=== PATIENT | female | born 1960 | race Caucasian/White ===

== ENCOUNTER 2021-02-02 17:40 | Inpatient (IN) | payer MEDICARE, MEDICAID ==
[~2021-02-02] VITALS: Ht 149.9 cm; Wt 69.9 kg
[2021-02-02 20:00] VITALS: BP 124/60
[2021-02-02] MEDS ORDERED: traZODone 50mg tablet PO PRN ×2 (21:15→23:50)
[2021-02-02] MEDS ORDERED: DIVA500T2 PO (23:08)
[2021-02-02] MEDS ORDERED: CLON-528 PO (23:10)
[2021-02-02] MEDS ORDERED: TRAZ300T2 PO (23:11)
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
[2021-02-02] MEDS ORDERED: acetaminophen 325mg tablet PO PRN (23:50)
[2021-02-02] MEDS ORDERED: magnesium hydroxide 30ml (MOM) UD suspension PO PRN (23:50)
[2021-02-02] MEDS ORDERED: mag hydrox/Alum hydrox/simeth 30ml oral suspension PO PRN (23:50)
[2021-02-02] MEDS ORDERED: loperamide 2mg capsule PO PRN (23:50)
[2021-02-02] MEDS ORDERED: NICOTINE POLACRILEX 2 MG LOZENGE BC PRN (23:50)
[2021-02-03] MEDS ORDERED: traZODone 50mg tablet PO ONE (01:15)
[2021-02-03] MEDS: LORazepam 1 MG tablet PO PRN ×3 (01:19→20:05)
[2021-02-03] MEDS ORDERED: ziprasidone 20mg capsule PO ONE (01:25)
--- NOTE | 2021-02-03 01:43 | NUR ---
At 0130 pt woke and became very agitated and loud, re-direction did not work, 1mg ativan, 20mg geodon given per provider.
[2021-02-03 08:00] VITALS: BP 124/51
[2021-02-03] MEDS: nicotine 21mg patch - 24 hr TD SCH (08:00)
[2021-02-03] MEDS ORDERED: ziprasidone 20mg capsule PO SCH (08:00)
[2021-02-03] MEDS ORDERED: clonazePAM 0.5mg tablet PO SCH (08:00)
[2021-02-03] MEDS: divalproex sodium 500mg tablet.DR PO SCH ×2 (08:31→20:05)
[2021-02-03 08:39] LABS: CHOL/HDL RATIO 2.9 (0.00-4.99); CHOLESTEROL 204 MG/DL (0-200); HDL CHOLESTEROL 71 MG/DL (35-60); LDL CHOLESTEROL 106 MG/DL (50-100); TRIGLYCERIDES 110 MG/DL (20-135); VALPROATE < 3.0 UG/ML (50-100)
[2021-02-03 08:46] LABS: HEMOGLOBIN A1C 5.9 % (4.5-6.2)
[2021-02-03] MEDS ORDERED: ziprasidone IM 20mg inj **IM only IM ONE (09:05)
[2021-02-03] MEDS ORDERED: LORazepam 2 mg/ml vial IM ONE (09:05)
[2021-02-03] MEDS ORDERED: LORazepam 2 mg/ml vial ONE (09:06)
[2021-02-03] MEDS ORDERED: ziprasidone IM 20mg inj **IM only ONE (09:06)
--- NOTE | 2021-02-03 09:10 | NUR ---
Pt awake and yelling at the top of her lungs non stop. Other pts on the unit becoming agitated. She will not be redirected and approached staff very closely as she is yelling and swinging her arms. Multiple attempts to redirect and listen to pt but she continues yelling at the top of her lungs. Order received for Geodon and Ativan IM per Edward Lopez PA to OBED Webster. Med given per Darin CLAY with this RN at side as well.
--- NOTE | 2021-02-03 09:15 | NUR ---
Agitation: PT started wailing in the community room during breakfast. Pt given her her AM meds plus Ativan. Pt continues screaming. Called Edward HANNON and received orders for Geodon and Ativan IM. Pt accepted shot without incident and continues to scream in her room at the wall. Several door slams also.
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
[2021-02-03 20:00] VITALS: BP 126/72
[2021-02-03] MEDS: traZODone 50mg tablet PO PRN (20:06)
[2021-02-04] MEDS: traZODone 50mg tablet PO PRN ×3 (00:49→22:11)
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
[2021-02-04] MEDS ORDERED: ziprasidone IM 20mg inj **IM only IM ONE ×3 (07:10→14:30)
[2021-02-04] MEDS: PALIPERIDONE 3 MG TAB.ER.24 PO SCH (07:27)
[2021-02-04] MEDS: LORazepam 1 MG tablet PO PRN ×2 (07:27→18:47)
[2021-02-04] MEDS: divalproex sodium 500mg tablet.DR PO SCH ×2 (07:27→18:48)
[2021-02-04 07:30] VITALS: BP 99/48
[2021-02-04] MEDS: nicotine 21mg patch - 24 hr TD SCH (08:00)
[2021-02-04] MEDS ORDERED: LORazepam 2 mg/ml vial IM ONE (14:25)
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
[2021-02-04] MEDS ORDERED: PALIPERIDONE 3 MG TAB.ER.24 PO ONE (18:05)
[2021-02-05] MEDS: LORazepam 1 MG tablet PO PRN ×2 (01:21→22:28)
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
[2021-02-05] MEDS ORDERED: LORazepam 1 MG tablet PO ONE (05:45)
[2021-02-05] MEDS ORDERED: OLANZAPINE 5 MG TABLET PO ONE (05:50)
--- NOTE | 2021-02-05 05:56 | NUR ---
Pt yelling and extremely agitated telephone order obtained for Zyprexa and Ativan now order. Medication given pt in room and quiet at this time.
[2021-02-05] MEDS: PALIPERIDONE 3 MG TAB.ER.24 PO SCH (07:57)
[2021-02-05] MEDS: divalproex sodium 500mg tablet.DR PO SCH ×2 (07:57→20:56)
[2021-02-05 08:36] VITALS: BP 117/52
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
[2021-02-05 20:47] VITALS: BP 114/69
[2021-02-05] MEDS: traZODone 50mg tablet PO PRN (22:28)
[2021-02-05] MEDS ORDERED: OLANZapine **IM** 10 mg inj. IM ONE ×2 (22:55)
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
[2021-02-06] MEDS: PALIPERIDONE 3 MG TAB.ER.24 PO SCH (07:08)
[2021-02-06] MEDS: divalproex sodium 500mg tablet.DR PO SCH ×2 (07:08→18:42)
[2021-02-06] MEDS: LORazepam 1 MG tablet PO PRN ×2 (07:08→18:43)
[2021-02-06 08:34] VITALS: BP 119/61
[2021-02-06] MEDS ORDERED: LORazepam 2 mg/ml vial IM ONE (14:15)
[2021-02-06] MEDS ORDERED: ziprasidone IM 20mg inj **IM only IM ONE (14:15)
--- NOTE | 2021-02-06 15:34 | NUR ---
Initial: Pt admitted on 5149, very confused per EMR. Pt eating well, 100% of meals meeting needs. Current Regular diet tolerated. No N/V/D reported, LBM 02/05. No chewing/swallowing difficulty noted, able to feed self. No nutritional diagnosis at this time. Will continue to monitor.\ Rec: 1. Continue Regular diet as tolerated 2. Bowel care per rx 3. Weekly wts Addendum: 02/06/21 at [address] Amended: Links added.
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
[2021-02-06 20:34] VITALS: BP 130/63
[2021-02-06] MEDS: traZODone 50mg tablet PO PRN (20:44)
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
[2021-02-07] MEDS: LORazepam 1 MG tablet PO PRN ×4 (06:15→19:03)
[2021-02-07] MEDS: divalproex sodium 500mg tablet.DR PO SCH ×2 (07:48→19:03)
[2021-02-07] MEDS: PALIPERIDONE 3 MG TAB.ER.24 PO SCH (07:48)
[2021-02-07 07:50] VITALS: BP 102/49
--- NOTE | 2021-02-07 08:36 | NUR ---
LPS REFERRAL Faxed completed LPS referral to [facility] on Friday. They will send a delivery truck driver heavy to peanut picker the original this morning. [facility] is seeking conservatorship. REJI Rome
--- NOTE | 2021-02-07 10:53 | NUR ---
Nursing Progress Note Legal hold: 5250 Client on involuntary status for GD Report received from MARJAN Benitez with use of SBAR. Why are they here: Pt. transported to [facility] by [employer] for disruptive behavior. Pt. reported, "I was laying in the bed at my daughters house and the police came in a said 'We're here to help you.' They handcuffed me and took me to the Hospital." "I want to get out of here!" Pt. stated, "I don't remember anything else." According the medical record client has had multiple ED visits and several Inpatient Psych admits. Hx of wandering into traffic, trespassing, and disorderly conduct. Client reported she was living with her daughter in [place]. She is currently homeless. Assessment What happened this shift: Pt screaming in her room during morning shift change. Pt given Ativan 1mg at 0615 amd repeated dose given after report DT continual screaming and banging putting herself at risk of harm. Pt compliant with medications at morning pass. She reports regular BM's while in the hospital. Pt stopped screaming and banging after breakfast. Pt later dumped a cup of coffee on the floor in the community room. She was later observed sitting up on her bed against the wall with her eyes closed. S/I, H/I: Pt denies. A/VH: Pt denies. Sleep: Napped in AM ADL: Independent Group attendance: No Were meds taken: Yes Any med S/E: None reported or observed. Mental Status Exam Appearance: Thin frail short middle aged woman wearing personal clothing of black leggings and top Eye contact: WNL Behavior: Labile Speech: Monotone, robotic, loud Mood: Labile Affect: congruent with mood Thought process: Linear Thought Content: Wants to be discharged. Cognition: A&Ox3 (Not to circumstance) Insight: Poor. Judgment: Poor Interventions PRN's used: Ativan 1mg x2 Therapeutic interventions: Provided morning assessment with therapeutic communication and active listening, medication administration/education/monitoring, encouraged pt to participate and attend unit activities, limit setting, provided positive reinforcement, and maintained Q 15 minute safety checks. Justification of Continued Inpatient Treatment: Pt. requires interruption of current crisis, medication adjustments, and a safe and supportive environment.
[2021-02-07] MEDS ORDERED: OLANZAPINE 5 MG TABLET PO ONE (11:55)
[2021-02-07] MEDS: OLANZAPINE 5 MG TABLET PO SCH ×2 (13:24→21:07)
[2021-02-07 20:11] VITALS: BP 115/77
[2021-02-07] MEDS: traZODone 50mg tablet PO PRN ×2 (21:07→22:32)
[2021-02-08] MEDS: LORazepam 1 MG tablet PO PRN ×3 (02:57→14:49)
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
[2021-02-08] MEDS: divalproex sodium 500mg tablet.DR PO SCH ×2 (07:23→20:43)
[2021-02-08] MEDS: OLANZAPINE 5 MG TABLET PO SCH ×3 (07:23→20:43)
[2021-02-08 07:30] VITALS: BP 122/50
--- NOTE | 2021-02-08 08:46 | NUR ---
PUBLIC GUARDIAN Faxed requested notes to [facility] Public Guardian for conservatorship evaluation. [place]: Theresa Phone # [phone] Fax # [phone] REJI Rome
[2021-02-08] MEDS ORDERED: LORazepam 1 MG tablet PO ONE ×2 (09:35→16:15)
[2021-02-08] MEDS ORDERED: ziprasidone 20mg capsule PO ONE (09:35)
--- NOTE | 2021-02-08 13:25 | NUR ---
PROBABLE CAUSE HEARING Patients Name: Alondra Tang Admission Date: 02/02/21 Date of 5150: 01/31/21 Written by: [facility] Criteria: GD Summary of Facts: Client is unable to access food, mcc, and money. Ct puts herself in dangerous situations and doesnt comprehend. Date of 525: 02/05/21 Written by: Rayna Criteria: DTS, DTO, GD Summary of Facts: Pt has been evicted from her housing. She does not have a viable backup plan. Pt is denying all MH sx and denying all hx of an hx. Would leave AMA if signed vol Diagnosis: Schizoaffective d/o Behavior during past 48 HRS: Screams and yells on the unit for no apparent reason. She is often agitated and will refuse nursing assessments. Yesterday she was screaming and banging or slapping her face and head. She later dumped a cup of coffee on the floor in the community room. [employer] is trying to conserve her as she has not stayed in treatment FOOD: 100 SLEEPIN.25 ADLS: Ind DETENTION: Homeless MEDICATION DOSAGE FREQUENCY DURATION Zyprexa 5 mg po tid Depakote 500 mg po bid Ativan 1 mg PRN last took today she is taking 3-4 most days Trazodone 100 mg prn sleep, last took last night Today she also had a dose of Geodon 20 mg po and Ativan 1 mg po
[2021-02-08] MEDS ORDERED: OLANZapine 5mg rapidly disint. tablet PO ONE (15:10)
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
[2021-02-08 20:00] VITALS: BP 130/79
[2021-02-08] MEDS: traZODone 50mg tablet PO PRN (20:43)
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
[2021-02-09] MEDS: LORazepam 1 MG tablet PO PRN ×2 (05:13→16:08)
[2021-02-09] MEDS: divalproex sodium 500mg tablet.DR PO SCH ×2 (07:25→20:18)
[2021-02-09] MEDS: OLANZAPINE 5 MG TABLET PO SCH ×3 (07:25→20:18)
[2021-02-09 07:53] VITALS: BP 104/68
[2021-02-09] MEDS ORDERED: diphenhydrAMINE 25mg capsule PO ONE (10:15)
[2021-02-09] MEDS ORDERED: LORazepam 1 MG tablet PO ONE (10:15)
[2021-02-09] MEDS ORDERED: ziprasidone 20mg capsule PO ONE (10:15)
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
[2021-02-09 19:26] VITALS: BP 119/65
[2021-02-09] MEDS: traZODone 50mg tablet PO PRN (20:18)
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
[2021-02-10] MEDS: acetaminophen 325mg tablet PO PRN (04:02)
--- NOTE | 2021-02-10 04:59 | NUR ---
Pt. awake and yelling in room. Pt. given PRN Ativan 2mg po
[2021-02-10 07:00] VITALS: BP 105/60
[2021-02-10] MEDS: divalproex sodium 500mg tablet.DR PO SCH ×2 (07:20→21:43)
[2021-02-10] MEDS: OLANZAPINE 5 MG TABLET PO SCH ×3 (07:21→21:43)
[2021-02-10] MEDS: LORazepam 1 MG tablet PO PRN ×2 (07:21→13:42)
--- NOTE | 2021-02-10 07:28 | NUR ---
Pt yelling in the middle of the hallway pointing her finger and shaking her head. Unable to redirect her. Ativan 2mg PO administered.
[2021-02-10] MEDS ORDERED: QUEtiapine 25mg tablet PO ONE (13:50)
--- NOTE | 2021-02-10 15:27 | NUR ---
Nursing Progress Note Legal hold: 5250 Client on involuntary status for GD Report received from MARJAN Perez with use of SBAR. Why are they here: Pt. [facility] by [employer] for disruptive behavior. Pt. reported, "I was laying in the bed at my daughters house and the police came in a said 'We're here to help you.' They handcuffed me and took me to the Hospital." "I want to get out of here!" Pt. stated, "I don't remember anything else." According the medical record client has had multiple ED visits and several Inpatient Psych admits. Hx of wandering into traffic, trespassing, and disorderly conduct. Assessment What happened this shift: Pt up for breakfast and morning medication pass. Pt is compliant with med pass. Shortly after lunch pt became delusional screaming loudly "I hate you God," over and over. This screaming went on for two hours. Pt given her prescribed medications plus Seroquel 50mg then fell asleep. By 3pm pt had Zyprexa 10mg, Ativan 4mg and Seroquel 50mg PO. S/I, H/I: Pt denies. A/VH: Pt denies. Sleep: Slept in the late afternoon ADL: Independent Group attendance: No Were Meds taken: Yes Any med S/E: None reported or observed. Mental Status Exam Appearance: Thin frail short middle aged woman wearing a dress and white socks. Eye contact: WNL Behavior: Labile Speech: Monotone, robotic, loud Mood: Labile Affect: congruent with mood Thought process: Linear Thought Content: Upset with God and her Cognition: A&Ox3 (Not to circumstance) Insight: Poor. Judgment: Poor Interventions PRN's used: Seroquel 50mg Therapeutic interventions: Provided morning assessment with therapeutic communication and active listening, medication administration/education/monitoring, encouraged pt to participate and attend unit activities, limit setting, provided positive reinforcement, and maintained Q 15 minute safety checks. Justification of Continued Inpatient Treatment: Pt. requires interruption of current crisis, medication adjustments, and a safe and supportive environment.
[2021-02-10 19:00] VITALS: BP 96/57
--- NOTE | 2021-02-11 04:29 | NUR ---
Nursing Progress Note: Legal hold: 5250 Client on involuntary status for GD Report received from MARJAN Acuna with use of SBAR. Why are they here: Client was transported to [facility] by [employer] for disruptive behavior. Client reported, "I was laying in the bed at my daughters house and the police came in a said 'We're here to help you.' They handcuffed me and took me to the Hospital." "I want to get out of here!" Client stated, "I don't remember anything else." According the medical record client has had multiple ED visits and several Inpatient Psych admits. Hx of wandering into traffic, trespassing, and disorderly conduct. Client reported she was living with her daughter in [place]. She is currently homeless. Assessment What happened this shift: Received patient sleeping in her bed. She was up for snack time and coffee. She was in a pretty good mood, says please and thank you when she makes requests. Patient isolated in her room most of the night after HS med administration. She has had no outburst out of her room tonight. Patient comes out to request hot cocoa a couple times. She occasionally sobs in her, but not too loud. Patient says she wants to leave here. S/I, H/I: Denies A/VH: Denies but is seen responding to IS. Sleep: See sleep hours. ADL: Independent with prompting. Group attendance: NA Were meds taken: Yes Any med S/E: None reported or observed. Mental Status Exam Appearance: Clean and neat, wearing colorful dress. Eye contact: Good. Behavior: Cooperative, isolative, loud, angry, sad. Speech: Raspy, loud voice, yelling at times. Mood: Labile Affect: Congruent to mood Thought process: Perseverates on feelings of being hospitalized unjustly. Paranoid delusions. Thought Content: Wants to be discharged. Cognition: A&Ox3 (Not to circumstance) Insight: Poor Judgment: Poor Interventions PRN's used: None Therapeutic interventions: 1:1 assessment, therapeutic communication, active listening, encouraged pt to express his thoughts and feelings, ensured contract for safety, gave clear and simple directions, encouragement of personal hygiene, encouragement to participate in unit activities and attend groups, behavior monitoring and intervention as needed; distraction, redirection, reality orientation, limit setting, provided positive reinforcement, and maintained Q 15 minute safety checks. Restraints/seclusion/emergency medication: N/A Justification of Continued Inpatient Treatment: Patient requires interruption of current crisis in safe and therapeutic milieu.
[2021-02-11] MEDS: LORazepam 1 MG tablet PO PRN ×2 (06:59→15:59)
--- NOTE | 2021-02-11 07:05 | NUR ---
Pt in her room screaming, "I hate God." Administered Ativan 2mg PO.
[2021-02-11] MEDS: divalproex sodium 500mg tablet.DR PO SCH ×2 (07:45→20:25)
[2021-02-11] MEDS: OLANZAPINE 5 MG TABLET PO SCH ×2 (07:45→12:54)
[2021-02-11 08:00] VITALS: BP 117/60
[2021-02-11] MEDS ORDERED: QUEtiapine 25mg tablet PO ONE (10:55)
--- NOTE | 2021-02-11 13:46 | NUR ---
Nursing Progress Note Legal hold: 5250 Client on involuntary status for GD Report received from Vicky Guidry RN with use of SBAR. Why are they here: Pt. transported to [facility] by [employer] for disruptive behavior. Pt. reported, "I was laying in the bed at my daughters house and the police came in a said 'We're here to help you.' They handcuffed me and took me to the Hospital." "I want to get out of here!" Pt. stated, "I don't remember anything else." According the medical record client has had multiple ED visits and several Inpatient Psych admits. Hx of wandering into traffic, trespassing, and disorderly conduct. Assessment What happened this shift: Pt up in her room awake at the start of the shift. By 0700 pt in her room screaming then moved into the halls screaming. Pt gven Ativan 2mg for agitation. Pt in the main room for breakfast then goes back to her room and screams. Morning meds passed. Pt takes medications as prescribed. Again, this advertising copywriter got an order for Seroquel 50mg PRN agitation. Pt spent much of the day going back and forth from the hallway to her room yelling and at times screaming as loud as she could. Pt mostly yells out, "I hate God." Sometimes she will spell out "L--O--R--D." S/I, H/I: Pt denies. A/VH: Pt denies. Sleep: Sleeps a few minutes on and off throughout the shift. ADL: Independent Group attendance: No Were Meds taken: Yes Any med S/E: None reported or observed. Mental Status Exam Appearance: Thin frail short middle aged woman wearing ibrahim sweats and a striped t-shirt w/socks Eye contact: WNL Behavior: Labile Speech: Monotone, robotic, loud Mood: Labile Affect: congruent with mood Thought process: Linear Thought Content: Upset with God and her Cognition: A&Ox3 (Not to circumstance) Insight: Poor. Judgment: Poor Interventions PRN's used: Seroquel 50mg, Ativan 2mg Therapeutic interventions: Provided morning assessment with therapeutic communication and active listening, medication administration/education/monitoring, encouraged pt to participate and attend unit activities, limit setting, provided positive reinforcement, and maintained Q 15 minute safety checks. Justification of Continued Inpatient Treatment: Pt. requires interruption of current crisis, medication adjustments, and a safe and supportive environment.
[2021-02-11] MEDS: quetiapine 100mg tablet PO SCH ×2 (17:50→20:25)
[2021-02-11 20:03] VITALS: BP 116/87
[2021-02-11] MEDS: traZODone 50mg tablet PO PRN (20:25)
--- NOTE | 2021-02-12 03:25 | NUR ---
Nursing Progress Note: Legal hold: 5250 Client on involuntary status for GD Report received from MARJAN Perez with use of SBAR. Why are they here: Client was transported to [facility] by [employer] for disruptive behavior. Client reported, "I was laying in the bed at my daughters house and the police came in a said 'We're here to help you.' They handcuffed me and took me to the Hospital." "I want to get out of here!" Client stated, "I don't remember anything else." According the medical record client has had multiple ED visits and several Inpatient Psych admits. Hx of wandering into traffic, trespassing, and disorderly conduct. Client reported she was living with her daughter in [place]. She is currently homeless. Assessment What happened this shift: Received patient in her room. She came out and reported that she's in a good mood. Patient then asks for coffee or cocoa. When she receives what she has asked for, she returns to her room, closes the door, and starts screaming, "I HATE GOD, I'M GONNA [employer], G-O-D, I HATE YOU." It only lasted for a short time, before she fell asleep. Patient was asleep through snack time, and woken by myself to take HS meds. She complied, asked for hot water for cocoa, then went to sleep. She has remained asleep all night. S/I, H/I: Denies A/VH: Denies but is seen responding to IS. Sleep: See sleep hours. ADL: Independent with prompting. Group attendance: NA Were meds taken: Yes Any med S/E: None reported or observed. Mental Status Exam Appearance: Clean and neat, wearing same colorful dress as yesterday. Eye contact: Good. Behavior: Cooperative, isolative, loud, angry, sad. Speech: Raspy, loud voice, yelling at times. Mood: Labile Affect: Congruent to mood Thought process: Perseverates on feelings of being hospitalized unjustly. Paranoid delusions. Thought Content: Wants to be discharged. Cognition: A&Ox3 (Not to circumstance) Insight: Poor Judgment: Poor Interventions PRN's used: Trazodone 100mg Therapeutic interventions: 1:1 assessment, therapeutic communication, active listening, encouraged pt to express his thoughts and feelings, ensured contract for safety, gave clear and simple directions, encouragement of personal hygiene, encouragement to participate in unit activities and attend groups, behavior monitoring and intervention as needed; distraction, redirection, reality orientation, limit setting, provided positive reinforcement, and maintained Q 15 minute safety checks. Restraints/seclusion/emergency medication: N/A Justification of Continued Inpatient Treatment: Patient requires interruption of current crisis in safe and therapeutic milieu.
[2021-02-12] MEDS: LORazepam 1 MG tablet PO PRN ×2 (05:37→20:28)
[2021-02-12 08:00] VITALS: BP 121/66
[2021-02-12] MEDS: quetiapine 100mg tablet PO SCH ×4 (08:57→20:28)
[2021-02-12] MEDS: divalproex sodium 500mg tablet.DR PO SCH ×2 (08:58→20:28)
--- NOTE | 2021-02-12 18:24 | NUR ---
What has happened this shift: Patient was awake and yelling for coffee first thing this am; boundaries set regarding snack times . Up for breakfast, coffee served. Patient denies SI/HI and denies A/V hallucinations. Patient's hair is clean. Patient awake most of shift, without c/o pain and or discomfort. Patient is pleasant and in no distress. Edward chadwick see patient today, patient somewhat subdued after meeting. During end of shift patient has become more agitated, and yelling. S/I, H/I: Denies. A/VH: Denies. Sleep: Slept most of the day. ADL's: Independent. Group attendance: No group Were meds taken: Yes Any med S/E: None noted Mental Status Exam Appearance: Hair messy but clean. Pt wearing green scrubs Eye contact: Fair Behavior: Withdrawn, isolative, guarded Speech: Soft Mood: Depressed. Affect: Flat Thought process: Circumstantial Thought Content: Meeting needs, Depressed. Cognition: Alert. Insight: Fair. Judgment: Poor. Interventions PRN's used: None. Therapeutic interventions: 1:1 assessment, therapeutic communication, active listening, ensured contract for safety, medication administration/education/monitoring, encouragement to come out of room and participate in unit activities Q 15 minute safety checks. Restraints/seclusion/emergency medication: N/A Justification of Continued Inpatient Treatment: Patient requires interruption of current crisis in safe and therapeutic milieu. Patient would benefit from a substance abuse program when stable.
[2021-02-12 20:00] VITALS: BP 118/82
[2021-02-12] MEDS: traZODone 50mg tablet PO PRN (20:28)
[2021-02-13] MEDS: acetaminophen 325mg tablet PO PRN (01:46)
--- NOTE | 2021-02-13 03:25 | NUR ---
Nursing Progress Note: Legal hold: 5250 Client on involuntary status for GD Report received from MARJAN Perez with use of SBAR. Why are they here: Client was transported to [facility] by [employer] for disruptive behavior. Client reported, "I was laying in the bed at my daughters house and the police came in a said 'We're here to help you.' They handcuffed me and took me to the Hospital." "I want to get out of here!" Client stated, "I don't remember anything else." According the medical record client has had multiple ED visits and several Inpatient Psych admits. Hx of wandering into traffic, trespassing, and disorderly conduct. Client reported she was living with her daughter in [place]. She is currently homeless. Assessment What happened this shift: Received the patient in her room. She screamed for a couple hours, hating God, not us. tried to talk to her at the time, but she just covers her ears and runs away. Spoke to her at med pass, and reminded her there are other people here that need some peace. She agreed, and said she would stop. Later, she comes out and talks. Very politely, she says that she has been good, "I've only yelled a few times, not at you, but at God. I've done everything expected of me, and I take my medications. I want you to please let the doctor know that I'm ready to go home and be with my cat Misfit." as of this time she has been awake most of the night, except for short periods where she lays down. She has not yelled anymore. The patient states that if discharged she will return to [place] and has a home. S/I, H/I: Denies A/VH: Denies but is seen responding to IS. Sleep: See sleep hours. ADL: Independent with prompting. Group attendance: NA Were meds taken: Yes Any med S/E: None reported or observed. Mental Status Exam Appearance: Clean and neat, wearing same colorful dress as yesterday. Eye contact: Good. Behavior: Cooperative, isolative, loud, angry, sad. Speech: Raspy, loud voice, yelling at times. Mood: Labile Affect: Congruent to mood Thought process: Perseverates on feelings of being hospitalized unjustly. Paranoid delusions. Thought Content: Wants to be discharged. Cognition: A&Ox3 (Not to circumstance) Insight: Poor Judgment: Poor Interventions PRN's used: Trazodone 100mg, Ativan 2mg Therapeutic interventions: 1:1 assessment, therapeutic communication, active listening, encouraged pt to express his thoughts and feelings, ensured contract for safety, gave clear and simple directions, encouragement of personal hygiene, encouragement to participate in unit activities and attend groups, behavior monitoring and intervention as needed; distraction, redirection, reality orientation, limit setting, provided positive reinforcement, and maintained Q 15 minute safety checks. Restraints/seclusion/emergency medication: N/A Justification of Continued Inpatient Treatment: Patient requires interruption of current crisis in safe and therapeutic milieu.
[2021-02-13 08:00] VITALS: BP 99/56
[2021-02-13] MEDS: quetiapine 100mg tablet PO SCH ×4 (08:05→20:37)
[2021-02-13] MEDS: divalproex sodium 500mg tablet.DR PO SCH (08:05)
[2021-02-13] MEDS: LORazepam 1 MG tablet PO PRN ×2 (09:35→19:11)
--- NOTE | 2021-02-13 09:50 | NUR ---
Reassessment: Pt continues with mostly 100% PO intake on regular diet meeting estimated nutrient needs. [facility] 02/12. No nutrition intervention implemented at this time. Will continue to follow. Rec: 1. Continue regular diet 2. Bowel care per rx 3. Weekly scaled wts Addendum: 02/13/21 at [address] Amended: Links added.
[2021-02-13] MEDS ORDERED: ziprasidone IM 20mg inj **IM only ONE (11:01)
--- NOTE | 2021-02-13 13:41 | NUR ---
Nursing Progress Note Legal hold: 5250 Client on involuntary status for GD Report received from MARJAN Mahoney with use of SBAR. Why are they here: Pt. transported to [facility] by [employer] for disruptive behavior. Pt. reported, "I was laying in the bed at my daughters house and the police came in a said 'We're here to help you.' They handcuffed me and took me to the Hospital." "I want to get out of here!" Pt. stated, "I don't remember anything else." According the medical record client has had multiple ED visits and several Inpatient Psych admits. Hx of wandering into traffic, trespassing, and disorderly conduct. Assessment What happened this shift: Patient was roaming the halls at change of shift. Patient screaming off and on all morning. Patient screaming "I hate God!" and "I didn't do anything wrong!". And repeating this over and over. Patient perseverating on when she was picked up by police. shipping assistant Darin was with patient and told her she was arrested for disturbing the peace. Patient is labile and screams off and on. At snack time patient was screaming and RN asked patient to go to her room and gave her an injection of 20 mg Geodon. Patient ate her snack and laid down and slept for a little while. Patient has not yelled in almost 3 hours. S/I, H/I: Pt denies. A/VH: Pt denies. Sleep: Took a nap after snack. ADL: Independent Group attendance: No Were Meds taken: Yes Any med S/E: None reported or observed. Mental Status Exam Appearance: Thin frail short middle aged woman wearing a flowered dress and a sweater. Eye contact: WNL Behavior: Labile Speech: between Very loud and loud. Mood: Labile Affect: Angry and normal Thought process: delusional, circumstantial Thought Content: Upset with God Cognition: A&Ox3 (Not to circumstance) Insight: Poor. Judgment: Poor Interventions PRN's used: I.M. Geodon 20 mg, Ativan 2mg Therapeutic interventions: Provided morning assessment with therapeutic communication and active listening, medication administration/education/monitoring, encouraged pt to participate and attend unit activities, limit setting, provided positive reinforcement, and maintained Q 15 minute safety checks. Justification of Continued Inpatient Treatment: Pt. requires interruption of current crisis, medication adjustments, and a safe and supportive environment.
[2021-02-13] MEDS: divalproex 250mg tablet, delayed-release PO SCH (19:11)
[2021-02-13 20:00] VITALS: BP 98/57
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
[2021-02-14] MEDS: LORazepam 1 MG tablet PO PRN ×2 (05:11→12:47)
[2021-02-14 08:00] VITALS: BP 108/92
[2021-02-14] MEDS: quetiapine 100mg tablet PO SCH ×5 (08:23→23:48)
[2021-02-14] MEDS: divalproex 250mg tablet, delayed-release PO SCH ×2 (08:23→20:19)
--- NOTE | 2021-02-14 11:50 | NUR ---
Left message with Dulce Romero (ph# [phone]), [facility], to inquire about T-con. Requested a call back. Left message with [facility] Public Guardian (ph# [phone]), requesting information and a call back. REJI Rome
--- NOTE | 2021-02-14 12:03 | NUR ---
T-CON FILED TODAY Received a call back from Theresa Botello [facility] Public [facility] (ph# [phone]), who reported T-con was filed today and they should have it signed and back in a couple days from the court. REJI Rome
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
[2021-02-15] MEDS: LORazepam 1 MG tablet PO PRN ×2 (04:15→18:37)
[2021-02-15] MEDS: quetiapine 100mg tablet PO SCH ×3 (07:24→17:55)
[2021-02-15] MEDS: divalproex 250mg tablet, delayed-release PO SCH ×2 (07:24→18:56)
[2021-02-15 07:31] VITALS: BP 119/59
[2021-02-15] MEDS ORDERED: ziprasidone 20mg capsule PO ONE (09:20)
[2021-02-15] MEDS ORDERED: LORazepam 1 MG tablet PO ONE (09:20)
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
[2021-02-15] MEDS: traZODone 50mg tablet PO PRN ×2 (18:56→21:44)
[2021-02-16] MEDS: LORazepam 1 MG tablet PO PRN ×3 (00:43→20:45)
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
[2021-02-16] MEDS ORDERED: ziprasidone IM 20mg inj **IM only IM ONE (04:40)
[2021-02-16] MEDS ORDERED: LORazepam 2 mg/ml vial IM ONE (04:40)
--- NOTE | 2021-02-16 04:56 | NUR ---
Pt extremely agitated, screaming and yelling in her room, "I want to go home, I've been in here for 14 days!" Pt then began to hit herself. Provider ordered 2MG ativan, 20MG of geodon.
[2021-02-16 07:30] VITALS: BP 95/65
[2021-02-16] MEDS: divalproex 250mg tablet, delayed-release PO SCH ×2 (08:08→20:45)
[2021-02-16] MEDS: quetiapine 100mg tablet PO SCH ×4 (08:08→20:45)
[2021-02-16] MEDS ORDERED: ziprasidone 20mg capsule PO ONE (11:10)
[2021-02-16] MEDS ORDERED: LORazepam 1 MG tablet PO ONE (12:10)
[2021-02-16] MEDS ORDERED: quetiapine 100mg tablet PO ONE (12:10)
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
[2021-02-16 19:00] VITALS: BP 95/65
[2021-02-16] MEDS: traZODone 50mg tablet PO PRN (20:45)
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
[2021-02-17] MEDS: quetiapine 100mg tablet PO SCH ×4 (07:27→20:01)
[2021-02-17] MEDS: divalproex 250mg tablet, delayed-release PO SCH ×2 (07:27→20:02)
[2021-02-17 07:34] VITALS: BP 118/63
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
[2021-02-17 19:11] VITALS: BP 118/72
[2021-02-17] MEDS: traZODone 50mg tablet PO PRN (20:02)
[2021-02-17] MEDS: LORazepam 1 MG tablet PO PRN (20:02)
[2021-02-18] MEDS: LORazepam 1 MG tablet PO PRN (03:58)
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
[2021-02-18 07:44] VITALS: BP 104/74
[2021-02-18] MEDS: divalproex 250mg tablet, delayed-release PO SCH ×2 (08:05→19:56)
[2021-02-18] MEDS: quetiapine 100mg tablet PO SCH ×5 (08:05→21:39)
[2021-02-18] MEDS: acetaminophen 325mg tablet PO PRN (08:06)
[2021-02-18] MEDS ORDERED: LORazepam 2 mg/ml vial ONE (13:22)
[2021-02-18] MEDS ORDERED: ziprasidone IM 20mg inj **IM only ONE (13:23)
[2021-02-18] MEDS: LORazepam 1 MG tablet PO SCH ×2 (13:54→19:56)
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
[2021-02-18 19:35] VITALS: BP 94/59
[2021-02-18] MEDS: traZODone 50mg tablet PO PRN ×2 (19:56→21:39)
[2021-02-18] MEDS ORDERED: ziprasidone IM 20mg inj **IM only IM ONE (22:25)
[2021-02-18] MEDS ORDERED: LORazepam 2 mg/ml vial IM ONE (22:25)
[2021-02-19] MEDS: LORazepam 1 MG tablet PO SCH ×4 (02:00→20:12)
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
[2021-02-19 08:00] VITALS: BP 100/62
[2021-02-19] MEDS: divalproex 250mg tablet, delayed-release PO SCH ×2 (08:16→20:12)
[2021-02-19] MEDS: quetiapine 100mg tablet PO SCH ×4 (08:16→20:11)
[2021-02-19] MEDS ORDERED: ziprasidone IM 20mg inj **IM only IM ONE (11:45)
[2021-02-19] MEDS ORDERED: LORazepam 2 mg/ml vial IM ONE (11:45)
[2021-02-19] MEDS ORDERED: LORazepam 2 mg/ml vial ONE (12:00)
--- NOTE | 2021-02-19 15:04 | NUR ---
One time order of Geodon 20mg IM and Ativan 2mg IM given per order by RIDDHI Fletcher at 1212 on this shift. PRN medication noted to be effective with no ASE. RTN PO Ativan 2mg held at 1400 due to pt sleeping with no s/s of distress. Will continue to monitor.
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
[2021-02-19 19:25] VITALS: BP 96/57
[2021-02-19] MEDS: traZODone 50mg tablet PO PRN (20:11)
[2021-02-20] MEDS: traZODone 50mg tablet PO PRN ×2 (00:51→20:12)
[2021-02-20] MEDS: quetiapine 100mg tablet PO SCH ×5 (00:51→20:13)
[2021-02-20] MEDS: LORazepam 1 MG tablet PO SCH ×4 (00:51→20:12)
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
[2021-02-20] MEDS: divalproex 250mg tablet, delayed-release PO SCH (07:55)
[2021-02-20 08:00] VITALS: BP 100/65
[2021-02-20] MEDS ORDERED: LORazepam 2 mg/ml vial IM ONE (16:50)
[2021-02-20] MEDS ORDERED: ziprasidone IM 20mg inj **IM only IM ONE (16:50)
--- NOTE | 2021-02-20 17:52 | NUR ---
One time order of Geodon 20mg IM and Ativan 2mg IM given per order by RIDDHI Fletcher at 1717 on this shift. PRN medication noted to be effective with no ASE. Will continue to monitor.
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
[2021-02-20 19:34] VITALS: BP 94/58
[2021-02-20] MEDS: divalproex sodium 500mg tablet.DR PO SCH (20:11)
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
[2021-02-21] MEDS: LORazepam 1 MG tablet PO SCH ×4 (02:27→19:02)
--- NOTE | 2021-02-21 04:23 | NUR ---
Patient woke screaming and crying. She was observed yelling into the mirror and came out into the smith, "Jordi won!" She went back into her room and shut her door; she was heard sobbing, "get me out of here." Patient is now laying down quietly.
[2021-02-21 07:14] VITALS: BP 107/72
[2021-02-21] MEDS: divalproex sodium 500mg tablet.DR PO SCH ×2 (07:50→19:02)
[2021-02-21] MEDS: quetiapine 100mg tablet PO SCH ×4 (07:51→20:20)
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
[2021-02-21] MEDS ORDERED: LORazepam 2 mg/ml vial IM ONE (11:15)
[2021-02-21] MEDS ORDERED: ziprasidone IM 20mg inj **IM only IM ONE (11:15)
[2021-02-21] MEDS: traZODone 50mg tablet PO PRN ×2 (20:20→21:48)
[2021-02-21 20:26] VITALS: BP 103/57
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
[2021-02-22] MEDS: LORazepam 1 MG tablet PO SCH ×4 (01:10→20:56)
[2021-02-22 07:27] VITALS: BP 114/61
[2021-02-22] MEDS: quetiapine 100mg tablet PO SCH ×4 (07:56→20:57)
[2021-02-22] MEDS: divalproex sodium 500mg tablet.DR PO SCH ×2 (07:56→20:57)
--- NOTE | 2021-02-22 09:54 | NUR ---
Reassessment: Pt continues eating well with mostly 100% PO intake on regular diet while receiving double protein TID meeting estimated nutrient needs. [facility] 02/20. No nutrition intervention implemented at this time. Will continue to follow. Rec: 1. Continue regular diet; double eggs WB double meat BIDLD per diet order 2. Bowel care per rx 3. Weekly scaled wts Addendum: 02/22/21 at [address] Amended: Links added.
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
[2021-02-22 19:00] VITALS: BP 108/55
[2021-02-22] MEDS: traZODone 50mg tablet PO PRN (20:56)
[2021-02-23] MEDS: LORazepam 1 MG tablet PO SCH ×4 (02:00→21:25)
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
[2021-02-23] MEDS: quetiapine 100mg tablet PO SCH ×4 (07:10→21:26)
[2021-02-23] MEDS: divalproex sodium 500mg tablet.DR PO SCH ×2 (07:10→21:29)
[2021-02-23 08:00] VITALS: BP 114/66
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
[2021-02-23 19:34] VITALS: BP 104/64
[2021-02-23] MEDS: traZODone 50mg tablet PO PRN (21:25)
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
[2021-02-24] MEDS: LORazepam 1 MG tablet PO SCH ×4 (02:00→20:02)
[2021-02-24 07:28] VITALS: BP 103/55
[2021-02-24] MEDS: quetiapine 100mg tablet PO SCH ×4 (08:54→20:02)
[2021-02-24] MEDS: divalproex sodium 500mg tablet.DR PO SCH ×2 (08:54→20:02)
--- NOTE | 2021-02-24 13:38 | NUR ---
Nursing Progress Note Legal hold: TCON status for GD Report received from MARJAN Diaz with use of SBAR Why are they here: Client was transported to [facility] by [employer] for disruptive behavior. Client reported, "I was laying in the bed at my daughters house and the police came in a said 'We're here to help you.' They handcuffed me and took me to the Hospital." "I want to get out of here!" Client stated, "I don't remember anything else." According the medical record client has had multiple ED visits and several Inpatient Psych admits. Hx of wandering into traffic, trespassing, and disorderly conduct. Client reported she was living with her daughter in [place]. She is currently homeless. Assessment What happened this shift: Pt had a decrease of yelling out episodes this shift compared to report from the last day shift. She took her medications as prescribed. She eats in the meal room and socializes with others at the table during meals. She continues to worry about her finances and her cat, "Misfit." S/I, H/I: Denies A/VH: Denies Sleep: She napped a few times today ADL: Independent with prompting Group attendance: N/A Were Meds taken: Yes Any med S/E: None observed or reported Mental Status Exam Appearance: elderly small woman with brown short messy hair wearing personal clothing Eye contact: Fair Behavior: Calm, apologetic for yelling out Speech: Speaks very loud Mood: Labile Affect: Flat Thought process: Disorganized, angry Thought Content: Concerned for cat and finances Cognition: A&O x3 (Not to circumstance) Insight: Poor Judgment: Poor Interventions PRN's used: None Therapeutic interventions: Provided 1:1 assessment with therapeutic communication and active listening, limit setting; encouragement of personal hygiene, medication administration/education/monitoring; provided positive reinforcement, and maintained Q 15 minute safety checks. Restraints/seclusion/emergency medication: N/A Justification of Continued Inpatient Treatment: Patient requires interruption of current crisis, medication management and monitoring, and a safe and therapeutic environment. Per RIDDHI Fletcher, We will continue the Depakote Friday or Friday, I will obtain another Depakote level.
[2021-02-24 19:24] VITALS: BP 100/60
[2021-02-24] MEDS: traZODone 50mg tablet PO PRN (20:02)
--- NOTE | 2021-02-25 01:16 | NUR ---
Nursing Progress Note: Legal hold: 5250 Client on involuntary status for GD Report received from MARJAN Webster with use of SBAR Why are they here: Client was transported to [facility] by [employer] for disruptive behavior. Client reported, "I was laying in the bed at my daughters house and the police came in a said 'We're here to help you.' They handcuffed me and took me to the Hospital." "I want to get out of here!" Client stated, "I don't remember anything else." According the medical record client has had multiple ED visits and several Inpatient Psych admits. Hx of wandering into traffic, trespassing, and disorderly conduct. Client reported she was living with her daughter in [place]. She is currently homeless. Assessment What happened this shift: Received patient in her room. She was quiet at the time, but soon after the yelling started. She started with her usual, "I hate God," but then started yelling about her . The patient has no comprehension of the conservator process, and wants us to know she does not want her to be in control of her finances. She doesn't seem to realize that, even she will probably not control her finances, but Public Guardian probably will. As long as Misfit, her cat will be with her, she will be OK. Patient continues to deny all MH symptoms. S/I, H/I: Denies. A/VH: Denies. Sleep: See sleep assessment. ADL: Independent. Group attendance: None on nights. Were meds taken: Yes. Any med S/E: None reported or observed. Mental Status Exam Appearance: Clean and neat, wearing her own street clothes. Eye contact: Good. Behavior: Angry, irritable, isolative, guarded, emotional, delusional. Speech: Loud, raspy voice. Mood: Euthymic. Affect: Congruent to mood. Thought process: Fairly linear. Thought Content: Her finances. Cognition: A&Ox3 (Not to circumstance.) Insight: Poor. Judgment: Poor. Interventions PRN's used: Trazodone. Therapeutic interventions: 1:1 assessment, therapeutic communication, active listening, encouraged pt to express his thoughts and feelings, ensured contract for safety, gave clear and simple directions, encouragement of personal hygiene, encouragement to participate in unit activities and attend groups, behavior monitoring and intervention as needed; distraction, redirection, reality orientation, limit setting, provided positive reinforcement, and maintained Q 15 minute safety checks. Restraints/seclusion/emergency medication: N/A Justification of Continued Inpatient Treatment: Patient requires interruption of current crisis in safe and therapeutic milieu.
[2021-02-25] MEDS: LORazepam 1 MG tablet PO SCH ×4 (02:00→20:08)
[2021-02-25 08:00] VITALS: BP 116/62
[2021-02-25] MEDS: quetiapine 100mg tablet PO SCH ×4 (08:43→20:08)
[2021-02-25] MEDS: divalproex sodium 500mg tablet.DR PO SCH ×2 (08:44→20:08)
--- NOTE | 2021-02-25 13:49 | NUR ---
Nursing Progress Note Legal hold: TCON status for GD Report received from MARJAN Diaz with use of SBAR Why are they here: Client was transported to [facility] by [employer] for disruptive behavior. Client reported, "I was laying in the bed at my daughters house and the police came in a said 'We're here to help you.' They handcuffed me and took me to the Hospital." "I want to get out of here!" Client stated, "I don't remember anything else." According the medical record client has had multiple ED visits and several Inpatient Psych admits. Hx of wandering into traffic, trespassing, and disorderly conduct. Client reported she was living with her daughter in [place]. She is currently homeless. Assessment What happened this shift: Pt talked on the phone to her and asked if he could bring her check in then she could sign it and give it back to him. Pt took a few brief naps. She brought her court papers to this nurse and asked for them to be read to her. She then said, "One person told me I will go to court in [place] then come back here and one told me I will go to court in that room there." "Which one is it?" Pt encouraged to talk to her dialysis social worker on Friday regarding court and her check. Pt has had one episode of yelling in her room spelling out her name and swinging her arm outward with each letter. S/I, H/I: Denies A/VH: Denies Sleep: Laid down once not sure if she slept ADL: Independent with prompting Group attendance: N/A Were Meds taken: Yes Any med S/E: None observed or reported Mental Status Exam Appearance: elderly small woman with her hair pulled back in a ponytail wearing a dress and sweater Eye contact: Fair Behavior: Calm, cooperative with treatment. Speech: Pressured and loud Mood: can be irritable Affect: congruent Thought process: Circumstantial Thought Content: Going over court papers Cognition: A&O x3 (Not to circumstance) Insight: Poor Judgment: Poor Interventions PRN's used: None Therapeutic interventions: Provided 1:1 assessment with therapeutic communication and active listening, prompted and encouraged personal hygiene, medication administration/education/monitoring; provided positive reinforcement, and maintained Q 15 minute safety checks. Restraints/seclusion/emergency medication: N/A Justification of Continued Inpatient Treatment: Patient requires interruption of current crisis, medication management and monitoring, and a safe and therapeutic environment. Per RIDDHI Fletcher, We will continue the Depakote Friday or Friday, I will obtain another Depakote level.
[2021-02-25 19:00] VITALS: BP 105/72
[2021-02-25] MEDS: traZODone 50mg tablet PO PRN (20:08)
--- NOTE | 2021-02-26 00:13 | NUR ---
Nursing Progress Note: Legal hold: 5250 Client on involuntary status for GD Report received from MARJAN Perez with use of SBAR Why are they here: Client was transported to [facility] by [employer] for disruptive behavior. Client reported, "I was laying in the bed at my daughters house and the police came in a said 'We're here to help you.' They handcuffed me and took me to the Hospital." "I want to get out of here!" Client stated, "I don't remember anything else." According the medical record client has had multiple ED visits and several Inpatient Psych admits. Hx of wandering into traffic, trespassing, and disorderly conduct. Client reported she was living with her daughter in [place]. She is currently homeless. Assessment What happened this shift: Received the patient screaming in her room. tried to talk to her, but she just screams louder. Not long after that she comes out of her room like nothing happened. She's acting sweet now; smiling happy, and wants cocoa. If she gets cocoa, she says she will stop screaming. As soon as it's gone, the screaming begins again. She quit before snack time and sat in the group room watching TV until HS med pass. The patient returned to her room, and has been quiet. S/I, H/I: Denies. A/VH: Denies. Sleep: See sleep assessment. ADL: Independent. Group attendance: None on nights. Were meds taken: Yes. Any med S/E: None reported or observed. Mental Status Exam Appearance: Clean and neat, wearing her own street clothes. Eye contact: Good. Behavior: Angry, irritable, isolative, guarded, emotional, delusional. Speech: Loud, raspy voice. Mood: Euthymic. Affect: Congruent to mood. Thought process: Fairly linear. Thought Content: Her finances. Cognition: A&Ox3 (Not to circumstance.) Insight: Poor. Judgment: Poor. Interventions PRN's used: Trazodone. Therapeutic interventions: 1:1 assessment, therapeutic communication, active listening, encouraged pt to express his thoughts and feelings, ensured contract for safety, gave clear and simple directions, encouragement of personal hygiene, encouragement to participate in unit activities and attend groups, behavior monitoring and intervention as needed; distraction, redirection, reality orientation, limit setting, provided positive reinforcement, and maintained Q 15 minute safety checks. Restraints/seclusion/emergency medication: N/A Justification of Continued Inpatient Treatment: Patient requires interruption of current crisis in safe and therapeutic milieu.
[2021-02-26] MEDS: LORazepam 1 MG tablet PO SCH ×4 (02:41→20:08)
[2021-02-26] MEDS: quetiapine 100mg tablet PO SCH ×4 (07:24→20:07)
[2021-02-26] MEDS: divalproex sodium 500mg tablet.DR PO SCH ×2 (07:24→20:08)
[2021-02-26 07:41] VITALS: BP 100/67
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
[2021-02-26] MEDS: traZODone 50mg tablet PO PRN ×2 (20:07→21:38)
[2021-02-26 20:50] VITALS: BP 106/59
--- NOTE | 2021-02-27 00:37 | NUR ---
Nursing Progress Note: Legal hold: 5250 Client on involuntary status for GD Report received from MARJAN Perez with use of SBAR Why are they here: Client was transported to [facility] by [employer] for disruptive behavior. Client reported, "I was laying in the bed at my daughters house and the police came in a said 'We're here to help you.' They handcuffed me and took me to the Hospital." "I want to get out of here!" Client stated, "I don't remember anything else." According the medical record client has had multiple ED visits and several Inpatient Psych admits. Hx of wandering into traffic, trespassing, and disorderly conduct. Client reported she was living with her daughter in [place]. She is currently homeless. Assessment What happened this shift: The patient was in her room yelling at shift change. 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 She wants us to know she doesn't hate us, just GOD. Patient states the court case is not fair as she has a home in [place]. She intends to fight it. Patient has no problem with her medications and is always compliant. She has been yelling on and off all night. S/I, H/I: Denies. A/VH: Denies. Sleep: See sleep assessment. ADL: Independent. Group attendance: None on nights. Were meds taken: Yes. Any med S/E: None reported or observed. Mental Status Exam Appearance: Clean and neat, wearing her own colorful clothes. Eye contact: Good. Behavior: Angry, irritable, isolative, guarded, emotional, delusional. Speech: Loud, raspy voice. Mood: Labile. Affect: Congruent to mood. Thought process: Fairly linear. Thought Content: Her court case. Cognition: A&Ox3 (Not to circumstance.) Insight: Poor. Judgment: Poor. Interventions PRN's used: Trazodone. Therapeutic interventions: 1:1 assessment, therapeutic communication, active listening, encouraged pt to express his thoughts and feelings, ensured contract for safety, gave clear and simple directions, encouragement of personal hygiene, encouragement to participate in unit activities and attend groups, behavior monitoring and intervention as needed; distraction, redirection, reality orientation, limit setting, provided positive reinforcement, and maintained Q 15 minute safety checks. Restraints/seclusion/emergency medication: N/A Justification of Continued Inpatient Treatment: Patient requires interruption of current crisis in safe and therapeutic milieu.
[2021-02-27] MEDS ORDERED: quetiapine 100mg tablet PO ONE (01:30)
[2021-02-27] MEDS: LORazepam 1 MG tablet PO SCH ×4 (02:00→20:04)
[2021-02-27 07:58] VITALS: BP 92/58
[2021-02-27] MEDS: divalproex sodium 500mg tablet.DR PO SCH ×2 (08:13→20:04)
[2021-02-27] MEDS: quetiapine 100mg tablet PO SCH ×5 (08:13→20:48)
--- NOTE | 2021-02-27 16:41 | NUR ---
Nursing Progress Note: Legal hold: TCON Client on involuntary status for GD Report received from MARJAN Benitez with use of SBAR Why are they here: Client was transported to [facility] by [employer] for disruptive behavior. According the medical record client has had multiple ED visits and several Inpatient Psych admits. Hx of wandering into traffic, trespassing, and disorderly conduct. Client reported she was living with her daughter in [place]. She is currently homeless. Assessment What happened this shift: Met with pt this AM at the bedside. She states that she is ready to go home and wants to speak with her private termite exterminator. Pt starts to get emotional and cries, but is redirected a couple of times with deep breathing. Pt begins to retell her story of how the police grabbed me off the street; encouraged pt to stay focused on the present, and she was able to calm down and return to talking about winning at court. Pt screaming/tearful off and on throughout the shift, but overall events are less and shorter duration. Depakote level 32. PA John aware. Did not appear to be cheeking this AM, but she showed this RN her mouth after taking the meds without being asked. Meds were given with breakfast, and she continued to eat breakfast immediately after taking the medication. S/I, H/I: denies A/VH: Denies. Does not appear to be responding to internal stimuli Sleep: 3.5 hours ADL: Independent Group attendance: No Were meds taken: Yes Any med S/E: denies and none observed Mental Status Exam Appearance: clean, wearing a colorful dress. Hair is disheveled. Eye contact: direct Behavior: irritable, labile, screams Speech: Loud, raspy voice Mood: labile Affect: congruent to mood Thought process: circumstantial Thought Content: court case, going home Cognition: A&O to person, place, and time Insight: poor Judgment: poor Interventions PRN's used: none Therapeutic interventions: 1:1 assessment, therapeutic communication, active listening, encouraged pt to express her thoughts and feelings, ensured contract for safety, gave clear and simple directions, encouragement of personal hygiene, encouragement to participate in unit activities and attend groups, behavior monitoring and intervention as needed; distraction, redirection, reality orientation, limit setting, provided positive reinforcement, and maintained Q 15 minute safety checks. Restraints/seclusion/emergency medication: N/A Justification of Continued Inpatient Treatment: Patient requires interruption of current crisis in safe and therapeutic milieu.
[2021-02-27 20:25] VITALS: BP 101/54
--- NOTE | 2021-02-28 00:02 | NUR ---
Nursing Progress Note: Legal hold: 5250 Client on involuntary status for GD Report received from MARJAN Perez with use of SBAR Why are they here: Client was transported to [facility] by [employer] for disruptive behavior. Client reported, "I was laying in the bed at my daughters house and the police came in a said 'We're here to help you.' They handcuffed me and took me to the Hospital." "I want to get out of here!" Client stated, "I don't remember anything else." According the medical record client has had multiple ED visits and several Inpatient Psych admits. Hx of wandering into traffic, trespassing, and disorderly conduct. Client reported she was living with her daughter in [place]. She is currently homeless. Assessment What happened this shift: Pt started the evening off good, no yelling or behavior outbursts. Pt was lying in bed with her owl for 1;1 assessment. Pt reported she had a good day. Pt denies all mh symptoms but is observed talking to herself. As of midnight, pt has not done any yelling. S/I, H/I: Denies. A/VH: Denies. Sleep: See sleep assessment. ADL: Independent. Group attendance: None on nights. Were meds taken: Yes. Any med S/E: None reported or observed. Mental Status Exam Appearance: Clean and neat, wearing her own colorful clothes. Eye contact: Good. Behavior: Angry, irritable, isolative, guarded, emotional, delusional. Speech: Loud, raspy voice. Mood: Labile. Affect: Congruent to mood. Thought process: Fairly linear. Thought Content: Her court case. Cognition: A&Ox3 (Not to circumstance.) Insight: Poor. Judgment: Poor. Interventions PRN's used: Trazodone. Therapeutic interventions: 1:1 assessment, therapeutic communication, active listening, encouraged pt to express his thoughts and feelings, ensured contract for safety, gave clear and simple directions, encouragement of personal hygiene, encouragement to participate in unit activities and attend groups, behavior monitoring and intervention as needed; distraction, redirection, reality orientation, limit setting, provided positive reinforcement, and maintained Q 15 minute safety checks. Restraints/seclusion/emergency medication: N/A Justification of Continued Inpatient Treatment: Patient requires interruption of current crisis in safe and therapeutic milieu.
[2021-02-28] MEDS: LORazepam 1 MG tablet PO SCH ×4 (02:00→19:46)
[2021-02-28 08:00] VITALS: BP 123/74
[2021-02-28] MEDS: divalproex sodium 500mg tablet.DR PO SCH (08:24)
[2021-02-28] MEDS: quetiapine 100mg tablet PO SCH ×5 (08:25→21:10)
[2021-02-28] MEDS ORDERED: ziprasidone IM 20mg inj **IM only ONE (09:20)
[2021-02-28] MEDS ORDERED: diphenhydrAMINE 50 mg/ml inj ONE (09:21)
[2021-02-28] MEDS ORDERED: LORazepam 2 mg/ml vial ONE (09:22)
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
[2021-02-28] MEDS: traZODone 50mg tablet PO PRN (19:53)
[2021-02-28] MEDS: divalproex sod 125mg sprinkle cap PO SCH (19:53)
[2021-02-28 20:51] VITALS: BP 103/64
[2021-02-28 20:52] VITALS: BP 103/64
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
[2021-03-01] MEDS: LORazepam 1 MG tablet PO SCH ×4 (02:00→19:56)
[2021-03-01] MEDS: quetiapine 100mg tablet PO SCH ×5 (07:53→20:55)
[2021-03-01] MEDS: divalproex sod 125mg sprinkle cap PO SCH ×2 (07:54→20:02)
[2021-03-01 08:00] VITALS: BP 105/58
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
[2021-03-01 19:38] VITALS: BP 110/74
[2021-03-01] MEDS: traZODone 50mg tablet PO PRN ×2 (19:56→20:55)
[2021-03-02] MEDS: LORazepam 1 MG tablet PO SCH ×4 (02:00→20:22)
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
[2021-03-02 07:00] VITALS: BP 119/62
[2021-03-02] MEDS: divalproex sod 125mg sprinkle cap PO SCH ×2 (07:55→20:22)
[2021-03-02] MEDS: quetiapine 100mg tablet PO SCH ×5 (07:55→21:24)
--- NOTE | 2021-03-02 08:56 | NUR ---
Reassessment: Pt continues eating well with mostly 100% PO intake on regular diet while receiving double protein TID meeting estimated nutrient needs. [facility] 02/28. No nutrition intervention implemented at this time. Will continue to follow. Rec: 1. Continue regular diet; double eggs WB, double meat BIDLD per diet order 2. Bowel care per rx 3. Weekly scaled wts Addendum: 03/02/21 at [address] Amended: Links added.
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
[2021-03-02 19:00] VITALS: BP 110/75
[2021-03-02] MEDS: traZODone 50mg tablet PO PRN ×2 (20:21→21:24)
[2021-03-03] MEDS: LORazepam 1 MG tablet PO SCH ×4 (02:00→20:24)
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
[2021-03-03 07:00] VITALS: BP 110/64
[2021-03-03] MEDS: quetiapine 100mg tablet PO SCH ×5 (08:28→21:31)
[2021-03-03] MEDS: divalproex sod 125mg sprinkle cap PO SCH ×2 (08:28→20:24)
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
[2021-03-03 19:34] VITALS: BP 118/73
[2021-03-03] MEDS: traZODone 50mg tablet PO PRN ×2 (20:25→21:31)
[2021-03-04] MEDS: LORazepam 1 MG tablet PO SCH ×4 (02:00→20:29)
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
[2021-03-04 07:00] VITALS: BP 99/63
[2021-03-04] MEDS: divalproex sod 125mg sprinkle cap PO SCH ×2 (07:39→20:27)
[2021-03-04] MEDS: quetiapine 100mg tablet PO SCH ×5 (07:40→23:27)
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
[2021-03-04] MEDS: traZODone 50mg tablet PO PRN ×2 (20:29→23:30)
[2021-03-04 20:39] VITALS: BP 120/69
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
[2021-03-05] MEDS: LORazepam 1 MG tablet PO SCH ×4 (02:00→20:37)
[2021-03-05] MEDS: quetiapine 100mg tablet PO SCH ×4 (07:06→20:39)
[2021-03-05] MEDS: divalproex sod 125mg sprinkle cap PO SCH ×2 (07:06→20:38)
[2021-03-05 08:18] VITALS: BP 107/59
[2021-03-05] MEDS ORDERED: diphenhydrAMINE 25mg capsule PO ONE (09:00)
[2021-03-05] MEDS ORDERED: OLANZapine **IM** 10 mg inj. IM ONE (09:15)
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
[2021-03-05] MEDS: traZODone 50mg tablet PO PRN (20:39)
[2021-03-05 20:45] VITALS: BP 99/56
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
[2021-03-06] MEDS: LORazepam 1 MG tablet PO SCH ×4 (02:00→20:55)
[2021-03-06] MEDS: quetiapine 100mg tablet PO SCH ×4 (07:21→20:55)
[2021-03-06] MEDS: divalproex sod 125mg sprinkle cap PO SCH ×2 (07:21→20:55)
[2021-03-06 08:03] VITALS: BP 122/69
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
[2021-03-06 20:37] VITALS: BP 96/54
[2021-03-07] MEDS: LORazepam 1 MG tablet PO SCH ×5 (02:00→20:14)
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
[2021-03-07] MEDS: quetiapine 100mg tablet PO SCH ×5 (07:54→21:17)
[2021-03-07] MEDS: divalproex sod 125mg sprinkle cap PO SCH ×2 (07:55→20:13)
[2021-03-07 08:00] VITALS: BP 96/54
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
[2021-03-07 19:48] VITALS: BP 100/47
[2021-03-07] MEDS: traZODone 50mg tablet PO PRN ×2 (20:14→21:17)
[2021-03-08] MEDS: LORazepam 1 MG tablet PO SCH ×4 (02:00→20:14)
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
[2021-03-08 07:58] VITALS: BP 96/58
[2021-03-08] MEDS: divalproex sod 125mg sprinkle cap PO SCH ×2 (08:00→20:14)
[2021-03-08] MEDS: quetiapine 100mg tablet PO SCH ×5 (08:00→21:23)
--- NOTE | 2021-03-08 15:46 | NUR ---
Nursing Progress Note: Legal hold: TCon Client on involuntary status for GD Report received from nurse with use of SBAR: MARJAN Benitez Why are they here: Client was transported to [facility] by [employer] for disruptive behavior. Client reported, "I was laying in the bed at my daughters house and the police came in a said 'We're here to help you.' They handcuffed me and took me to the Hospital." "I want to get out of here!" Client stated, "I don't remember anything else." According the medical record client has had multiple ED visits and several Inpatient Psych admits. Hx of wandering into traffic, trespassing, and disorderly conduct. Client reported she was living with her daughter in [place]. She is currently homeless. Assessment What has happened this shift: Received pt. sleeping in bed at the beginning of the shift, she awoke and required direction from staff in order to attend breakfast in the Group Room. Pt. was observed to be appropriately interacting with others during this time, however afterwards approached the nurse's station yelling loudly in a disorganized manner, "It was my inheritance!" She was able to be redirected to her room where she sat talking on the telephone crying and continuing to yell loudly in a somewhat nonsensical manner. After this telephone call, this insurance underwriter attempted to console patient offering active listening and positive encouragement. However, pt. continued to present as agitated and impulsive and began hitting herself in the head. Two staff members were needed in order to hold each of patient's hands to keep her from hurting herself while continued positive redirection was offered. Pt. was finally able to regain control and contracted for safety. This incident was endorsed to RIDDHI Lopez. Pt. was compliant with all medications and 1:1 completed later at bedside. She denies any S/I, H/I, or A/V/YODER. However, she does admit to some ongoing depression and anxiety and states, "I just want to see my cat." She continues to perseverate on her desire to discharge, and plans to contest her hold at her upcoming court case. Pt. does exhibit what appear to be some paranoid delusions at times AEB statements that her family is against her and that her infant nanny "put her in here." Pt. was observed to be interacting others appropriately during the day, and napped intermittently. She did exhibit two other agitated and loud outbursts, but was able to be redirected back to her room and regained composure much easier than previously observed, will continue to monitor. S/I, H/I: Denies A/VH: Denies, does not appear internally preoccupied Sleep: Pt. reports she slept well, sleep hours are 8. She naps intermittently during the day ADL's: Pt. requires direction and encouragement Group attendance: N/A Were meds taken: Yes Any med S/E: None Mental Status Exam Appearance: Pt. continues to be thin and frail, however is neat and appropriately dressed Eye contact: Good, intense at times Behavior: Cooperative, restless, agitated at times, and impulsive Speech: WNL, elevated and loud at times (continues to exhibit occasional loud outbursts) Mood: Restless and impulsive Affect: Labile Thought process: Tangental Thought Content: Some paranoid delusions and perseveration regarding desire to discharge Cognition: A&O X3 (not to reason here) Insight: Poor Judgment: Poor Interventions PRN's used: None Therapeutic interventions: Introduced self and established rapport, maintained a safe and supportive environment, ensured contract for safety, provided clear and simple instructions, attempted to orient to reality, monitored behaviors and need for redirection, provided ongoing education regarding handwashing r/t positive MRSA, and maintained Q 15min safety checks. Restraints/seclusion/emergency medication: N/A Justification of Continued Inpatient Treatment: Per RIDDHI Lopez, pt. continues to require medication adjustments and a safe and supportive environment.
[2021-03-08 19:59] VITALS: BP 116/70
[2021-03-08] MEDS: traZODone 50mg tablet PO PRN ×2 (20:15→21:23)
[2021-03-09] MEDS: LORazepam 1 MG tablet PO SCH ×4 (01:26→20:11)
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
[2021-03-09 07:38] VITALS: BP 112/66
[2021-03-09] MEDS: quetiapine 100mg tablet PO SCH ×5 (07:48→21:19)
[2021-03-09] MEDS: divalproex sod 125mg sprinkle cap PO SCH ×2 (07:48→20:10)
--- NOTE | 2021-03-09 17:27 | NUR ---
Nursing Progress Note: Alondra Tang Legal hold: TCON Client on involuntary status for GD Report received from nurse with use of SBAR: Vicky Guidry RN Why are they here: Client was transported to [facility] by [employer] for disruptive behavior. Client reported, "I was laying in the bed at my daughters house and the police came in a said 'We're here to help you.' They handcuffed me and took me to the Hospital." "I want to get out of here!" Client stated, "I don't remember anything else." According the medical record client has had multiple ED visits and several Inpatient Psych admits. Hx of wandering into traffic, trespassing, and disorderly conduct. Client reported she was living with her daughter in [place]. She is currently homeless. Assessment What has happened this shift: Patient noted to be awake in her room at shift change. She was observed walking through the unit, yelling loudly in a disorganized manner, I dont want to be here, I want my cat, you guys are holding me here, they took my inheritance! toward staff. She was redirected to the community room where she sat with peers until breakfast arrived. Patient observed on the phone leaving messages for a private box spring upholsterer. She continues to be cooperative, agitated at times, restless, and impulsive at times. She retreated back to her room after breakfast and was observed resting in bed. 1:1 assessment completed, lungs CTA. Pt endorsed to this music writer that she is feeling okay, just tired this morning. She denies SI/HI, AH or VH. Does not appear to be responding to internal stimuli. She continues to perseverate on discharging home and being with her cat. She is compliant with all medications. She was observed socializing with peers on the unit, holding hands, and praying together. She napped intermittently throughout the day. She endorsed to this music writer that she wants to "find an RV trailer that she could live in at a nice RV campground in [facility]". She does not want to rely on moving back home with her daughter. She was noted yelling out in her room later in the day, was easily redirected. She was observed participating in the community room for meals/ snack times. S/I, H/I: Denies A/VH: Denies, does not appear internally preoccupied Sleep: Pt. slept 2.5 hours last night per NOC shift. She napped intermittently during the day ADL's: Pt. requires direction and encouragement Group attendance: No group provided on this shift Were meds taken: Yes Any med S/E: None Mental Status Exam Appearance: Clean, groomed, dressed appropriately for unit Eye contact: Good Behavior: Cooperative, restless, agitated at times, and impulsive Speech: WNL, elevated and loud at times (continues to exhibit occasional loud outbursts) Mood: Restless and impulsive Affect: Labile Thought process: Tangental, circumstantial Thought Content: Some paranoid delusions and perseveration regarding desire to discharge Cognition: A&O X3 (not to reason here) Insight: Poor Judgment: Poor Interventions PRN's used: None Therapeutic interventions: Maintained a safe and supportive environment, ensured contract for safety, provided clear and simple instructions, attempted to orient to reality, monitored behaviors and need for redirection, provided ongoing education regarding handwashing r/t positive MRSA, and maintained Q 15min safety checks. Restraints/seclusion/emergency medication: N/A Justification of Continued Inpatient Treatment: Per RIDDHI Fletcher, no change in medication, will continue to monitor the medication and evaluate. The Depakote sprinkles have made a significant difference.
[2021-03-09 19:35] VITALS: BP 128/79
[2021-03-09] MEDS: traZODone 50mg tablet PO PRN ×2 (20:10→21:19)
[2021-03-10] MEDS: LORazepam 1 MG tablet PO SCH ×4 (02:00→20:47)
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
[2021-03-10] MEDS: divalproex sod 125mg sprinkle cap PO SCH ×2 (07:40→20:49)
[2021-03-10] MEDS: quetiapine 100mg tablet PO SCH ×4 (07:41→20:48)
--- NOTE | 2021-03-10 12:11 | NUR ---
Nursing Progress Note: Alondra Tang Legal hold: TCON Client on involuntary status for GD Report received from nurse with use of SBAR: MARJAN Perez Why are they here: Client was transported to [facility] by [employer] for disruptive behavior. Client reported, "I was laying in the bed at my daughters house and the police came in a said 'We're here to help you.' They handcuffed me and took me to the Hospital." "I want to get out of here!" Client stated, "I don't remember anything else." According the medical record client has had multiple ED visits and several Inpatient Psych admits. Hx of wandering into traffic, trespassing, and disorderly conduct. Client reported she was living with her daughter in [place]. She is currently homeless. Assessment What has happened this shift: Pt was asleep at shift change, night staff reported that pt slept well throughout the night. Pt reports feeling wobbly and was noticeably unsteady on her feet as compared to other days. Pt feels like she is lethargic and unsteady due to being over medicated. Pt is having significantly less yelling outbursts. S/I, H/I: Denies A/VH: Denies, does not appear internally preoccupied Sleep: pt napped off and on ADL's: Pt. requires direction and encouragement Group attendance: No group provided on this shift Were meds taken: Yes Any med S/E: None Mental Status Exam Appearance: Clean, groomed, dressed appropriately for unit Eye contact: Good Behavior: Cooperative, restless, agitated at times, and impulsive Speech: WNL, elevated and loud at times, less than usual Mood: Restless and impulsive Affect: Labile Thought process: Tangential, circumstantial Thought Content: feeling wobbly Cognition: A&O X3 (not to reason here) Insight: Poor Judgment: Poor Interventions PRN's used: None Therapeutic interventions: Maintained a safe and supportive environment, ensured contract for safety, provided clear and simple instructions, attempted to orient to reality, monitored behaviors and need for redirection, provided ongoing education regarding handwashing r/t positive MRSA, and maintained Q 15min safety checks. Restraints/seclusion/emergency medication: N/A Justification of Continued Inpatient Treatment: Per RIDDHI Fletcher, no change in medication, will continue to monitor the medication and evaluate. The Depakote sprinkles have made a significant difference.
[2021-03-10 20:00] VITALS: BP 111/67
[2021-03-10] MEDS: traZODone 50mg tablet PO PRN (20:47)
[2021-03-11] MEDS: LORazepam 1 MG tablet PO SCH ×4 (02:00→20:50)
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
[2021-03-11 07:00] VITALS: BP 89/60
[2021-03-11] MEDS: divalproex sod 125mg sprinkle cap PO SCH ×2 (08:07→20:49)
[2021-03-11] MEDS: quetiapine 100mg tablet PO SCH ×4 (08:08→20:49)
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
[2021-03-11] MEDS: acetaminophen 325mg tablet PO PRN (17:03)
[2021-03-11 19:00] VITALS: BP 96/57
[2021-03-11] MEDS: traZODone 50mg tablet PO PRN (20:51)
[2021-03-12] MEDS: LORazepam 1 MG tablet PO SCH ×4 (02:00→20:57)
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
[2021-03-12 08:00] VITALS: BP 113/59
[2021-03-12] MEDS: divalproex sod 125mg sprinkle cap PO SCH ×2 (08:12→20:58)
[2021-03-12] MEDS: quetiapine 100mg tablet PO SCH ×5 (08:13→22:59)
--- NOTE | 2021-03-12 09:19 | NUR ---
COURT TODAY AT 1530 VIA PHONE Natalio from [facility] (ph# [phone]), called to report that Alondra has court today via phone. Requested Alondra have court in person as that is Alondra's request and Natalio reported they do not have a boom truck driver to transport her to and from court. Informed Alondra she can call in to court to speak to the lathe setup operator. She would like a continuance. She became quite upset and seemed to think technical document writer was the one making decisions regarding her ability to go to court in person. She was yelling and screaming at technical document writer and pointing her finger repeatedly towards technical document writer. If Alondra chooses to call in to court at 1530: Phone # Code [phone] C REJI Watts
--- NOTE | 2021-03-12 11:00 | NUR ---
Reassessment: Pt continues eating well with mostly 100% PO intake on regular diet while receiving double protein TID meeting estimated nutrient needs. [facility] 03/09. No nutrition intervention implemented at this time. Will continue to follow. Rec: 1. Continue regular diet; double eggs WB double, meat BIDLD per diet order 2. Bowel care per rx 3. Weekly scaled wts Addendum: 03/12/21 at [address] Amended: Links added.
[2021-03-12] MEDS ORDERED: diphenhydrAMINE 50 mg/ml inj ONE (16:30)
[2021-03-12] MEDS ORDERED: ziprasidone IM 20mg inj **IM only ONE (16:30)
[2021-03-12] MEDS ORDERED: LORazepam 2 mg/ml vial ONE (16:31)
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
[2021-03-12 19:00] VITALS: BP 121/61
[2021-03-12] MEDS: traZODone 50mg tablet PO PRN ×2 (21:01→22:58)
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
[2021-03-13] MEDS: LORazepam 1 MG tablet PO SCH ×4 (01:25→21:13)
[2021-03-13 08:00] VITALS: BP 108/65
[2021-03-13] MEDS: quetiapine 100mg tablet PO SCH ×4 (08:28→21:15)
[2021-03-13] MEDS: divalproex sod 125mg sprinkle cap PO SCH ×2 (08:28→21:15)
[2021-03-13] MEDS ORDERED: ziprasidone IM 20mg inj **IM only ONE (09:55)
[2021-03-13] MEDS ORDERED: diphenhydrAMINE 50 mg/ml inj ONE (09:55)
[2021-03-13] MEDS ORDERED: LORazepam 2 mg/ml vial ONE (09:56)
--- NOTE | 2021-03-13 10:00 | NUR ---
Psychosis/Agitation note: Pt yelling and screaming about needing "A private customer service attendant" and how we are keeping her here against her will. PT unable to calm down or deescalate. Called RIDDHI Lopez and received orders for Geodon 20mg,Ativan 2mg, Benadryl 50mg IM. PT given IM shots with little resistance.
--- NOTE | 2021-03-13 14:54 | NUR ---
Nursing Progress Note: Alondra Tang Legal hold: TCREBEKAH Client on involuntary status for GD Report received from nurse with use of SBAR: MARJAN Benitez Why are they here: Client was transported to [facility] by [employer] for disruptive behavior. Client reported, "I was laying in the bed at my daughters house and the police came in a said 'We're here to help you.' They handcuffed me and took me to the Hospital." "I want to get out of here!" Client stated, "I don't remember anything else." According the medical record client has had multiple ED visits and several Inpatient Psych admits. Hx of wandering into traffic, trespassing, and disorderly conduct. Client reported she was living with her daughter in [place]. She is currently homeless. Assessment What has happened this shift: Patient was asleep at change of shift and up soon after. Patient started yelling early in the morning about her hearing and the county judge saying she can go home. And by mid morning patient received I.M. Geodon, Ativan and Zyprexa. Patient slept into the lunch time and then got up and ate a little late. Patient did have a fall after lunch which was probably due to not wearing "no-skid socks". Patient did not have an injury and protected herself with her hands and left knee. Patient got up and went to her bed for a nap after the fall. Patient rested. S/I, H/I: Denies A/VH: Denies, does not appear internally preoccupied Sleep: Pt slept a couple hours in the morning and took an afternoon nap. ADL's: Pt. requires direction and encouragement Group attendance: No group provided on this shift Were meds taken: Yes Any med S/E: None Mental Status Exam Appearance: Disheveled. hair messy and down. Patient wearing pants on long sleeve shirt. Eye contact: Good Behavior: Cooperative, restless, agitated at times, and impulsive Speech: Clear, elevated and loud at times (continues to exhibit occasional loud outbursts) Mood: Labile Affect: Pleasant at times then angry Thought process: Tangental, circumstantial Thought Content: Some paranoid delusions and perseveration regarding desire to discharge Cognition: A&O X3 (not to reason here) Insight: Poor Judgment: Poor Interventions PRN's used: None Therapeutic interventions: Maintained a safe and supportive environment, ensured contract for safety, provided clear and simple instructions, attempted to orient to reality, monitored behaviors and need for redirection, provided ongoing education regarding handwashing r/t positive MRSA, and maintained Q 15min safety checks. Restraints/seclusion/emergency medication: N/A Justification of Continued Inpatient Treatment: Patient continues to require monitoring by staff, milieu, group, and individual counseling as needed. [facility] is going to pursue conservatorship.
[2021-03-13 19:29] VITALS: BP 96/56
[2021-03-13] MEDS: traZODone 50mg tablet PO PRN (21:13)
[2021-03-14] MEDS: LORazepam 1 MG tablet PO SCH ×4 (02:00→19:35)
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
[2021-03-14] MEDS: quetiapine 100mg tablet PO SCH ×3 (07:56→17:41)
[2021-03-14] MEDS: divalproex sod 125mg sprinkle cap PO SCH ×2 (07:56→19:36)
[2021-03-14 08:00] VITALS: BP 93/57
--- NOTE | 2021-03-14 16:34 | NUR ---
Nursing Progress Note: Legal hold: TCON Client on involuntary status for GD Report received from nurse with use of SBAR: Eli RN Why they are here: Client was transported to [facility] by [employer] for disruptive behavior. Client reported, "I was laying in the bed at my daughters house and the police came in a said 'We're here to help you.' They handcuffed me and took me to the Hospital." "I want to get out of here!" Client stated, "I don't remember anything else." According the medical record client has had multiple ED visits and several Inpatient Psych admits. Hx of wandering into traffic, trespassing, and disorderly conduct. Client reported she was living with her daughter in [place]. She is currently homeless. Assessment What has happened this shift: Pt resting quietly in bed at start of shift. Eats breakfast in community room with peers. Excited for her birthday today and spends much of the day in the community room interacting with pears and talking on the phone. Voice is loud at times but no outbursts noted at this time. Patient spends time in her room moving her belongings around and organizing. She perseverates about wanting to discharge and about her cat. S/I, H/I: Denies A/VH: Denies, does not appear internally preoccupied Sleep: 9.5hrs per NOC ADL's: Pt. requires direction and encouragement Group attendance: N/A Were meds taken: Yes Any med S/E: None noted Mental Status Exam Appearance: Disheveled. Dressed appropriately for unit. Eye contact: Good Behavior: Cooperative Speech: Clear, elevated and loud at times Mood: Labile Affect: Blunted Thought process: Tangental, circumstantial Thought Content: Some paranoid delusions and perseveration regarding desire to discharge Cognition: A&O X3 to person, place and time Insight: Poor Judgment: Poor Interventions PRN's used: Therapeutic interventions: Maintained a safe and supportive environment, ensured contract for safety, provided clear and simple instructions, attempted to orient to reality, monitored behaviors and need for redirection, provided ongoing education regarding handwashing r/t positive MRSA, and maintained Q 15min safety checks. Restraints/seclusion/emergency medication: N/A Justification of Continued Inpatient Treatment: Patient continues to require monitoring by staff, milieu, group, and individual counseling as needed. [facility] is going to pursue conservatorship.
[2021-03-14 20:00] VITALS: BP 96/49
--- NOTE | 2021-03-14 22:35 | NUR ---
Nursing Progress Note: Legal hold: TCON Client on involuntary status for GD Report received from nurse with use of SBAR: MARJAN Webster Why they are here: Client was transported to [facility] by [employer] for disruptive behavior. Client reported, "I was laying in the bed at my daughters house and the police came in a said 'We're here to help you.' They handcuffed me and took me to the Hospital." "I want to get out of here!" Client stated, "I don't remember anything else." According the medical record client has had multiple ED visits and several Inpatient Psych admits. Hx of wandering into traffic, trespassing, and disorderly conduct. Client reported she was living with her daughter in [place]. She is currently homeless. Assessment What has happened this shift: Pt sleeping heavily in bed at start of shift. When taking medication patient is very sleepy. Ativan held for sedation. After resting patient came out of room for evening snack. 1:1 done with patient who then went to bed. Resting quietly in bed at this time. S/I, H/I: Denies A/VH: Denies, does not appear internally preoccupied Sleep: see sleep assessment ADL's: Pt. requires direction and encouragement Group attendance: N/A Were meds taken: Yes Any med S/E: None noted Mental Status Exam Appearance: Disheveled. Dressed appropriately for unit. Eye contact: Fair Behavior: Cooperative Speech: Clear Mood: Alright Affect: Blunted Thought process: Tangental Thought Content: Poverty of thought Cognition: A&O X3 to person, place and time Insight: Poor Judgment: Poor Interventions PRN's used: Therapeutic interventions: Maintained a safe and supportive environment, ensured contract for safety, provided clear and simple instructions, attempted to orient to reality, monitored behaviors and need for redirection, provided ongoing education regarding handwashing r/t positive MRSA, and maintained Q 15min safety checks. Restraints/seclusion/emergency medication: N/A Justification of Continued Inpatient Treatment: Patient continues to require monitoring by staff, milieu, group, and individual counseling as needed. [facility] is going to pursue [employer].
[2021-03-15] MEDS: LORazepam 1 MG tablet PO SCH ×4 (02:00→20:39)
[2021-03-15] MEDS: quetiapine 100mg tablet PO SCH ×4 (07:16→20:40)
[2021-03-15] MEDS: divalproex sod 125mg sprinkle cap PO SCH ×2 (07:16→20:40)
[2021-03-15 07:40] VITALS: BP 111/61
--- NOTE | 2021-03-15 15:27 | NUR ---
Nursing Progress Note: Legal hold: TCon Client on involuntary status for GD Report received from nurse with use of SBAR: MARJAN Benitez Why are they here: Client was transported to [facility] by [employer] for disruptive behavior. Client reported, "I was laying in the bed at my daughters house and the police came in a said 'We're here to help you.' They handcuffed me and took me to the Hospital." "I want to get out of here!" Client stated, "I don't remember anything else." According the medical record client has had multiple ED visits and several Inpatient Psych admits. Hx of wandering into traffic, trespassing, and disorderly conduct. Client reported she was living with her daughter in [place]. She is currently homeless. Assessment What has happened this shift: Received pt. sleeping in bed at the beginning of the shift, she awoke and attended breakfast in the Group Room. Pt. continues to be compliant with all medications and 1:1 completed at bedside. Pt. denies all MH s/s, however does admit to ongoing anxiety r/t to missing her cat, Misfit. She holds up a stuffed animal which is laying on her bed and states, "Misfit can play with this!" Pt. then goes on to report in a delusional way that she believes she will be getting a trailer for her and her cat to live to live in, and a staff member who works here will be helping her find one. Pt. does appear to be very goal oriented and motivated to provide a safe living environment for herself. Pt. exhibited only one outbursts this shift, in which she was observed to be crying loudly in her room. Pt. stated, "No one loves me! I can't look for trailers while I'm stuck here!" This policy writer typist provided active listening and positive encouragement and pt. was able to regain her composure and attended lunch in the Group Room. She was observed to be interacting appropriately with others on the unit throughout the shift and making various telephone calls. S/I, H/I: Denies A/VH: Denies, does not appear internally preoccupied Sleep: Pt. reports she slept well, sleep hours are 7.75. ADL's: Independent Group attendance: N/A Were meds taken: Yes Any med S/E: None Mental Status Exam Appearance: Pt. continues to be thin and frail, however is neat and appropriately dressed Eye contact: Good, intense at times Behavior: Cooperative and impulsive at times Speech: WNL Mood: Pleasant, one tearful episode Affect: Labile Thought process: Linear Thought Content: Some delusional thoughts and continued perseveration regarding desire to discharge Cognition: A&O X3 (not to reason here) Insight: Poor Judgment: Fair Interventions PRN's used: None Therapeutic interventions: Maintained a safe and supportive environment, ensured contract for safety, provided clear and simple instructions, attempted to orient to reality, provided active listening and positive encouragement, provided ongoing education regarding handwashing r/t positive MRSA, and maintained Q 15min safety checks. Restraints/seclusion/emergency medication: N/A Justification of Continued Inpatient Treatment: RIDDHI Vieira, pt. does not require any change in treatment at this time, but continues to require a safe and supportive environment.
[2021-03-15 19:26] VITALS: BP 99/56
[2021-03-15] MEDS: traZODone 50mg tablet PO PRN (20:39)
[2021-03-16] MEDS: traZODone 50mg tablet PO PRN ×3 (01:38→21:40)
[2021-03-16] MEDS: LORazepam 1 MG tablet PO SCH ×4 (01:38→20:33)
--- NOTE | 2021-03-16 02:31 | NUR ---
Nursing Progress Note: Legal hold: TCon Client on involuntary status for GD Report received from nurse with use of SBAR: MARJAN Perez Why are they here: Client was transported to [facility] by [employer] for disruptive behavior. Client reported, "I was laying in the bed at my daughters house and the police came in a said 'We're here to help you.' They handcuffed me and took me to the Hospital." "I want to get out of here!" Client stated, "I don't remember anything else." According the medical record client has had multiple ED visits and several Inpatient Psych admits. Hx of wandering into traffic, trespassing, and disorderly conduct. Client reported she was living with her daughter in [place]. She is currently homeless. Assessment What has happened this shift: Patient observed in the hallway and social at the beginning of shift. Pleasant and cooperative with care; continues to present labile behavior. Patient had several outbursts this shift but able to be verbally deescalated. Patient is compliant with medication; PRN Trazodone with repeat provided this shift. Patient reported possible AH and delusions; she explained some whispered to her while she had her eyes closed that "there are candles out side." Patient believes the voice was meant the candles were a candle light lentz for her cat, Lucas. Patient continues to discharge plan and requested that a few staff members search the internet for a mobile or trailer, "preferably in a park," that she can purchase "between $1000 and $1500." She continues to present an unsteady gait after she naps and requires staff assist at times. Patient participated in HS snack and social with staff and peers prior to bed. Patient observed having some difficulty staying asleep and repeat Trazodone provided. S/I, H/I: Denies A/VH: Denies; however, believes she heard someone whispering to her Sleep: Refer to sleep assessment ADL's: Minimal staff assist for unsteady gait Group attendance: NA Were meds taken: Yes Any med S/E: Unsteady gait Mental Status Exam Appearance: Neat and appropriately dressed Eye contact: Good Behavior: Pleasant and cooperative, impulsive at times, social Speech: Loud and pressured at times Mood: Labile Affect: Congruent to mood Thought process: Linear; possible delusions Thought Content: Meeting needs; discharge planning Cognition: A&O X3 (not to reason here) Insight: Poor Judgment: Fair Interventions PRN's used: Trazodone x2 Therapeutic interventions: Maintained a safe and supportive environment, ensured contract for safety, provided clear and simple instructions, attempted to orient to reality, provided active listening and positive encouragement, provided ongoing education regarding handwashing r/t positive MRSA, and maintained Q 15min safety checks. Restraints/seclusion/emergency medication: N/A Justification of Continued Inpatient Treatment: Kulwinder Lopez PA, pt. does not require any change in treatment at this time, but continues to require a safe and supportive environment.
[2021-03-16 07:00] VITALS: BP 119/75
[2021-03-16] MEDS: quetiapine 100mg tablet PO SCH ×5 (08:06→21:40)
[2021-03-16] MEDS: divalproex sod 125mg sprinkle cap PO SCH ×2 (08:39→20:34)
--- NOTE | 2021-03-16 13:27 | NUR ---
Called Alondra's daughter, Divya (ph# [phone]), at her request to inquire about her SSI checks. Divya reported she handed them over to Public Guardian. Apprised Alondra of this and explained the conservatorship process. She was a little upset but had more behavioral control than she has shown in the past. REJI Rome
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
[2021-03-16 19:47] VITALS: BP 127/71
[2021-03-17] MEDS: LORazepam 1 MG tablet PO SCH ×5 (02:32→20:24)
--- NOTE | 2021-03-17 03:43 | NUR ---
Nursing Progress Note: Legal hold: TCon Client on involuntary status for GD Report received from nurse with use of SBAR: MARJAN Perez Why are they here: Client was transported to [facility] by [employer] for disruptive behavior. Client reported, "I was laying in the bed at my daughters house and the police came in a said 'We're here to help you.' They handcuffed me and took me to the Hospital." "I want to get out of here!" Client stated, "I don't remember anything else." According the medical record client has had multiple ED visits and several Inpatient Psych admits. Hx of wandering into traffic, trespassing, and disorderly conduct. Client reported she was living with her daughter in [place]. She is currently homeless. Assessment What has happened this shift: Patient in her room awake at the beginning of shift. She is pleasant and cooperative with care continues to present several outbursts this shift. Cooperative with medication; PRN Trazodone x2 and repeat Quetiapine provided with minimal effect. Patient is reporting delusional thought content about her family and degreasing solution mixer again; patient believes nobody cares for her. She briefly participated in HS snack prior to laying down; she is presenting restless and requires redirection throughout the night. S/I, H/I: Denies A/VH: Denies Sleep: Refer to sleep assessment ADL's: Minimal staff assist for unsteady gait Group attendance: NA Were meds taken: Yes Any med S/E: Unsteady gait Mental Status Exam Appearance: Neat and appropriately dressed Eye contact: Good Behavior: Pleasant and cooperative, impulsive at times, social Speech: Loud and pressured at times Mood: Labile Affect: Congruent to mood Thought process: Delusions, perseverating Thought Content: Meeting needs; discharge planning Cognition: A&O X3 (not to reason here) Insight: Poor Judgment: Fair Interventions PRN's used: Trazodone x2 and repeat Quetiapine Therapeutic interventions: Maintained a safe and supportive environment, ensured contract for safety, provided clear and simple instructions, attempted to orient to reality, provided active listening and positive encouragement, provided ongoing education regarding handwashing r/t positive MRSA, and maintained Q 15min safety checks. Restraints/seclusion/emergency medication: N/A Justification of Continued Inpatient Treatment: Per RIDDHI Lopez, pt. does not require any change in treatment at this time, but continues to require a safe and supportive environment.
[2021-03-17] MEDS: divalproex sod 125mg sprinkle cap PO SCH ×2 (07:44→20:24)
[2021-03-17] MEDS: quetiapine 100mg tablet PO SCH ×4 (07:44→20:24)
[2021-03-17 08:00] VITALS: BP 120/51
[2021-03-17 11:32] LABS: BASOPHILS % (AUTO) 0.8 % (0-1); EOSINOPHILS # (AUTO) 0.7 X10'3 (0-0.9); EOSINOPHILS % (AUTO) 11.9 % (0-6); HEMATOCRIT 34.6 % (35.0-45.0); HEMOGLOBIN 11.8 g/dl (12.0-16.0); LYMPHOCYTES # (AUTO) 1.4 X10'3 (1.1-4.8); MEAN CORPUSCULAR HEMOGLOBIN 31.7 PG (27.0-31.0); MEAN CORPUSCULAR HGB CONC 33.9 g/dL (33.0-36.5); MEAN CORPUSCULAR VOLUME 93.4 FL (78-98); MONOCYTES % (AUTO) 19.2 % (2-12); NEUTROPHILS # (AUTO) 2.3 X10'3 (1.8-7.7); NEUTROPHILS % (AUTO) 42.1 % (42-75); PLATELET COUNT 156 X10'3 (140-440); RED BLOOD COUNT 3.71 X10'6 (4.20-5.60); RED CELL DISTRIBUTION WIDTH 14.5 % (11.5-14.5); WHITE BLOOD COUNT 5.5 X10'3 (4.5-11.0)
[2021-03-17 11:43] LABS: ALANINE AMINOTRANSFERASE 16 U/L (12-78); ALBUMIN/GLOBULIN RATIO 0.8 (1.1-1.5); ALKALINE PHOSPHATASE 134 IU/L (46-116); ANION GAP 5 (8-16); ASPARTATE AMINO TRANSFERASE 14 U/L (10-37); BILIRUBIN,TOTAL 0.2 MG/DL (0.1-1.0); BLOOD UREA NITROGEN 27 MG/DL (7-18); BUN/CREATININE RATIO 31.8 (6.6-38.0); CALCIUM 8.6 MG/DL (8.5-10.1); CHLORIDE 102 MMOL/L (99-107); CREATININE 0.85 MG/DL (0.40-0.90); GLUCOSE 91 MG/DL (70-104); POTASSIUM 4.7 MMOL/L (3.5-5.1); SODIUM 140 MMOL/L (135-145); TOTAL CARBON DIOXIDE 33.5 MMOL/L (24-32); eGFR 68 ML/MIN
--- NOTE | 2021-03-17 15:16 | NUR ---
Nursing Progress Note: Legal hold: TCon Report received from nurse with use of SBAR: Vicky Rai RN Why are they here: Client was transported to [facility] by [employer] for disruptive behavior. Client reported, "I was laying in the bed at my daughters house and the police came in a said 'We're here to help you.' They handcuffed me and took me to the Hospital." "I want to get out of here!" Client stated, "I don't remember anything else." According the medical record client has had multiple ED visits and several Inpatient Psych admits. Hx of wandering into traffic, trespassing, and disorderly conduct. Client reported she was living with her daughter in [place]. She is currently homeless. Assessment What has happened this shift: Pt pacing the halls this AM, labile. Pt is calm and cooperative one moment, then screaming the next. She is asking to be walked to the store, asking for her purse. Gets upset easily when she is told we cannot accommodate her requests. She denies all symptoms, but asks if her is still here because she heard his voice earlier. Reassured pt that her has never been here. Held pts Ativan 2 mg this afternoon due to pt appearing over sedated. Administered Seroquel 100 mg and pt was asleep in bed 20 min later. S/I, H/I: denies A/VH: Hearing her Sleep: 2 hours ADL's: Minimal staff assist for unsteady gait Group attendance: NA Were meds taken: yes, Ativan 2 mg held this afternoon Any med S/E: Unsteady gait, sedation Mental Status Exam Appearance: wearing a colorful dress, hair is combed Eye contact: good Behavior: labile, bounces between pleasant and cooperative to yelling and crying Speech: loud Mood: labile Affect: Congruent to mood Thought process: Delusions, perseverating Thought Content: wanting to leave Cognition: A&O X3 (not to reason here) Insight: poor Judgment: fair Interventions PRN's used: none Therapeutic interventions: Maintained a safe and supportive environment, ensured contract for safety, provided clear and simple instructions, attempted to orient to reality, provided active listening and positive encouragement, provided ongoing education regarding handwashing r/t positive MRSA, and maintained Q 15min safety checks. Restraints/seclusion/emergency medication: N/A Justification of Continued Inpatient Treatment: Per RIDDHI Lopez, pt. does not require any change in treatment at this time, but continues to require a safe and supportive environment.
--- NOTE | 2021-03-17 18:49 | NUR ---
Divya De La Fuente (daughter): [phone]
[2021-03-17 20:18] VITALS: BP 128/68
[2021-03-17] MEDS: traZODone 50mg tablet PO PRN (20:23)
[2021-03-18] MEDS: LORazepam 1 MG tablet PO SCH ×4 (02:00→20:51)
--- NOTE | 2021-03-18 03:44 | NUR ---
Nursing Progress Note: Legal hold: TCon Client on involuntary status for GD Report received from nurse with use of SBAR: Ana RN Why are they here: Client was transported to [facility] by [employer] for disruptive behavior. Client reported, "I was laying in the bed at my daughters house and the police came in a said 'We're here to help you.' They handcuffed me and took me to the Hospital." "I want to get out of here!" Client stated, "I don't remember anything else." According the medical record client has had multiple ED visits and several Inpatient Psych admits. Hx of wandering into traffic, trespassing, and disorderly conduct. Client reported she was living with her daughter in [place]. She is currently homeless. Assessment What has happened this shift: Patient presented labile behaviors at the beginning of shift and acquiring information about her purse and checks. Patient was able to be verbally redirected. She is pleasant and cooperative with care; compliant with medications. PRN Trazodone provided wth positive effect. Patient denies SI, HI, A/VH. Patient tearful and escalated tones (beginning of shift) but no outburst or behaviors presented. Patient participated in HS snack prior to bed; observed sleeping and does not appear to be having difficulty this shift. S/I, H/I: Denies A/VH: Denies Sleep: Refer to sleep assessment ADL's: Minimal staff assist for unsteady gait Group attendance: NA Were meds taken: Yes Any med S/E: Unsteady gait Mental Status Exam Appearance: Neat and appropriately dressed Eye contact: Good Behavior: Pleasant and cooperative, social Speech: Loud and pressured at times Mood: Labile Affect: Congruent to mood Thought process: Circumstantial but perseverates at times Thought Content: Meeting needs; discharge planning Cognition: A&O X3 (not to reason here) Insight: Poor Judgment: Fair Interventions PRN's used: Trazodone Therapeutic interventions: Maintained a safe and supportive environment, ensured contract for safety, provided clear and simple instructions, attempted to orient to reality, provided active listening and positive encouragement, provided ongoing education regarding handwashing r/t positive MRSA, and maintained Q 15min safety checks. Restraints/seclusion/emergency medication: N/A Justification of Continued Inpatient Treatment: Per RIDDHI Lopez, pt. does not require any change in treatment at this time, but continues to require a safe and supportive environment.
[2021-03-18 07:34] VITALS: BP 87/47
[2021-03-18] MEDS: divalproex sod 125mg sprinkle cap PO SCH ×2 (08:24→20:51)
[2021-03-18] MEDS: quetiapine 100mg tablet PO SCH ×4 (08:25→20:51)
--- NOTE | 2021-03-18 14:43 | NUR ---
Nursing Progress Note: Legal hold: TCon Client on involuntary status for GD Report received from nurse with use of SBAR: Vicky Guidry RN Why are they here: Client was transported to [facility] by [employer] for disruptive behavior. Client reported, "I was laying in the bed at my daughters house and the police came in a said 'We're here to help you.' They handcuffed me and took me to the Hospital." "I want to get out of here!" Client stated, "I don't remember anything else." According the medical record client has had multiple ED visits and several Inpatient Psych admits. Hx of wandering into traffic, trespassing, and disorderly conduct. Client reported she was living with her daughter in [place]. She is currently homeless. Assessment What has happened this shift: Pt up and visible on the unit. This morning first thing, pt began asking to see a social services to help her get a trailer and then began yelling and screaming. Nurse came at her with kindness: "good morning, Alondra" and she seemed confused and calmed down. No further outbursts. Pt compliant with am assessment and medications - depakote sprinkles opened and placed in yogurt per pt request. Pt napped intermittently through out the shift. S/I, H/I: Denies A/VH: Denies, does not appear internally preoccupied Sleep: Pt. reports she slept well, sleep hours are 9.25. ADL's: Independent Group attendance: N/A Were meds taken: Yes Any med S/E: None Mental Status Exam Appearance: Pt. continues to be thin and frail, however is neat and appropriately dressed Eye contact: Good, intense at times Behavior: Cooperative and impulsive at times Speech: WNL Mood: Pleasant, one tearful episode Affect: Labile Thought process: Linear Thought Content: Some delusional thoughts and continued perseveration regarding desire to discharge Cognition: A&O X3 (not to reason here) Insight: Poor Judgment: Fair Interventions PRN's used: None Therapeutic interventions: Maintained a safe and supportive environment, ensured contract for safety, provided clear and simple instructions, attempted to orient to reality, provided active listening and positive encouragement, provided ongoing education regarding handwashing r/t positive MRSA, and maintained Q 15min safety checks. Restraints/seclusion/emergency medication: N/A Justification of Continued Inpatient Treatment: Per RIDDHI Lopez, pt. does not require any change in treatment at this time, but continues to require a safe and supportive environment.
[2021-03-18 19:26] VITALS: BP 95/56
[2021-03-19] MEDS: LORazepam 1 MG tablet PO SCH ×4 (02:00→19:57)
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
[2021-03-19] MEDS: divalproex sod 125mg sprinkle cap PO SCH ×2 (07:45→19:57)
[2021-03-19] MEDS: quetiapine 100mg tablet PO SCH ×5 (07:45→21:18)
[2021-03-19 08:00] VITALS: BP 129/51
--- NOTE | 2021-03-19 12:11 | NUR ---
Reassessment: Pt continues eating well with mostly 100% PO intake on regular diet while receiving double protein TID meeting estimated nutrient needs. [facility] 03/17. No nutrition intervention implemented at this time. Will continue to follow. Rec: 1. Continue regular diet; double eggs WB double, meat BIDLD per diet order 2. Bowel care per rx 3. Weekly scaled wts Addendum: 03/19/21 at [address] Amended: Links added.
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
--- NOTE | 2021-03-19 16:30 | NUR ---
Gave I.M. Geodon, 20 mg for continued screaming and going after RNs in the Charge nurse area.
[2021-03-19] MEDS ORDERED: ziprasidone IM 20mg inj **IM only ONE (16:39)
[2021-03-19 19:54] VITALS: BP 124/64
[2021-03-19] MEDS: traZODone 50mg tablet PO PRN ×2 (19:58→21:18)
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
[2021-03-20] MEDS: LORazepam 1 MG tablet PO SCH ×4 (02:00→20:29)
[2021-03-20] MEDS: divalproex sod 125mg sprinkle cap PO SCH ×2 (08:15→20:24)
[2021-03-20] MEDS: quetiapine 100mg tablet PO SCH ×4 (08:15→20:24)
[2021-03-20 08:56] VITALS: BP 106/61
--- NOTE | 2021-03-20 09:13 | NUR ---
COURT 04/16/21 AT 3:30 PM Spoke with Natalio at [facility] Public Guardian ([phone]) who had just spoken to Alondra. Natalio reported Alondra requested a continuance to find a private customer service voice and this was granted. She has court over the phone on 04/16/21 at 3:30 PM. REJI Rome
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
[2021-03-20 19:23] VITALS: BP 102/61
[2021-03-20] MEDS: traZODone 50mg tablet PO PRN (20:24)
--- NOTE | 2021-03-20 22:45 | NUR ---
Nursing Progress Note: Legal hold: TCON Client on involuntary status for GD Report received from nurse with use of SBAR: MARJAN Webster Why are they here: Client was transported to [facility] by [employer] for disruptive behavior. Client reported, "I was laying in the bed at my daughters house and the police came in a said 'We're here to help you.' They handcuffed me and took me to the Hospital." "I want to get out of here!" Client stated, "I don't remember anything else." According the medical record client has had multiple ED visits and several Inpatient Psych admits. Hx of wandering into traffic, trespassing, and disorderly conduct. Client reported she was living with her daughter in [place]. She is currently homeless. Assessment What has happened this shift: Patient observed sleeping in bed at the beginning of shift. Pleasant and cooperative with care; compliant with medication. PRN Trazodone provided with positive effect. Patient did not mention discharge planning or purchasing a trailer this shift. No outbursts presented. She at HS snack prior to returning to bed; observed sleeping and does not appear to be having difficulty. S/I, H/I: Denies A/VH: Denies Sleep: Refer to sleep assessment ADL's: Independent Group attendance: NA Were meds taken: Yes Any med S/E: None observed or reported this shift Mental Status Exam Appearance: Messy hair (d/t sleeping at the time); wearing personal attire Eye contact: Good Behavior: Pleasant and cooperative, sleeping Speech: Loud and pressured at times Mood: Fatigued Affect: Congruent to mood Thought process: Circumstantial Thought Content: Meeting needs Cognition: A&O X3 (not to reason here) Insight: Poor Judgment: Fair Interventions PRN's used: Trazodone Therapeutic interventions: Maintained a safe and supportive environment, ensured contract for safety, provided clear and simple instructions, attempted to orient to reality, provided active listening and positive encouragement, provided ongoing education regarding handwashing r/t positive MRSA, and maintained Q 15min safety checks. Restraints/seclusion/emergency medication: N/A Justification of Continued Inpatient Treatment: Per John PA, pt. does not require any change in treatment at this time, but continues to require a safe and supportive environment.
[2021-03-21] MEDS: LORazepam 1 MG tablet PO SCH ×4 (02:00→19:59)
[2021-03-21] MEDS: quetiapine 100mg tablet PO SCH ×4 (07:38→20:00)
[2021-03-21] MEDS: divalproex sod 125mg sprinkle cap PO SCH ×2 (07:41→20:00)
[2021-03-21 08:00] VITALS: BP 105/72
--- NOTE | 2021-03-21 11:25 | NUR ---
RN spoke with patient's [facility] Guardian Theresa who explained that they cannot be pt.'s payee until social security processes the application which can take a week to a month. Pt.'s daughter will be informed that she needs to picking crew supervisor pt.'s checks and deposit them herself. RN attempted to explain this to pt.
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
--- NOTE | 2021-03-21 17:42 | NUR ---
1700 patient is talking to the corner of the room, "I need some milk for the mariya cat", "this is enough of the medicine". This is the first that this newspaper writer had heard of possible hallucinations vs over medicated.
[2021-03-21 20:24] VITALS: BP 99/59
--- NOTE | 2021-03-21 21:46 | NUR ---
Pt with low grade temp 100.1 orally, had c/o body aches earlier today, O2 sat 89 to 90 %, which patient does run at times. pt appears more confused, putting clothing in the trash, putting food on the floor to feed "the cat", talking about monkies and bunnies, this is new behavior for this patient, contacted Edward Harley, and he ordered rapid covid test, CBC and chest xray at this time and to notify him of the results. Asked if he wanted pt placed on O2 at this time, but he stated to wait for results of tests and then we will decided next course of action.
[2021-03-21 22:41] LABS: BASOPHILS % (AUTO) 0.3 % (0-1); EOSINOPHILS # (AUTO) 0.1 X10'3 (0-0.9); EOSINOPHILS % (AUTO) 0.6 % (0-6); HEMATOCRIT 31.8 % (35.0-45.0); HEMOGLOBIN 10.7 g/dl (12.0-16.0); LYMPHOCYTES # (AUTO) 0.8 X10'3 (1.1-4.8); LYMPHOCYTES % (AUTO) 6.9 % (21-51); MEAN CORPUSCULAR HEMOGLOBIN 31.3 PG (27.0-31.0); MEAN CORPUSCULAR HGB CONC 33.8 g/dL (33.0-36.5); MEAN CORPUSCULAR VOLUME 92.5 FL (78-98); MEAN PLATELET VOLUME 9.1 FL (7.4-10.4); MONOCYTES # (AUTO) 1.3 X10'3 (0-0.9); NEUTROPHILS # (AUTO) 9.7 X10'3 (1.8-7.7); NEUTROPHILS % (AUTO) 81.2 % (42-75); PLATELET COUNT 164 X10'3 (140-440); RED BLOOD COUNT 3.44 X10'6 (4.20-5.60); RED CELL DISTRIBUTION WIDTH 14.5 % (11.5-14.5); WHITE BLOOD COUNT 11.9 X10'3 (4.5-11.0)
[2021-03-22] MEDS: LORazepam 1 MG tablet PO SCH ×4 (02:00→20:26)
--- NOTE | 2021-03-22 05:06 | NUR ---
Nursing Progress Note: Legal hold: TCon Client on involuntary status for GD Report received from nurse with use of SBAR: Eli RN Why are they here: Client was transported to [facility] by [employer] for disruptive behavior. Client reported, "I was laying in the bed at my daughters house and the police came in a said 'We're here to help you.' They handcuffed me and took me to the Hospital." "I want to get out of here!" Client stated, "I don't remember anything else." According the medical record client has had multiple ED visits and several Inpatient Psych admits. Hx of wandering into traffic, trespassing, and disorderly conduct. Client reported she was living with her daughter in [place]. She is currently homeless. Assessment What has happened this shift: Patient in community room interacting with peers at start of shift. Slight elevated temp 99.1. No further hallucination noted this shift. Patient states she is very tired and appears so. Ativan held. States her mood was good today. Sometimes when people act like a no-it-all I get upset. Today Im not upset. Talks about money frequently and states she is happy she is going to get a check for $60 so she can get everyone a parting gift when she leaves. Temp rechecked and is 100.1. Provider notified with new orders for labs, CXR and rapid covid. Covid negative. Provider aware of lab results. Awaiting CXR results. Patient resting quietly in bed at this time. S/I, H/I: Denies A/VH: Denies Sleep: see sleep assessment ADL's: Independent Group attendance: N/A Were meds taken: Yes Any med S/E: Fatigued Mental Status Exam Appearance: thin and frail with messy hair, dressed appropriate for unit Eye contact: Good, intense at times Behavior: Cooperative, Labile at times Speech: Pressured, loud at times Mood: Good. Affect: Congruent with mood Thought process: disorganized, tangential Thought Content: Perseverates on her money and getting a check. Cognition: A&O X3 (not to reason here) Insight: Poor Judgment: Poor Interventions PRN's used: None Therapeutic interventions: Maintained a safe and supportive environment, ensured contract for safety, provided clear and simple instructions, attempted to orient to reality, provided active listening and positive encouragement, provided ongoing education regarding handwashing r/t positive MRSA, and maintained Q 15min safety checks. Restraints/seclusion/emergency medication: N/A
[2021-03-22] MEDS ORDERED: guaiFENesin/DM 10ml UD oral syrup PO PRN (07:40)
[2021-03-22 08:00] VITALS: BP 101/69
[2021-03-22] MEDS: divalproex sod 125mg sprinkle cap PO SCH ×2 (08:38→20:26)
[2021-03-22] MEDS: quetiapine 100mg tablet PO SCH ×4 (08:38→20:26)
[2021-03-22 10:10] LABS: CLARITY,URINE SLIGHTLY CLOUDY (Clear); COLOR,URINE YELLOW (Yellow); GLUCOSE, URINE NEGATIVE (Neg); KETONES,URINE NEGATIVE (Neg); LEUKOCYTE ESTERASE ,URINE MODERATE (Neg); NITRITES, URINE NEGATIVE (Neg); OCCULT BLOOD,URINE LARGE (Neg); PROTEIN,URINE 100 mg/dl (Neg); UROBILINOGEN,URINE 0.2 E.U/dL (0.2-1.0)
[2021-03-22 10:13] LABS: UA COLLECTION TYPE CLN CATCH MIDSTREAM
[2021-03-22 10:22] LABS: RBC,URINE 20-50 /HPF (0-2); WBC,URINE TNTC /HPF (0-4)
[2021-03-22 10:23] LABS: BACTERIA,URINE 2+ /HPF (Neg); SQUAMOUS EPITHELIAL CELL,UR MODERATE /LPF (FEW)
[2021-03-22] MEDS: levoFLOXACIN 500mg tablet PO SCH (11:01)
[2021-03-22 14:48] LABS: OCCULT BLOOD STOOL NEGATIVE (Neg)
--- NOTE | 2021-03-22 17:40 | NUR ---
Nursing Progress Note: Alondra Tang Legal hold: TCREBEKAH Client on involuntary status for GD Report received from nurse with use of SBAR: MARJAN Benitez Why are they here: Client was transported to [facility] by [employer] for disruptive behavior. Client reported, "I was laying in the bed at my daughters house and the police came in a said 'We're here to help you.' They handcuffed me and took me to the Hospital." "I want to get out of here!" Client stated, "I don't remember anything else." According the medical record client has had multiple ED visits and several Inpatient Psych admits. Hx of wandering into traffic, trespassing, and disorderly conduct. Client reported she was living with her daughter in [place]. She is currently homeless. Assessment What has happened this shift: Patient noted to be sleeping in her room at change of shift. She joined in the community room for breakfast, noted eating and socializing with peers. She continues to be cooperative with care and pleasant. She appears lethargic on this shift, endorsing to this nurse that she is not feeling well and is having body aches. Patient given PRN Tylenol for temperature of 102 degrees, with a recheck temperature of 99.9 degrees noted. Patient observed sleeping in her room the majority of the day. She participated in the community room for meals. She had no episodes of yelling noted on this shift. Patient was sleeping during group therapy today, therefore, she did not attend. 1:1 assessment completed, lungs CTA. She denies SI/HI, AH or VH. Does not appear to be responding to internal stimuli. She endorsed to this commercial loan underwriter that she thought that she saw a kitten in her room last night but it ended up being a stuffed animal on the ground by her trashcan. Patient verbalized that she does not actually think there was a kitten in her room, but that she misses her cat back home. She is compliant with all medications. Held RTN Ativan 2mg PO dose at 1400 due to patient sleeping. She participated in the community room for dinner and was noted being social with others. S/I, H/I: Denies A/VH: Denies, does not appear internally preoccupied Sleep: Pt. slept 7.75 hours last night per NOC shift. She slept the majority of the day. ADL's: Independent Group attendance: No Were meds taken: Yes Any med S/E: None Mental Status Exam Appearance: Disheveled from sleeping in bed, messy hair, dressed appropriately for unit Eye contact: Good Behavior: Cooperative, restless, labile at times Speech: Clear Mood: Pleasant, sad at times, restless, wants to sleep Affect: Congruent with mood Thought process: Circumstantial, disorganized Thought Content: Perseveration regarding desire to discharge Cognition: A&O X3 (not to reason here) Insight: Poor Judgment: Poor Interventions PRN's used: None Therapeutic interventions: Maintained a safe and supportive environment, ensured contract for safety, provided clear and simple instructions, attempted to orient to reality, monitored behaviors and need for redirection, provided active listening and positive encouragement, provided ongoing education regarding handwashing r/t positive MRSA, and maintained Q 15min safety checks. Restraints/seclusion/emergency medication: N/A Justification of Continued Inpatient Treatment: Patient continues to require monitoring by staff, milieu, group, and individual counseling as needed. She requires a safe and supportive environment. No change in medication or treatment plan at this time. Patient is on a T con, she is awaiting her court hearing and placement.
[2021-03-22 19:00] VITALS: BP 94/56
[2021-03-22] MEDS: lactobacillus rhamnosus 10,000 MMU CELLS/CAPSULE PO SCH (20:26)
[2021-03-23] MEDS: LORazepam 1 MG tablet PO SCH ×4 (02:00→18:39)
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
[2021-03-23] MEDS: lactobacillus rhamnosus 10,000 MMU CELLS/CAPSULE PO SCH ×2 (08:29→19:43)
[2021-03-23] MEDS: quetiapine 100mg tablet PO SCH ×4 (08:29→19:43)
[2021-03-23] MEDS: divalproex sod 125mg sprinkle cap PO SCH ×2 (08:29→19:42)
[2021-03-23 08:41] VITALS: BP 108/75
[2021-03-23] MEDS: levoFLOXACIN 500mg tablet PO SCH (10:49)
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
[2021-03-23] MEDS: carbamide peroxide 15ml bottle EACH EAR SCH (19:46)
[2021-03-23 20:00] VITALS: BP 113/66
--- NOTE | 2021-03-24 03:34 | NUR ---
Nursing Progress Note: Legal hold: TCon Client on involuntary status for GD Report received from nurse with use of SBAR: Armand RN Why are they here: Client was transported to [facility] by [employer] for disruptive behavior. Client reported, "I was laying in the bed at my daughters house and the police came in a said 'We're here to help you.' They handcuffed me and took me to the Hospital." "I want to get out of here!" Client stated, "I don't remember anything else." According the medical record client has had multiple ED visits and several Inpatient Psych admits. Hx of wandering into traffic, trespassing, and disorderly conduct. Client reported she was living with her daughter in [place]. She is currently homeless. Assessment What has happened this shift: Pt yelling and screaming periodically throughout the shift. Mostly about her cat and how "these people" were messing with her. This RN was able to calm the storm each time with calm, gentle, caring approach; though, sometimes it would start up again as soon as I left. Pt was able to understand common courtesy to her fellow pts and would stop yelling. S/I, H/I: Denies A/VH: Denies Sleep: up and down all night. ADL's: Independent Group attendance: N/A Were meds taken: Yes Any med S/E: None Mental Status Exam Appearance: Wearing her own clothing, hair appears unkempt Eye contact: Good Behavior: pt continues to yell at times, but redirection is effective Speech: loud at times, normal rate Mood: remains labile Affect: angry at times, otherwise blunted Thought process: linear Thought Content: continues to talk about getting her own trailer, Cognition: A&O X3 (not to reason here) Insight: Poor Judgment: Fair Interventions PRN's used: Therapeutic interventions: Maintained a safe and supportive environment, provided clear and simple instructions, attempted to orient to reality, provided active listening and positive encouragement, provided ongoing education regarding handwashing r/t positive MRSA, and maintained Q 15min safety checks. Restraints/seclusion/emergency medication: N/A Justification of Continued Inpatient Treatment: Per RIDDHI Lopez, pt. does not require any change in treatment at this time, but continues to require a safe and supportive environment. Pt pending conservatorship.
[2021-03-24] MEDS: LORazepam 1 MG tablet PO SCH ×4 (03:40→20:16)
[2021-03-24] MEDS: lactobacillus rhamnosus 10,000 MMU CELLS/CAPSULE PO SCH ×2 (07:23→20:16)
[2021-03-24] MEDS: divalproex sod 125mg sprinkle cap PO SCH ×2 (07:23→20:16)
[2021-03-24] MEDS: quetiapine 100mg tablet PO SCH ×4 (07:23→20:21)
[2021-03-24] MEDS: carbamide peroxide 15ml bottle EACH EAR SCH ×2 (07:26→20:00)
[2021-03-24 07:55] VITALS: BP 130/84
[2021-03-24] MEDS: levoFLOXACIN 500mg tablet PO SCH (11:32)
[2021-03-24] MEDS ORDERED: ziprasidone IM 20mg inj **IM only ONE (13:16)
[2021-03-24] MEDS ORDERED: LORazepam 2 mg/ml vial ONE (13:18)
--- NOTE | 2021-03-24 17:41 | NUR ---
Nursing Progress Note: Alondra Tang Legal hold: TCON Client on involuntary status for GD Report received from nurse with use of SBAR: Vicky Guidry RN Why are they here: Client was transported to [facility] by [employer] for disruptive behavior. Client reported, "I was laying in the bed at my daughters house and the police came in a said 'We're here to help you.' They handcuffed me and took me to the Hospital." "I want to get out of here!" Client stated, "I don't remember anything else." According the medical record client has had multiple ED visits and several Inpatient Psych admits. Hx of wandering into traffic, trespassing, and disorderly conduct. Client reported she was living with her daughter in [place]. She is currently homeless. Assessment What has happened this shift: Patient was noted awake and walking around the unit at change of shift. She appeared disheveled with messy hair, downcast expression on her face. She was noted intermittently screaming in her room throughout the morning. This data analyst report writer made several attempts to redirect, and help patient calm down. She was noted sitting quietly in her room for short periods of time and then would proceed to scream down the hallway. Patient noted stating, They broke the law in court, I am going to julio the entire court, I told the truth in court, I am going to julio the nursing program director. Patient noted perseverating on buying a trailer and living with her cat. She was noted visibly upset AEB crying, screaming, and stating I have nobody all that I have is my cat and you guys took him from me! Patient observed having episodes of crying followed by bouts of screaming, stating, Fk you guys! I hate you all! She was observed eating breakfast in the community room. She retreated to her room after breakfast and was observed sleeping for approximately 1.5 hours. She walked around the unit and was noted having conversation and laughing with staff appropriately. This data analyst report writer assisted patient in cleaning up her room and re-making her bed with clean linens. She was polite and social with this data analyst report writer, stating that she likes to keep her things organized and clean. 1:1 assessment completed, lungs CTA. Patient refused to participate with other peers on the outside patio today despite encouragement. She denies SI/HI, AH or VH. Does not appear to be responding to internal stimuli. She was observed participating for the first five minutes of group therapy today and then walked out and retreated to her room. She began screaming in her room shortly after and proceeded to slam the door. She continues to present as labile, agitated, and impulsive. Patient observed screaming out down the smith way at staff and slamming the door to her room. One time order of IM Geodon 20mg and IM Ativan 2mg given at 1318 per order by RIDDHI Boles. RTN order of Ativan 2mg PO held at 1400 due to recent one-time order of IM Ativan 2mg given. Patient noted sleeping in her room for approximately 3 hours, respirations even, unlabored. She awoke shortly before dinner time and was observed walking around the unit talking with staff. She participated in the community room for dinner with peers. S/I, H/I: Denies A/VH: Denies, does not appear internally preoccupied Sleep: Pt. slept 5.75 hours last night per NOC shift. Intermittent napping throughout the day ADL's: Independent Group attendance: No Were meds taken: Yes Any med S/E: None Mental Status Exam Appearance: Messy hair, disheveled, wearing personal t-shirt and jeans Eye contact: Good Behavior: Restless, labile, aggressive and inappropriate at times Speech: Clear, loud at times (episodes of screaming) Mood: Agitated, sad at times Affect: Congruent with mood Thought process: Circumstantial, disorganized Thought Content: Perseveration regarding desire to discharge, wants to see her cat Cognition: A&O X3 (not to reason here) Insight: Poor Judgment: Poor Interventions PRN's used: None Therapeutic interventions: Maintained a safe and supportive environment, attempted to orient to reality, ensured contract for safety, provided clear and simple instructions, monitored behaviors and need for redirection, provided active listening and positive encouragement, provided ongoing education regarding handwashing r/t positive MRSA, and maintained Q 15min safety checks. Restraints/seclusion/emergency medication: N/A Justification of Continued Inpatient Treatment: Patient continues to require monitoring by staff, milieu, group, and individual counseling as needed. She requires a safe and supportive environment. Patient is on a T con, she is awaiting her court hearing and placement.
[2021-03-24 20:00] VITALS: BP 97/41
--- NOTE | 2021-03-25 01:58 | NUR ---
Nursing Progress Note: Alondra Tang Legal hold: TCON Client on involuntary status for GD Report received from nurse with use of SBAR: Ana PHILLIP Why are they here: Client was transported to [facility] by [employer] for disruptive behavior. Client reported, "I was laying in the bed at my daughters house and the police came in a said 'We're here to help you.' They handcuffed me and took me to the Hospital." "I want to get out of here!" Client stated, "I don't remember anything else." According the medical record client has had multiple ED visits and several Inpatient Psych admits. Hx of wandering into traffic, trespassing, and disorderly conduct. Client reported she was living with her daughter in [place]. She is currently homeless. Assessment What has happened this shift: Patient was sleeping at change of shift. Had to awaken pt for med pass, pt took all HS medication without issue. Pt asked politely for snacks and coffee, stated she was very tired and couldnt remember if she ate dinner. Pt briefly went into the rec room to watch TV with peers and went back to her room where she is noted to be sleeping at this time. S/I, H/I: Denies A/VH: Denies, does not appear internally preoccupied Sleep: ADL's: Independent Group attendance: No Were meds taken: Yes Any med S/E: None Mental Status Exam Appearance: Messy hair, disheveled, wearing personal t-shirt and jeans Eye contact: Good Behavior: Sleepy, lethargic Speech: Normal rate, loud at times Mood: Labile Affect: Congruent with mood Thought process: Circumstantial, disorganized Thought Content: Perseveration regarding desire to discharge, wants to see her cat Cognition: A&O X3 (not to reason here) Insight: Poor Judgment: Poor Interventions PRN's used: None Therapeutic interventions: Maintained a safe and supportive environment, attempted to orient to reality, ensured contract for safety, provided clear and simple instructions, monitored behaviors and need for redirection, provided active listening and positive encouragement, provided ongoing education regarding handwashing r/t positive MRSA, and maintained Q 15min safety checks. Restraints/seclusion/emergency medication: N/A Justification of Continued Inpatient Treatment: Patient continues to require monitoring by staff, milieu, group, and individual counseling as needed. She requires a safe and supportive environment. Patient is on a T con, she is awaiting her court hearing and placement.
[2021-03-25] MEDS: LORazepam 1 MG tablet PO SCH ×4 (02:04→19:16)
[2021-03-25 07:58] VITALS: BP 106/84
[2021-03-25] MEDS: quetiapine 100mg tablet PO SCH ×4 (08:55→20:04)
[2021-03-25] MEDS: lactobacillus rhamnosus 10,000 MMU CELLS/CAPSULE PO SCH ×2 (08:55→19:16)
[2021-03-25] MEDS: divalproex sod 125mg sprinkle cap PO SCH ×2 (08:56→19:13)
[2021-03-25] MEDS: carbamide peroxide 15ml bottle EACH EAR SCH ×2 (08:57→20:05)
[2021-03-25] MEDS: levoFLOXACIN 500mg tablet PO SCH (11:15)
[2021-03-25] MEDS ORDERED: ziprasidone IM 20mg inj **IM only ONE (12:23)
[2021-03-25] MEDS ORDERED: LORazepam 2 mg/ml vial ONE (12:25)
--- NOTE | 2021-03-25 16:36 | NUR ---
Nursing Progress Note: Alondra Tang Legal hold: TCON Client on involuntary status for GD Report received from nurse with use of SBAR: MARJAN Webster Why are they here: Client was transported to [facility] by [employer] for disruptive behavior. Client reported, "I was laying in the bed at my daughters house and the police came in a said 'We're here to help you.' They handcuffed me and took me to the Hospital." "I want to get out of here!" Client stated, "I don't remember anything else." According the medical record client has had multiple ED visits and several Inpatient Psych admits. Hx of wandering into traffic, trespassing, and disorderly conduct. Client reported she was living with her daughter in [place]. She is currently homeless. Assessment What has happened this shift: Patient was noted awake and walking around the unit at change of shift. She appeared disheveled with messy hair, downcast expression on her face. She was noted intermittently screaming in her room throughout the morning. This staff writer made several attempts to redirect, and help patient calm down. She was noted sitting quietly in her room for short periods of time and then would proceed to scream down the hallway. Patient noted stating, They broke the law in court, I am going to julio the entire court, I told the truth in court, I am going to julio the appliance mechanic. Patient noted perseverating on buying a trailer and living with her cat. She was noted visibly upset AEB crying, screaming, and stating I have nobody all that I have is my cat and you guys took him from me! Patient observed having episodes of crying followed by bouts of screaming, stating, Fk you guys! I hate you all! She was observed eating breakfast in the community room. She walked around the unit and was noted having conversation and laughing with staff appropriately. 1220 patient required a prn of IM Ativan 2mg and Geodon 20mg, for sever agitation. 1:1 assessment completed. She denies SI/HI, AH or VH. Does not appear to be responding to internal stimuli yet today. She began screaming in her room shortly after and proceeded to slam the door. She continues to present as labile, agitated, and impulsive. Patient observed screaming out down the smith way at staff and slamming the door to her room. Patient noted sleeping in her room for approximately 1.5 hours, respirations even, unlabored. She awoke shortly before dinner time and was observed walking around the unit talking with staff. She participated in the community room for dinner with peers. S/I, H/I: Denies A/VH: Denies, does not appear internally preoccupied Sleep: 1.5 hour nap after IM shot ADL's: Independent Group attendance: No Were meds taken: Yes Any med S/E: None Mental Status Exam Appearance: Messy hair, disheveled, wearing personal t-shirt and jeans Eye contact: Good Behavior: Restless, labile, aggressive and inappropriate at times Speech: Clear, loud at times (episodes of screaming) Mood: Agitated, sad at times Affect: Congruent with mood Thought process: Circumstantial, disorganized Thought Content: Perseveration regarding desire to discharge, wants to see her cat Cognition: A&O X3 (not to reason here) Insight: Poor Judgment: Poor Interventions PRN's used: Ativan and Geodon IM Therapeutic interventions: Maintained a safe and supportive environment, attempted to orient to reality, ensured contract for safety, provided clear and simple instructions, monitored behaviors and need for redirection, provided active listening and positive encouragement, provided ongoing education regarding handwashing r/t positive MRSA, and maintained Q 15min safety checks. Restraints/seclusion/emergency medication: Justification of Continued Inpatient Treatment: Alondra is on a T-con with [facility] due to failed outpatient treatment plans. Today patients discharge plan is to return to the situation that keeps getting her hospitalized. Patient is GD awaiting her LPS court hearing.
[2021-03-25 19:21] VITALS: BP 102/50
[2021-03-26] MEDS: LORazepam 1 MG tablet PO SCH ×4 (02:40→20:13)
--- NOTE | 2021-03-26 02:46 | NUR ---
Nursing Progress Note: Alondra Tang Legal hold: TCON Client on involuntary status for GD Report received from nurse with use of SBAR: Ana PHILLIP Why are they here: Client was transported to [facility] by [employer] for disruptive behavior. Client reported, "I was laying in the bed at my daughters house and the police came in a said 'We're here to help you.' They handcuffed me and took me to the Hospital." "I want to get out of here!" Client stated, "I don't remember anything else." According the medical record client has had multiple ED visits and several Inpatient Psych admits. Hx of wandering into traffic, trespassing, and disorderly conduct. Client reported she was living with her daughter in [place]. She is currently homeless. Assessment What has happened this shift: Patient was sleeping at shift change but awoke for assessment. Pt denies having any issues or needs at that time. Pt appeared sedated but was cooperative for assessments and care. Pt awoke several times during the night confused about what time it was. Pt did not have any screaming outbursts. S/I, H/I: Denies A/VH: Denies, does not appear internally preoccupied Sleep: see sleep assessment ADL's: Independent Group attendance: No Were meds taken: Yes Any med S/E: None Mental Status Exam Appearance: Messy hair, disheveled, wearing personal t-shirt and jeans Eye contact: Good Behavior: Sleepy, lethargic Speech: Normal rate, loud at times Mood: Labile Affect: Congruent with mood Thought process: Circumstantial, disorganized Thought Content: Perseveration regarding desire to discharge, wants to see her cat Cognition: A&O X3 (not to reason here) Insight: Poor Judgment: Poor Interventions PRN's used: None Therapeutic interventions: Maintained a safe and supportive environment, attempted to orient to reality, ensured contract for safety, provided clear and simple instructions, monitored behaviors and need for redirection, provided active listening and positive encouragement, provided ongoing education regarding handwashing r/t positive MRSA, and maintained Q 15min safety checks. Restraints/seclusion/emergency medication: N/A Justification of Continued Inpatient Treatment: Patient continues to require monitoring by staff, milieu, group, and individual counseling as needed. She requires a safe and supportive environment. Patient is on a T con, she is awaiting her court hearing and placement.
[2021-03-26 07:59] VITALS: BP 129/62
[2021-03-26] MEDS: carbamide peroxide 15ml bottle EACH EAR SCH ×2 (08:00→20:13)
[2021-03-26] MEDS: quetiapine 100mg tablet PO SCH ×4 (09:08→20:13)
[2021-03-26] MEDS: divalproex sod 125mg sprinkle cap PO SCH ×2 (09:08→20:13)
[2021-03-26] MEDS: lactobacillus rhamnosus 10,000 MMU CELLS/CAPSULE PO SCH ×2 (09:08→20:12)
--- NOTE | 2021-03-26 09:18 | NUR ---
Alondra was asking about her purse. Since it is not here, called her daughter, Divya (ph# [phone]) to see if family could drop her purse off. Divya reported Alondra's is planning on dropping it off to Public Guardian. Requested he drop it off here as he is enroute to [facility]. She became upset and complained about the multiple phone calls she receives (I believe from Alondra) and hung up on remote mortgage underwriter. REJI Rome
[2021-03-26] MEDS: levoFLOXACIN 500mg tablet PO SCH (12:20)
[2021-03-26] MEDS ORDERED: ziprasidone IM 20mg inj **IM only IM ONE (14:15)
[2021-03-26] MEDS ORDERED: diphenhydrAMINE 50 mg/ml inj IM ONE (14:15)
--- NOTE | 2021-03-26 16:49 | NUR ---
Nursing Progress Note: Legal hold: TCON Client on involuntary status for GD Report received from nurse with use of SBAR: Vicky Guidry RN Why are they here: Client was transported to [facility] by [employer] for disruptive behavior. Client reported, "I was laying in the bed at my daughters house and the police came in a said 'We're here to help you.' They handcuffed me and took me to the Hospital." "I want to get out of here!" Client stated, "I don't remember anything else." According the medical record client has had multiple ED visits and several Inpatient Psych admits. Hx of wandering into traffic, trespassing, and disorderly conduct. Client reported she was living with her daughter in [place]. She is currently homeless. Assessment What has happened this shift: Basically Alondra has had no change in her bx or MH symptoms. Patient was noted awake and walking around the unit at change of shift. She appeared disheveled with messy hair, downcast expression on her face. She was noted intermittently screaming in her room throughout the morning. This service writer advisor made several attempts to redirect, and help patient calm down. She was noted sitting quietly in her room for short periods of time and then would proceed to scream down the hallway. Patient noted stating, They broke the law in court, I am going to julio the entire court, I told the truth in court, I am going to julio the subassemblies wirer. Patient noted perseverating on buying a trailer and living with her cat. She was noted visibly upset AEB crying, screaming, and stating I have nobody all that I have is my cat and you guys took him from me! Patient observed having episodes of crying followed by bouts of screaming, stating, Fk you guys! I hate you all! "I hate you God".She was observed eating breakfast in the community room. She walked around the unit and was noted having conversation and laughing with staff appropriately. Mid afternoon patient asked patient right advocate to talk with her, Alondra began yelling instantly. Provider over heard Alondra and ordered a Geodon and Benadryl IM, patient calmed down and was sitting in her room wrapped in a blanket. This service writer advisor felt at this time patient was not a DTS or DTO so the IM has been held for the time being. Provider aware. She denies SI/HI, AH or VH. Does not appear to be responding to internal stimuli yet today. She continues to present as labile, agitated, and impulsive. Patient observed screaming out down the smith way at staff and slamming the door to her room. Patient noted sleeping in her room for approximately 1.5 hours, respirations even, unlabored. She awoke shortly before dinner time and was observed walking around the unit talking with staff. She participated in the community room for dinner with peers. S/I, H/I: Denies A/VH: Denies, does not appear internally preoccupied Sleep: 3 short naps today ADL's: Independent Group attendance: No, was pissed that she could not have germán during group. Were meds taken: Yes Any med S/E: None Mental Status Exam Appearance: Messy hair, disheveled, wearing personal t-shirt and jeans Eye contact: Good Behavior: Restless, labile, aggressive and inappropriate at times Speech: Clear, loud at times (episodes of screaming) Mood: Agitated, sad at times Affect: Congruent with mood Thought process: Circumstantial, disorganized Thought Content: Perseveration regarding desire to discharge, wants to see her cat Cognition: A&O X3 (not to reason here) Insight: Poor Judgment: Poor Interventions PRN's used: Therapeutic interventions: Maintained a safe and supportive environment, attempted to orient to reality, ensured contract for safety, provided clear and simple instructions, monitored behaviors and need for redirection, provided active listening and positive encouragement, provided ongoing education regarding handwashing r/t positive MRSA, and maintained Q 15min safety checks. Restraints/seclusion/emergency medication: Justification of Continued Inpatient Treatment: Alondra is on a T-con with [facility] due to failed outpatient treatment plans. Today patients discharge plan is to return to the situation that keeps getting her hospitalized. Patient is GD awaiting her LPS court hearing.
[2021-03-26 19:36] VITALS: BP 116/54
--- NOTE | 2021-03-26 21:58 | NUR ---
Nursing Progress Note: Legal hold: TCON Client on involuntary status for GD Report received from nurse with use of SBAR: Ana RN Why are they here: Client was transported to [facility] by [employer] for disruptive behavior. Client reported, "I was laying in the bed at my daughters house and the police came in a said 'We're here to help you.' They handcuffed me and took me to the Hospital." "I want to get out of here!" Client stated, "I don't remember anything else." According the medical record client has had multiple ED visits and several Inpatient Psych admits. Hx of wandering into traffic, trespassing, and disorderly conduct. Client reported she was living with her daughter in [place]. She is currently homeless. Assessment What has happened this shift: Pt was in her room at change of shift. She has episodes of screaming during the evening but is redirected by staff. Pt spent time in the group room for snack but returned to her room shortly after getting snacks. Pt has a picture of her cat in her room and smiles and shows me her picture. Pt took meds with yogurt before going to bed. S/I, H/I: Denies A/VH: Denies, does not appear internally preoccupied Sleep: see sleep hours ADL's: Independent Group attendance: No groups Were meds taken: Yes Any med S/E: None Mental Status Exam Appearance: Messy hair, disheveled, wearing personal t-shirt and jeans Eye contact: Good Behavior: Restless, labile, crying and yelling twice tonight Speech: Clear, loud at times (episodes of screaming) Mood:Labile, smiling laughing to crying Affect: Congruent Thought process: Circumstantial, disorganized Thought Content: wants to see her cat Cognition: A&O X3 (not to reason here) Insight: Poor Judgment: Poor Interventions PRN's used: Therapeutic interventions: Maintained a safe and supportive environment, attempted to orient to reality, ensured contract for safety, provided clear and simple instructions, monitored behaviors and need for redirection, provided active listening and positive encouragement, provided ongoing education regarding handwashing r/t positive MRSA, and maintained Q 15min safety checks. Restraints/seclusion/emergency medication: Justification of Continued Inpatient Treatment: Alondra is on a T-con with [facility] due to failed outpatient treatment plans. Today patients discharge plan is to return to the situation that keeps getting her hospitalized. Patient is GD awaiting her LPS court hearing.
[2021-03-27] MEDS: LORazepam 1 MG tablet PO SCH ×4 (02:00→20:29)
[2021-03-27 07:27] VITALS: BP 113/75
[2021-03-27] MEDS: carbamide peroxide 15ml bottle EACH EAR SCH ×2 (08:00→20:27)
[2021-03-27] MEDS: lactobacillus rhamnosus 10,000 MMU CELLS/CAPSULE PO SCH ×2 (08:38→20:28)
[2021-03-27] MEDS: divalproex sod 125mg sprinkle cap PO SCH ×2 (08:39→20:29)
[2021-03-27] MEDS: quetiapine 100mg tablet PO SCH ×4 (08:39→20:31)
--- NOTE | 2021-03-27 12:48 | NUR ---
BEHAVIOR MODIFICATION Alondra can earn stickers based on good behavior. For every 3 stickers (total of 6/day) she can earn a treat from a treat bag (black bag with a cat face on it) or earn an extra hot chocolate or decaf coffee. Her nurse for the day can dole out the stickers and the treats. There is a Star Chart in Alondra's room. Extra Star Charts and stickers are in her binder. REJI Rome
--- NOTE | 2021-03-27 16:20 | NUR ---
Nursing Progress Note: Legal hold: TCON Client on involuntary status for GD Report received from nurse with use of SBAR: Eli RN Why are they here: Client was transported to [facility] by [employer] for disruptive behavior. Client reported, "I was laying in the bed at my daughters house and the police came in a said 'We're here to help you.' They handcuffed me and took me to the Hospital." "I want to get out of here!" Client stated, "I don't remember anything else." According the medical record client has had multiple ED visits and several Inpatient Psych admits. Hx of wandering into traffic, trespassing, and disorderly conduct. Client reported she was living with her daughter in [place]. She is currently homeless. Assessment What has happened this shift: Basically Alondra has had no change in her bx or MH symptoms. Patient was noted awake and walking around the unit at change of shift. She appeared disheveled with messy hair, downcast expression on her face. She was noted intermittently screamed two times but was re-directed She participated in the community room for meals with peers. Behavior modification: patient was approached by SS and offered a Behavior Modification plan. This plan has been put in place, when asked Alondra say "if I am good I get a sticker if I am not a host". this is not entirely true. Sticker for good behavior, after 3 in a day patient will get a treat. this wrtier explained that she is not always getting a short for "bad behavior". Patient is child like and does understand the concept of the reward for good behavior. As of 1629 the Bx modification is off to a good start. Alondra only had two short outburst this morning and has been pleasant the rest of the day. 1529 patient did ask this customs entry writer to get her some hot germán , this customs entry writer reminded patient that snack was 30 mins ago and that we only do snack during snack time. Alondra then nicely asked if I could wash her pitcher so she could have soem later. Patient did not get upset. S/I, H/I: Denies A/VH: Denies, does not appear internally preoccupied today Sleep: no naps today ADL's: Independent Group attendance: No, Were meds taken: Yes Any med S/E: None Mental Status Exam Appearance: Messy hair, disheveled, wearing personal t-shirt and jeans Eye contact: Good Behavior: Restless, labile Speech: Clear, loud Mood: Agitated, sad at times Affect: Congruent with mood Thought process: Circumstantial, disorganized Thought Content: Perseveration regarding desire to discharge, wants to see her cat Cognition: A&O X3 (not to reason here) Insight: Poor Judgment: Poor Interventions PRN's used: Therapeutic interventions: Maintained a safe and supportive environment, attempted to orient to reality, ensured contract for safety, provided clear and simple instructions, monitored behaviors and need for redirection, provided active listening and positive encouragement, provided ongoing education regarding handwashing r/t positive MRSA, and maintained Q 15min safety checks. Restraints/seclusion/emergency medication: Justification of Continued Inpatient Treatment: Alondra is on a T-con with [facility] due to failed outpatient treatment plans. Today patients discharge plan is to return to the situation that keeps getting her hospitalized. Patient is GD awaiting her LPS court hearing.
[2021-03-27 19:07] VITALS: BP 112/58
--- NOTE | 2021-03-27 21:05 | NUR ---
Nursing Progress Note: Legal hold: TCON Client on involuntary status for GD Report received from nurse with use of SBAR: Ana RN Why are they here: Client was transported to [facility] by [employer] for disruptive behavior. Client reported, "I was laying in the bed at my daughters house and the police came in a said 'We're here to help you.' They handcuffed me and took me to the Hospital." "I want to get out of here!" Client stated, "I don't remember anything else." According the medical record client has had multiple ED visits and several Inpatient Psych admits. Hx of wandering into traffic, trespassing, and disorderly conduct. Client reported she was living with her daughter in [place]. She is currently homeless. Assessment What has happened this shift: Pt was in her room at change of shift. Pt talks about getting stickers and does really well tonight. Pt is asking to have laundry done and saying please, thank you, and is not yelling. Behavior modification plan seems to be going well and patient understands she will get stickers. Told patient she has done well tonight and will get a sticker in the morning if she has a good night. S/I, H/I: Denies A/VH: Denies, Sleep: see sleep hours ADL's: Independent Group attendance: No Were meds taken: Yes Any med S/E: None Mental Status Exam Appearance: Messy hair, unkempt, wearing personal t-shirt and jeans Eye contact: Good Behavior: quiet, pleasant cooperative Speech: Clear, loud Mood: pleasant, cooperative Affect: Constricted Thought process: Circumstantial, disorganized Thought Content: talking about stickers and treat bag Cognition: A&O X3 (not to reason here) Insight: Poor Judgment: Poor Interventions PRN's used: Therapeutic interventions: Maintained a safe and supportive environment, attempted to orient to reality, ensured contract for safety, provided clear and simple instructions, monitored behaviors and need for redirection, provided active listening and positive encouragement, provided ongoing education regarding handwashing r/t positive MRSA, and maintained Q 15min safety checks. Restraints/seclusion/emergency medication: Justification of Continued Inpatient Treatment: Alondra is on a T-con with [facility] due to failed outpatient treatment plans. Today patients discharge plan is to return to the situation that keeps getting her hospitalized. Patient is GD awaiting her LPS court hearing. Addendum: 03/27/21 at 2115 by Belen Newton RN Educated patient on MRSA, and had her wash her hands before bed.
[2021-03-28] MEDS: LORazepam 1 MG tablet PO SCH ×4 (02:00→19:16)
[2021-03-28] MEDS: lactobacillus rhamnosus 10,000 MMU CELLS/CAPSULE PO SCH ×2 (07:46→19:16)
[2021-03-28] MEDS: quetiapine 100mg tablet PO SCH ×4 (07:46→20:15)
[2021-03-28] MEDS: divalproex sod 125mg sprinkle cap PO SCH ×2 (07:48→19:16)
[2021-03-28] MEDS: carbamide peroxide 15ml bottle EACH EAR SCH (07:49)
[2021-03-28 08:00] VITALS: BP 128/59
--- NOTE | 2021-03-28 11:06 | NUR ---
Vaccine Request [facility] Guardian requested Alondra get a Covid vaccine to assist with placement. Alondra reported she thinks she already got it at [facility]. She stated she is willing to get it if she has not had it already. Called [facility] (ph# [phone]) to see if Alondra received Covid vaccine at their facility. Was informed by medical records staff that they only give staff the vaccine, not patients. Nursing Staff Development Coordinator will request Alondra to get the vaccine. REJI Rome
--- NOTE | 2021-03-28 14:13 | NUR ---
F/u 03/28: Pt continues eating well with mostly 100% PO intake on regular diet while receiving double protein TID meeting estimated nutrient needs. LBM 03/27. No nutrition intervention implemented at this time. Will continue to follow. Rec: 1. Continue regular diet; double eggs WB double, meat BIDLD per diet order 2. Bowel care per rx 3. Weekly scaled wts Addendum: 03/28/21 at [address] Amended: Links added.
--- NOTE | 2021-03-28 14:29 | NUR ---
Pt attended group today. Today we constructed Vision Pages/Collages with inspiring words and pictures to inspire and create intention towards things hoped for in the future. Pt. was calm and compliant throughout the group. Her mood was good with somewhat labile affect. She found a picture of a dog that she liked and glued it to her page. She shared that growing up she had a dog. She also reported that she has a cat now name Misfit. After a few more minutes of looking at the pages she began to cry and started to share with the group that this picture she was holding up reminder her of her father. It was a picture of a women drinking coffee talking to a man on a computer. She reported that her father was like her best friend and she really misses him. He in the 90s. Pt. was given tissues and she cried for a bit and then was able to recover and continue on with the group. She left a little bit early. Her thought process was circumstantial and her thought content appeared to be WNL. She reported at the end of the group that she enjoyed it and is thinking she may return another time. Cookie Velez, HARI
--- NOTE | 2021-03-28 15:20 | NUR ---
Nursing Progress Note: Legal hold: TCON Client on involuntary status for GD Report received from nurse with use of SBAR: MARJAN Diaz Why are they here: Client was transported to [facility] by [employer] for disruptive behavior. Client reported, "I was laying in the bed at my daughters house and the police came in a said 'We're here to help you.' They handcuffed me and took me to the Hospital." "I want to get out of here!" Client stated, "I don't remember anything else." According the medical record client has had multiple ED visits and several Inpatient Psych admits. Hx of wandering into traffic, trespassing, and disorderly conduct. Client reported she was living with her daughter in [place]. She is currently homeless. Assessment What has happened this shift: Pt was up before breakfast. Pt was cooperative with medications. Pt asked this RN to check on her laundry. Her clothes were dry and returned to her. Pt folded her clothes. Pt showered. Pt is on a behavior modification plan. Pt earned 3 stickers yesterday. Pt chose a reward from her mariya bag at the nurse's station. Pt picked out a pair of fuzzy socks in Halloween colors. Pt reported that she was going to make them into a ball and give them to her cat Misfit to play with. Pt attended group today. Pt can be labile at times. Pt became upset around 1500. She asked if Octavio RN was going to be here tomorrow. Pt stated that she was told that if she was good for 3 to 4 days then she would get to go out for a few days and look for a trailer. Pt stated that she wasn't going to yell and would wait for Octavio RN to get here tomorrow. Pt walked down the smith to her room and became loud and tearful on the way. Pt made a few loud, tearful statements. This RN went to pt's room for a 1:1. Pt was lamenting over missing her cat and her family and saying that she just wants to go home. Reminded pt that she had said that she was not going to yell anymore. Pt collected herself and said she knows, she is not. Discussed with pt that it is okay to feel sad and disappointed and to miss her cat and her family. It is okay to talk about it. It is not okay to yell about it. Pt indicated that she wished to call her daughter. A cordless phone was found and pt returned to her room to call her daughter. Pt is quiet at this time. Pt has earned 2 stickers so far today. S/I, H/I: Pt denies. A/VH: Pt denies. Sleep: Pt slept 9.25 last night per noc shift report. ADL's: Independent Group attendance: Yes Were meds taken: Yes Any med S/E: None noted or reported. Mental Status Exam Appearance: Petite older appearing woman with long straight hair and missing teeth. Eye contact: Good Behavior: Mostly pleasant and cooperative, participates in unit activities, made an effort to not speak loudly or yell today. Speech: Clear, loud Mood: Labile, depressed. Affect: Labile, child-like. Thought process: Reality distortion, circumstantial. Thought Content: She is trying to be good and to not yell, she misses her cat and her family. Cognition: A/O X 2 Insight: Poor Judgment: Poor Interventions PRN's used: None Therapeutic interventions: 1:1 assessment, maintained a safe and supportive environment, provided clear and simple instructions, medication administration/education/monitoring, encouragement to attend groups, therapeutic communication, active listening, provided ongoing education regarding handwashing r/t positive MRSA, behavior modification with stickers and a goodie bag as reward for good behavior, coping skills education, distraction, redirection, reality orientation, limit setting, provided encouragement and positive reinforcement, and maintained Q 15 minute safety checks. Restraints/seclusion/emergency medication: Justification of Continued Inpatient Treatment: Alondra is on a T-con with [facility] due to failed outpatient treatment plans. Pt needs medication management and monitoring in a safe and therapeutic environment. Patient is GD awaiting her LPS court hearing.
[2021-03-28] MEDS ORDERED: COVID-19 VACC, MRNA(PFIZER)/PF--BNT162b2 syringe IMVAC ONE (17:00)
[2021-03-28 20:06] VITALS: BP 94/51
--- NOTE | 2021-03-29 01:26 | NUR ---
Nursing Progress Note: Legal hold: TCON Client on involuntary status for GD Report received from nurse with use of SBAR: MARJAN Webster Why are they here: Client was transported to [facility] by [employer] for disruptive behavior. Client reported, "I was laying in the bed at my daughters house and the police came in a said 'We're here to help you.' They handcuffed me and took me to the Hospital." "I want to get out of here!" Client stated, "I don't remember anything else." According the medical record client has had multiple ED visits and several Inpatient Psych admits. Hx of wandering into traffic, trespassing, and disorderly conduct. Client reported she was living with her daughter in [place]. She is currently homeless. Assessment What has happened this shift: Pt was in her room at change of shift. Pt was in a pleasant mood this evening but mostly isolated to her room for most of the evening. Pt appears to be less sedated this shift. Pt is happy about her progress on her sticker chart and is quite proud of herself. Pt accepted hs meds without issue. S/I, H/I: Denies A/VH: Denies, Sleep: see sleep hours ADL's: Independent Group attendance: No Were meds taken: Yes Any med S/E: None Mental Status Exam Appearance: Messy hair, unkempt, wearing personal t-shirt and jeans Eye contact: Good Behavior: quiet, pleasant cooperative Speech: Clear, loud Mood: pleasant, cooperative Affect: Constricted Thought process: Circumstantial, disorganized Thought Content: talking about stickers and treat bag Cognition: A&O X3 (not to reason here) Insight: Poor Judgment: Poor Interventions PRN's used: Therapeutic interventions: Maintained a safe and supportive environment, attempted to orient to reality, ensured contract for safety, provided clear and simple instructions, monitored behaviors and need for redirection, provided active listening and positive encouragement, provided ongoing education regarding handwashing r/t positive MRSA, and maintained Q 15min safety checks. Restraints/seclusion/emergency medication: Justification of Continued Inpatient Treatment: Alondra is on a T-con with [facility] due to failed outpatient treatment plans. Today patients discharge plan is to return to the situation that keeps getting her hospitalized. Patient is GD awaiting her LPS court hearing.
[2021-03-29] MEDS: LORazepam 1 MG tablet PO SCH ×4 (02:37→20:07)
[2021-03-29] MEDS: lactobacillus rhamnosus 10,000 MMU CELLS/CAPSULE PO SCH ×2 (07:55→20:07)
[2021-03-29] MEDS: divalproex sod 125mg sprinkle cap PO SCH ×2 (07:55→20:07)
[2021-03-29] MEDS: quetiapine 100mg tablet PO SCH ×4 (07:56→20:07)
[2021-03-29 08:00] VITALS: BP 139/70
--- NOTE | 2021-03-29 15:23 | NUR ---
Nursing Progress Note: Legal hold: TCon Client on involuntary status for GD Report received from nurse with use of SBAR: MARJAN Webster Why are they here: Client was transported to [facility] by [employer] for disruptive behavior. Client reported, "I was laying in the bed at my daughters house and the police came in a said 'We're here to help you.' They handcuffed me and took me to the Hospital." "I want to get out of here!" Client stated, "I don't remember anything else." According the medical record client has had multiple ED visits and several Inpatient Psych admits. Hx of wandering into traffic, trespassing, and disorderly conduct. Client reported she was living with her daughter in [place]. She is currently homeless. Assessment What has happened this shift: Received pt. sleeping in bed at the beginning of the shift, she awoke and animatedly began showing staff the posters in her room she had made and her new sticker chart used for behavioral modification. Pt's mood quickly changed when she requested a snack and was provided education that she must wait for breakfast, however pt. was able to effectively control her emotions and no behavioral outbursts exhibited. 1:1 completed later at bedside, after pt. was allowed to pick out one "prize" for her good behaviors last night and this morning. Pt. continues to deny all MH s/s, however presents with some ongoing delusional thoughts and perseveration on her upcoming court case and desire to discharge an see her cat. Pt. points to the posters hanging in her room and holds up her "prize" to each. She states, "We are sharing! That's my dad, me, and my cat Misfit! My dad was my best friend, he passed in 91. That was 100 years ago, 2090." Pt. continues on, and her conversation appears to become more tangental as she proceeds. Pt. only had one tearful episode this shift, and she was offered active listening and positive encouragement and was able to be redirected. She did not exhibit any increased agitation or behaviors this shift, and continues on her behavioral modification contract with effectiveness. Pt. did attend group with encouragement from this procedure writer, however she continues to exhibit some impulsiveness and appears to have difficulty maintaining attention and left group early. Pt. was observed to be up interacting appropriately with others throughout the day, she napped intermittently. S/I, H/I: Denies A/VH: Denies, does not appear internally preoccupied Sleep: Pt. reports she slept well, sleep hours are 9, and she naps intermittently during the day ADL's: Independent Group attendance: Yes, pt. was able to attend with encouragement, however left early Were meds taken: Yes Any med S/E: None Mental Status Exam Appearance: Pt. continues to be thin and frail, however is neat and appropriately dressed Eye contact: Good Behavior: Cooperative and impulsive at times, but is able to be redirected Speech: WNL, child-like Mood: Pleasant, one tearful episode Affect: Labile at times, but pt. able to be redirected Thought process: Linear, becomes tangental with ongoing conversation Thought Content: Some delusional thoughts and continued perseveration regarding her desire to discharge and upcoming court date Cognition: A&O X3 (not to reason here) Insight: Fair Judgment: Fair Interventions PRN's used: None Therapeutic interventions: Maintained a safe and supportive environment, ensured contract for safety, provided clear and simple instructions, attempted to orient to reality, provided active listening and positive encouragement, maintained clear boundaries and behavioral contract, provided ongoing education regarding handwashing r/t positive MRSA, and maintained Q 15min safety checks. Restraints/seclusion/emergency medication: N/A Justification of Continued Inpatient Treatment: Per RIDDHI Lopze, pt. does not require any change in treatment at this time, will continue with behavioral contract and maintain a safe and supportive environment.
[2021-03-29 20:00] VITALS: BP 120/76
[2021-03-30] MEDS: LORazepam 1 MG tablet PO SCH ×4 (02:00→20:04)
--- NOTE | 2021-03-30 02:38 | NUR ---
Nursing Progress Note: Legal hold: TCON Client on involuntary status for GD Report received from nurse with use of SBAR: Ana RN Why are they here: Client was transported to [facility] by [employer] for disruptive behavior. Client reported, "I was laying in the bed at my daughters house and the police came in a said 'We're here to help you.' They handcuffed me and took me to the Hospital." "I want to get out of here!" Client stated, "I don't remember anything else." According the medical record client has had multiple ED visits and several Inpatient Psych admits. Hx of wandering into traffic, trespassing, and disorderly conduct. Client reported she was living with her daughter in [place]. She is currently homeless. Assessment What has happened this shift: Pt was in her room at change of shift. Pt talks about getting stickers and does really well tonight. Pt took hs medications and was cooperative with hs assessment. Pt up for snacks, then fell asleep about 2100. Pt woke up briefly, walked down the smith and returned to sleep without saying anything. Pt had no yelling this shift and was pleasant during assessment. S/I, H/I: Denies A/VH: Denies, Sleep: see sleep hours ADL's: Independent Group attendance: No Were meds taken: Yes Any med S/E: None Mental Status Exam Appearance: Messy hair, unkempt, wearing personal t-shirt and jeans Eye contact: Good Behavior: quiet, pleasant cooperative Speech: Clear, loud Mood: pleasant, cooperative Affect: Constricted Thought process: Circumstantial, disorganized Thought Content: talking about stickers and treat bag Cognition: A&O X3 (not to reason here) Insight: Poor Judgment: Poor Interventions PRN's used: Therapeutic interventions: Maintained a safe and supportive environment, attempted to orient to reality, ensured contract for safety, provided clear and simple instructions, monitored behaviors and need for redirection, provided active listening and positive encouragement, provided ongoing education regarding handwashing r/t positive MRSA, and maintained Q 15min safety checks. Restraints/seclusion/emergency medication: Justification of Continued Inpatient Treatment: Alondra is on a T-con with [facility] due to failed outpatient treatment plans. Today patients discharge plan is to return to the situation that keeps getting her hospitalized. Patient is GD awaiting her LPS court hearing.
[2021-03-30 08:00] VITALS: BP 106/63
[2021-03-30] MEDS: divalproex sod 125mg sprinkle cap PO SCH ×2 (08:03→20:04)
[2021-03-30] MEDS: lactobacillus rhamnosus 10,000 MMU CELLS/CAPSULE PO SCH ×2 (08:03→20:04)
[2021-03-30] MEDS: quetiapine 100mg tablet PO SCH ×5 (08:04→21:38)
--- NOTE | 2021-03-30 14:36 | NUR ---
Nursing Progress Note: Legal hold: TCON Client on involuntary status for GD Report received from nurse with use of SBAR: Vicky Guidry RN Why are they here: Client was transported to [facility] by [employer] for disruptive behavior. Client reported, "I was laying in the bed at my daughters house and the police came in a said 'We're here to help you.' They handcuffed me and took me to the Hospital." "I want to get out of here!" Client stated, "I don't remember anything else." According the medical record client has had multiple ED visits and several Inpatient Psych admits. Hx of wandering into traffic, trespassing, and disorderly conduct. Client reported she was living with her daughter in [place]. She is currently homeless. Assessment What has happened this shift: Pt awoke for breakfast. Pt has bright affect and was cooperative with am assessment and medications. Pt did perseverate on that she has behaved really well and thought at times that she could be discharged today. Pt remains cooperative and exhibited no agitation today. Pt remains on the sticker behavioral modification program. S/I, H/I: Pt denies. A/VH: Pt denies. Sleep: Pt slept 9.25 last night per noc shift report. ADL's: Independent Group attendance: Yes Were meds taken: Yes Any med S/E: None noted or reported. Mental Status Exam Appearance: Petite older appearing woman with long straight hair and missing teeth. Eye contact: Good Behavior: Mostly pleasant and cooperative, participates in unit activities, made an effort to not speak loudly or yell today. Speech: Clear, loud Mood: Labile, depressed. Affect: Labile, child-like. Thought process: Reality distortion, circumstantial. Thought Content: She is trying to be good and to not yell, she misses her cat and her family. Cognition: A/O X 2 Insight: Poor Judgment: Poor Interventions PRN's used: None Therapeutic interventions: 1:1 assessment, maintained a safe and supportive environment, provided clear and simple instructions, medication administration/education/monitoring, encouragement to attend groups, therapeutic communication, active listening, provided ongoing education regarding handwashing r/t positive MRSA, behavior modification with stickers and a goodie bag as reward for good behavior, coping skills education, distraction, redirection, reality orientation, limit setting, provided encouragement and positive reinforcement, and maintained Q 15 minute safety checks. Restraints/seclusion/emergency medication: Justification of Continued Inpatient Treatment: Alondra is on a T-con with [facility] due to failed outpatient treatment plans. Pt needs medication management and monitoring in a safe and therapeutic environment. Patient is GD awaiting her LPS court hearing.
[2021-03-30 19:00] VITALS: BP 89/64
[2021-03-30] MEDS: traZODone 50mg tablet PO PRN ×2 (20:03→21:38)
--- NOTE | 2021-03-31 00:28 | NUR ---
Nursing Progress Note: Legal hold: TCON Client on involuntary status for GD Report received from nurse with use of SBAR: MARJAN Webster Why are they here: Client was transported to [facility] by [employer] for disruptive behavior. Client reported, "I was laying in the bed at my daughters house and the police came in a said 'We're here to help you.' They handcuffed me and took me to the Hospital." "I want to get out of here!" Client stated, "I don't remember anything else." According the medical record client has had multiple ED visits and several Inpatient Psych admits. Hx of wandering into traffic, trespassing, and disorderly conduct. Client reported she was living with her daughter in [place]. She is currently homeless. Assessment What has happened this shift: Patient social in the smith at the beginning of shift. Pleasant and cooperative with care; compliant with medication. PRN Trazodone x2 and repeat Quetiapine provided. Patient had a couple outbursts this shift but remains easily directed and keeps to her room when she feels upset. Patient explained wanting her cat and stated, "I'll go anywhere if I can have my cat; I don't need to smoke but my cat is a must." Patient continued to socialize with peers and staff and participated in HS snack prior to bed; observed having some difficulty getting to sleep this sift. S/I, H/I: Denies A/VH: Denies Sleep: Refer to sleep assessment ADL's: Independent Group attendance: NA Were meds taken: Yes Any med S/E: None observed or reported Mental Status Exam Appearance: Neat, clean and appropriately dressed in personal attire. Eye contact: Good Behavior: Pleasant and cooperative, impulsive, social Speech: Clear, loud Mood: Labile Affect: Congruent to mood Thought process: Linear Thought Content: Wanting her cat being able to go with her where she discharges to Cognition: A&O X3 (not to reason here) Insight: Fair Judgment: Fair Interventions PRN's used: Trazodone x2 and repeat Quetiapine Therapeutic interventions: Maintained a safe and supportive environment, ensured contract for safety, provided clear and simple instructions, attempted to orient to reality, provided active listening and positive encouragement, maintained clear boundaries and behavioral contract, provided ongoing education regarding handwashing r/t positive MRSA, and maintained Q 15min safety checks. Restraints/seclusion/emergency medication: N/A Justification of Continued Inpatient Treatment: Per RIDDHI Lopez, pt. does not require any change in treatment at this time, will continue with behavioral contract and maintain a safe and supportive environment.
[2021-03-31] MEDS: LORazepam 1 MG tablet PO SCH ×4 (01:38→20:03)
[2021-03-31] MEDS: quetiapine 100mg tablet PO SCH ×4 (07:25→20:03)
[2021-03-31] MEDS: lactobacillus rhamnosus 10,000 MMU CELLS/CAPSULE PO SCH ×2 (07:25→20:03)
[2021-03-31 08:00] VITALS: BP 107/51
[2021-03-31] MEDS: divalproex sod 125mg sprinkle cap PO SCH ×2 (08:41→20:04)
--- NOTE | 2021-03-31 15:37 | NUR ---
Nursing Progress Note: Legal hold: TCON Client on involuntary status for GD Report received from nurse with use of SBAR: Vicky Guidry RN Why are they here: Client was transported to [facility] by [employer] for disruptive behavior. Client reported, "I was laying in the bed at my daughters house and the police came in a said 'We're here to help you.' They handcuffed me and took me to the Hospital." "I want to get out of here!" Client stated, "I don't remember anything else." According the medical record client has had multiple ED visits and several Inpatient Psych admits. Hx of wandering into traffic, trespassing, and disorderly conduct. Client reported she was living with her daughter in [place]. She is currently homeless. Assessment What has happened this shift: Pt awoke for breakfast. Pt has bright affect and was cooperative. Pt did perseverate this morning on finding a brand new trailer in [place] across from [facility] for $450 a month. Pt explains the difference between SSI and SSA and she makes $1400 a month. She says she never did drugs. Pt called her daughter at around noon to discuss her plans but began screaming over the phone and at the staff. Pt then fell asleep and when she woke was in better mood. Pt remains on the sticker behavioral modification program. S/I, H/I: Pt denies. A/VH: Pt denies. Sleep: Pt slept 2 hour today ADL's: Independent Group attendance: Yes Were meds taken: Yes Any med S/E: None noted or reported. Mental Status Exam Appearance: Petite older appearing woman with long straight hair and missing teeth. Eye contact: Good Behavior: Mostly pleasant and cooperative, participates in unit activities, made an effort to not speak loudly or yell today. Speech: Clear, loud Mood: Labile, depressed. Affect: Labile, child-like. Thought process: Reality distortion, circumstantial. Thought Content: She is trying to be good and to not yell, she misses her cat and her family. Cognition: A/O X 2 Insight: Poor Judgment: Poor Interventions PRN's used: None Therapeutic interventions: 1:1 assessment, maintained a safe and supportive environment, provided clear and simple instructions, medication administration/education/monitoring, encouragement to attend groups, therapeutic communication, active listening, provided ongoing education regarding handwashing r/t positive MRSA, behavior modification with stickers and a goodie bag as reward for good behavior, coping skills education, distraction, redirection, reality orientation, limit setting, provided encouragement and positive reinforcement, and maintained Q 15 minute safety checks. Restraints/seclusion/emergency medication: Justification of Continued Inpatient Treatment: Alondra is on a T-con with [facility] due to failed outpatient treatment plans. Pt needs medication management and monitoring in a safe and therapeutic environment. Patient is GD awaiting her LPS court hearing.
[2021-03-31 19:29] VITALS: BP 134/66
[2021-03-31] MEDS: traZODone 50mg tablet PO PRN (20:03)
--- NOTE | 2021-03-31 21:00 | NUR ---
Nursing Progress Note: Legal hold: TCON Client on involuntary status for GD Report received from nurse with use of SBAR: MARJAN Webster Why are they here: Client was transported to [facility] by [employer] for disruptive behavior. Client reported, "I was laying in the bed at my daughters house and the police came in a said 'We're here to help you.' They handcuffed me and took me to the Hospital." "I want to get out of here!" Client stated, "I don't remember anything else." According the medical record client has had multiple ED visits and several Inpatient Psych admits. Hx of wandering into traffic, trespassing, and disorderly conduct. Client reported she was living with her daughter in [place]. She is currently homeless. Assessment What has happened this shift: Patient sleeping in bed at the beginning of shift. Pleasant and cooperative with care; compliant with all medication. PRN Trazodone provided this shift. Patient appear to be having difficulty differentiating dreams from reality but easily reoriented. No outbursts presented at this time. Patient remains in bed and does not appear to be having difficulty sleeping. S/I, H/I: Denies A/VH: Denies Sleep: Refer to sleep assessment ADL's: Independent Group attendance: NA Were meds taken: Yes Any med S/E: None observed or reported Mental Status Exam Appearance: Neat, clean and appropriately dressed in personal attire. Eye contact: Good Behavior: Pleasant and cooperative, sleeping Speech: Clear, loud Mood: Fatigued Affect: Congruent to mood Thought process: Linear Thought Content: Meeting needs; dreams Cognition: A&O X3 (not to reason here) Insight: Fair Judgment: Fair Interventions PRN's used: Trazodone Therapeutic interventions: Maintained a safe and supportive environment, ensured contract for safety, provided clear and simple instructions, attempted to orient to reality, provided active listening and positive encouragement, maintained clear boundaries and behavioral contract, provided ongoing education regarding handwashing r/t positive MRSA, and maintained Q 15min safety checks. Restraints/seclusion/emergency medication: N/A Justification of Continued Inpatient Treatment: Per John PA, pt. does not require any change in treatment at this time, will continue with behavioral contract and maintain a safe and supportive environment.
[2021-04-01] MEDS: LORazepam 1 MG tablet PO SCH ×4 (02:00→20:28)
[2021-04-01 08:00] VITALS: BP 111/63
[2021-04-01] MEDS: lactobacillus rhamnosus 10,000 MMU CELLS/CAPSULE PO SCH ×2 (08:10→20:29)
[2021-04-01] MEDS: quetiapine 100mg tablet PO SCH ×4 (08:10→20:29)
[2021-04-01] MEDS: divalproex sod 125mg sprinkle cap PO SCH ×2 (10:41→20:28)
--- NOTE | 2021-04-01 16:57 | NUR ---
Nursing Progress Note: Legal hold: TCON Client on involuntary status for GD Report received from nurse with use of SBAR: Armand RN Why are they here: Client was transported to [facility] by [employer] for disruptive behavior. Client reported, "I was laying in the bed at my daughters house and the police came in a said 'We're here to help you.' They handcuffed me and took me to the Hospital." "I want to get out of here!" Client stated, "I don't remember anything else." According the medical record client has had multiple ED visits and several Inpatient Psych admits. Hx of wandering into traffic, trespassing, and disorderly conduct. Client reported she was living with her daughter in [place]. She is currently homeless. Assessment What has happened this shift: Alondra slept well last night and is planning on a good day today so that she can tell the budget assistant about her "sticker chart", "this is for misfit". Alondra did have some delusional statement this morning to another staff nurse, Alondra talked about her father and how he and she misses him so much, he was in the mob while she was in [employer] "I just want to cry but it bothers everyone her". Patient redirected easily. This video game script writer talked with Alondra about her sticker chart and gave her boundaries, good behavior between breakfast and lunch she can have sticker, between lunch and dinner the same. Alondra has done well with her behavior modification plan. S/I, H/I: Pt denies. A/VH: Pt denies. Sleep: a few naps today ADL's: Independent Group attendance: n/a Were meds taken: Yes Any med S/E: None noted or reported. Mental Status Exam Appearance: Petite older appearing woman with long straight hair and missing teeth. Eye contact: Good Behavior: Mostly pleasant and cooperative, participates in unit activities, made an effort to not speak loudly or yell today. Speech: Clear, loud Mood: Labile, depressed. Affect: Labile, child-like. Thought process: Reality distortion, circumstantial. Thought Content: She is trying to be good and to not yell, she misses her cat and her family. Cognition: A/O X 2 Insight: Poor Judgment: Poor Interventions PRN's used: None Therapeutic interventions: 1:1 assessment, maintained a safe and supportive environment, provided clear and simple instructions, medication administration/education/monitoring, encouragement to attend groups, therapeutic communication, active listening, provided ongoing education regarding handwashing r/t positive MRSA, behavior modification with stickers and a goodie bag as reward for good behavior, coping skills education, distraction, redirection, reality orientation, limit setting, provided encouragement and positive reinforcement, and maintained Q 15 minute safety checks. Restraints/seclusion/emergency medication: Justification of Continued Inpatient Treatment: Alondra is on a T-con with [facility] due to failed outpatient treatment plans. Pt needs medication management and monitoring in a safe and therapeutic environment. Patient is GD awaiting her LPS court hearing
[2021-04-01 19:31] VITALS: BP 95/54
[2021-04-01] MEDS: traZODone 50mg tablet PO PRN (20:29)
--- NOTE | 2021-04-01 23:46 | NUR ---
Nursing Progress Note: Legal hold: TCON Client on involuntary status for GD Report received from nurse with use of SBAR: MARJAN Webster Why are they here: Client was transported to [facility] by [employer] for disruptive behavior. Client reported, "I was laying in the bed at my daughters house and the police came in a said 'We're here to help you.' They handcuffed me and took me to the Hospital." "I want to get out of here!" Client stated, "I don't remember anything else." According the medical record client has had multiple ED visits and several Inpatient Psych admits. Hx of wandering into traffic, trespassing, and disorderly conduct. Client reported she was living with her daughter in [place]. She is currently homeless. Assessment What has happened this shift: Patient observed sleeping in bed at the beginning of shift. Pleasant and cooperative with care; compliant with all medication. PRN Trazodone provided this shift. Patient does not appear to be responding to IS this shift and appear bright while awake. No outbursts exhibited at this time. Patient participated in HS snack prior to bed; observed sleeping and does not appear to be having difficulty. S/I, H/I: Denies A/VH: Denies Sleep: Refer to sleep assessment ADL's: Independent Group attendance: NA Were meds taken: Yes Any med S/E: None observed or reported Mental Status Exam Appearance: Neat, clean and appropriately dressed in personal attire. Eye contact: Good Behavior: Pleasant and cooperative, social with staff, sleeping Speech: Clear, loud Mood: Brightening Affect: Congruent to mood Thought process: Linear Thought Content: Meeting needs Cognition: A&O X3 (not to reason here) Insight: Fair Judgment: Fair Interventions PRN's used: Trazodone Therapeutic interventions: Maintained a safe and supportive environment, ensured contract for safety, provided clear and simple instructions, attempted to orient to reality, provided active listening and positive encouragement, maintained clear boundaries and behavioral contract, provided ongoing education regarding handwashing r/t positive MRSA, and maintained Q 15min safety checks. Restraints/seclusion/emergency medication: N/A Justification of Continued Inpatient Treatment: Per RIDDHI Lopez, pt. does not require any change in treatment at this time, will continue with behavioral contract and maintain a safe and supportive environment.
[2021-04-02] MEDS: LORazepam 1 MG tablet PO SCH ×4 (02:00→20:04)
[2021-04-02 07:00] VITALS: BP 95/63
[2021-04-02] MEDS: quetiapine 100mg tablet PO SCH ×4 (08:14→20:03)
[2021-04-02] MEDS: lactobacillus rhamnosus 10,000 MMU CELLS/CAPSULE PO SCH (08:14)
[2021-04-02] MEDS: divalproex sod 125mg sprinkle cap PO SCH ×2 (08:14→20:03)
--- NOTE | 2021-04-02 09:11 | NUR ---
Pt. attend group today. We talked about Boundaries, the different kinds and how to communicate our boundaries to others. Pt came into the group half way through the group. She joined right in and shared a bit about her own issues with boundaries. She shared that when she starts to feel triggered she is learning to step away and take a time out. She shared she hasn't been feeling the need to shout as much, she will just go in her room and lay on her bed. Pt's mood was pleasant and her demeanor was calm. Her thought content and thought process was WNL. Cookie Velez LCSW
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
[2021-04-02 19:36] VITALS: BP 99/54
[2021-04-02] MEDS: traZODone 50mg tablet PO PRN (20:03)
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
[2021-04-03] MEDS: LORazepam 1 MG tablet PO SCH ×4 (02:00→19:56)
[2021-04-03 08:00] VITALS: BP 105/76
[2021-04-03] MEDS: divalproex sod 125mg sprinkle cap PO SCH ×2 (08:33→19:55)
[2021-04-03] MEDS: quetiapine 100mg tablet PO SCH ×5 (08:33→20:48)
[2021-04-03] MEDS: acetaminophen 325mg tablet PO PRN (11:36)
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
[2021-04-03 19:23] VITALS: BP 94/58
[2021-04-03] MEDS: traZODone 50mg tablet PO PRN ×2 (19:56→20:48)
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
[2021-04-04] MEDS: LORazepam 1 MG tablet PO SCH ×4 (02:00→20:18)
[2021-04-04 08:00] VITALS: BP 105/70
[2021-04-04] MEDS: quetiapine 100mg tablet PO SCH ×4 (08:46→20:18)
[2021-04-04] MEDS: divalproex sod 125mg sprinkle cap PO SCH ×2 (08:47→20:25)
--- NOTE | 2021-04-04 09:23 | NUR ---
Pt. attended group today. Patients filled out a sheet around writing down what their strengths, values and good qualities are. We then translated this to a Vision page that we called titled an Empowerment Page that they could look at and be inspired by. Pt. came into group for about 15 minutes at the end of the group. She sat and looked through some magazines and talked a bit with her peers and this Pediatrician Managing Partner. Her mood was good with a labile affect. Cookie Velez, ENGINEERING PROGRAM MANAGER
--- NOTE | 2021-04-04 11:05 | NUR ---
BEHAVIOR MODIFICATION UPDATE In order for this to be effective EVERYONE needs to be on the same page and follow this Alondra can earn stickers based on good behavior (taking a shower, attending group, positive interactions with staff, etc) For every 3 stickers she can earn a treat from the treat bag OR an extra hot chocolate or decaf coffee. Please do NOT give her extra treats if she does not earn stickers. Alondra can earn up to 6 stickers in a day. She tends to behave better when she gets a sticker early in the day. The charge nurse will determine who will dole out the stickers for the day (RN or tech). There is a star chart in Alondra's room. Extra star charts and stickers are in her binder. REJI Rome
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
[2021-04-04 19:36] VITALS: BP 88/54
[2021-04-04] MEDS: traZODone 50mg tablet PO PRN (20:18)
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
[2021-04-05] MEDS: LORazepam 1 MG tablet PO SCH ×4 (02:00→20:53)
[2021-04-05 07:44] VITALS: BP 105/61
[2021-04-05] MEDS: divalproex sod 125mg sprinkle cap PO SCH ×2 (07:55→20:52)
[2021-04-05] MEDS: quetiapine 100mg tablet PO SCH ×4 (07:56→20:52)
--- NOTE | 2021-04-05 14:59 | NUR ---
F/u 04/05: Pt continues eating well with mostly 100% PO intake on regular diet while receiving double protein TID meeting estimated nutrient needs. LBM 04/02. No nutrition intervention implemented at this time. Will continue to follow. Rec: 1. Continue regular diet; double eggs WB double, meat BIDLD per diet order 2. Bowel care per rx 3. Weekly scaled wts Addendum: 04/05/21 at [address] Amended: Links added.
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
[2021-04-05 20:00] VITALS: BP 112/81
[2021-04-05] MEDS: traZODone 50mg tablet PO PRN (20:52)
[2021-04-06] MEDS: LORazepam 1 MG tablet PO SCH ×4 (01:31→20:36)
--- NOTE | 2021-04-06 03:58 | NUR ---
Nursing Progress Note: Legal hold: TCON Client on involuntary status for GD Report received from MARJAN Perez with use of SBAR. Why are they here: Client was transported to [facility] by [employer] for disruptive behavior. Client reported, "I was laying in the bed at my daughters house and the police came in a said 'We're here to help you.' They handcuffed me and took me to the Hospital." "I want to get out of here!" Client stated, "I don't remember anything else." According the medical record client has had multiple ED visits and several Inpatient Psych admits. Hx of wandering into traffic, trespassing, and disorderly conduct. Client reported she was living with her daughter in [place]. She is currently homeless. Assessment What has happened this shift: Patient is social and is out of her room intermittently. Patient was subject to several outbursts, she screams out to the ether, at times scolding herself or her . Patient denies S/I, H/I, or hallucinations, yet she is yelling at someone who is not present in the room, save for when she is yelling at herself. Internal stimuli? Patient is labile at times, blaming the court system for not letting her go home. Patient states she has been thinking of her cat, "I miss her." Patient is focused on snacks. She contracts with this hand sign writer to behave herself, she commonly does not as evidenced by her outbursts. S/I, H/I: Denies. A/VH: Denies, patient is delusional, she is difficult to evaluate. Sleep: Refer to sleep assessment at 0500 hours. ADL's: Independent. Group attendance: No group on nights. Were meds taken: Yes, medication compliant. Any med S/E: None observed or reported. Mental Status Exam Appearance: Clean and well dressed. Eye contact: Good. Behavior: Friendly, delusional at times, labile too. Speech: Clear, loud, animated at times. Mood: Euthymic. Affect: Congruent to mood. Thought process: Linear Thought Content: Meeting needs, angry at court system, wants to go home. Cognition: A&O X3 (not to reason here) Insight: Fair. Judgment: Fair. Interventions PRN's used: Trazodone. Therapeutic interventions: Maintained a safe and supportive environment, ensured contract for safety, provided clear and simple instructions, attempted to orient to reality, provided active listening and positive encouragement, maintained clear boundaries and behavioral contract, provided ongoing education regarding handwashing r/t positive MRSA, and maintained Q 15min safety checks. Restraints/seclusion/emergency medication: N/A Justification of Continued Inpatient Treatment: Per RIDDHI Lopez, pt. does not require any change in treatment at this time, will continue with behavioral contract and maintain a safe and supportive environment.
[2021-04-06] MEDS: divalproex sod 125mg sprinkle cap PO SCH ×2 (07:31→20:45)
[2021-04-06] MEDS: quetiapine 100mg tablet PO SCH ×5 (07:31→22:02)
[2021-04-06 08:00] VITALS: BP 113/76
--- NOTE | 2021-04-06 14:38 | NUR ---
Provided Alondra a list of paperboard box maker in [place] at her request as she wants to hire a private development advisor for her conservatorship hearing. REJI Rome
--- NOTE | 2021-04-06 17:45 | NUR ---
Nursing Progress Note: Alondra Tang Legal hold: TCON Client on involuntary status for GD Report received from nurse with use of SBAR: MARJAN Webster Why they are here: Client was transported to [facility] by [employer] for disruptive behavior. Client reported, "I was laying in the bed at my daughters house and the police came in a said 'We're here to help you.' They handcuffed me and took me to the Hospital." "I want to get out of here!" Client stated, "I don't remember anything else." According the medical record client has had multiple ED visits and several Inpatient Psych admits. Hx of wandering into traffic, trespassing, and disorderly conduct. Client reported she was living with her daughter in [place]. She is currently homeless. Assessment What has happened this shift: Pt. received sleeping in her room. She awoke to receive her medication and went to breakfast. 1:1 assessment completed pt. denies S/I, H/I and A/VH, she appears calm but upset this morning AEB remnants of tears. Pt. later approached insurance underwriter requesting help with reading her court correspondence. Pt. reports an understanding re its content and is looking forward to trial on the 16 of April. Pt. presents as labile AEB observed interacting with nursing students and laughing, no yelling or outburst this morning. Later in the afternoon pt. presented extremely labile AEB fits of yelling and crying about random internal thoughts; at times pt. can be calmed. Later, pt. attended snack and made several phone calls to attorneys from a list provided by social media manager. Currently getting ready for dinner. S/I, H/I: denies. A/VH: denies. Sleep: 8.0 Hrs per NOC, intermittent naps this shift. ADL's: Independent Group attendance: No Were meds taken: Yes Any med S/E: None noted or reported. Mental Status Exam Appearance: Appears older then her age, disheveled hair, wearing street clothes. Eye contact: Good Behavior: Cooperative Speech: Clear, loud Mood: Labile Affect: Labile, child-like. Thought process: Disorganized Thought Content: Attending her trial Cognition: A/O X 3 Insight: Poor Judgment: Poor Interventions PRN's used: None Restraints/seclusion/emergency medication: N/A Therapeutic interventions: 1:1 assessment, maintained a safe and supportive environment, provided clear and simple instructions, medication administration/education/monitoring, encouragement to attend groups, therapeutic communication, active listening, provided ongoing education regarding handwashing r/t positive MRSA in the nares, behavior modification with stickers and a goodie bag as reward for good behavior, coping skills education, distraction, redirection, reality orientation, limit setting, provided encouragement and positive reinforcement, and maintained Q 15 minute safety checks.
[2021-04-06 19:23] VITALS: BP 107/67
[2021-04-06] MEDS: traZODone 50mg tablet PO PRN ×2 (20:34→22:03)
[2021-04-07] MEDS: LORazepam 1 MG tablet PO SCH ×4 (02:00→20:10)
--- NOTE | 2021-04-07 02:49 | NUR ---
Nursing Progress Note: Legal hold: TCON Client on involuntary status for GD Report received from MARJAN Perez with use of SBAR. Why are they here: Client was transported to [facility] by [employer] for disruptive behavior. Client reported, "I was laying in the bed at my daughters house and the police came in a said 'We're here to help you.' They handcuffed me and took me to the Hospital." "I want to get out of here!" Client stated, "I don't remember anything else." According the medical record client has had multiple ED visits and several Inpatient Psych admits. Hx of wandering into traffic, trespassing, and disorderly conduct. Client reported she was living with her daughter in [place]. She is currently homeless. Assessment What has happened this shift: Patient was playful and pleasant. Patient spent a lot of time socializing wit staff and other patients. Patient took all scheduled medications without issue as well as PRN trazodone . Patient then took shower and went to bed. Patient began to have a short yelling episode but was eased by nurse and eventually went to sleep. Patient slept with no difficulty. S/I, H/I: Denies. A/VH: Patient states she is arguing with her Sleep: Refer to sleep assessment at 0500 hours. ADL's: Independent. Group attendance: No group on nights. Were meds taken: Yes, medication compliant. Any med S/E: None observed or reported. Mental Status Exam Appearance: Clean and well dressed. Eye contact: Good. Behavior: Friendly, delusional at times, labile too. Speech: Clear, loud, animated at times. Mood: Euthymic. Affect: Congruent to mood. Thought process: Linear Thought Content: Meeting needs, angry at court system, wants to go home. Cognition: A&O X3 (not to reason here) Insight: Fair. Judgment: Fair. Interventions PRN's used: Trazodone. Therapeutic interventions: Maintained a safe and supportive environment, ensured contract for safety, provided clear and simple instructions, attempted to orient to reality, provided active listening and positive encouragement, maintained clear boundaries and behavioral contract, provided ongoing education regarding handwashing r/t positive MRSA, and maintained Q 15min safety checks. Restraints/seclusion/emergency medication: N/A Justification of Continued Inpatient Treatment: Per RIDDHI Lopez, pt. does not require any change in treatment at this time, will continue with behavioral contract and maintain a safe and supportive environment.
[2021-04-07 07:39] VITALS: BP 107/58
[2021-04-07] MEDS: divalproex sod 125mg sprinkle cap PO SCH ×2 (08:48→20:07)
[2021-04-07] MEDS: quetiapine 100mg tablet PO SCH ×4 (08:48→20:11)
--- NOTE | 2021-04-07 14:30 | NUR ---
Nursing Progress Note Legal hold: TCON Client on involuntary status for GD Report received from nurse, Darin PHILLIP, with use of SBAR Why they are here: Client was transported to [facility] by [employer] for disruptive behavior. Client reported, "I was laying in the bed at my daughters house and the police came in a said 'We're here to help you.' They handcuffed me and took me to the Hospital." "I want to get out of here!" Client stated, "I don't remember anything else." According the medical record client has had multiple ED visits and several Inpatient Psych admits. Hx of wandering into traffic, trespassing, and disorderly conduct. Client reported she was living with her daughter in [place]. She is currently homeless. Assessment What has happened this shift: Pt spent most of the day napping. Occasionally she would come out of her room get a phone and make calls from her room. Pt asked to call her crude oil driver public guardians office. Pt expresses frustration with her current situation and shares how she misses her cat and her family. Today she is calm and cooperative on the unit. S/I, H/I: denies. A/VH: denies. Sleep: Naps during the day ADL's: Independent Group attendance: No Were Meds taken: Yes Any med S/E: None noted or reported. Mental Status Exam Appearance: Appears older then her age, disheveled hair wearing personal clothing Eye contact: Good Behavior: Cooperative Speech: Clear, audible Mood: Perseverates over going home Affect: Congruent with mood Thought process: Disorganized Thought Content: Attending her trial Cognition: A/O X 3 Insight: Poor Judgment: Poor Interventions PRN's used: None Therapeutic interventions: Provided 1:1 assessment with therapeutic communication and active listening, provided clear and simple instructions, medication administration/education/monitoring, provided ongoing education regarding handwashing r/t positive MRSA in the nares, behavior modification with stickers and a goodie bag as reward for good behavior, coping skills education, distraction, and maintained Q 15 minute safety checks. Restraints/seclusion/emergency medication: N/A Justification of Continued Inpatient Treatment: Pt needs medication management and monitoring in a safe and therapeutic environment. Pt is GD awaiting LPS court hearing.
[2021-04-07 19:03] VITALS: BP 107/64
[2021-04-07] MEDS: traZODone 50mg tablet PO PRN (20:12)
--- NOTE | 2021-04-08 01:27 | NUR ---
Nursing Progress Note: Legal hold: TCON Client on involuntary status for GD Report received from MARJAN Acuna with use of SBAR. Why are they here: Client was transported to [facility] by [employer] for disruptive behavior. Client reported, "I was laying in the bed at my daughters house and the police came in a said 'We're here to help you.' They handcuffed me and took me to the Hospital." "I want to get out of here!" Client stated, "I don't remember anything else." According the medical record client has had multiple ED visits and several Inpatient Psych admits. Hx of wandering into traffic, trespassing, and disorderly conduct. Client reported she was living with her daughter in [place]. She is currently homeless. Assessment What has happened this shift: Patient was agitated at staff about personal belongings which resulted in a yelling episode. Patient eventually wore herself out and fell asleep. Patient was awoken to take night medications. Patient then slept for a couple of hours then awoke unstable on her feet and with fragmented speech asking for food and a drink. Patient then returned to bed and slept with no difficulty. S/I, H/I: Denies. A/VH: arguing with imaginary staff Sleep: Refer to sleep assessment at 0500 hours. ADL's: Independent. Group attendance: No group on nights Were meds taken: Yes, medication compliant. Any med S/E: None observed or reported. Mental Status Exam Appearance: Clean and well dressed. Eye contact: Good. Behavior: Friendly, delusional at times, labile too. Speech: Clear, loud, animated at times. Mood: Euthymic. Affect: Congruent to mood. Thought process: Linear Thought Content: eagerly wanting missing purse so she can go home Cognition: A&O X3 (not to reason here) Insight: Fair. Judgment: Fair. Interventions PRN's used: Trazodone. Therapeutic interventions: Maintained a safe and supportive environment, ensured contract for safety, provided clear and simple instructions, attempted to orient to reality, provided active listening and positive encouragement, maintained clear boundaries and behavioral contract, provided ongoing education regarding handwashing r/t positive MRSA, and maintained Q 15min safety checks. Restraints/seclusion/emergency medication: N/A Justification of Continued Inpatient Treatment: Per RIDDHI Lopez, pt. does not require any change in treatment at this time, will continue with behavioral contract and maintain a safe and supportive environment.
[2021-04-08] MEDS: LORazepam 1 MG tablet PO SCH ×4 (02:00→20:30)
[2021-04-08 07:39] VITALS: BP 97/48
[2021-04-08] MEDS: quetiapine 100mg tablet PO SCH ×4 (08:43→20:31)
[2021-04-08] MEDS: divalproex sod 125mg sprinkle cap PO SCH ×2 (08:44→20:30)
--- NOTE | 2021-04-08 15:50 | NUR ---
Nursing Progress Note Legal hold: TCON Client on involuntary status for GD Report received from nurse, Armand PHILLIP, with use of SBAR Why they are here: Client was transported to [facility] by [employer] for disruptive behavior. Client reported, "I was laying in the bed at my daughters house and the police came in a said 'We're here to help you.' They handcuffed me and took me to the Hospital." "I want to get out of here!" Client stated, "I don't remember anything else." According the medical record client has had multiple ED visits and several Inpatient Psych admits. Hx of wandering into traffic, trespassing, and disorderly conduct. Client reported she was living with her daughter in [place]. She is currently homeless. Assessment What has happened this shift: Received pt sleeping. She slept until breakfast. Pt woke for breakfast. Again she asked about her court date, time and "what will happen there?" She napped on and off. She earned three stickers and was given a "prize" as she calls it. Pt had a good day. She is medication compliant. S/I, H/I: denies. A/VH: denies. Sleep: Napped ADL's: Independent Group attendance: No Were Meds taken: Yes Any med S/E: None noted or reported. Mental Status Exam Appearance: Appears older then her age, she is wearing the same cloths as yesterday. Eye contact: Good Behavior: Cooperative Speech: Clear, audible Mood: "I'm going to sleep until my court date." Affect: Congruent with mood Thought process: Disorganized Thought Content: Attending her court date Cognition: A/O X 3 Insight: Poor Judgment: Poor Interventions PRN's used: None Therapeutic interventions: Provided 1:1 assessment with therapeutic communication and active listening, provided clear and simple instructions, medication administration/education/monitoring, provided ongoing education regarding handwashing r/t positive MRSA in the nares, behavior modification with stickers and a goodie bag as reward for good behavior, prompted pt to showere and change her clothes, coping skills education, distraction, and maintained Q 15 minute safety checks. Restraints/seclusion/emergency medication: N/A Justification of Continued Inpatient Treatment: Pt needs medication management and monitoring in a safe and therapeutic environment. Pt is GD awaiting LPS court hearing.
[2021-04-08 19:34] VITALS: BP 97/54
[2021-04-08] MEDS: traZODone 50mg tablet PO PRN (20:30)
--- NOTE | 2021-04-08 21:56 | NUR ---
Nursing Progress Note Legal hold: TCON Client on involuntary status for GD Report received from nurse, Ana PHILLIP, with use of SBAR Why they are here: Client was transported to [facility] by [employer] for disruptive behavior. Client reported, "I was laying in the bed at my daughters house and the police came in a said 'We're here to help you.' They handcuffed me and took me to the Hospital." "I want to get out of here!" Client stated, "I don't remember anything else." According the medical record client has had multiple ED visits and several Inpatient Psych admits. Hx of wandering into traffic, trespassing, and disorderly conduct. Client reported she was living with her daughter in [place]. She is currently homeless. Assessment What has happened this shift: Patient observed eating dinner in the community room at the beginning of shift. Pleasant and cooperative with care; compliant with all medication. PRN Trazodone provided this shift. Patient continues to present impulsive behaviors but self-redirecting. Patient observed socializing and walking the unit. She participated in HS snack prior to bed; observed sleeping and does not appear to be having difficulty. S/I, H/I: Denies A/VH: Denies Sleep: Refer to sleep assessment ADL's: Independent Group attendance: NA Were Meds taken: Yes Any med S/E: None observed or reported Mental Status Exam Appearance: Neat and appropriate personal attire Eye contact: Good Behavior: Pleasant and cooperative, social Speech: Clear, audible Mood: Labile Affect: Congruent with mood Thought process: Disorganized Thought Content: Meeting needs, cat (Misfit) Cognition: A/O X 3 Insight: Poor Judgment: Poor Interventions PRN's used: Trazodone Therapeutic interventions: Provided 1:1 assessment with therapeutic communication and active listening, provided clear and simple instructions, medication administration/education/monitoring, provided ongoing education regarding handwashing r/t positive MRSA in the nares, behavior modification with stickers and a goodie bag as reward for good behavior, prompted pt to showere and change her clothes, coping skills education, distraction, and maintained Q 15 minute safety checks. Restraints/seclusion/emergency medication: N/A Justification of Continued Inpatient Treatment: Pt needs medication management and monitoring in a safe and therapeutic environment. Pt is GD awaiting LPS court hearing.
[2021-04-09] MEDS: LORazepam 1 MG tablet PO SCH ×4 (01:00→20:37)
[2021-04-09] MEDS: divalproex sod 125mg sprinkle cap PO SCH ×2 (07:47→20:37)
[2021-04-09] MEDS: quetiapine 100mg tablet PO SCH ×4 (07:47→20:37)
[2021-04-09 07:48] VITALS: BP 92/64
--- NOTE | 2021-04-09 14:49 | NUR ---
Pt. attended group today. We talked about hearing voices and read an article about coping strategies. We discussed what coping strategies they had success with in the past. We also talked about what triggers hearing voices as well. We started with scaling their level of voice hearing today by scaling where they fall from 0-10. (0 is low distress and 10 is very disturbing voices). Pt. came in care home through group. She engaged right away in the discussion and shared how she struggles when her voices bring back to her memory bad memories or thoughts from the past. This triggers her and she will begin to shout and get frustrated. She repeated many times that she know it is wrong to shout but sometimes the voices are very loud. At times it was difficult to follow her train of thought as she would jump around from one thought to another and they were not always related. She would finally get her point across after awhile. She was in a pleasant mood with a full range of affect. She reported she was feeling good. Her demeanor is a bit hyper, she speaks very loudly but is friendly and seems to enjoy socializing with her peers. She has a hard time not interjecting at inappropriate times and has to be redirected which she is amenable to. Cookie Velez, VOCATIONAL NURSE LVN
--- NOTE | 2021-04-09 18:05 | NUR ---
Nursing Progress Note Legal hold: TCON Client on involuntary status for GD Report received from nurse, James RN, with use of SBAR Why they are here: Client was transported to [facility] by [employer] for disruptive behavior. Client reported, "I was laying in the bed at my daughters house and the police came in a said 'We're here to help you.' They handcuffed me and took me to the Hospital." "I want to get out of here!" Client stated, "I don't remember anything else." According the medical record client has had multiple ED visits and several Inpatient Psych admits. Hx of wandering into traffic, trespassing, and disorderly conduct. Client reported she was living with her daughter in [place]. She is currently homeless. Assessment What has happened this shift: RN received pt. asleep in bed at start of shift. Pt. awoke for breakfast and took all medications. Pt. went back to sleep after breakfast. Pt. became upset in the AM after she could not get ahold of a private immigration attorney. Pt. yelling loudly but responded to verbal redirection. Pt. had 2 other outbursts during the day but responded to verbal redirection. RN used positive reinforcement of her sticker chart with rewards to reinforce good behaviors. S/I, H/I: denies. A/VH: denies. Sleep: Pt. slept 8.5 hrs on day shift and napped intermittently throughout the day. ADL's: Independent. Pt. showered today. Group attendance: Yes Were Meds taken: Yes Any med S/E: Denies Mental Status Exam Appearance: Disheveled but clean. Eye contact: Good Behavior: Cooperative with periods of loud outbursts and crying. Speech: Clear, audible Mood: Mostly euthymic, but periods of agitation. Affect: Congruent with mood Thought process: Linear Thought Content: Concerned about winning her court hearing. Cognition: A/O X 3 Insight: Poor Judgment: Poor Interventions PRN's used: None Therapeutic interventions: Provided 1:1 assessment with therapeutic communication and active listening, provided clear and simple instructions, medication administration/education/monitoring, provided ongoing education regarding handwashing r/t positive MRSA in the nares, behavior modification with stickers and a goodie bag as reward for good behavior, prompted pt to showere and change her clothes, coping skills education, distraction, and maintained Q 15 minute safety checks. Restraints/seclusion/emergency medication: N/A Justification of Continued Inpatient Treatment: Pt needs medication management and monitoring in a safe and therapeutic environment. Pt is GD awaiting LPS court hearing.
[2021-04-09 19:47] VITALS: BP 99/77
[2021-04-09] MEDS: traZODone 50mg tablet PO PRN (20:37)
--- NOTE | 2021-04-09 22:21 | NUR ---
Nursing Progress Note Legal hold: TCON Client on involuntary status for GD Report received from nurse, Ana PHILLIP, with use of SBAR Why they are here: Client was transported to [facility] by [employer] for disruptive behavior. Client reported, "I was laying in the bed at my daughters house and the police came in a said 'We're here to help you.' They handcuffed me and took me to the Hospital." "I want to get out of here!" Client stated, "I don't remember anything else." According the medical record client has had multiple ED visits and several Inpatient Psych admits. Hx of wandering into traffic, trespassing, and disorderly conduct. Client reported she was living with her daughter in [place]. She is currently homeless. Assessment What has happened this shift: Patient in her room crying/yelling at the beginning of shift. Pleasant and cooperative with care; compliant with medication. PRN Trazodone x2 and repeat Quetiapine provided this shift. Patient continued to have outbursts but keeping to her room when yelling. She participated in HS snack and watched TV prior to bed; observed sleeping and does not appear to be having difficulty at this time. S/I, H/I: Denies A/VH: Denies Sleep: Refer to sleep assessment ADL's: Independent Group attendance: NA Were Meds taken: Yes Any med S/E: None observed or reported Mental Status Exam Appearance: Neat and appropriate personal attire Eye contact: Good Behavior: Pleasant and cooperative, social Speech: Clear, audible Mood: Labile Affect: Congruent with mood Thought process: Disorganized Thought Content: Meeting needs, cat (Misfit), court Cognition: A/O X 3 Insight: Poor Judgment: Poor Interventions PRN's used: Trazodone x2 and repeat Quetiapine Therapeutic interventions: Provided 1:1 assessment with therapeutic communication and active listening, provided clear and simple instructions, medication administration/education/monitoring, provided ongoing education regarding handwashing r/t positive MRSA in the nares, behavior modification with stickers and a goodie bag as reward for good behavior, prompted pt to showere and change her clothes, coping skills education, distraction, and maintained Q 15 minute safety checks. Restraints/seclusion/emergency medication: N/A Justification of Continued Inpatient Treatment: Pt needs medication management and monitoring in a safe and therapeutic environment. Pt is GD awaiting LPS court hearing.
[2021-04-10] MEDS: LORazepam 1 MG tablet PO SCH ×4 (02:00→19:32)
[2021-04-10] MEDS: divalproex sod 125mg sprinkle cap PO SCH ×2 (07:35→19:32)
[2021-04-10] MEDS: quetiapine 100mg tablet PO SCH ×4 (07:36→20:01)
[2021-04-10 07:58] VITALS: BP 106/70
--- NOTE | 2021-04-10 13:53 | NUR ---
Nursing Progress Note Legal hold: TCON Client on involuntary status for GD Report received from nurse, Eli PHILLIP, with use of SBAR Why they are here: Client was transported to [facility] by [employer] for disruptive behavior. Client reported, "I was laying in the bed at my daughters house and the police came in a said 'We're here to help you.' They handcuffed me and took me to the Hospital." "I want to get out of here!" Client stated, "I don't remember anything else." According the medical record client has had multiple ED visits and several Inpatient Psych admits. Hx of wandering into traffic, trespassing, and disorderly conduct. Client reported she was living with her daughter in [place]. She is currently homeless. Assessment What has happened this shift: Pt slept in late today, waking up screaming at god but was easily redirected. Pt continues to fixate on getting a milk driver and getting an apartment for herself. Pt seems unable to comprehend what conservatorship means and believes she will be released soon. Pt responds well to her sticker chart and was given a sticker for good behavior in the am. Pt had a couple short lived screaming episodes this afternoon but was able to calm herself down. S/I, H/I: denies. A/VH: denies. Sleep: Pt. napped intermittently throughout the day. ADL's: Independent. Pt. showered yesterday Group attendance: Yes Were Meds taken: Yes Any med S/E: Denies Mental Status Exam Appearance: Disheveled but clean. Eye contact: Good Behavior: Cooperative with periods of loud outbursts and crying. Speech: Clear, audible Mood: Mostly euthymic, but periods of agitation. Affect: Congruent with mood Thought process: Linear Thought Content: Concerned about winning her court hearing. Cognition: A/O X 3 Insight: Poor Judgment: Poor Interventions PRN's used: None Therapeutic interventions: Provided 1:1 assessment with therapeutic communication and active listening, provided clear and simple instructions, medication administration/education/monitoring, provided ongoing education regarding handwashing r/t positive MRSA in the nares, behavior modification with stickers and a goodie bag as reward for good behavior, prompted pt to showere and change her clothes, coping skills education, distraction, and maintained Q 15 minute safety checks. Restraints/seclusion/emergency medication: N/A Justification of Continued Inpatient Treatment: Pt needs medication management and monitoring in a safe and therapeutic environment. Pt is GD awaiting LPS court hearing.
[2021-04-10 20:51] VITALS: BP 128/67
--- NOTE | 2021-04-11 00:03 | NUR ---
Nursing Progress Note Legal hold: TCON Client on involuntary status for GD Report received from nurse, Eli PHILLIP, with use of SBAR Why they are here: Client was transported to [facility] by [employer] for disruptive behavior. Client reported, "I was laying in the bed at my daughters house and the police came in a said 'We're here to help you.' They handcuffed me and took me to the Hospital." "I want to get out of here!" Client stated, "I don't remember anything else." According the medical record client has had multiple ED visits and several Inpatient Psych admits. Hx of wandering into traffic, trespassing, and disorderly conduct. Client reported she was living with her daughter in [place]. She is currently homeless. Assessment What has happened this shift: Pt had a good evening, making jokes with staff and generally in a good mood. Pt will have small outbursts of yelling when she wakes up but is easily able to calm herself down. Pt accepted hs meds without issue. S/I, H/I: denies. A/VH: denies. Sleep: Pt. napped intermittently throughout the day. ADL's: Independent. Pt. showered yesterday Group attendance: Yes Were Meds taken: Yes Any med S/E: Denies Mental Status Exam Appearance: Disheveled but clean. Eye contact: Good Behavior: Cooperative with periods of loud outbursts and crying. Speech: Clear, audible Mood: Mostly euthymic, but periods of agitation. Affect: Congruent with mood Thought process: Linear Thought Content: Concerned about winning her court hearing. Cognition: A/O X 3 Insight: Poor Judgment: Poor Interventions PRN's used: None Therapeutic interventions: Provided 1:1 assessment with therapeutic communication and active listening, provided clear and simple instructions, medication administration/education/monitoring, provided ongoing education regarding handwashing r/t positive MRSA in the nares, behavior modification with stickers and a goodie bag as reward for good behavior , coping skills education, distraction, and maintained Q 15 minute safety checks. Restraints/seclusion/emergency medication: N/A Justification of Continued Inpatient Treatment: Pt needs medication management and monitoring in a safe and therapeutic environment. Pt is GD awaiting LPS court hearing.
[2021-04-11] MEDS: LORazepam 1 MG tablet PO SCH ×4 (02:00→20:16)
[2021-04-11] MEDS: quetiapine 100mg tablet PO SCH ×4 (07:25→20:16)
[2021-04-11] MEDS: divalproex sod 125mg sprinkle cap PO SCH ×2 (07:26→20:17)
[2021-04-11 08:00] VITALS: BP 96/68
--- NOTE | 2021-04-11 09:19 | NUR ---
F/u 04/11: Pt continues eating well with mostly 100% PO intake on regular diet while receiving double protein TID meeting estimated nutrient needs. LBM 04/09. No nutrition intervention implemented at this time. Will continue to follow. Rec: 1. Continue regular diet; double eggs WB double, meat BIDLD per diet order 2. Bowel care per rx 3. Weekly scaled wts Addendum: 04/11/21 at [address] Amended: Links added.
--- NOTE | 2021-04-11 10:44 | NUR ---
Pt. attended group today. We talked about hearing voices again to focus on finding patterns to how the voices get triggered. We discussed ways they can take control over the voices. We mostly talked about grounding and this Sort Line lead different grounding exercises such as 478 breathing techniques and 52700 grounding technique. Pt came into the group fdc through the group. She right away engaged in the discussion and shared, her thoughts were a little hard to follow at times. She shared how that morning she wasn't feel great upon waking up (she expressed how she wanted to start shouting) and a staff member came in and asked what she needed. The staff member sat with her and listened for awhile. She reported that this really made her feel better. Later in the group she consoled a peer in the group who was upset by asking her if she could give her a hug, her peer said yes. Pt then hugged her and spoke many encouraging words to her. This peer thanked Pt. profusely saying that really made her feel better. Pt was able to link how receiving support that morning made it easy for her to comfort her peer now. Her demeanor was calm and compliant. Her mood was good with a full range of affect. Cookie Velez LCSW
[2021-04-11] MEDS: acetaminophen 325mg tablet PO PRN (13:36)
--- NOTE | 2021-04-11 16:28 | NUR ---
Nursing Progress Note Legal hold: TCON Client on involuntary status for GD Report received from nurse, Eli PHILLIP, with use of SBAR Why they are here: Client was transported to [facility] by [employer] for disruptive behavior. Client reported, "I was laying in the bed at my daughters house and the police came in a said 'We're here to help you.' They handcuffed me and took me to the Hospital." "I want to get out of here!" Client stated, "I don't remember anything else." According the medical record client has had multiple ED visits and several Inpatient Psych admits. Hx of wandering into traffic, trespassing, and disorderly conduct. Client reported she was living with her daughter in [place]. She is currently homeless. Assessment What has happened this shift: Patient is resting quietly in bed at start of shift. Awake for snacks prior to breakfast. Drinks coffee and socializes in hallway. Eats meals in community room and interacts appropriately with staff and peers. Cooperative with medications and 1:1 assessment. Noted crying and yelling in her room, I cant help it anymore! Something weird is going on around here! Expresses frustration over not being able to get a hold of family members. Tearful when talking about her cat. Therapeutic listening is helpful. PRN Tylenol effective for c/o headache. S/I, H/I: Denies. A/VH: Denies. Sleep: 7.75 hours per NOC. Takes a short nap in the afternoon. ADL's: Independent Group attendance: Attends and participates in group Were Meds taken: Yes Any med S/E: None noted or reported. Mental Status Exam Appearance: Older lady with long hair pulled back and messy. Wearing personal clothing appropriate for unit. Eye contact: Good Behavior: Cooperative, occasional loud emotional outbursts. Speech: Generally WNL. Occasionally loud/ pressured when emotional. Mood: Euthymic to Depressed and tearful. Affect: Congruent with mood Thought process: Disorganized at times, tangential. Thought Content: Talks about her cat a great deal. Also talks about wanting to talk to family and discharge. Cognition: A/O X 3 Insight: Poor Judgment: Poor Interventions PRN's used: None Therapeutic interventions: Provided 1:1 assessment with therapeutic communication and active listening, provided clear and simple instructions, medication administration/education/monitoring, provided ongoing education regarding handwashing r/t positive MRSA in the nares, behavior modification with stickers and a goodie bag as reward for good behavior , coping skills education, distraction, and maintained Q 15 minute safety checks. Restraints/seclusion/emergency medication: N/A Justification of Continued Inpatient Treatment: Pt needs medication management and monitoring in a safe and therapeutic environment. Pt is GD awaiting LPS court hearing.
[2021-04-11 19:32] VITALS: BP 110/60
[2021-04-11] MEDS: traZODone 50mg tablet PO PRN (20:16)
[2021-04-12] MEDS: LORazepam 1 MG tablet PO SCH ×4 (02:00→20:39)
--- NOTE | 2021-04-12 02:44 | NUR ---
Nursing Progress Note: Alondra Legal hold: TCON Client on involuntary status for GD Report received from nurse, Darin PHILLIP, with use of SBAR Why they are here: Client was transported to [facility] by [employer] for disruptive behavior. Client reported, "I was laying in the bed at my daughters house and the police came in a said 'We're here to help you.' They handcuffed me and took me to the Hospital." "I want to get out of here!" Client stated, "I don't remember anything else." According the medical record client has had multiple ED visits and several Inpatient Psych admits. Hx of wandering into traffic, trespassing, and disorderly conduct. Client reported she was living with her daughter in [place]. She is currently homeless. Assessment What has happened this shift: Patient calm and cooperative at shift change. Up for snacks and medication compliant. Pt states she is tired and wants to go to sleep however pt had some bouts of yelling and screaming in her room. CN in pts room talking with pt and did therapeutic listening with patient which seemed to help. S/I, H/I: Denies. A/VH: Denies. Sleep: ADL's: Independent Group attendance: Were Meds taken: Yes Any med S/E: None noted or reported. Mental Status Exam Appearance: Older lady with long hair pulled back and messy. Wearing personal clothing appropriate for unit. Eye contact: Good Behavior: Cooperative, occasional loud emotional outbursts. Speech: Generally WNL. Occasionally loud/ pressured when emotional. Mood: Euthymic to Depressed and tearful. Affect: Congruent with mood Thought process: Disorganized at times, tangential. Thought Content: wanted to talk to her daughter to tell her epifanio Cognition: A/O X 3 Insight: Poor Judgment: Poor Interventions PRN's used: None Therapeutic interventions: Provided 1:1 assessment with therapeutic communication and active listening, provided clear and simple instructions, medication administration/education/monitoring, provided ongoing education regarding handwashing r/t positive MRSA in the nares, behavior modification with stickers and a goodie bag as reward for good behavior , coping skills education, distraction, and maintained Q 15 minute safety checks. Restraints/seclusion/emergency medication: N/A Justification of Continued Inpatient Treatment: Pt needs medication management and monitoring in a safe and therapeutic environment. Pt is GD awaiting LPS court hearing.
[2021-04-12] MEDS: divalproex sod 125mg sprinkle cap PO SCH ×2 (07:00→20:40)
[2021-04-12] MEDS: quetiapine 100mg tablet PO SCH ×4 (07:00→20:39)
[2021-04-12 08:00] VITALS: BP 107/56
--- NOTE | 2021-04-12 18:13 | NUR ---
Nursing Progress Note Legal hold: TCON Client on involuntary status for GD Report received from nurse, Eli PHILLIP, with use of SBAR Why they are here: Client was transported to [facility] by [employer] for disruptive behavior. Client reported, "I was laying in the bed at my daughters house and the police came in a said 'We're here to help you.' They handcuffed me and took me to the Hospital." "I want to get out of here!" Client stated, "I don't remember anything else." According the medical record client has had multiple ED visits and several Inpatient Psych admits. Hx of wandering into traffic, trespassing, and disorderly conduct. Client reported she was living with her daughter in [place]. She is currently homeless. Assessment What has happened this shift: Patient is resting quietly in bed at start of shift. Awake for snacks prior to breakfast. Drinks coffee and socializes in hallway. Eats meals in community room and interacts appropriately with staff and peers. Pleasant and cooperative for 1:1 assessment. Takes medications as ordered. Later in the afternoon patient perseverates on her belongings and had several loud emotional outbursts. S/I, H/I: Denies. A/VH: Denies. Sleep: see sleep assessment ADL's: Independent Group attendance: yes Were Meds taken: Yes Any med S/E: None noted or reported. Mental Status Exam Appearance: Older lady with long hair pulled back and messy. Wearing personal clothing appropriate for unit. Eye contact: Good Behavior: cooperative with occasional emotional outbursts Speech: Generally WNL. Occasionally loud/ pressured when emotional. Mood: Euthymic to Depressed and tearful. Affect: Congruent with mood Thought process: Disorganized at times, tangential. Thought Content: perseverates on her belongings Cognition: A/O X 3 Insight: Poor Judgment: Poor Interventions PRN's used: None Therapeutic interventions: Provided 1:1 assessment with therapeutic communication and active listening, provided clear and simple instructions, medication administration/education/monitoring, provided ongoing education regarding handwashing r/t positive MRSA in the nares, behavior modification with stickers and a goodie bag as reward for good behavior , coping skills education, distraction, and maintained Q 15 minute safety checks. Restraints/seclusion/emergency medication: N/A Justification of Continued Inpatient Treatment: Pt needs medication management and monitoring in a safe and therapeutic environment. Pt is GD awaiting LPS court hearing.
[2021-04-12 20:00] VITALS: BP 116/44
[2021-04-12] MEDS: traZODone 50mg tablet PO PRN (20:39)
--- NOTE | 2021-04-13 01:21 | NUR ---
Nursing Progress Note Alondra Legal hold: TCON Client on involuntary status for GD Report received from nurse, Darin PHILLIP, with use of SBAR Why they are here: Client was transported to [facility] by [employer] for disruptive behavior. Client reported, "I was laying in the bed at my daughters house and the police came in a said 'We're here to help you.' They handcuffed me and took me to the Hospital." "I want to get out of here!" Client stated, "I don't remember anything else." According the medical record client has had multiple ED visits and several Inpatient Psych admits. Hx of wandering into traffic, trespassing, and disorderly conduct. Client reported she was living with her daughter in [place]. She is currently homeless. Assessment What has happened this shift: Patient is in her room lying down resting at change of shift. Pt calm and cooperative with assessment, denies MH symptoms. Pt up for snacks, took all prescribed HS medication and went to bed shortly after. No outbursts during this shift. S/I, H/I: Denies. A/VH: Denies. Sleep: ADL's: Independent Group attendance: yes Were Meds taken: Yes Any med S/E: None noted or reported. Mental Status Exam Appearance: Older lady with long hair pulled back and messy. Wearing personal clothing appropriate for unit. Eye contact: Good Behavior: cooperative with occasional emotional outbursts Speech: Generally WNL. Occasionally loud/ pressured when emotional. Mood: Euthymic to Depressed and tearful. Affect: Congruent with mood Thought process: Disorganized at times, tangential. Thought Content: perseverates on her belongings Cognition: A/O X 3 Insight: Poor Judgment: Poor Interventions PRN's used: None Therapeutic interventions: Provided 1:1 assessment with therapeutic communication and active listening, provided clear and simple instructions, medication administration/education/monitoring, provided ongoing education regarding handwashing r/t positive MRSA in the nares, behavior modification with stickers and a goodie bag as reward for good behavior , coping skills education, distraction, and maintained Q 15 minute safety checks. Restraints/seclusion/emergency medication: N/A Justification of Continued Inpatient Treatment: Pt needs medication management and monitoring in a safe and therapeutic environment. Pt is GD awaiting LPS court hearing.
[2021-04-13] MEDS: LORazepam 1 MG tablet PO SCH ×4 (04:40→20:29)
[2021-04-13 08:00] VITALS: BP 103/56
[2021-04-13] MEDS: divalproex sod 125mg sprinkle cap PO SCH ×2 (08:08→20:29)
[2021-04-13] MEDS: quetiapine 100mg tablet PO SCH ×4 (08:08→20:29)
--- NOTE | 2021-04-13 14:27 | NUR ---
Nursing Progress Note Legal hold: TCON Client on involuntary status for GD Report received from nurse, Vicky marcos RN, with use of SBAR Why they are here: Client was transported to [facility] by [employer] for disruptive behavior. Client reported, "I was laying in the bed at my daughters house and the police came in a said 'We're here to help you.' They handcuffed me and took me to the Hospital." "I want to get out of here!" Client stated, "I don't remember anything else." According the medical record client has had multiple ED visits and several Inpatient Psych admits. Hx of wandering into traffic, trespassing, and disorderly conduct. Client reported she was living with her daughter in [place]. She is currently homeless. Assessment What has happened this shift: Patient was asleep at change of shift and up for breakfast. Patient is very disheveled today. Patient was good all morning and started screaming in the afternoon after RN told her she would have to wait before I could help her call an mergers and acquisitions attorney. She went into her room and slammed the door. Patient denies suicidal ideation and denies audio/visual hallucinations. Patient is no calm again. S/I, H/I: Denies. A/VH: Denies. Sleep: napped in the afternoon ADL's: needs encouragement Group attendance: no Were Meds taken: Yes Any med S/E: None noted or reported. Mental Status Exam Appearance: Elderly woman with messy, dirty hair wearing a sweater inside out and backwards. Eye contact: Good Behavior: pleasant and at times screams/angry. Speech: normal and then screams when upset Mood: labile Affect: Pleasant and at times Upset Thought process: Disorganized Thought Content: Perseverates on having $4000 in her purse Cognition: A/O X 3 Insight: Poor Judgment: Poor Interventions PRN's used: None Therapeutic interventions: Provided 1:1 assessment with therapeutic communication and active listening, provided clear and simple instructions, medication administration/education/monitoring, provided ongoing education regarding handwashing r/t positive MRSA in the nares, behavior modification with stickers and a goodie bag as reward for good behavior , coping skills education, distraction, and maintained Q 15 minute safety checks. Restraints/seclusion/emergency medication: N/A Justification of Continued Inpatient Treatment: Pt needs medication management and monitoring in a safe and therapeutic environment. Pt is GD awaiting LPS court hearing.
[2021-04-13] MEDS ORDERED: LORazepam 2 mg/ml vial IM ONE (18:40)
[2021-04-13] MEDS ORDERED: ziprasidone IM 20mg inj **IM only IM ONE (18:40)
[2021-04-13] MEDS ORDERED: diphenhydrAMINE 50 mg/ml inj IM ONE (18:40)
[2021-04-13] MEDS ORDERED: ziprasidone IM 20mg inj **IM only ONE (18:44)
[2021-04-13] MEDS ORDERED: diphenhydrAMINE 50 mg/ml inj ONE (18:44)
[2021-04-13] MEDS ORDERED: LORazepam 2 mg/ml vial ONE (18:45)
[2021-04-13 20:00] VITALS: BP 120/70
[2021-04-13] MEDS: traZODone 50mg tablet PO PRN (20:29)
[2021-04-14] MEDS: LORazepam 1 MG tablet PO SCH ×4 (02:00→20:23)
--- NOTE | 2021-04-14 02:25 | NUR ---
Nursing Progress Note: Alondra Legal hold: TCON Client on involuntary status for GD Report received from nurse, Aracelis PHILLIP, with use of SBAR Why they are here: Client was transported to [facility] by [employer] for disruptive behavior. Client reported, "I was laying in the bed at my daughters house and the police came in a said 'We're here to help you.' They handcuffed me and took me to the Hospital." "I want to get out of here!" Client stated, "I don't remember anything else." According the medical record client has had multiple ED visits and several Inpatient Psych admits. Hx of wandering into traffic, trespassing, and disorderly conduct. Client reported she was living with her daughter in [place]. She is currently homeless. Assessment What has happened this shift: Patient was very agitated and yelling and screaming from her room at change of shift. Unable to re-direct pt. Provider ordered Geodon 20MG, Ativan 2MG, Benadryl 50MG. Pt accepted IM injections without issue and stayed in her room to sit quietly. Pt refused snacks. Had to wake pt up for HS medication administration, pt accepted without issue and went back to sleep. No other behavioral issues for the rest of NOC shift. Continue to monitor. S/I, H/I: Denies. A/VH: Denies. Sleep: ADL's: needs encouragement Group attendance: no Were Meds taken: Yes Any med S/E: None noted or reported. Mental Status Exam Appearance: Elderly woman with messy, dirty hair wearing a large sweater and black pants Eye contact: Good Behavior: pleasant and at times screams/angry. Speech: normal and then screams when upset Mood: labile Affect: Pleasant and at times Upset Thought process: Disorganized Thought Content: Perseverate on her purse Cognition: A/O X 3 Insight: Poor Judgment: Poor Interventions PRN's used: Ativan, Geodon, Benadryl Therapeutic interventions: Provided 1:1 assessment with therapeutic communication and active listening, provided clear and simple instructions, medication administration/education/monitoring, provided ongoing education regarding handwashing r/t positive MRSA in the nares, behavior modification with stickers and a goodie bag as reward for good behavior , coping skills education, distraction, and maintained Q 15 minute safety checks. Restraints/seclusion/emergency medication: N/A Justification of Continued Inpatient Treatment: Pt needs medication management and monitoring in a safe and therapeutic environment. Pt is GD awaiting LPS court hearing.
[2021-04-14] MEDS: divalproex sod 125mg sprinkle cap PO SCH ×2 (07:45→20:23)
[2021-04-14] MEDS: quetiapine 100mg tablet PO SCH ×4 (07:45→20:23)
[2021-04-14 08:00] VITALS: BP 108/60
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
[2021-04-14 20:00] VITALS: BP 103/50
[2021-04-14] MEDS: traZODone 50mg tablet PO PRN ×2 (20:23→21:16)
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
[2021-04-15] MEDS: LORazepam 1 MG tablet PO SCH ×5 (02:00→23:28)
[2021-04-15 08:00] VITALS: BP 107/62
[2021-04-15] MEDS: quetiapine 100mg tablet PO SCH ×4 (08:32→21:08)
[2021-04-15] MEDS: divalproex sod 125mg sprinkle cap PO SCH ×2 (08:32→21:04)
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
--- NOTE | 2021-04-15 16:11 | NUR ---
Patient yelling loudly and crying stating the bank told her that someone is using her money. She is upset saying "I've worked very hard for this money and someone is stealing it." Patient had papers in hands and shuffling through it. Asked patient to see paper and let her know that the paper she is holding is not a bank statement and does not say that someone has been using her money. Patient then started crying and yelling about sap developer stalking her and wanting to have her cat and herself killed. Patient reported that she knows the law and her rights and they should be arrested. Attempted to calm patient down and asked her to lower her voice as there are other patients resting. Patient is aware that she has court tomorrow and she states that is when she will tell the water main installer helper. Patient was pointing her finger and speaking aggressively. Able to redirect patient when offered to have her papers she had shuffled into a paper finisher. Patient thankful for the paper finisher. She is now ambulating in smith and thankful to staff for assistance.
[2021-04-15 20:14] VITALS: BP 98/70
[2021-04-15] MEDS: traZODone 50mg tablet PO PRN (23:28)
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
[2021-04-16 08:01] VITALS: BP 136/67
[2021-04-16] MEDS: LORazepam 1 MG tablet PO SCH ×3 (08:26→19:25)
[2021-04-16] MEDS: divalproex sod 125mg sprinkle cap PO SCH ×2 (08:26→19:26)
[2021-04-16] MEDS: quetiapine 100mg tablet PO SCH ×4 (08:26→19:25)
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
[2021-04-16 20:33] VITALS: BP 98/62
[2021-04-17] MEDS: LORazepam 1 MG tablet PO SCH ×3 (02:00→13:28)
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
[2021-04-17 08:00] VITALS: BP 130/60
--- NOTE | 2021-04-17 08:18 | NUR ---
COURT 05/10/21 AT 9 AM Natalio from [facility] Public Guardian reported Alondra has court 05/10/21 at 9 AM via Web [employer]. She is going to fax the continuation orders to [facility]. REJI Rome
[2021-04-17] MEDS: quetiapine 100mg tablet PO SCH ×3 (09:57→17:41)
[2021-04-17] MEDS: divalproex sod 125mg sprinkle cap PO SCH (09:58)
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
[2021-04-17] MEDS ORDERED: ziprasidone IM 20mg inj **IM only ONE (17:41)
--- NOTE | 2021-04-17 17:51 | NUR ---
Agitation: Pt screaming and cursing and escorted to room several times but continues to come out screaming. Dr Castillo orders Geodon 20mg IM. Pt takes the shot without incident.
[2021-04-18] MEDS: quetiapine 100mg tablet PO SCH ×5 (01:51→19:39)
[2021-04-18] MEDS: LORazepam 1 MG tablet PO SCH ×5 (01:51→19:39)
[2021-04-18] MEDS: divalproex sod 125mg sprinkle cap PO SCH ×3 (01:52→19:40)
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
[2021-04-18 07:48] VITALS: BP 97/59
--- NOTE | 2021-04-18 09:45 | NUR ---
F/u 04/18: Pt continues eating well with mostly 100% PO intake on regular diet while receiving double protein TID meeting estimated nutrient needs. LBM 04/11 w/ PRN bowel care available. No nutrition intervention implemented at this time. Will continue to follow. Rec: 1. Continue regular diet; double eggs WB double, meat BIDLD per diet order 2. Bowel care per rx 3. Weekly scaled wts Addendum: 04/18/21 at [address] Amended: Links added.
[2021-04-18] MEDS ORDERED: COVID-19 VACC, MRNA(PFIZER)/PF--BNT162b2 syringe IMVAC ONE (12:05)
--- NOTE | 2021-04-18 17:22 | NUR ---
Nursing Progress Note Legal hold: TCON Client on involuntary status for GD Report received from nurse, Eli RN, with use of SBAR Why they are here: Client was transported to [facility] by [employer] for disruptive behavior. Client reported, "I was laying in the bed at my daughters house and the police came in a said 'We're here to help you.' They handcuffed me and took me to the Hospital." "I want to get out of here!" Client stated, "I don't remember anything else." According the medical record client has had multiple ED visits and several Inpatient Psych admits. Hx of wandering into traffic, trespassing, and disorderly conduct. Client reported she was living with her daughter in [place]. She is currently homeless. Assessment What has happened this shift: Essentials: Pt. received 2nd Pfizer COVID shot today RN received pt. asleep in bed at start of shift. Pt. awoke for breakfast, took all medications, and went back to sleep until AM snack. 1:1 done at bedside. Pt. states emphatically, Im good!. Pt. reports sleeping well. Pt. gives minimal responses to this RNs questions and lacks insight into her present situation. Pt. requests help calling her daughter and becomes frustrated that her daughter does not answer her calls. Pt. had a few episodes of yelling and tearfulness in the afternoon. S/I, H/I: denies. A/VH: denies. Sleep: Pt. slept 10.75 hrs on day shift and napped intermittently throughout the day. ADL's: Independent. Group attendance: No Were Meds taken: Yes Any med S/E: Denies Mental Status Exam Appearance: Disheveled, unkempt hair, clean clothes. Eye contact: WNL Behavior: Cooperative with a few outbursts. Speech: Clear, loud. Mood: Mostly euthymic, but periods of agitation. Affect: Congruent with mood Thought process: Linear Thought Content: Wanting to be discharged. Cognition: A/O X 3 Insight: Poor Judgment: Poor Interventions PRN's used: None Therapeutic interventions: Provided 1:1 assessment with therapeutic communication and active listening, provided clear and simple instructions, medication administration/education/monitoring, provided ongoing education regarding handwashing r/t positive MRSA in the nares, behavior modification with stickers and a goodie bag as reward for good behavior, prompted pt to showere and change her clothes, coping skills education, distraction, and maintained Q 15 minute safety checks. Restraints/seclusion/emergency medication: N/A Justification of Continued Inpatient Treatment: Pt needs medication management and monitoring in a safe and therapeutic environment. Pt is GD awaiting LPS court hearing.
[2021-04-18] MEDS: traZODone 50mg tablet PO PRN ×2 (19:40→22:10)
[2021-04-18 20:00] VITALS: BP 120/71
--- NOTE | 2021-04-19 02:42 | NUR ---
Nursing Progress Note Alondra Legal hold: TCON Client on involuntary status for GD Report received from nurse, Ana PHILLIP, with use of SBAR Why they are here: Client was transported to [facility] by [employer] for disruptive behavior. Client reported, "I was laying in the bed at my daughters house and the police came in a said 'We're here to help you.' They handcuffed me and took me to the Hospital." "I want to get out of here!" Client stated, "I don't remember anything else." According the medical record client has had multiple ED visits and several Inpatient Psych admits. Hx of wandering into traffic, trespassing, and disorderly conduct. Client reported she was living with her daughter in [place]. She is currently homeless. Assessment What has happened this shift: RN received pt in her room intermittently screaming and yelling I hate God. This RN goes into pts room to try to re-direct, Pt states she is tired and ready for bed. Pt took all HS medication without issue early. PT up for snacks and used the phone to call her daughter. Pt had several other outbursts in her room of yelling and screaming. S/I, H/I: denies. A/VH: denies. Sleep: ADL's: Independent. Group attendance: No Were Meds taken: Yes Any med S/E: Denies Mental Status Exam Appearance: Disheveled, unkempt hair, clean clothes. Eye contact: WNL Behavior: Cooperative with a few outbursts. Speech: Clear, loud. Mood: Mostly euthymic, but periods of agitation. Affect: Congruent with mood Thought process: Linear Thought Content: Wanting to be discharged. Cognition: A/O X 3 Insight: Poor Judgment: Poor Interventions PRN's used: None Therapeutic interventions: Provided 1:1 assessment with therapeutic communication and active listening, provided clear and simple instructions, medication administration/education/monitoring, provided ongoing education regarding handwashing r/t positive MRSA in the nares, behavior modification with stickers and a goodie bag as reward for good behavior, coping skills education, distraction, and maintained Q 15 minute safety checks. Restraints/seclusion/emergency medication: N/A Justification of Continued Inpatient Treatment: Pt needs medication management and monitoring in a safe and therapeutic environment. Pt is GD awaiting LPS court hearing.
[2021-04-19] MEDS: LORazepam 1 MG tablet PO SCH ×4 (03:15→20:11)
[2021-04-19 07:30] VITALS: BP 96/49
[2021-04-19] MEDS: divalproex sod 125mg sprinkle cap PO SCH ×2 (08:13→20:11)
[2021-04-19] MEDS: quetiapine 100mg tablet PO SCH ×4 (08:13→20:11)
--- NOTE | 2021-04-19 16:59 | NUR ---
Nursing Progress Note Legal hold: TCON Client on involuntary status for GD Report received from nurse, Eli PHILLIP, with use of SBAR Why they are here: Client was transported to [facility] by [employer] for disruptive behavior. Client reported, "I was laying in the bed at my daughters house and the police came in a said 'We're here to help you.' They handcuffed me and took me to the Hospital." "I want to get out of here!" Client stated, "I don't remember anything else." According the medical record client has had multiple ED visits and several Inpatient Psych admits. Hx of wandering into traffic, trespassing, and disorderly conduct. Client reported she was living with her daughter in [place]. She is currently homeless. Assessment What has happened this shift: RN received pt. asleep in bed at start of shift. Pt. awoke for breakfast, took all medications, and went back to sleep until AM snack. 1:1 done at bedside. Pt. reports feeling aches in her shoulder and neck. Pt. napped until lunch time. Pt. requested to call her daughter, pt. got ahold of her daughter Divya and requested Divya bring her $100 dollars, Divya reported that she has none of the pt.s money. Pt. became agitated and began to yell but was redirectable. Pt. had a few outbursts of yelling but was easily redirected. Pt. observed having conversation with someone not there, appears to be responding to internal stimuli. S/I, H/I: denies. A/VH: Pt. appears to be responding to AV. Sleep: Pt. slept 4.75 hrs on NOC shift and pt. napped intermittently throughout the day. ADL's: Independent. Group attendance: No Were Meds taken: Yes Any med S/E: Denies Mental Status Exam Appearance: Disheveled but clean, wearing casual attire. Eye contact: WNL Behavior: Cooperative with a few outbursts. Speech: Clear, loud. Mood: Mostly Euthymic with periods of agitation. Affect: Congruent with mood. Thought process: Paranoid delusions Thought Content: Being unjustly hospitalized because of a government conspiracy Cognition: A/O X 3 Insight: Poor Judgment: Poor Interventions PRN's used: None Therapeutic interventions: Provided 1:1 assessment with therapeutic communication and active listening, provided clear and simple instructions, medication administration/education/monitoring, provided ongoing education regarding handwashing r/t positive MRSA in the nares, behavior modification with stickers and a goodie bag as reward for good behavior, prompted pt to showere and change her clothes, coping skills education, distraction, and maintained Q 15 minute safety checks. Restraints/seclusion/emergency medication: N/A Justification of Continued Inpatient Treatment: Pt needs medication management and monitoring in a safe and therapeutic environment. Pt is GD awaiting LPS court hearing.
[2021-04-19 20:00] VITALS: BP 111/64
[2021-04-19] MEDS: traZODone 50mg tablet PO PRN ×2 (20:11→22:20)
[2021-04-20] MEDS: LORazepam 1 MG tablet PO SCH ×4 (02:00→20:01)
--- NOTE | 2021-04-20 02:28 | NUR ---
Nursing Progress Note: Alondra Legal hold: TCON Client on involuntary status for GD Report received from nurse, Ana PHILLIP, with use of SBAR Why they are here: Client was transported to [facility] by [employer] for disruptive behavior. Client reported, "I was laying in the bed at my daughters house and the police came in a said 'We're here to help you.' They handcuffed me and took me to the Hospital." "I want to get out of here!" Client stated, "I don't remember anything else." According the medical record client has had multiple ED visits and several Inpatient Psych admits. Hx of wandering into traffic, trespassing, and disorderly conduct. Client reported she was living with her daughter in [place]. She is currently homeless. Assessment What has happened this shift: RN received pt lying in bed awake with intermittent yelling. Pt got up for snacks, took HS medication. Pt thinks her cat is in the room and kept calling for her cat to get on the bed. PT stated she was tired and was ready for bed. Pt given trazadone 100MG X2 with little effect. S/I, H/I: denies. A/VH: denies Sleep: ADL's: Independent. Group attendance: No Were Meds taken: Yes Any med S/E: Denies Mental Status Exam Appearance: Disheveled but clean, wearing casual attire. Eye contact: WNL Behavior: Cooperative with outbursts. Speech: Clear, loud. Mood: Mostly Euthymic with periods of agitation. Affect: Congruent with mood. Thought process: Paranoid delusions Thought Content: Being unjustly hospitalized because of a government conspiracy Cognition: A/O X 3 Insight: Poor Judgment: Poor Interventions PRN's used: trazadone 100mg X2 Therapeutic interventions: Provided 1:1 assessment with therapeutic communication and active listening, provided clear and simple instructions, medication administration/education/monitoring, provided ongoing education regarding handwashing r/t positive MRSA in the nares, behavior modification with stickers and a goodie bag as reward for good behavior, prompted pt to showere and change her clothes, coping skills education, distraction, and maintained Q 15 minute safety checks. Restraints/seclusion/emergency medication: N/A Justification of Continued Inpatient Treatment: Pt needs medication management and monitoring in a safe and therapeutic environment. Pt is GD awaiting LPS court hearing.
[2021-04-20 07:52] VITALS: BP 113/48
[2021-04-20] MEDS: divalproex sod 125mg sprinkle cap PO SCH ×2 (08:09→20:02)
[2021-04-20] MEDS: quetiapine 100mg tablet PO SCH ×4 (08:09→20:02)
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
[2021-04-20] MEDS: traZODone 50mg tablet PO PRN ×2 (20:02→21:45)
[2021-04-20 20:07] VITALS: BP 133/70
[2021-04-21] MEDS: LORazepam 1 MG tablet PO SCH ×4 (02:00→19:21)
--- NOTE | 2021-04-21 03:11 | NUR ---
Nursing Progress Note: Legal hold: TCON Client on involuntary status for GD Report received from nurse, Ana PHILLIP, with use of SBAR Why they are here: Client was transported to [facility] by [employer] for disruptive behavior. Client reported, "I was laying in the bed at my daughters house and the police came in a said 'We're here to help you.' They handcuffed me and took me to the Hospital." "I want to get out of here!" Client stated, "I don't remember anything else." According the medical record client has had multiple ED visits and several Inpatient Psych admits. Hx of wandering into traffic, trespassing, and disorderly conduct. Client reported she was living with her daughter in [place]. She is currently homeless. Assessment What has happened this shift: Patient spent shift isolated except for multiple yelling episodes. Patient started banging on doe and yelling at staff. Patient was given scheduled medications and PRN trazodone which temporarily calmed patient down. Patient than began to wonder up and down hallway shouting again. Patient was given second dose of PRN trazodone. Patient eventually fell asleep. S/I, H/I: denies. A/VH: denies Sleep: see sleep assessment ADL's: Independent. Group attendance: No Were Meds taken: Yes Any med S/E: Denies Mental Status Exam Appearance: Disheveled but clean, wearing casual attire. Eye contact: WNL Behavior: Cooperative with outbursts. Speech: Clear, loud. Mood: Mostly Euthymic with periods of agitation. Affect: Congruent with mood. Thought process: Paranoid delusions Thought Content: anger at god Cognition: A/O X 3 Insight: Poor Judgment: Poor Interventions PRN's used: trazadone 100mg X2 Therapeutic interventions: Provided 1:1 assessment with therapeutic communication and active listening, provided clear and simple instructions, medication administration/education/monitoring, provided ongoing education regarding handwashing r/t positive MRSA in the nares, behavior modification with stickers and a goodie bag as reward for good behavior, prompted pt to showere and change her clothes, coping skills education, distraction, and maintained Q 15 minute safety checks. Restraints/seclusion/emergency medication: N/A Justification of Continued Inpatient Treatment: Pt needs medication management and monitoring in a safe and therapeutic environment. Pt is GD awaiting LPS court hearing.
[2021-04-21 08:45] VITALS: BP 97/67
[2021-04-21] MEDS: quetiapine 100mg tablet PO SCH ×5 (09:05→20:30)
[2021-04-21] MEDS: divalproex sod 125mg sprinkle cap PO SCH ×2 (09:05→19:21)
--- NOTE | 2021-04-21 17:13 | NUR ---
Nursing Progress Note Legal hold: TCON Client on involuntary status for GD Report received from nurse, Emily PHILLIP, with use of SBAR Why they are here: Client was transported to [facility] by [employer] for disruptive behavior. Client reported, "I was laying in the bed at my daughters house and the police came in a said 'We're here to help you.' They handcuffed me and took me to the Hospital." "I want to get out of here!" Client stated, "I don't remember anything else." According the medical record client has had multiple ED visits and several Inpatient Psych admits. Hx of wandering into traffic, trespassing, and disorderly conduct. Client reported she was living with her daughter in [place]. She is currently homeless. Assessment What has happened this shift: Pt sleeping at start of the shift. Pt awoke for breakfast ate then went back to sleep. Pt did not sleep long. She got up and began screaming. Pt was screaming about her purse missing, checks missing and wanting her cat, "Misfit." Pt spent much of the day yelling as well as slamming her door. S/I, H/I: denies. A/VH: Pt. denies Sleep: napped intermittently throughout the day. ADL's: Independent. Group attendance: No Were Meds taken: Yes Any med S/E: Denies Mental Status Exam Appearance: Short elderly female with long brown hair with clean colorful dress Eye contact: WNL Behavior: Out of control today Speech: Clear, Very loud Mood: Angry and loud today Affect: Congruent with mood. Thought process: Paranoid delusions Thought Content: Being unjustly hospitalized & missing her cat Cognition: A/O X 3 Insight: Poor Judgment: Poor Interventions PRN's used: None Therapeutic interventions: Provided 1:1 assessment with therapeutic communication and active listening, provided clear and simple instructions, medication administration/education/monitoring, provided ongoing education regarding handwashing r/t positive MRSA in the nares, prompted pt to shower and change her clothes, coping skills education, distraction, and maintained Q 15 minute safety checks. Restraints/seclusion/emergency medication: N/A Justification of Continued Inpatient Treatment: Pt needs medication management and monitoring in a safe and therapeutic environment. Pt is GD awaiting LPS court hearing.
[2021-04-21 19:21] VITALS: BP 118/58
[2021-04-21] MEDS: traZODone 50mg tablet PO PRN ×2 (19:22→20:30)
[2021-04-22] MEDS: LORazepam 1 MG tablet PO SCH ×4 (02:00→19:11)
--- NOTE | 2021-04-22 02:12 | NUR ---
Nursing Progress Note: Legal hold: TCON Client on involuntary status for GD Report received from nurse, Ana RN, with use of SBAR Why they are here: Client was transported to [facility] by [employer] for disruptive behavior. Client reported, "I was laying in the bed at my daughters house and the police came in a said 'We're here to help you.' They handcuffed me and took me to the Hospital." "I want to get out of here!" Client stated, "I don't remember anything else." According the medical record client has had multiple ED visits and several Inpatient Psych admits. Hx of wandering into traffic, trespassing, and disorderly conduct. Client reported she was living with her daughter in [place]. She is currently homeless. Assessment What has happened this shift: Patient began the shift with a great attitude, was laughing and joking with this rn. Pt denies having any complaints and is feeling happy about her upcoming appt on 05/10. Pt denies all mh symptoms and is not observed responding to IS. All hs meds were taken without issue. Pt had several loud screaming bouts, initiated by her belief that people are making fun of my son. Pt stated, Im not hearing voices, but Im hearing voices. Pt believed people are speaking ill of her and her family. Pt eventually went to bed. S/I, H/I: denies. A/VH: denies Sleep: see sleep assessment ADL's: Independent. Group attendance: No Were Meds taken: Yes Any med S/E: Denies Mental Status Exam Appearance: Disheveled but clean, wearing casual attire. Eye contact: WNL Behavior: Cooperative with outbursts. Speech: Clear, loud. Mood: Mostly Euthymic with periods of agitation. Affect: Congruent with mood. Thought process: Paranoid delusions Thought Content: anger at god Cognition: A/O X 3 Insight: Poor Judgment: Poor Interventions PRN's used: trazadone 100mg X2 Therapeutic interventions: Provided 1:1 assessment with therapeutic communication and active listening, provided clear and simple instructions, medication administration/education/monitoring, provided ongoing education regarding handwashing r/t positive MRSA in the nares, behavior modification with stickers and a goodie bag as reward for good behavior, prompted pt to showere and change her clothes, coping skills education, distraction, and maintained Q 15 minute safety checks. Restraints/seclusion/emergency medication: N/A Justification of Continued Inpatient Treatment: Pt needs medication management and monitoring in a safe and therapeutic environment. Pt is GD awaiting LPS court hearing.
[2021-04-22 07:53] VITALS: BP 113/55
[2021-04-22] MEDS: divalproex sod 125mg sprinkle cap PO SCH ×2 (08:35→19:09)
[2021-04-22] MEDS: quetiapine 100mg tablet PO SCH ×4 (08:35→20:01)
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
[2021-04-22 20:12] VITALS: BP 95/56
[2021-04-23] MEDS: LORazepam 1 MG tablet PO SCH ×4 (02:00→20:01)
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
[2021-04-23 07:51] VITALS: BP 110/53
[2021-04-23] MEDS: divalproex sod 125mg sprinkle cap PO SCH ×2 (07:55→20:01)
[2021-04-23] MEDS: quetiapine 100mg tablet PO SCH ×5 (07:55→20:39)
[2021-04-23] MEDS: acetaminophen 325mg tablet PO PRN (08:06)
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
[2021-04-23] MEDS: traZODone 50mg tablet PO PRN (20:39)
[2021-04-23 20:47] VITALS: BP 110/70
[2021-04-24] MEDS: LORazepam 1 MG tablet PO SCH ×4 (01:14→19:18)
--- NOTE | 2021-04-24 03:04 | NUR ---
Nursing Progress Note: Legal hold: TCON Client on involuntary status for GD Report received from nurse, Ana PHILLIP, with use of SBAR Why they are here: Client was transported to [facility] by [employer] for disruptive behavior. Client reported, "I was laying in the bed at my daughters house and the police came in a said 'We're here to help you.' They handcuffed me and took me to the Hospital." "I want to get out of here!" Client stated, "I don't remember anything else." According the medical record client has had multiple ED visits and several Inpatient Psych admits. Hx of wandering into traffic, trespassing, and disorderly conduct. Client reported she was living with her daughter in [place]. She is currently homeless. Assessment What has happened this shift: Pt was in a good mood tonight, and was social with other patients as well as staff. Pt was sleeping at shift change but awoke for assessments and was cracking jokes with this rn. Pt will occasionally make delusional statements about people on the unit wronging her in some way or making fun of her. Pt had difficulty time sleeping, would sleep for an hour and then wake up. Pt had a few short lived yelling outbursts but would eventually stop. S/I, H/I: denies. A/VH: denies Sleep: see sleep assessment ADL's: Independent. Group attendance: No Were Meds taken: Yes Any med S/E: Denies Mental Status Exam Appearance: Disheveled but clean, wearing casual attire. Eye contact: WNL Behavior: Cooperative with outbursts. Speech: Clear, loud. Mood: Mostly Euthymic, occasional outburst Affect: Congruent with mood. Thought process: Paranoid delusions Thought Content: snacks Cognition: A/O X 3 Insight: Poor Judgment: Poor Interventions PRN's used: Therapeutic interventions: Provided 1:1 assessment with therapeutic communication and active listening, provided clear and simple instructions, medication administration/education/monitoring, provided ongoing education regarding handwashing r/t positive MRSA in the nares, behavior modification with stickers and a goodie bag as reward for good behavior, prompted pt to showere and change her clothes, coping skills education, distraction, and maintained Q 15 minute safety checks. Restraints/seclusion/emergency medication: N/A Justification of Continued Inpatient Treatment: Pt needs medication management and monitoring in a safe and therapeutic environment. Pt is GD awaiting LPS court hearing.
[2021-04-24] MEDS: divalproex sod 125mg sprinkle cap PO SCH ×2 (07:57→19:18)
[2021-04-24] MEDS: quetiapine 100mg tablet PO SCH ×4 (07:58→21:05)
[2021-04-24 08:00] VITALS: BP 136/79
--- NOTE | 2021-04-24 09:58 | NUR ---
Reassessment: Pt continues eating well with mostly 100% PO intake on regular diet while receiving double protein TID meeting estimated nutrient needs. [facility] 04/23. No nutrition intervention implemented at this time. Will continue to follow. Rec: 1. Continue regular diet; double eggs WB double, meat BIDLD per diet order 2. Bowel care per rx 3. Weekly scaled wts Addendum: 04/24/21 at [address] Amended: Links added.
[2021-04-24] MEDS ORDERED: NICOTINE POLACRILEX 2 MG LOZENGE BC PRN (15:50)
--- NOTE | 2021-04-24 16:05 | NUR ---
Jose De Jesus phone number [phone]
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
--- NOTE | 2021-04-24 18:12 | NUR ---
DEPAKOTE AND AMMONIA LEVELS ORDERED FOR AM OF 04/25 because of pt.'s increasing hallucinations.
[2021-04-24 19:00] VITALS: BP 106/54
[2021-04-24] MEDS: traZODone 50mg tablet PO PRN ×2 (19:19→21:09)
[2021-04-24] MEDS ORDERED: quetiapine 100mg tablet PO ONE (21:55)
[2021-04-24] MEDS ORDERED: quetiapine 100mg tablet PO SCH (21:55)
[2021-04-25] MEDS: LORazepam 1 MG tablet PO SCH ×5 (02:00→20:17)
--- NOTE | 2021-04-25 03:33 | NUR ---
Nursing Progress Note: Legal hold: TCON Client on involuntary status for GD Report received from nurse, Ana PHILLIP, with use of SBAR Why they are here: Client was transported to [facility] by [employer] for disruptive behavior. Client reported, "I was laying in the bed at my daughters house and the police came in a said 'We're here to help you.' They handcuffed me and took me to the Hospital." "I want to get out of here!" Client stated, "I don't remember anything else." According the medical record client has had multiple ED visits and several Inpatient Psych admits. Hx of wandering into traffic, trespassing, and disorderly conduct. Client reported she was living with her daughter in [place]. She is currently homeless. Assessment What has happened this shift: Pt had a better night in terms of not screaming as much but pt appears to have increasing hallucinations. pt did not recognize this rn as she usually does and was asking where Germain is. pt was also calling out for her cat that she believed was in her room. pt is confused but cooperative. all hs meds were taken and pt required 2nd dose of trazadone and seroquel. S/I, H/I: denies. A/VH: denies Sleep: see sleep assessment ADL's: Independent. Group attendance: No Were Meds taken: Yes Any med S/E: Denies Mental Status Exam Appearance: Disheveled but clean, wearing casual attire. Eye contact: WNL Behavior: Cooperative with outbursts. Speech: Clear, loud. Mood: Mostly Euthymic, occasional outburst Affect: Congruent with mood. Thought process: Paranoid delusions Thought Content: snacks Cognition: A/O X 3 Insight: Poor Judgment: Poor Interventions PRN's used: trazadone Therapeutic interventions: Provided 1:1 assessment with therapeutic communication and active listening, provided clear and simple instructions, medication administration/education/monitoring, provided ongoing education regarding handwashing r/t positive MRSA in the nares, behavior modification with stickers and a goodie bag as reward for good behavior, prompted pt to showere and change her clothes, coping skills education, distraction, and maintained Q 15 minute safety checks. Restraints/seclusion/emergency medication: N/A Justification of Continued Inpatient Treatment: Pt needs medication management and monitoring in a safe and therapeutic environment. Pt is GD awaiting LPS court hearing.
[2021-04-25] MEDS: quetiapine 100mg tablet PO SCH ×5 (07:44→20:16)
[2021-04-25] MEDS: divalproex sod 125mg sprinkle cap PO SCH ×3 (07:45→20:17)
[2021-04-25 08:00] VITALS: BP 90/57
--- NOTE | 2021-04-25 12:39 | NUR ---
Sent letter to [facility] Public Guardian stating that Alondra may not be safe to transport for court. She will likely attend court via [place]. REJI Rome
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
[2021-04-25 19:20] VITALS: BP 109/59
[2021-04-25] MEDS: traZODone 50mg tablet PO PRN (20:15)
[2021-04-26] MEDS: LORazepam 1 MG tablet PO SCH ×4 (02:00→20:31)
--- NOTE | 2021-04-26 04:40 | NUR ---
Nursing Progress Note: Legal hold: TCON Client on involuntary status for GD Report received from all day shift nurses RN and DENTAL SURGEON, with use of SBAR Why they are here: Client was transported to [facility] by [employer] for disruptive behavior. Client reported, "I was laying in the bed at my daughters house and the police came in a said 'We're here to help you.' They handcuffed me and took me to the Hospital." "I want to get out of here!" Client stated, "I don't remember anything else." According the medical record client has had multiple ED visits and several Inpatient Psych admits. Hx of wandering into traffic, trespassing, and disorderly conduct. Client reported she was living with her daughter in [place]. She is currently homeless. Assessment What has happened this shift: Patient was cooperative and in a positive mood this shift. Patient had no screaming episodes and didn't require 2nd PRN trazodone or 2nd Seroquel. Patient spent shift straitening up her room and socializing with other patients. Patient took all scheduled medications and participated in snack time. Patient slept with no difficulty. S/I, H/I: denies. A/VH: denies Sleep: see sleep assessment ADL's: Independent. Group attendance: No Were Meds taken: Yes Any med S/E: Denies Mental Status Exam Appearance: Disheveled but clean, wearing casual attire. Eye contact: WNL Behavior: Cooperative Speech: Clear, loud. Mood: Mostly Euthymic and happy Affect: Congruent with mood. Thought process: Paranoid delusions Thought Content: snacks Cognition: A/O X 3 Insight: Poor Judgment: Poor Interventions PRN's used: trazodone and Seroquel Therapeutic interventions: Provided 1:1 assessment with therapeutic communication and active listening, provided clear and simple instructions, medication administration/education/monitoring, provided ongoing education regarding handwashing r/t positive MRSA in the nares, behavior modification with stickers and a goodie bag as reward for good behavior, prompted pt to showere and change her clothes, coping skills education, distraction, and maintained Q 15 minute safety checks. Restraints/seclusion/emergency medication: N/A Justification of Continued Inpatient Treatment: Pt needs medication management and monitoring in a safe and therapeutic environment. Pt is GD awaiting LPS court hearing.
[2021-04-26] MEDS: quetiapine 100mg tablet PO SCH ×4 (07:41→20:32)
[2021-04-26] MEDS: divalproex sod 125mg sprinkle cap PO SCH ×2 (07:42→20:32)
[2021-04-26 08:00] VITALS: BP 93/64
--- NOTE | 2021-04-26 12:37 | NUR ---
PLACEMENT Sent placement packet to Dulce Romero at [facility] at their request. Alondra has court on 05/10/21 and will likely get conserved. REJI Rome
--- NOTE | 2021-04-26 13:44 | NUR ---
Nursing Progress Note: Legal hold: TCON Client on involuntary status for GD Report received from nurse, Eli PHILLIP, with use of SBAR Why they are here: Client was transported to [facility] by [employer] for disruptive behavior. Client reported, "I was laying in the bed at my daughters house and the police came in a said 'We're here to help you.' They handcuffed me and took me to the Hospital." "I want to get out of here!" Client stated, "I don't remember anything else." According the medical record client has had multiple ED visits and several Inpatient Psych admits. Hx of wandering into traffic, trespassing, and disorderly conduct. Client reported she was living with her daughter in [place]. She is currently homeless. Assessment What has happened this shift: Pt was up for breakfast and cooperative with medications. Pt has been pleasant, quiet, and cooperative with care and unit procedures. Pt denies depression, anxiety, SI/HI/AH/VH. Pt has not had any verbal or physical outbursts this shift. Pt has been friendly and sociable with staff. Pt has been alert and oriented with no delusional statements or evidence of hallucinations. Pt states she showered yesterday and may shower later today. S/I, H/I: Pt denies. A/VH: Pt denies. Sleep: Pt slept 8 hours last night per noc shift report, pt naps for short intervals during the day. ADL's: Independent. Group attendance: No Were Meds taken: Yes Any med S/E: None noted or reported. Mental Status Exam Appearance: Petite edentulous woman with dark, wrinkled, weathered skin and straight, messy dark brown hair dressed in green unit scrubs. Eye contact: Good Behavior: Pleasant, cooperative, polite. Speech: Clear, mild slurring due to no teeth. Mood: Good Affect: Pleasant, calm, friendly. Thought process: Linear Thought Content: She's good. Cognition: A/O X 3 Insight: Poor Judgment: Fair Interventions PRN's used: None Therapeutic interventions: 1:1 assessment with therapeutic conversation and active listening, provided clear and simple instructions, medication administration/education/monitoring, provided ongoing education regarding handwashing r/t positive MRSA in the nares, behavior monitoring and intervention as needed; coping skills education, distraction,redirection, limit setting, encouragement and positive reinforcement provided, and maintained Q 15 minute safety checks. Restraints/seclusion/emergency medication: N/A Justification of Continued Inpatient Treatment: Pt needs medication management and monitoring in a safe and therapeutic environment until stable. Pt is GD on a TCON awaiting LPS court and placement. Pt has court on 05/10/21.
--- NOTE | 2021-04-26 15:09 | NUR ---
Pt approached the nurses in the charting room after lunch to say that her daughter Maria De Jesus told her that her Jose De Jesus was in the hospital and not doing very well. "He might not make it...I think he's at [facility]." When asked pt what he was hospitalized for she replied, "he has that stuff...you know that stuff that's going around." When asked if it was the Coronavirus, pt replied yes. Pt said she was going to go to her room and cry but not loudly. Pt conversed with the nurses for awhile talking about how her daughter Maria De Jesus is handling all of the paperwork and stuff because she's out there. Pt was accepting of the situation that she was in here and Jose De Jesus was in the hospital. Pt stated that she wasn't going to yell anymore and apologized to staff for her past behaviors. Pt stated that she realized the yelling doesn't do her any good. Pt stated that the staff was like her family now too. Pt did a good job of controlling her emotions and quietly returned to her room.
[2021-04-26 19:22] VITALS: BP 111/68
[2021-04-26] MEDS: traZODone 50mg tablet PO PRN (20:30)
[2021-04-27] MEDS: LORazepam 1 MG tablet PO SCH ×4 (02:00→20:32)
--- NOTE | 2021-04-27 04:36 | NUR ---
Nursing Progress Note: Legal hold: TCON Client on involuntary status for GD Report received from Darin PHILLIP, with use of SBAR Why they are here: Client was transported to [facility] by [employer] for disruptive behavior. Client reported, "I was laying in the bed at my daughters house and the police came in a said 'We're here to help you.' They handcuffed me and took me to the Hospital." "I want to get out of here!" Client stated, "I don't remember anything else." According the medical record client has had multiple ED visits and several Inpatient Psych admits. Hx of wandering into traffic, trespassing, and disorderly conduct. Client reported she was living with her daughter in [place]. She is currently homeless. Assessment What has happened this shift: Patient slept the entire shift. Patient had to be awoken to take scheduled medications. Patient then went back to sleep. S/I, H/I: denies. A/VH: denies Sleep: see sleep assessment ADL's: Independent. Group attendance: No Were Meds taken: Yes Any med S/E: Denies Mental Status Exam Appearance: Disheveled but clean, wearing casual attire. Eye contact: WNL Behavior: Cooperative Speech: Clear, loud. Mood: Mostly Euthymic and happy Affect: Congruent with mood. Thought process: Paranoid delusions Thought Content: snacks Cognition: A/O X 3 Insight: Poor Judgment: Poor Interventions PRN's used: trazodone and Seroquel Therapeutic interventions: Provided 1:1 assessment with therapeutic communication and active listening, provided clear and simple instructions, medication administration/education/monitoring, provided ongoing education regarding handwashing r/t positive MRSA in the nares, behavior modification with stickers and a goodie bag as reward for good behavior, prompted pt to showere and change her clothes, coping skills education, distraction, and maintained Q 15 minute safety checks. Restraints/seclusion/emergency medication: N/A Justification of Continued Inpatient Treatment: Pt needs medication management and monitoring in a safe and therapeutic environment. Pt is GD awaiting LPS court hearing.
[2021-04-27] MEDS: quetiapine 100mg tablet PO SCH ×5 (07:51→22:37)
[2021-04-27] MEDS: divalproex sod 125mg sprinkle cap PO SCH ×2 (07:52→20:33)
[2021-04-27 08:00] VITALS: BP 89/54
[2021-04-27] MEDS: acetaminophen 325mg tablet PO PRN (08:27)
--- NOTE | 2021-04-27 16:55 | NUR ---
Nursing Progress Note: Legal hold: TCON Client on involuntary status for GD Report received from nurse, Vicky Rai RN, with use of SBAR Why they are here: Client was transported to [facility] by [employer] for disruptive behavior. Client reported, "I was laying in the bed at my daughters house and the police came in a said 'We're here to help you.' They handcuffed me and took me to the Hospital." "I want to get out of here!" Client stated, "I don't remember anything else." According the medical record client has had multiple ED visits and several Inpatient Psych admits. Hx of wandering into traffic, trespassing, and disorderly conduct. Client reported she was living with her daughter in [place]. She is currently homeless. Assessment What has happened this shift: Pt was up for breakfast and cooperative with medications. Pt was friendly and sociable with staff and peers. Pt watched TV in the rec room after lunch and became a bit tearful. Pt returned to her room for a voluntary time out, she yelled for a few minutes then calmed herself and has remained calm since. Pt denies depression, SI/HI/AH/VH. Pt c/o 04/22 neck pain at 0827 and was given PRN Tylenol 650 mg with good effect. S/I, H/I: Pt denies. A/VH: Pt denies. Sleep: Pt slept 10 hours last night per noc shift report. ADL's: Independent. Group attendance: No Were Meds taken: Yes Any med S/E: None noted or reported. Mental Status Exam Appearance: Petite edentulous woman with dark, wrinkled, weathered skin and straight, messy dark brown hair dressed in a colorful long-sleeved dress, long orange and black striped Halloween socks, and black slip on shoes. Eye contact: Good Behavior: Pleasant, cooperative, polite. Speech: Clear, mild slurring at times due to no teeth. Mood: Mostly good Affect: Pleasant, friendly Thought process: Linear Thought Content: She's good. Cognition: A/O X 3 Insight: Poor Judgment: Fair Interventions PRN's used: Tylenol Therapeutic interventions: 1:1 assessment with therapeutic conversation and active listening, provided clear and simple instructions, medication administration/education/monitoring, provided ongoing education regarding handwashing r/t positive MRSA in the nares, behavior modification, monitoring and intervention as needed; coping skills education, distraction,redirection, limit setting, encouragement and positive reinforcement provided, and maintained Q 15 minute safety checks. Restraints/seclusion/emergency medication: N/A Justification of Continued Inpatient Treatment: Pt needs medication management and monitoring in a safe and therapeutic environment until stable. Pt is GD on a TCON awaiting LPS court and placement. Pt has court on 05/10/21.
[2021-04-27 19:16] VITALS: BP 107/67
[2021-04-27] MEDS: traZODone 50mg tablet PO PRN ×2 (20:32→22:36)
[2021-04-28] MEDS: LORazepam 1 MG tablet PO SCH ×4 (01:59→20:01)
--- NOTE | 2021-04-28 03:25 | NUR ---
Nursing Progress Note: Legal hold: TCON Client on involuntary status for GD Report received from Darin PHILLIP, with use of SBAR Why they are here: Client was transported to [facility] by [employer] for disruptive behavior. Client reported, "I was laying in the bed at my daughters house and the police came in a said 'We're here to help you.' They handcuffed me and took me to the Hospital." "I want to get out of here!" Client stated, "I don't remember anything else." According the medical record client has had multiple ED visits and several Inpatient Psych admits. Hx of wandering into traffic, trespassing, and disorderly conduct. Client reported she was living with her daughter in [place]. She is currently homeless. Assessment What has happened this shift: Patient appeared happy and positive at the beginning of shift. Patient spent time socializing in the tv room and taking walks around unit with other patients. Patient participated in snack time before taking scheduled medications. Patient then started shouting "I hate you god!" Patient was able to be redirected by nurse. Patient slept for an hour before awakening and shouting again. Patient shouted on and off for 2 hours. Patient was given PRN trazodone and Seroquel. Patient finally went to sleep. Patient then awoken again at 2 am and was given scheduled lorazepam. Patient fell back asleep and stayed. S/I, H/I: denies. A/VH: denies Sleep: see sleep assessment ADL's: Independent. Group attendance: No Were Meds taken: Yes Any med S/E: Denies Mental Status Exam Appearance: Disheveled but clean, wearing casual attire. Eye contact: WNL Behavior: Cooperative Speech: Clear, loud. Mood: Mostly Euthymic and happy Affect: Congruent with mood. Thought process: Paranoid delusions Thought Content: snacks Cognition: A/O X 3 Insight: Poor Judgment: Poor Interventions PRN's used: trazodonex2 and Seroquelx2 Therapeutic interventions: Provided 1:1 assessment with therapeutic communication and active listening, provided clear and simple instructions, medication administration/education/monitoring, provided ongoing education regarding handwashing r/t positive MRSA in the nares, behavior modification with stickers and a goodie bag as reward for good behavior, prompted pt to showere and change her clothes, coping skills education, distraction, and maintained Q 15 minute safety checks. Restraints/seclusion/emergency medication: N/A Justification of Continued Inpatient Treatment: Pt needs medication management and monitoring in a safe and therapeutic environment. Pt is GD awaiting LPS court hearing.
[2021-04-28] MEDS: quetiapine 100mg tablet PO SCH ×4 (08:05→20:00)
[2021-04-28] MEDS: divalproex sod 125mg sprinkle cap PO SCH ×2 (08:05→19:59)
[2021-04-28 08:58] VITALS: BP 145/54
--- NOTE | 2021-04-28 17:22 | NUR ---
Nursing Progress Note: Legal hold: TCON Client on involuntary status for GD Report received from nurse, Emily PHILLIP, with use of SBAR Why they are here: Client was transported to [facility] by [employer] for disruptive behavior. Client reported, "I was laying in the bed at my daughters house and the police came in a said 'We're here to help you.' They handcuffed me and took me to the Hospital." "I want to get out of here!" Client stated, "I don't remember anything else." According the medical record client has had multiple ED visits and several Inpatient Psych admits. Hx of wandering into traffic, trespassing, and disorderly conduct. Client reported she was living with her daughter in [place]. She is currently homeless. Assessment What has happened this shift: Pt got up and took a shower and then dressed herself in some new clothes. Then at some point during breakfast, she started screaming and seemingly upset r/t delusional thoughts in her mind. Pt was yelling at God and yelling about someone stealing her brother's castle and other random things. This went on and off with repeated one to ones with staff until 1600. Dr. Maria notified and he gave a PRN order. by the time we were going to give it, pt was sleeping. Pt remains calm at this point, so PRN has not yet been given as condition no longer warrrants it. S/I, H/I: Pt denies. A/VH: Pt denies. Sleep: Pt slept 8 hours last night per noc shift report, pt naps for short intervals during the day. ADL's: Independent. Group attendance: No Were Meds taken: Yes Any med S/E: None noted or reported. Mental Status Exam Appearance: Petite edentulous woman with dark, wrinkled, weathered skin and straight, messy dark brown hair dressed in green unit scrubs. Eye contact: Good Behavior: Pleasant, cooperative, polite. Speech: Clear, mild slurring due to no teeth. Mood: Good Affect: Pleasant, calm, friendly. Thought process: Linear Thought Content: She's good. Cognition: A/O X 3 Insight: Poor Judgment: Fair Interventions PRN's used: None Therapeutic interventions: 1:1 assessment with therapeutic conversation and active listening, provided clear and simple instructions, medication administration/education/monitoring, provided ongoing education regarding handwashing r/t positive MRSA in the nares, behavior monitoring and intervention as needed; coping skills education, distraction,redirection, limit setting, encouragement and positive reinforcement provided, and maintained Q 15 minute safety checks. Restraints/seclusion/emergency medication: N/A Justification of Continued Inpatient Treatment: Pt needs medication management and monitoring in a safe and therapeutic environment until stable. Pt is GD on a TCON awaiting LPS court and placement. Pt has court on 05/10/21.
[2021-04-28] MEDS ORDERED: haloperidol 5mg tablet PO ONE (17:45)
[2021-04-28] MEDS ORDERED: LORazepam 1 MG tablet PO ONE (17:45)
[2021-04-28 19:26] VITALS: BP 148/95
[2021-04-28] MEDS: traZODone 50mg tablet PO PRN (20:03)
--- NOTE | 2021-04-29 00:10 | NUR ---
Nursing Progress Note: Legal hold: TCON Client on involuntary status for GD Report received from nurse, Darin PHILLIP, with use of SBAR Why they are here: Client was transported to [facility] by [employer] for disruptive behavior. Client reported, "I was laying in the bed at my daughters house and the police came in a said 'We're here to help you.' They handcuffed me and took me to the Hospital." "I want to get out of here!" Client stated, "I don't remember anything else." According the medical record client has had multiple ED visits and several Inpatient Psych admits. Hx of wandering into traffic, trespassing, and disorderly conduct. Client reported she was living with her daughter in [place]. She is currently homeless. Assessment What has happened this shift: Pt was up and on the unit at shift change with several bouts of yelling for her cat. Pt was calm and pleasant when not yelling. Pt ate snack and was med compliant then went to bed. S/I, H/I: Pt denies. A/VH: Pt denies. Sleep: See sleep assessment. ADL's: Independent. Group attendance: No Were Meds taken: Yes Any med S/E: None noted or reported. Mental Status Exam Appearance: Petite edentulous woman with dark, wrinkled, weathered skin and straight, messy dark brown hair dressed in green unit scrubs. Eye contact: Good Behavior: Pleasant, cooperative, polite. Speech: Clear, mild slurring due to no teeth. Mood: Good Affect: Pleasant, calm, friendly. Thought process: Linear Thought Content: She's good. Cognition: A/O X 3 Insight: Poor Judgment: Fair Interventions PRN's used: None Therapeutic interventions: 1:1 assessment with therapeutic conversation and active listening, provided clear and simple instructions, medication administration/education/monitoring, provided ongoing education regarding handwashing r/t positive MRSA in the nares, behavior monitoring and intervention as needed; coping skills education, distraction,redirection, limit setting, encouragement and positive reinforcement provided, and maintained Q 15 minute safety checks. Restraints/seclusion/emergency medication: N/A Justification of Continued Inpatient Treatment: Pt needs medication management and monitoring in a safe and therapeutic environment until stable. Pt is GD on a TCON awaiting LPS court and placement. Pt has court on 05/10/21.
[2021-04-29] MEDS: LORazepam 1 MG tablet PO SCH ×4 (02:00→20:02)
[2021-04-29 07:00] VITALS: BP 111/67
[2021-04-29] MEDS: divalproex sod 125mg sprinkle cap PO SCH ×2 (09:26→20:10)
[2021-04-29] MEDS: quetiapine 100mg tablet PO SCH ×4 (09:26→20:02)
--- NOTE | 2021-04-29 17:05 | NUR ---
Nursing Progress Note: Alondra Legal hold: TCON Client on involuntary status for GD. Report received from DEJAN Du with use of SBAR. Why they are here: Client was transported to [facility] by [employer] for disruptive behavior. Client reported, "I was laying in the bed at my daughters house and the police came in a said 'We're here to help you.' They handcuffed me and took me to the Hospital." "I want to get out of here!" Client stated, "I don't remember anything else." According the medical record client has had multiple ED visits and several Inpatient Psych admits. Hx of wandering into traffic, trespassing, and disorderly conduct. Client reported she was living with her daughter in [place]. She is currently homeless. Assessment What has happened this shift: Received patient sleeping at shift change, no distress noted. Pt was awoken to attend breakfast then immediately went back to bed. Pt was compliant with medication and care. Pt presented as sedated and required ad copy writer to wake pt three times for medication. Pts 0800 Ativan 2mg was held. Pt took meds then fell back to sleep until she woke up screaming. Pt came out of her room pointing her finger down the smith You said if I signed the paperwork I would get out of here! You are all liars! Pt repeated this several times very loudly. [employer] and [employer] escorted pt back to her room reassuring her she had a a dream and no had her sign papers. This calmed pt saying Okay, I will be good now. Pt then rolled over and fell asleep. Pt talked about being at a democr[employer], ad copy writer reminded pt she was in the hospital. Talked with Dr. Maria regarding pts medications and ammonia level. No changes at this time. S/I, H/I: Pt denies. A/VH: Pt denies. Sleep: 6.5 hours per sleep assessment. Pt slept a majority of the day. ADL's: Independent. Group attendance: No scheduled group. Were Meds taken: Yes, without issue. Depakote sprinkles in applesauce. Any med S/E: Sedation Mental Status Exam Appearance: Petite edentulous woman with dark, wrinkled, weathered skin and straight, messy dark brown hair dressed in green unit scrubs. Eye contact: Good Behavior: Sleepy, one outburst, cooperative. Speech: Clear, mild slurring due to no teeth. Mood: Sedated Affect: Sleepy Thought process: Linear Thought Content: Getting needs met. Cognition: A/O X 3 Insight: Poor Judgment: Poor Interventions PRN's used: None Therapeutic interventions: 1:1 assessment with therapeutic conversation and active listening, provided clear and simple instructions, medication administration/education/monitoring, provided ongoing education regarding handwashing r/t positive MRSA in the nares, behavior monitoring and intervention as needed; coping skills education, distraction, redirection, limit setting, encouragement and positive reinforcement provided, and maintained Q 15 minute safety checks. Restraints/seclusion/emergency medication: N/A Justification of Continued Inpatient Treatment: Pt needs medication management and monitoring in a safe and therapeutic environment until stable. Pt is GD on a TCON awaiting LPS court and placement. Pt has court on 05/10/21.
[2021-04-29 19:58] VITALS: BP 97/56
[2021-04-29] MEDS: traZODone 50mg tablet PO PRN (20:04)
--- NOTE | 2021-04-30 00:17 | NUR ---
Nursing Progress Note: Alondra Legal hold: TCON Client on involuntary status for GD. Report received from MARJAN Webster with use of SBAR. Why they are here: Client was transported to [facility] by [employer] for disruptive behavior. Client reported, "I was laying in the bed at my daughters house and the police came in a said 'We're here to help you.' They handcuffed me and took me to the Hospital." "I want to get out of here!" Client stated, "I don't remember anything else." According the medical record client has had multiple ED visits and several Inpatient Psych admits. Hx of wandering into traffic, trespassing, and disorderly conduct. Client reported she was living with her daughter in [place]. She is currently homeless. Assessment What has happened this shift: Received patient sleeping at shift change, no distress noted. Pt awoke for snack and ate in the group room she was med compliant and social with some of her peers. Pt had no yelling outburst at this time. S/I, H/I: Pt denies. A/VH: Pt denies. Sleep: See sleep assessment. ADL's: Independent. Group attendance: No scheduled group. Were Meds taken: Yes, without issue. Depakote sprinkles in applesauce. Any med S/E: Sedation Mental Status Exam Appearance: Petite edentulous woman with dark, wrinkled, weathered skin and straight, messy dark brown hair dressed in street clothes. Eye contact: Good Behavior: Sleepy, no outburst, cooperative. Speech: Clear, mild slurring due to no teeth. Mood: Sedated Affect: Sleepy Thought process: Linear Thought Content: Getting needs met. Cognition: A/O X 3 Insight: Poor Judgment: Poor Interventions PRN's used: None Therapeutic interventions: 1:1 assessment with therapeutic conversation and active listening, provided clear and simple instructions, medication administration/education/monitoring, provided ongoing education regarding handwashing r/t positive MRSA in the nares, behavior monitoring and intervention as needed; coping skills education, distraction, redirection, limit setting, encouragement and positive reinforcement provided, and maintained Q 15 minute safety checks. Restraints/seclusion/emergency medication: N/A Justification of Continued Inpatient Treatment: Pt needs medication management and monitoring in a safe and therapeutic environment until stable. Pt is GD on a TCON awaiting LPS court and placement. Pt has court on 05/10/21.
[2021-04-30] MEDS: LORazepam 1 MG tablet PO SCH ×4 (02:00→20:04)
[2021-04-30 07:08] VITALS: BP 103/62
[2021-04-30] MEDS: divalproex sod 125mg sprinkle cap PO SCH ×2 (08:39→20:13)
[2021-04-30] MEDS: quetiapine 100mg tablet PO SCH ×4 (08:39→20:05)
--- NOTE | 2021-04-30 14:48 | NUR ---
Nursing Progress Note: Alondra Legal hold: TCON Client on involuntary status for GD. Report received from [facility] with use of SBAR. Why they are here: Client was transported to [facility] by [employer] for disruptive behavior. Client reported, "I was laying in the bed at my daughters house and the police came in a said 'We're here to help you.' They handcuffed me and took me to the Hospital." "I want to get out of here!" Client stated, "I don't remember anything else." According the medical record client has had multiple ED visits and several Inpatient Psych admits. Hx of wandering into traffic, trespassing, and disorderly conduct. Client reported she was living with her daughter in [place]. She is currently homeless. Assessment What has happened this shift: Received patient sleeping at shift change, respirations even and unlabored. Pt was awoken several times to attend breakfast. Pt presents sedated, was compliant with care and medications. Scheduled Ativan 2mg was held. Will monitor behavior. Pt was up for 1100 snack then shortly returned to bed to sleep. No outbursts this morning. Pt woke for lunch and remained awake for an additional hour. She changed the linens on her bed before going back to sleep. See I am having a good day. I am not yelling. No outburst to report as of this writing. Ativan was adjusted 2mg TID. S/I, H/I: Pt denies both. A/VH: Pt denies both. Sleep: 9.0 hours per sleep assessment. Pt slept intermittently throughout the shift. ADL's: Independent, requires prompting at times. Group attendance: Sleeping. Were Meds taken: Yes, without issue. Depakote sprinkles in applesauce. 0800 Ativan held. Any med S/E: Sedation Mental Status Exam Appearance: Petite edentulous woman with dark, wrinkled, weathered skin and straight, messy dark brown hair dressed in jeans and a white t-shirt. Eye contact: Good Behavior: Sleepy, cooperative. Speech: Clear, mild slurring due to no teeth. Mood: Sedated to I am not going to yell. Affect: Sleepy Thought process: Linear Thought Content: Getting needs met. Cognition: A/O X 3 Insight: Poor Judgment: Poor Interventions PRN's used: None Therapeutic interventions: 1:1 assessment with therapeutic conversation and active listening, provided clear and simple instructions, medication administration/education/monitoring, provided ongoing education regarding handwashing r/t positive MRSA in the nares, behavior monitoring and intervention as needed; coping skills education, distraction, redirection, limit setting, encouragement and positive reinforcement provided, and maintained Q 15 minute safety checks. Restraints/seclusion/emergency medication: N/A Justification of Continued Inpatient Treatment: Pt needs medication management and monitoring in a safe and therapeutic environment until stable. Pt is GD on a TCON awaiting LPS court and placement. Pt has court on 05/10/21.
[2021-04-30 18:35] LABS: BASOPHILS % (AUTO) 0.7 % (0-1); EOSINOPHILS # (AUTO) 0.2 X10'3 (0-0.9); HEMATOCRIT 33.8 % (35.0-45.0); HEMOGLOBIN 11.7 g/dl (12.0-16.0); LYMPHOCYTES # (AUTO) 1.9 X10'3 (1.1-4.8); LYMPHOCYTES % (AUTO) 42.1 % (21-51); MEAN CORPUSCULAR HEMOGLOBIN 32.4 PG (27.0-31.0); MEAN CORPUSCULAR HGB CONC 34.7 g/dL (33.0-36.5); MEAN CORPUSCULAR VOLUME 93.5 FL (78-98); MEAN PLATELET VOLUME 8.7 FL (7.4-10.4); MONOCYTES # (AUTO) 0.6 X10'3 (0-0.9); NEUTROPHILS # (AUTO) 1.7 X10'3 (1.8-7.7); NEUTROPHILS % (AUTO) 39.2 % (42-75); PLATELET COUNT 157 X10'3 (140-440); RED BLOOD COUNT 3.61 X10'6 (4.20-5.60); WHITE BLOOD COUNT 4.4 X10'3 (4.5-11.0)
[2021-04-30 18:49] LABS: ALANINE AMINOTRANSFERASE 31 U/L (12-78); ALBUMIN/GLOBULIN RATIO 0.7 (1.1-1.5); ALKALINE PHOSPHATASE 125 IU/L (46-116); ANION GAP 5 (8-16); ASPARTATE AMINO TRANSFERASE 19 U/L (10-37); BILIRUBIN,TOTAL 0.2 MG/DL (0.1-1.0); BLOOD UREA NITROGEN 34 MG/DL (7-18); BUN/CREATININE RATIO 39.5 (6.6-38.0); CALCIUM 8.5 MG/DL (8.5-10.1); CHLORIDE 103 MMOL/L (99-107); CREATININE 0.86 MG/DL (0.40-0.90); GLUCOSE 118 MG/DL (70-104); SODIUM 140 MMOL/L (135-145); TOTAL CARBON DIOXIDE 31.7 MMOL/L (24-32); TOTAL PROTEIN 7.4 G/DL (6.4-8.2); eGFR 67 ML/MIN
[2021-04-30 18:50] LABS: VALPROATE 75 UG/ML (50-100)
[2021-04-30 20:00] VITALS: BP 97/59
[2021-04-30] MEDS: traZODone 50mg tablet PO PRN (20:04)
--- NOTE | 2021-05-01 00:59 | NUR ---
Nursing Progress Note: Alondra Legal hold: TCON Client on involuntary status for GD. Report received from [facility] with use of SBAR. Why they are here: Client was transported to [facility] by [employer] for disruptive behavior. Client reported, "I was laying in the bed at my daughters house and the police came in a said 'We're here to help you.' They handcuffed me and took me to the Hospital." "I want to get out of here!" Client stated, "I don't remember anything else." According the medical record client has had multiple ED visits and several Inpatient Psych admits. Hx of wandering into traffic, trespassing, and disorderly conduct. Client reported she was living with her daughter in [place]. She is currently homeless. Assessment What has happened this shift: Patient was up and social on the unit this shift. She was pleasant and happy. She ate snack in the group room was med compliant. Pt went to bed had a small episode of yelling then went to bed. S/I, H/I: Pt denies both. A/VH: Pt denies both. Sleep: See sleep assessment. ADL's: Independent, requires prompting at times. Group attendance: Sleeping. Were Meds taken: Yes, without issue. Depakote sprinkles in applesauce. 0800 Ativan held. Any med S/E: Sedation Mental Status Exam Appearance: Petite edentulous woman with dark, wrinkled, weathered skin and straight, messy dark brown hair dressed in jeans and a white t-shirt. Eye contact: Good Behavior: Sleepy, cooperative. Speech: Clear, mild slurring due to no teeth. Mood: Sedated to I am not going to yell. Affect: Sleepy Thought process: Linear Thought Content: Getting needs met. Cognition: A/O X 3 Insight: Poor Judgment: Poor Interventions PRN's used: None Therapeutic interventions: 1:1 assessment with therapeutic conversation and active listening, provided clear and simple instructions, medication administration/education/monitoring, provided ongoing education regarding handwashing r/t positive MRSA in the nares, behavior monitoring and intervention as needed; coping skills education, distraction, redirection, limit setting, encouragement and positive reinforcement provided, and maintained Q 15 minute safety checks. Restraints/seclusion/emergency medication: N/A Justification of Continued Inpatient Treatment: Pt needs medication management and monitoring in a safe and therapeutic environment until stable. Pt is GD on a TCON awaiting LPS court and placement. Pt has court on 05/10/21.
[2021-05-01] MEDS: LORazepam 1 MG tablet PO SCH ×3 (07:55→19:38)
[2021-05-01] MEDS: divalproex sod 125mg sprinkle cap PO SCH ×2 (07:56→19:38)
[2021-05-01] MEDS: quetiapine 100mg tablet PO SCH ×4 (07:56→19:38)
[2021-05-01 08:00] VITALS: BP 125/68
[2021-05-01 10:46] VITALS: BP 99/62
--- NOTE | 2021-05-01 11:45 | NUR ---
Pt had a extra large bowel movement. Formed, soft.
--- NOTE | 2021-05-01 16:39 | NUR ---
Nursing Progress Note: Alondra Legal hold: TCON Client on involuntary status for GD. Report received from [facility] with use of SBAR. Why they are here: Client was transported to [facility] by [employer] for disruptive behavior. Client reported, "I was laying in the bed at my daughters house and the police came in a said 'We're here to help you.' They handcuffed me and took me to the Hospital." "I want to get out of here!" Client stated, "I don't remember anything else." According the medical record client has had multiple ED visits and several Inpatient Psych admits. Hx of wandering into traffic, trespassing, and disorderly conduct. Client reported she was living with her daughter in [place]. She is currently homeless. Assessment What has happened this shift: Received patient awake pacing the smith at shift change. Pt presents slightly irritated stating I dont want him to be my, what do you call them, oh conservator. Pt voices slowly begins to elevate, but pt was able to calm herself down. I am going to be good, but no one has control of my life! Observed pt later sitting in rec room drinking hot cocoa watching T.V. Pt later began a screaming tantrum again perseverating that No one was going to tell her what to do! I hate God! Pt refused her AM mediation at first, but with some encouragement pt took medication. Pt was labile throughout the morning and remained in her room, intermittent screaming episodes. Pt was compliant with 1200 medications, which seemed to be effective. Pt was encouraged to eat lunch then take a nap. Pt only had 4.5 hours of sleep last night. Pt intermittently napped in the afternoon, was less labile. Tantrums included rants about her upcoming court case I want my freedom! Reinforced hand hygiene. S/I, H/I: Pt denies both. A/VH: Pt denies both. Sleep: 4.5 hours per sleep assessment. Intermittent naps. ADL's: Independent, requires prompting at times. Group attendance: Pt unable to attend r/t screaming episodes. Were Meds taken: Yes, without issue. Depakote sprinkles in applesauce. Any med S/E: None observed today. Pt labile. Required behavior monitoring. Mental Status Exam Appearance: Petite edentulous woman with dark, wrinkled, weathered skin and straight, messy dark brown hair dressed in personal attire. Eye contact: Good Behavior: Irritable, labile yelling, intrusive. Speech: Clear, mild slurring due to no teeth. Mood: Labile Affect: Labile. Thought process: Delusional. Thought Content: No one is going to tell me what to do! Not being on conservatorship. Cognition: A/O X 3 Insight: Poor Judgment: Poor Interventions PRN's used: None Therapeutic interventions: 1:1 assessment with therapeutic conversation and active listening, provided clear and simple instructions, medication administration/education/monitoring, provided ongoing education regarding handwashing r/t positive MRSA in the nares, behavior monitoring and intervention as needed; coping skills education, distraction, redirection, limit setting, encouragement and positive reinforcement provided, and maintained Q 15 minute safety checks. Restraints/seclusion/emergency medication: N/A Justification of Continued Inpatient Treatment: Pt needs medication management and monitoring in a safe and therapeutic environment until stable. Pt is GD on a TCON awaiting LPS court and placement. Pt has court on 05/10/21.
--- NOTE | 2021-05-01 17:51 | NUR ---
Group Art Tx Continued: Patient participated as an observer only as she entered into the group room very late, (as group was just closing up). She remained amenable to the idea she was just listening and did not object that as late observer, she would not receive an attendance ticket as reward/reinforcement. She was quiet and cooperative throughout her time in the group room. *Please refer to the [facility] Case Notes for entire overview. Keysha Rogel MA, BRANCH MAKER #[id number] [facility], Art Therapist Addendum: 05/01/21 at 1753 by Keysha Rogel SS Amended: Links added.
[2021-05-01 19:31] VITALS: BP 123/74
[2021-05-01] MEDS: traZODone 50mg tablet PO PRN (19:39)
[2021-05-01] MEDS: traZODone 50mg tablet PO SCH (20:48)
--- NOTE | 2021-05-02 00:04 | NUR ---
Nursing Progress Note: Legal hold: TCON Client on involuntary status for GD. Report received from [facility] with use of SBAR. Why they are here: Client was transported to [facility] by [employer] for disruptive behavior. Client reported, "I was laying in the bed at my daughters house and the police came in a said 'We're here to help you.' They handcuffed me and took me to the Hospital." "I want to get out of here!" Client stated, "I don't remember anything else." According the medical record client has had multiple ED visits and several Inpatient Psych admits. Hx of wandering into traffic, trespassing, and disorderly conduct. Client reported she was living with her daughter in [place]. She is currently homeless. Assessment What has happened this shift: Patient in her room quiet at the beginning of shift; shortly after she came out and there were no available phones. Patient quickly became irritable, yelling and crying, "Nobody cares about me." Patient was difficult to redirect verbally. Patient was compliant with all medication; Trazodone increased to 150mg this shift. Shortly after receiving HS medication, patient asked tech writer if the tech writer was allowed up stairs because she could "hear Jose De Jesus" and wanted tech writer to bring him to the unit. She continued, "I promise to be calm but I want to talk to him." Advertising Copy Writer attempted to explain to her she was experiencing hallucinations but she was not accepting. Patient continued to present labile behavior, looking for her cat and asking for "Jose De Jesus." Patient continues to report that a MARJAN Webster is going to be her conservator and unable to accept that it is not true. She participated in HS snack prior to bed; observed sleeping and does not appear to be having difficulty at this time. S/I, H/I: Denies A/VH: Denies but +AH Sleep: Refer to sleep assessment ADL's: Independent Group attendance: NA Were Meds taken: Yes Any med S/E: None observed or reported Mental Status Exam Appearance: Neat and appropriately dressed in personal attire Eye contact: Good Behavior: Labile, cooperative but multiple outbursts Speech: Clear, audible Mood: Labile Affect: Congruent to mood Thought process: Delusional Thought Content: Meeting needs, hearing her , staff member being her conservator Cognition: A/O X 3 Insight: Poor Judgment: Poor Interventions PRN's used: None Therapeutic interventions: 1:1 assessment with therapeutic conversation and active listening, provided clear and simple instructions, medication administration/education/monitoring, provided ongoing education regarding handwashing r/t positive MRSA in the nares, behavior monitoring and intervention as needed; coping skills education, distraction, redirection, limit setting, encouragement and positive reinforcement provided, and maintained Q 15 minute safety checks. Restraints/seclusion/emergency medication: N/A Justification of Continued Inpatient Treatment: Pt needs medication management and monitoring in a safe and therapeutic environment until stable. Pt is GD on a TCON awaiting LPS court and placement. Pt has court on 05/10/21.
[2021-05-02 07:20] VITALS: BP 97/68
[2021-05-02] MEDS: divalproex sod 125mg sprinkle cap PO SCH ×2 (08:10→20:20)
[2021-05-02] MEDS: LORazepam 1 MG tablet PO SCH ×3 (08:10→20:21)
[2021-05-02] MEDS: quetiapine 100mg tablet PO SCH ×4 (08:10→20:21)
--- NOTE | 2021-05-02 11:40 | NUR ---
F/u 05/02: Pt continues eating well with mostly 100% PO intake on regular diet while receiving double protein TID exceeding estimated nutrient needs. LBM 05/02. Noted ammonia 36 04/25; RD d/w RN regarding recheck if MD agreeable. RN reports MD aware and ammonia believed to be medication related. No nutrition intervention implemented at this time. Will continue to follow. Rec: 1. Continue regular diet; double eggs WB double, meat BIDLD per diet order 2. Bowel care per rx 3. Weekly scaled wts Addendum: 05/02/21 at [address] Amended: Links added.
--- NOTE | 2021-05-02 17:01 | NUR ---
Nursing Progress Note: Alondra Legal hold: TCON Client on involuntary status for GD. Report received from [facility] with use of SBAR. Why they are here: Client was transported to [facility] by [employer] for disruptive behavior. Client reported, "I was laying in the bed at my daughters house and the police came in a said 'We're here to help you.' They handcuffed me and took me to the Hospital." "I want to get out of here!" Client stated, "I don't remember anything else." According the medical record client has had multiple ED visits and several Inpatient Psych admits. Hx of wandering into traffic, trespassing, and disorderly conduct. Client reported she was living with her daughter in [place]. She is currently homeless. Assessment What has happened this shift: Received report from MARJAN Webster. Pt was awake eating breakfast. Pt reports I slept good last night. Pt slept 6.75 hours per sleep assessment. Pt presented with no agitation or irritability his morning, affect is bright. Pt changed her linens and picked up her room before going back to bed. Pt was complaint with medications. Pt woke for lunch and remained up most of the afternoon. Pt socialized appropriately no outbursts or behaviors noted. Pt repeated over what good sleep I got. Pt was overheard talking about another Alondra, but this Alondra is with her ex- And I am so happy for them. She is Alondra too. That Alondra is sweet lady. S/I, H/I: Pt denies both. A/VH: Pt denies both. Sleep: 6.75 hours per sleep assessment. Intermittent naps. ADL's: Independent, requires prompting at times. Pt changed linens on bed. Group attendance: Declined. Were Meds taken: Yes, without issue. Depakote sprinkles in applesauce. Any med S/E: Decreased fatigue and mood changes. Mental Status Exam Appearance: Petite edentulous woman with dark, wrinkled, weathered skin and straight, messy dark brown hair dressed in personal attire. Eye contact: Good Behavior: AM- Cooperative, pleasant, bright. Speech: Clear, mild slurring due to no teeth. Mood: I am doing good today. Affect: Labile. Thought process: Tangential Thought Content: Situational. Cognition: A/O X 3 Insight: Poor Judgment: Poor Interventions PRN's used: None Therapeutic interventions: 1:1 assessment with therapeutic conversation and active listening, provided clear and simple instructions, medication administration/education/monitoring, provided ongoing education regarding handwashing r/t positive MRSA in the nares, behavior monitoring and intervention as needed; coping skills education, distraction, redirection, limit setting, encouragement and positive reinforcement provided, and maintained Q 15 minute safety checks. Restraints/seclusion/emergency medication: N/A Justification of Continued Inpatient Treatment: Pt needs medication management and monitoring in a safe and therapeutic environment until stable. Pt is GD on a TCON awaiting LPS court and placement. Pt has court on 05/10/21. Addendum: 05/02/21 at 1741 by Jeniffer Medeiros RN Reviewed 05/[address] Maria. Will continue to monitor. Addendum: 05/02/21 at 1806 by Jeniffer Medeiros RN PT HAD AN EXCEPTIONAL DAY TODAY!! LAUGHING AND JOKING, LOTS OF SMILES AND APPROPRIATE CONVERSATIONS.
[2021-05-02 19:33] VITALS: BP 102/61
[2021-05-02] MEDS: traZODone 50mg tablet PO SCH (20:21)
--- NOTE | 2021-05-02 23:55 | NUR ---
Nursing Progress Note: Legal hold: TCON Client on involuntary status for GD. Report received from [facility] with use of SBAR. Why they are here: Client was transported to [facility] by [employer] for disruptive behavior. Client reported, "I was laying in the bed at my daughters house and the police came in a said 'We're here to help you.' They handcuffed me and took me to the Hospital." "I want to get out of here!" Client stated, "I don't remember anything else." According the medical record client has had multiple ED visits and several Inpatient Psych admits. Hx of wandering into traffic, trespassing, and disorderly conduct. Client reported she was living with her daughter in [place]. She is currently homeless. Assessment What has happened this shift: Patient is awake at the start of the shift. Interacting appropriately with staff and peers. Appear somewhat delusional stating, They have some cake upstairs they said I could have, but you have to be invited. Perseverates on her cat and upcoming court date. Cooperative with medications and 1:1 assessment. S/I, H/I: Denies A/VH: Denies Sleep: See sleep assessment ADL's: Independent. Group attendance: N/A Were Meds taken: Yes Any med S/E: Fatigued Mental Status Exam Appearance: Petite edentulous woman with dark, wrinkled, weathered skin and straight, messy dark brown hair dressed in personal attire. Eye contact: Good Behavior: Cooperative, pleasant Speech: Clear, slow Mood: Good Affect: Congruent with mood Thought process: Tangential Thought Content: Perseverates on her cat and upcoming court date. Cognition: A/O X [address] person, [address] and time Insight: Poor Judgment: Poor Interventions PRN's used: None Therapeutic interventions: 1:1 assessment with therapeutic conversation and active listening, provided clear and simple instructions, medication administration/education/monitoring, provided ongoing education regarding handwashing r/t positive MRSA in the nares, behavior monitoring and intervention as needed; coping skills education, distraction, redirection, limit setting, encouragement and positive reinforcement provided, and maintained Q 15 minute safety checks. Restraints/seclusion/emergency medication: N/A Justification of Continued Inpatient Treatment: Pt needs medication management and monitoring in a safe and therapeutic environment until stable. Pt is GD on a TCON awaiting LPS court and placement. Pt has court on 05/10/21.
[2021-05-03 07:50] VITALS: BP 121/79
[2021-05-03] MEDS: LORazepam 1 MG tablet PO SCH ×3 (09:03→20:14)
[2021-05-03] MEDS: divalproex sod 125mg sprinkle cap PO SCH ×2 (09:03→20:13)
[2021-05-03] MEDS: quetiapine 100mg tablet PO SCH ×4 (09:04→21:00)
[2021-05-03] MEDS ORDERED: QUEtiapine 25mg tablet PO ONE (15:10)
[2021-05-03] MEDS ORDERED: LORazepam 1 MG tablet PO ONE (15:10)
--- NOTE | 2021-05-03 16:00 | NUR ---
Agitation/ Seclusion: Patient noted to be very upset following conversation with [facility] psychologist. Patient observed screaming profanities at staff and other peers on the unit. Pt stating, I hate all you mother fkers! Take me to usp! While being escorted back to her room patient attempted to scratch/hit staff members. Patient given one time order for PRN Seroquel 50mg PO and PRN Ativan 1mg PO. She then proceeded to walk out of her room and begin screaming in front of the community room. Patient escorted to the seclusion room where she proceeded to spit in the face of staff. Patient being monitored closely while sitting in the seclusion room.
--- NOTE | 2021-05-03 17:05 | NUR ---
Patient taken out of seclusion room at approximatly 1630. Patient noted to be calm and cooperative, no s/s of distress. She endorsed to this documentation writer that she "Isn't upset with us personally, only with the door to door salesperson". Patient retreated back to her room and is noted sitting quietly. Will continue to monitor.
--- NOTE | 2021-05-03 17:13 | NUR ---
Nursing Progress Note: Alondra Tang Legal hold: TCON Client on involuntary status for GD. Report received from MARJAN Benitez with use of SBAR. Why they are here: Client was transported to [facility] by [employer] for disruptive behavior. Client reported, "I was laying in the bed at my daughters house and the police came in a said 'We're here to help you.' They handcuffed me and took me to the Hospital." "I want to get out of here!" Client stated, "I don't remember anything else." According the medical record client has had multiple ED visits and several Inpatient Psych admits. Hx of wandering into traffic, trespassing, and disorderly conduct. Client reported she was living with her daughter in [place]. She is currently homeless. Assessment What has happened this shift: Patient observed sleeping in bed at change of shift. She was noted walking around the unit first thing this morning, socializing with peers appropriately with a happy demeanor. Patient observed laughing and complimenting another peer on the unit. She joined in the community room for breakfast with peers. She is noted to be social and polite with others on the unit. She retreated back to his room after breakfast. 1:1 assessment completed, lungs CTA. Patient denies SI, HI, AH or VH. Does not appear to be responding to internal stimuli. She is compliant with medications. Patient endorsed to this narrative writer that she is tired and needs to gets some rest. Patient also stating that she is extra tired from fighting with the special assemblies supervisor all the time. Patient was observed sitting in the community room with peers periodically throughout the day. She did not participate in group therapy today despite encouragement. Patient noted to be very upset following conversation with [facility] psychologist. Patient observed screaming profanities at staff and other peers on the unit. Pt stating, I hate all you mother fkers! Take me to custodial! While being escorted back to her room patient attempted to scratch/hit staff members. Patient given one time order for PRN Seroquel 50mg PO and PRN Ativan 1mg PO. She then proceeded to walk out of her room and begin screaming in front of the community room. Patient escorted to the seclusion room where she proceeded to spit in the face of staff. She entered the seclusion room at approximately 1600. Patient being monitored closely while sitting in the seclusion room. Patient taken out of seclusion room at approximately 1630. Patient noted to be calm and cooperative, no s/s of distress. She endorsed to this narrative writer that she "Isn't upset with us personally, only with the court of appeals judge". Patient retreated back to her room and is noted sitting quietly. Will continue to monitor. She joined in the community room for all meal/snack times. S/I, H/I: Pt denies both A/VH: Pt denies both Sleep: 7 hours last night per sleep assessment. Intermittent napping throughout the day. ADL's: Independent, requires prompting at times. Group attendance: Declined. Were Meds taken: Yes. Depakote sprinkles given in applesauce. Any med S/E: None noted or reported Mental Status Exam Appearance: Petite edentulous woman with dark, wrinkled, weathered skin and straight, messy dark brown hair dressed in personal attire. Eye contact: Good Behavior: Cooperative, pleasant, happy in the morning. At approximately 1600 became agitated, violent, and aggressive. Speech: Clear, mild slurring due to no teeth. Mood: Wants to get some rest this morning Affect: Labile Thought process: Tangential Thought Content: Situational Cognition: A/O X 3 Insight: Poor Judgment: Poor Interventions PRN's used: PRN Seroquel 50mg PO and PRN Ativan 1mg PO Therapeutic interventions: 1:1 assessment with therapeutic conversation and active listening, provided clear and simple instructions, medication administration/education/monitoring, provided ongoing education regarding handwashing r/t positive MRSA in the nares, behavior monitoring and intervention as needed; coping skills education, distraction, redirection, limit setting, encouragement and positive reinforcement provided, and maintained Q 15 minute safety checks. Restraints/seclusion/emergency medication: One time order of PRN Seroquel 50mg PO and PRN Ativan 1mg PO. Seclusion room. Justification of Continued Inpatient Treatment: Pt needs medication management and monitoring in a safe and therapeutic environment until stable. Pt is GD on a TCON awaiting LPS court and placement. Pt has court on 05/10/21.
[2021-05-03 20:00] VITALS: BP 102/92
[2021-05-03] MEDS: traZODone 50mg tablet PO SCH (20:14)
--- NOTE | 2021-05-03 23:21 | NUR ---
Nursing Progress Note: Alondra Tang Legal hold: TCON Client on involuntary status for GD. Report received from MARJAN Benitez with use of SBAR. Why they are here: Client was transported to [facility] by [employer] for disruptive behavior. Client reported, "I was laying in the bed at my daughters house and the police came in a said 'We're here to help you.' They handcuffed me and took me to the Hospital." "I want to get out of here!" Client stated, "I don't remember anything else." According the medical record client has had multiple ED visits and several Inpatient Psych admits. Hx of wandering into traffic, trespassing, and disorderly conduct. Client reported she was living with her daughter in [place]. She is currently homeless. Assessment What has happened this shift: Patient was out of her room after shift change. She was observed socializing with others. 1:1 Interview in the community room. Patient presents as cooperative, she smiles and laughs. Patient denies S/I, H/I, or any hallucinations. The patient does not look to be responding to any internal stimuli. The patient complies with medications. The patient later had snacks and retired to bed. Late evening S/I, H/I: Denies. A/VH: Denies. Sleep: Will tally at 0500 hours. ADL's: Independent. Group attendance: No group on maintenance technician 3rd shift. Were Meds taken: Yes, medication compliant. Any med S/E: None noted or reported. Mental Status Exam Appearance: Clean and well dressed. Eye contact: Direct. Behavior: Cooperative with one outburst late in evening. Resolved with re-direction and a cup of chicken broth and crackers. Speech: Clear, animated at times. Mood: Cooperative, upbeat. Affect: Labile on one occasion. Thought process: Mostly linear. Thought Content: Situational, states she is happy about placement? Cognition: A/O X 3. Insight: Poor. Judgment: Poor. Interventions PRN's used: None. Therapeutic interventions: 1:1 assessment with therapeutic conversation and active listening, provided clear and simple instructions, medication administration/education/monitoring, provided ongoing education regarding handwashing r/t positive MRSA in the nares, behavior monitoring and intervention as needed; coping skills education, distraction, redirection, limit setting, encouragement and positive reinforcement provided, and maintained Q 15 minute safety checks. Restraints/seclusion/emergency medication: One time order of PRN Seroquel 50mg PO and PRN Ativan 1mg PO. Seclusion room. Justification of Continued Inpatient Treatment: Pt needs medication management and monitoring in a safe and therapeutic environment until stable. Pt is GD on a TCON awaiting LPS court and placement. Pt has court on 05/10/21. Addendum: 05/04/21 at 0158 by Олег Ervin RN Correction- This tech writer received report from Darin Waters RN, not MARJAN Goodwin as listed in above report.
[2021-05-04] MEDS: LORazepam 1 MG tablet PO SCH ×3 (07:48→20:24)
[2021-05-04] MEDS: divalproex sod 125mg sprinkle cap PO SCH ×2 (07:48→20:25)
[2021-05-04] MEDS: quetiapine 100mg tablet PO SCH ×4 (07:48→20:24)
[2021-05-04 09:34] LABS: BASOPHILS % (AUTO) 0.6 % (0-1); EOSINOPHILS # (AUTO) 0.2 X10'3 (0-0.9); EOSINOPHILS % (AUTO) 5.3 % (0-6); HEMOGLOBIN 11.2 g/dl (12.0-16.0); LYMPHOCYTES # (AUTO) 1.5 X10'3 (1.1-4.8); LYMPHOCYTES % (AUTO) 39.1 % (21-51); MEAN CORPUSCULAR HEMOGLOBIN 32.2 PG (27.0-31.0); MEAN CORPUSCULAR VOLUME 94.6 FL (78-98); MONOCYTES # (AUTO) 0.6 X10'3 (0-0.9); MONOCYTES % (AUTO) 16.9 % (2-12); NEUTROPHILS # (AUTO) 1.4 X10'3 (1.8-7.7); NEUTROPHILS % (AUTO) 38.1 % (42-75); PLATELET COUNT 154 X10'3 (140-440); RED BLOOD COUNT 3.49 X10'6 (4.20-5.60); RED CELL DISTRIBUTION WIDTH 16.4 % (11.5-14.5); WHITE BLOOD COUNT 3.8 X10'3 (4.5-11.0)
[2021-05-04] MEDS: acetaminophen 325mg tablet PO PRN (10:43)
[2021-05-04 13:58] VITALS: BP 127/70
--- NOTE | 2021-05-04 17:19 | NUR ---
Nursing Progress Note: Legal hold: TCON Client on involuntary status for GD. Report received from MARJAN Diaz with use of SBAR. Why they are here: Client was transported to [facility] by [employer] for disruptive behavior. Client reported, "I was laying in the bed at my daughters house and the police came in a said 'We're here to help you.' They handcuffed me and took me to the Hospital." "I want to get out of here!" Client stated, "I don't remember anything else." According the medical record client has had multiple ED visits and several Inpatient Psych admits. Hx of wandering into traffic, trespassing, and disorderly conduct. Client reported she was living with her daughter in [place]. She is currently homeless. Assessment What has happened this shift: Awake in room yelling at the start of the shift. Yells, You cant keep me here! and You havent given me my money! Not one cent! Eats breakfast in community room and interacts appropriately with staff/ peers. After breakfast patient is laughing, socializing and takes a shower. Frequently requests coffee and snacks. Naps in the afternoon and is pleasant/ cooperative. S/I, H/I: Denies. A/VH: Denies. Sleep: Takes naps throughout the day. ADL's: Independent. Group attendance: Yes Were Meds taken: Yes Any med S/E: None observed or reported. Mental Status Exam Appearance: Older edentulous woman with disheveled hair dressed in personal clothing. Eye contact: Good Behavior: Cooperative at times, other times yelling/ crying Speech: Clear, animated at times. Mood: Friendly/ pleasant to angry/ agitated Affect: Labile, congruent with mood. Thought process: Disorganized at times. Thought Content: Wanting to leave and concern over her finances. Cognition: A/O X 3. Insight: Poor. Judgment: Poor. Interventions PRN's used: None. Therapeutic interventions: 1:1 assessment with therapeutic conversation and active listening, provided clear and simple instructions, medication administration/education/monitoring, provided ongoing education regarding handwashing r/t positive MRSA in the nares, behavior monitoring and intervention as needed; coping skills education, distraction, redirection, limit setting, encouragement and positive reinforcement provided, and maintained Q 15 minute safety checks. Restraints/seclusion/emergency medication: Justification of Continued Inpatient Treatment: Pt needs medication management and monitoring in a safe and therapeutic environment until stable. Pt is GD on a TCON awaiting LPS court and placement. Pt has court on 05/10/21.
[2021-05-04 20:00] VITALS: BP 104/57
[2021-05-04] MEDS: traZODone 50mg tablet PO SCH (20:24)
--- NOTE | 2021-05-05 02:59 | NUR ---
Nursing Progress Note: Alondra Legal hold: TCON Client on involuntary status for GD. Report received from MARJAN Webster with use of SBAR. Why they are here: Client was transported to [facility] by [employer] for disruptive behavior. Client reported, "I was laying in the bed at my daughters house and the police came in a said 'We're here to help you.' They handcuffed me and took me to the Hospital." "I want to get out of here!" Client stated, "I don't remember anything else." According the medical record client has had multiple ED visits and several Inpatient Psych admits. Hx of wandering into traffic, trespassing, and disorderly conduct. Client reported she was living with her daughter in [place]. She is currently homeless. Assessment What has happened this shift: Pt sleeping at change of shift. Pt woke up and was getting ready for snack time and tells this RN I will be good and wont yell tonight. Took all medications and had snacks in her room. Pt is pleasant and cooperative this evening. No outbursts this shift. S/I, H/I: Denies. A/VH: Denies. Sleep: ADL's: Independent. Group attendance: Yes Were Meds taken: Yes Any med S/E: None observed or reported. Mental Status Exam Appearance: Older edentulous woman with disheveled hair dressed in personal clothing. Eye contact: Good Behavior: Cooperative at times, other times yelling/ crying Speech: Clear, animated at times. Mood: Friendly Affect: Labile, congruent with mood. Thought process: Disorganized at times. Thought Content: Wanting to leave and concern over her finances. Cognition: A/O X 3. Insight: Poor. Judgment: Poor. Interventions PRN's used: None. Therapeutic interventions: 1:1 assessment with therapeutic conversation and active listening, provided clear and simple instructions, medication administration/education/monitoring, provided ongoing education regarding handwashing r/t positive MRSA in the nares, behavior monitoring and intervention as needed; coping skills education, distraction, redirection, limit setting, encouragement and positive reinforcement provided, and maintained Q 15 minute safety checks. Restraints/seclusion/emergency medication: Justification of Continued Inpatient Treatment: Pt needs medication management and monitoring in a safe and therapeutic environment until stable. Pt is GD on a TCON awaiting LPS court and placement. Pt has court on 05/10/21.
[2021-05-05 08:00] VITALS: BP 130/76
[2021-05-05] MEDS: divalproex sod 125mg sprinkle cap PO SCH ×2 (08:15→20:03)
[2021-05-05] MEDS: LORazepam 1 MG tablet PO SCH ×3 (08:15→20:03)
[2021-05-05] MEDS: quetiapine 100mg tablet PO SCH ×4 (08:16→20:03)
[2021-05-05] MEDS ORDERED: diphenhydrAMINE 50 mg/ml inj ONE (12:00)
[2021-05-05] MEDS ORDERED: haloperidol lactate 5mg/ml inj ONE (12:00)
[2021-05-05] MEDS ORDERED: LORazepam 2 mg/ml vial ONE (12:00)
[2021-05-05 12:12] VITALS: BP 116/67
--- NOTE | 2021-05-05 16:09 | NUR ---
Nursing Progress Note: Legal hold: TCON Client on involuntary status for GD. Report received from MARJAN Webster with use of SBAR. Why they are here: Client was transported to [facility] by [employer] for disruptive behavior. Client reported, "I was laying in the bed at my daughters house and the police came in a said 'We're here to help you.' They handcuffed me and took me to the Hospital." "I want to get out of here!" Client stated, "I don't remember anything else." According the medical record client has had multiple ED visits and several Inpatient Psych admits. Hx of wandering into traffic, trespassing, and disorderly conduct. Client reported she was living with her daughter in [place]. She is currently homeless. Assessment What has happened this shift: Resting quietly in bed at the start of the shift. Eats meals in community room and interacts appropriately with staff and peers. In early afternoon patient is perseverating on discharge and discharge plan. Demanding to be released. Asking staff where we are going to send her. Staff attempts to explain the possibility of placement in a more suited retirement facility at which time patient began yelling in hallways and into patient doorways, Commit suicide! as she walked down the smith kicking a trash can. Attempted to redirect patient to her room but patient becomes resistive. Assisted patient into her room at which time she began throwing personal items and punching at staff. Provider present who gives orders to move patient into observation room. Once inside, patient begins hitting window and is found to have a pen in her hand. Patient holding pen with point directed at staff in a threatening manner as she continues to yell. Provider gives orders for restraints and IM Ativan/ IM Benadryl/ IM Haldol. Patient is resistive and combative while being restrained at and one point yelling, You broke my arm! Once restrained and IM given patient right arm is assessed. Patient states, It just snapped. Its not broken. When asked if it was hurting patient shook her head, No. Denies further pain to RUE. Patient becomes calm and restraints are removed. Patient then contracts for safety and is assisted back to her room. Patient resting quietly in bed for a short period of time but does continue to yell off and on. I need a licensed appraiser! Fuck you all! Eats lunch in community room then takes a nap in her room before continuing to yell, I hate you! Youre all Liars! I want to ! Who the fuck you think you are!? Naldo you government! Redirected to her room but patient continues to yell off and on despite frequent redirection. S/I, H/I: Yelling, I want to ! A/VH: Denies, but appears to be reacting to internal stimuli. Sleep: 7 hours per NOC. Takes 1 nap in the afternoon ADL's: Independent. Group attendance: N/A Were Meds taken: Yes Any med S/E: None observed or reported. Mental Status Exam Appearance: Older edentulous woman with disheveled hair dressed in personal clothing. Eye contact: Good Behavior: Cooperative at times, other times yelling/ combative Speech: Clear, sometimes WNL, other times loud/ pressured Mood: Labile Affect: Congruent with mood. Thought process: Disorganized, delusional. Thought Content: Perseverates on wanting to leave. Cognition: A/O X 3. Insight: Poor. Judgment: Poor. Interventions PRN's used: None. Therapeutic interventions: 1:1 assessment with therapeutic conversation and active listening, provided clear and simple instructions, medication administration/education/monitoring, provided ongoing education regarding handwashing r/t positive MRSA in the nares, behavior monitoring and intervention as needed; coping skills education, distraction, redirection, limit setting, encouragement and positive reinforcement provided, and maintained Q 15 minute safety checks. Restraints/seclusion/emergency medication: IM Benadryl/ Ativan/ Haldol, bilateral wrist and ankle restraints. Justification of Continued Inpatient Treatment: Pt needs medication management and monitoring in a safe and therapeutic environment until stable. Pt is GD on a TCON awaiting LPS court and placement. Pt has court on 05/10/21.
[2021-05-05 19:59] VITALS: BP 112/63
[2021-05-05] MEDS: traZODone 50mg tablet PO SCH (20:03)
--- NOTE | 2021-05-06 02:18 | NUR ---
Nursing Progress Note: Legal hold: TCON Client on involuntary status for GD. Report received from MARJAN Acuna with use of SBAR. Why they are here: Client was transported to [facility] by [employer] for disruptive behavior. Client reported, "I was laying in the bed at my daughters house and the police came in a said 'We're here to help you.' They handcuffed me and took me to the Hospital." "I want to get out of here!" Client stated, "I don't remember anything else." According the medical record client has had multiple ED visits and several Inpatient Psych admits. Hx of wandering into traffic, trespassing, and disorderly conduct. Client reported she was living with her daughter in [place]. She is currently homeless. Assessment What has happened this shift: Patient eating in community room at the start of the shift. After dinner patient is yelling both in hallway and room. Unable to redirect from yelling although patient is easily directed to her room. Yelling, Fuck you all! I hate God! Cooperative with taking medications. Becomes pleasant between yelling and will laugh and joke with staff and peers then continue yelling. Once in bed patient continues to yell off and on. Resting quietly at this time. S/I, H/I: Denies A/VH: Denies, but appears to be reacting to internal stimuli. Sleep: See sleep assessment ADL's: Independent. Group attendance: N/A Were Meds taken: Yes Any med S/E: None observed or reported. Mental Status Exam Appearance: Older edentulous woman with disheveled hair dressed in personal clothing. Eye contact: Good Behavior: Cooperative at times, other times yelling/ combative Speech: Clear, sometimes WNL, other times loud/ pressured Mood: Labile Affect: Congruent with mood. Thought process: Disorganized, delusional. Thought Content: Perseverates on wanting to leave. Cognition: A/O X 3. Insight: Poor. Judgment: Poor. Interventions PRN's used: None. Therapeutic interventions: 1:1 assessment with therapeutic conversation and active listening, provided clear and simple instructions, medication administration/education/monitoring, provided ongoing education regarding handwashing r/t positive MRSA in the nares, behavior monitoring and intervention as needed; coping skills education, distraction, redirection, limit setting, encouragement and positive reinforcement provided, and maintained Q 15 minute safety checks. Restraints/seclusion/emergency medication: N/A Justification of Continued Inpatient Treatment: Pt needs medication management and monitoring in a safe and therapeutic environment until stable. Pt is GD on a TCON awaiting LPS court and placement. Pt has court on 05/10/21.
[2021-05-06 08:12] VITALS: BP 122/69
[2021-05-06] MEDS: quetiapine 100mg tablet PO SCH ×4 (08:58→21:39)
[2021-05-06] MEDS: divalproex sod 125mg sprinkle cap PO SCH ×2 (08:58→21:39)
[2021-05-06] MEDS: LORazepam 1 MG tablet PO SCH ×3 (08:58→21:39)
--- NOTE | 2021-05-06 14:19 | NUR ---
Nursing Progress Note: Legal hold: TCON Client on involuntary status for GD. Report received from MARJAN Webster with use of SBAR. Why they are here: Client was transported to [facility] by [employer] for disruptive behavior. Client reported, "I was laying in the bed at my daughters house and the police came in a said 'We're here to help you.' They handcuffed me and took me to the Hospital." "I want to get out of here!" Client stated, "I don't remember anything else." According the medical record client has had multiple ED visits and several Inpatient Psych admits. Hx of wandering into traffic, trespassing, and disorderly conduct. Client reported she was living with her daughter in [place]. She is currently homeless. Assessment What has happened this shift: Resting quietly in bed at the start of the shift. Eats meals in community room and retreats back to her room. About noon today patient began yelling at the air, patient was redirected by charge nurse and was quiet through lunch, after lunch patient began yelling again, patient had just received her 1300 Ativan, "you all are stealing my money, fu*k you, Fu*k God........." Alondra was asked to shut her door and stay in her room, patient did not stop screaming nor did she stay in her room. Patient then began crying and was very sorry for her yelling. Alondra states she will no longer yell as long as she can be released on the , this sign writer letterer or painter reminded patient that [facility] did not place her here. Alondra has had very little change in the past few weeks. S/I, H/I: Yelling, I want to ! A/VH: Denies, but appears to be reacting to internal stimuli. Sleep: laid down a few times today ADL's: Independent, palnning on showering today Group attendance: N/A Were Meds taken: Yes Any med S/E: None observed or reported. Mental Status Exam Appearance: Older edentulous woman with disheveled hair dressed in personal clothing. Eye contact: Good Behavior: Cooperative at times, other times yelling Speech: Clear, sometimes WNL, other times loud/ pressured Mood: Labile Affect: Congruent with mood. Thought process: Disorganized, delusional. Thought Content: Perseverates on wanting to leave. Cognition: A/O X 3. Insight: Poor. Judgment: Poor. Interventions PRN's used: None. Therapeutic interventions: 1:1 assessment with therapeutic conversation and active listening, provided clear and simple instructions, medication administration/education/monitoring, provided ongoing education regarding handwashing r/t positive MRSA in the nares, behavior monitoring and intervention as needed; coping skills education, distraction, redirection, limit setting, encouragement and positive reinforcement provided, and maintained Q 15 minute safety checks. Restraints/seclusion/emergency medication: None Justification of Continued Inpatient Treatment: Patient is GD on a TCON awaiting LPS court and placement. Pt has court on 05/10/21.
[2021-05-06 19:35] VITALS: BP 117/63
[2021-05-06] MEDS: traZODone 50mg tablet PO SCH (21:39)
[2021-05-07] MEDS: acetaminophen 325mg tablet PO PRN (04:17)
--- NOTE | 2021-05-07 04:34 | NUR ---
Nursing Progress Note: Legal hold: TCON Client on involuntary status for GD. Report received from MARJAN Acuna with use of SBAR. Why they are here: Client was transported to [facility] by [employer] for disruptive behavior. Client reported, "I was laying in the bed at my daughters house and the police came in a said 'We're here to help you.' They handcuffed me and took me to the Hospital." "I want to get out of here!" Client stated, "I don't remember anything else." According the medical record client has had multiple ED visits and several Inpatient Psych admits. Hx of wandering into traffic, trespassing, and disorderly conduct. Client reported she was living with her daughter in [place]. She is currently homeless. Assessment What has happened this shift: Patient was napping at shift change. She was up later. The patient is in good mood tonight, laughing and joking with staff. "I'm not gonna yell tonight." She was right. She did not yell tonight. She happily takes her HS medicine, then lies down to sleep. She is up multiple times during the night for water, cocoa, broth, crackers. She is noticeably gaining weight. She accepts no for an answer. She was pleasant and cooperative all night. S/I, H/I: Denies. A/VH: Denies. Sleep: See sleep assessment. ADL's: Independent. Group attendance: Yes Were Meds taken: Yes Any med S/E: None observed or reported. Mental Status Exam Appearance: Older edentulous woman with disheveled hair dressed in personal clothing. Eye contact: Good Behavior: Pleasant, cooperative, animated. Speech: Clear, loud at times. Mood: Friendly Affect: Labile, congruent with mood. Thought process: Disorganized at times. Thought Content: Wanting to leave and concern over her finances. Cognition: A/O X 3. Insight: Poor. Judgment: Poor. Interventions PRN's used: Tylenol. Therapeutic interventions: 1:1 assessment with therapeutic conversation and active listening, provided clear and simple instructions, medication administration/education/monitoring, provided ongoing education regarding handwashing r/t positive MRSA in the nares, behavior monitoring and intervention as needed; coping skills education, distraction, redirection, limit setting, encouragement and positive reinforcement provided, and maintained Q 15 minute safety checks. Restraints/seclusion/emergency medication: Justification of Continued Inpatient Treatment: Pt needs medication management and monitoring in a safe and therapeutic environment until stable. Pt is GD on a TCON awaiting LPS court and placement. Pt has court on 05/10/21.
[2021-05-07] MEDS: quetiapine 100mg tablet PO SCH ×4 (07:49→20:21)
[2021-05-07] MEDS: divalproex sod 125mg sprinkle cap PO SCH ×2 (07:50→20:20)
[2021-05-07] MEDS: LORazepam 1 MG tablet PO SCH ×3 (07:50→20:20)
[2021-05-07 08:00] VITALS: BP 109/75
--- NOTE | 2021-05-07 12:16 | NUR ---
Nursing Progress Note: Legal hold: TCON Client on involuntary status for GD. Report received from MARJAN Webster with use of SBAR. Why they are here: Client was transported to [facility] by [employer] for disruptive behavior. Client reported, "I was laying in the bed at my daughters house and the police came in a said 'We're here to help you.' They handcuffed me and took me to the Hospital." "I want to get out of here!" Client stated, "I don't remember anything else." According the medical record client has had multiple ED visits and several Inpatient Psych admits. Hx of wandering into traffic, trespassing, and disorderly conduct. Client reported she was living with her daughter in [place]. She is currently homeless. Assessment What has happened this shift: Patient was pleasant this morning and chatting with the nursing staff. Patient started screaming in her room with the door shut. Patient then came to the hallway and patient was screaming at tech "You killed my son and took my inheritance!" Patient was hitting the wall screaming "You are keeping me against my will!" Patient was swinging at staff and then plopped herself on the floor. Patient was assisted back to her room. 10 minutes later patient was walking down the smith calm and in no distress. S/I, H/I: Denies A/VH: Delusional, denies audio Sleep: laid down a few times today ADL's: Independent, needs encouragement Group attendance: N/A Were Meds taken: Yes Any med S/E: None observed or reported. Mental Status Exam Appearance: Patient with messy greasy hair and wearing her own clothes. Eye contact: Good Behavior: Cooperative at times, other times yelling Speech: Clear, sometimes WNL, other times loud/ pressured Mood: Labile Affect: Congruent with mood. Thought process: Disorganized, delusional. Thought Content: Perseverates on wanting to leave. Cognition: A/O X 3. Insight: Poor. Judgment: Poor. Interventions PRN's used: None. Therapeutic interventions: 1:1 assessment with therapeutic conversation and active listening, provided clear and simple instructions, medication administration/education/monitoring, provided ongoing education regarding handwashing r/t positive MRSA in the nares, behavior monitoring and intervention as needed; coping skills education, distraction, redirection, limit setting, encouragement and positive reinforcement provided, and maintained Q 15 minute safety checks. Restraints/seclusion/emergency medication: None Justification of Continued Inpatient Treatment: Patient is GD on a TCON awaiting LPS court and placement. Pt has court on 05/10/21.
--- NOTE | 2021-05-07 14:45 | NUR ---
Sent last 2 weeks of notes to [facility] Public Guardian at their request. Alondra has court on via Webex 9-10 AM. REJI Rome
[2021-05-07 20:15] VITALS: BP 130/80
[2021-05-07] MEDS: traZODone 50mg tablet PO SCH (20:20)
--- NOTE | 2021-05-08 02:56 | NUR ---
Nursing Progress Note: Legal hold: TCON Client on involuntary status for GD. Report received from MARJAN Acuna with use of SBAR. Why they are here: Client was transported to [facility] by [employer] for disruptive behavior. Client reported, "I was laying in the bed at my daughters house and the police came in a said 'We're here to help you.' They handcuffed me and took me to the Hospital." "I want to get out of here!" Client stated, "I don't remember anything else." According the medical record client has had multiple ED visits and several Inpatient Psych admits. Hx of wandering into traffic, trespassing, and disorderly conduct. Client reported she was living with her daughter in [place]. She is currently homeless. Assessment What has happened this shift: The patient was heard yelling at shift change. She stopped soon after. She's upset that she feels abandoned by everyone, doesn't understand why. She thinks they're trying to keep her here forever. patient explains her money situation, and how she'll use it. She has a plan. "They better let me go on the ." Patient states she is not mad at us, but gets frustrated on day shift. She has been quiet tonight, said she would be. She continues to pleasant and cooperative with staff, med compliant. S/I, H/I: Denies. A/VH: Denies. Sleep: See sleep assessment. ADL's: Independent. Group attendance: Yes Were Meds taken: Yes Any med S/E: None observed or reported. Mental Status Exam Appearance: Older edentulous woman with disheveled hair dressed in personal clothing. Eye contact: Good Behavior: Pleasant, cooperative, animated. Speech: Clear, loud at times. Mood: Friendly Affect: Labile, congruent with mood. Thought process: Disorganized at times. Thought Content: Wanting to leave and concern over her finances. Cognition: A/O X 3. Insight: Poor. Judgment: Poor. Interventions PRN's used: Therapeutic interventions: 1:1 assessment with therapeutic conversation and active listening, provided clear and simple instructions, medication administration/education/monitoring, provided ongoing education regarding handwashing r/t positive MRSA in the nares, behavior monitoring and intervention as needed; coping skills education, distraction, redirection, limit setting, encouragement and positive reinforcement provided, and maintained Q 15 minute safety checks. Restraints/seclusion/emergency medication: Justification of Continued Inpatient Treatment: Pt needs medication management and monitoring in a safe and therapeutic environment until stable. Pt is GD on a TCON awaiting LPS court and placement. Pt has court on 05/10/21.
[2021-05-08] MEDS: quetiapine 100mg tablet PO SCH ×4 (08:00→20:42)
[2021-05-08 08:21] VITALS: BP 98/61
[2021-05-08] MEDS: divalproex sod 125mg sprinkle cap PO SCH ×2 (11:30→20:43)
[2021-05-08] MEDS: LORazepam 1 MG tablet PO SCH ×2 (11:36→13:27)
--- NOTE | 2021-05-08 14:35 | NUR ---
Emailed [facility] and requested an update on Alondra's placement. REJI Rome
--- NOTE | 2021-05-08 15:30 | NUR ---
Nursing Progress Note: Legal hold: TCON Client on involuntary status for GD. Report received from MARJAN Webster with use of SBAR. Why they are here: Client was transported to [facility] by [employer] for disruptive behavior. Client reported, "I was laying in the bed at my daughters house and the police came in a said 'We're here to help you.' They handcuffed me and took me to the Hospital." "I want to get out of here!" Client stated, "I don't remember anything else." According the medical record client has had multiple ED visits and several Inpatient Psych admits. Hx of wandering into traffic, trespassing, and disorderly conduct. Client reported she was living with her daughter in [place]. She is currently homeless. Assessment What has happened this shift: Patient was asleep at change of shift and was awoken by Dr Maria for her interview around 10:35. Patient was calm speaking to the doctor. Patient got up and asked for some broth just after 11:00. RN gave patient the broth and patient went back to her room. Within minutes patient was screaming about her cat "Misfit." Patient would not calm down and RN shut her door as she continued to scream. Patient eventually calms down and then starts up again a little later. Patient ate lunch and yelled a little bit after lunch and called RN a "bitch". Then patient calms down and is sweet as pie. S/I, H/I: Denies A/VH: Delusional, denies audio Sleep: laid down a few times today ADL's: Independent, needs encouragement Group attendance: N/A Were Meds taken: Yes Any med S/E: None observed or reported. Mental Status Exam Appearance: Patient with messy greasy hair and wearing her own clothes. Eye contact: Good Behavior: Cooperative at times, other times yelling Speech: Clear, sometimes WNL, other times loud/ pressured Mood: Labile Affect: Congruent with mood. Thought process: Disorganized, delusional. Thought Content: Perseverates on wanting to leave. Cognition: A/O X 3. Insight: Poor. Judgment: Poor. Interventions PRN's used: None. Therapeutic interventions: 1:1 assessment with therapeutic conversation and active listening, provided clear and simple instructions, medication administration/education/monitoring, provided ongoing education regarding handwashing r/t positive MRSA in the nares, behavior monitoring and intervention as needed; coping skills education, distraction, redirection, limit setting, encouragement and positive reinforcement provided, and maintained Q 15 minute safety checks. Restraints/seclusion/emergency medication: None Justification of Continued Inpatient Treatment: Patient is GD on a TCON awaiting LPS court and placement. Pt has court on 05/10/21.
[2021-05-08 18:42] LABS: BASOPHILS % (AUTO) 0.7 % (0-1); EOSINOPHILS # (AUTO) 0.2 X10'3 (0-0.9); EOSINOPHILS % (AUTO) 3.6 % (0-6); HEMATOCRIT 34.8 % (35.0-45.0); HEMOGLOBIN 11.8 g/dl (12.0-16.0); LYMPHOCYTES # (AUTO) 1.8 X10'3 (1.1-4.8); LYMPHOCYTES % (AUTO) 43.1 % (21-51); MEAN CORPUSCULAR HEMOGLOBIN 32.4 PG (27.0-31.0); MEAN CORPUSCULAR VOLUME 95.3 FL (78-98); MEAN PLATELET VOLUME 9.7 FL (7.4-10.4); MONOCYTES # (AUTO) 0.6 X10'3 (0-0.9); MONOCYTES % (AUTO) 15.3 % (2-12); NEUTROPHILS # (AUTO) 1.6 X10'3 (1.8-7.7); NEUTROPHILS % (AUTO) 37.3 % (42-75); PLATELET COUNT 200 X10'3 (140-440); RED BLOOD COUNT 3.65 X10'6 (4.20-5.60); RED CELL DISTRIBUTION WIDTH 16.3 % (11.5-14.5); WHITE BLOOD COUNT 4.2 X10'3 (4.5-11.0)
[2021-05-08 20:16] LABS: PLATELET ESTIMATE NORMAL; TOTAL CELLS COUNTED 100
[2021-05-08 20:17] LABS: ANISOCYTOSIS 1+
[2021-05-08 20:34] VITALS: BP 112/65
[2021-05-08] MEDS: traZODone 50mg tablet PO SCH (20:42)
[2021-05-08] MEDS: LORazepam 0.5 MG tablet PO SCH (20:50)
--- NOTE | 2021-05-08 21:56 | NUR ---
Nursing Progress Note: Legal hold: TCON Client on involuntary status for GD. Report received from MARJAN Webster with use of SBAR. Why they are here: Client was transported to [facility] by [employer] for disruptive behavior. Client reported, "I was laying in the bed at my daughters house and the police came in a said 'We're here to help you.' They handcuffed me and took me to the Hospital." "I want to get out of here!" Client stated, "I don't remember anything else." According the medical record client has had multiple ED visits and several Inpatient Psych admits. Hx of wandering into traffic, trespassing, and disorderly conduct. Client reported she was living with her daughter in [place]. She is currently homeless. Assessment What has happened this shift: Patient was calm and cooperative laying in bed at change of shift. Patient took her medication with applesauce and was very sweet. Patient denies suicidal/homicidal ideation. Patient denies audio/visual hallucinations. Patient started yelling in her room for a short period of time and then got up, spoke to the nurse and went back to bed. S/I, H/I: Denies A/VH: Delusional, denies audio Sleep: In and out of bed this evening. ADL's: Independent, needs encouragement Group attendance: N/A Were Meds taken: Yes Any med S/E: None observed or reported. Mental Status Exam Appearance: Patient with messy greasy hair and wearing her own clothes. Eye contact: Good Behavior: Cooperative at times, other times yelling Speech: Clear, sometimes WNL, other times loud/ pressured Mood: Labile Affect: Congruent with mood. Thought process: Disorganized, delusional. Thought Content: Perseverates on wanting to leave. Cognition: A/O X 3. Insight: Poor. Judgment: Poor. Interventions PRN's used: None. Therapeutic interventions: 1:1 assessment with therapeutic conversation and active listening, provided clear and simple instructions, medication administration/education/monitoring, provided ongoing education regarding handwashing r/t positive MRSA in the nares, behavior monitoring and intervention as needed; coping skills education, distraction, redirection, limit setting, encouragement and positive reinforcement provided, and maintained Q 15 minute safety checks. Restraints/seclusion/emergency medication: None Justification of Continued Inpatient Treatment: Patient is GD on a TCON awaiting LPS court and placement. Pt has court on 05/10/21.
[2021-05-09] MEDS: LORazepam 0.5 MG tablet PO SCH ×3 (07:47→20:04)
[2021-05-09] MEDS: quetiapine 100mg tablet PO SCH ×4 (07:47→20:09)
[2021-05-09] MEDS: divalproex sod 125mg sprinkle cap PO SCH ×2 (07:47→20:05)
[2021-05-09 08:00] VITALS: BP 90/53
[2021-05-09] MEDS ORDERED: LORazepam 2 mg/ml vial ONE (11:01)
[2021-05-09] MEDS ORDERED: diphenhydrAMINE 50 mg/ml inj ONE (11:02)
--- NOTE | 2021-05-09 11:02 | NUR ---
PLACEMENT UPDATE Per [facility], Alondra has been referred to [facility], [facility], [facility], [facility], [facility], [facility], [facility] and [facility]. REJI Rome
--- NOTE | 2021-05-09 11:04 | NUR ---
Accompanied RIDDHI Leon, to inform Alondra that she will be attending court via Webex instead of in person. She reported "Jose De Jesus" is going to pick her up and drive her to court. Explained she is unable to appear in person and that her only option was via Webex. She became very upset and started yelling, "I will go there in person...call the police...you just want to keep me here...call the police". Staff got involved and Alondra was heard yelling, "I'm going to fuck you up". Asbestos Remover has requested [facility] cyber security architect be present during court tomorrow due to the fact that Alondra will likely lose her temper if she is told she is being conserved. REJI Rome
--- NOTE | 2021-05-09 11:30 | NUR ---
Pt became agitated, screaming, yelling at the top of her lungs. Show of support, verbal de-escalation, distraction and redirection ineffective. Pt began hitting herself in the head and then banging her head against the door of her room and then the wall. Pt did not respond to less restrictive measures. Pt became combative with staff, hitting and kicking when staff attempted to prevent pt from banging her head on the wall. Pt was escorted to the seclusion and restraint room. Pt continued to fight staff and attempt to harm herself. Pt was placed in 4 point restraints at 1100 and given IM Ativan 2 mg and Benadryl 50 mg. Orders were obtained from Edward HANNON. Pt was in restraints for 50 minutes at which time she was calm and stating that she would not hurt herself or others. Pt was released from restraints at 1150. Director Cookie Nunez notified and appropriate documentation completed.
[2021-05-09 11:50] VITALS: BP 158/79
--- NOTE | 2021-05-09 12:24 | NUR ---
CONSTRUCTION PROJECT MGR FOR COURT AT 8:10 AM Alondra is going to get picked up for court by [facility] at 8:10 AM on 05/10/21. Court is at 9 AM. The twist maker denied the request that Alondra not appear in person due to her behavioral outbursts. [facility] is aware that they are going to likely have difficulty returning her to [facility]. Psych Sales Specialist was apprised of this change after telling Alondra she would not be appearing in court in person. REJI Rome
--- NOTE | 2021-05-09 16:47 | NUR ---
Nursing Progress Note: Alondra Stephens Legal hold: TCON Client on involuntary status for GD. Report received from MARJAN Benitez with use of SBAR. Why they are here: Client was transported to [facility] by [employer] for disruptive behavior. Client reported, "I was laying in the bed at my daughters house and the police came in a said 'We're here to help you.' They handcuffed me and took me to the Hospital." "I want to get out of here!" Client stated, "I don't remember anything else." According the medical record client has had multiple ED visits and several Inpatient Psych admits. Hx of wandering into traffic, trespassing, and disorderly conduct. Client reported she was living with her daughter in [place]. She is currently homeless. Assessment What has happened this shift: Pt. received sleeping in her this morning. Pt woke to receive her medications she presents as pleasant and cooperative. Assessment 1:1 completed, and pt. denies all SI,HI, pt. presents as agitated states Im going to court tomorrow and proceeded to breakfast. Later pt. was heard yelling from the smith. Trucker approached pts. room to find staff and provider at the bedside. Pt. observed yelling and started hitting her face bilaterally with her hands. Pt was encouraged to calm herself down and was provided with quiet area in her room. Pt. came into smith screaming and yelling I have the rightand swinging her fists at staff. Pt. was escorted to seclusion room un restrained at 1100. At approx. 1105 pt. witnessed hitting her head on the wall. Pt. advised not to not to hurt herself; pt. continued hitting her head against the wall, and was placed in 4point restraints at 1115 for her own safety. Provider gave an order for IM Ativan, IM Benadryl emergent use. Medication was drawn up and injected into ventral gluteal at 1115. Pt. was monitored at all times via video and circulation was checked per protocol. Pt. provided with 160ml apple juice at 1125. Zero ASE found r/t recent IM injections. Pt. gradually removed from restraints and completely out of restraints and seclusion room by 1150. Pt. returned to her room without incident. Pt. later attended lunch in dining room and was observed interacting appropriately with cohorts. Pt. napped for a while this afternoon and was heard responding to IS yelling out, Im going to do it too Trucker encouraged pt. to lower her voice as others {cohorts} were in the smith; pt. agreed , and no further IS responses occurred. No further behavioral incidents this shift. S/I, H/I: Denies A/VH: Denies, episodes of yelling out responses from IS Sleep: 7.25 hours per NOC, napped X2 this shift ADL's: In dependent. Group attendance: No Were Meds taken: Yes Any med S/E: None observed or reported. Mental Status Exam Appearance: Older woman, disheveled hair dressed in street clothing. Eye contact: Good Behavior: Cooperative at times, yelling, self-inflicting Speech: Clear, edentulous Mood: Labile, physically abusive to self and staff Affect: Congruent with mood. Thought process: Disorganized Thought Content: Perseverates on wanting to go to court. Cognition: A/O X 3. Insight: Poor. Judgment: Poor. Interventions PRN's used: IM Benadryl/ Ativan Therapeutic interventions: 1:1 assessment with therapeutic conversation and active listening, provided clear and simple instructions, medication administration/education/monitoring, provided ongoing education regarding handwashing r/t positive MRSA in the nares, behavior monitoring and intervention as needed; coping skills education, distraction, redirection, limit setting, encouragement and positive reinforcement provided, and maintained Q 15 minute safety checks. Restraints/seclusion/emergency medication: IM Benadryl/ Ativan, bilateral wrist and ankle restraints. Justification of Continued Inpatient Treatment: Pt needs medication management and monitoring in a safe and therapeutic environment until stable. Pt is GD on a TCON awaiting LPS court and placement. Pt has court on 05/10/21.
[2021-05-09 20:00] VITALS: BP 99/70
[2021-05-09] MEDS: traZODone 50mg tablet PO SCH (20:04)
--- NOTE | 2021-05-10 04:04 | NUR ---
Nursing Progress Note: Legal hold: TCON Client on involuntary status for GD. Report received from MARJAN Melchor with use of SBAR. Why they are here: Client was transported to [facility] by [employer] for disruptive behavior. Client reported, "I was laying in the bed at my daughters house and the police came in a said 'We're here to help you.' They handcuffed me and took me to the Hospital." "I want to get out of here!" Client stated, "I don't remember anything else." According the medical record client has had multiple ED visits and several Inpatient Psych admits. Hx of wandering into traffic, trespassing, and disorderly conduct. Client reported she was living with her daughter in [place]. She is currently homeless. Assessment What has happened this shift: Pt sleeping on and off entire shift without sleeping longer than 1 hour in any given stretch. Pt showered, did makeup, did her hair, stared out the window, joking around with staff. No episodes of yelling out this shift. S/I, H/I: Denies. A/VH: Denies. Sleep: See sleep assessment. ADL's: Independent. Group attendance: Yes Were Meds taken: Yes Any med S/E: None observed or reported. Mental Status Exam Appearance: Older woman with disheveled hair dressed in personal clothing. Eye contact: Good Behavior: Pleasant, cooperative, animated. Speech: Clear, loud at times. Mood: Friendly Affect: Labile, congruent with mood. Thought process: Disorganized at times. Thought Content: Wanting to leave and concern over her finances. Cognition: A/O X 3. Insight: Poor. Judgment: Poor. Interventions PRN's used: Therapeutic interventions: 1:1 assessment with therapeutic conversation and active listening, provided clear and simple instructions, medication administration/education/monitoring, provided ongoing education regarding handwashing r/t positive MRSA in the nares, behavior monitoring and intervention as needed; coping skills education, distraction, redirection, limit setting, encouragement and positive reinforcement provided, and maintained Q 15 minute safety checks. Restraints/seclusion/emergency medication: Justification of Continued Inpatient Treatment: Pt needs medication management and monitoring in a safe and therapeutic environment until stable. Pt is GD on a TCON awaiting LPS court and placement. Pt has court on 05/10/21.
[2021-05-10] MEDS: divalproex sod 125mg sprinkle cap PO SCH ×2 (07:01→23:36)
[2021-05-10] MEDS: LORazepam 0.5 MG tablet PO SCH ×3 (07:01→23:37)
[2021-05-10] MEDS: quetiapine 100mg tablet PO SCH ×4 (07:02→23:37)
[2021-05-10 08:00] VITALS: BP 143/113
--- NOTE | 2021-05-10 08:11 | NUR ---
Pt. ambulated off the unit accompanied by tech and security to car driver who will be taking her to her scheduled court hearing.
--- NOTE | 2021-05-10 08:45 | NUR ---
F/u 05/10: Pt continues eating well with mostly 100% PO intake on regular diet while receiving double protein TID per diet order exceeding estimated nutrient needs. LBM 05/09. No nutrition intervention at this time. Will continue to monitor. Rec: 1. Continue regular diet; double eggs WB double, meat BIDLD per diet order 2. Bowel care per rx 3. Weekly scaled wts Addendum: 05/10/21 at [address] Amended: Links added.
--- NOTE | 2021-05-10 10:45 | NUR ---
Pt. was escorted back onto the unit by tech and security, she reported that court went well and was all smiles, interacting appropriately with others. Will continue to monitor.
[2021-05-10 11:00] VITALS: BP 110/70
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
[2021-05-10 19:00] VITALS: BP 95/71
[2021-05-10] MEDS: traZODone 50mg tablet PO SCH (23:37)
--- NOTE | 2021-05-11 05:18 | NUR ---
RN PROGRESS NOTE: LEGAL HOLD: 5150 for GD REASON FOR ADMIT: BIB [employer] for labile mood, agitation, and bizarre behavior. Long mental health history. THIS SHIFT: Client was in her room screaming "I hate God!" (repeatedly) at COS. She then became tearful, stating "I have money!". Client was offered hot decaffeinated tea, which redirected her for a time. She had several bouts of screaming followed by relative calm. Client approached RN station requesting paper and pen. She was calm at that time and able to express her needs. Client accepted evening meds. Client had a court hearing during day shift and was placed on [facility] conservatorship, did not discuss it with this RN. She denies AH/VH. Affect vacillates between pleasant and anxious and agitated. Overall she is cooperative.
--- NOTE | 2021-05-11 06:53 | NUR ---
Received signed LPS documents late yesterday afternoon. Per conversation with Public Guardian, they are going to request Alondra's public relations account executive call her and inform her of the administrative law judge's decision. The administrative law judge decided not to do a bench determination in court yesterday and told Alondra he was taking all information into account to make a decision. After court he signed the LPS documents. Alondra may not be aware yet that she is conserved. Director Erp requested a heads up before the public relations account executive informs Alondra to staff can be prepared. REJI Rome
[2021-05-11 08:00] VITALS: BP 128/70
[2021-05-11] MEDS: divalproex sod 125mg sprinkle cap PO SCH ×2 (09:09→20:12)
[2021-05-11] MEDS: quetiapine 100mg tablet PO SCH ×4 (09:09→20:08)
[2021-05-11] MEDS: LORazepam 0.5 MG tablet PO SCH ×3 (09:09→20:06)
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
[2021-05-11] MEDS: acetaminophen 325mg tablet PO PRN (13:01)
--- NOTE | 2021-05-11 15:57 | NUR ---
Nursing Progress Note: Legal hold: LPS Client on involuntary status for GD Report received from nurse with use of SBAR: Vicky Rai RN Why are they here: Client was transported to [facility] by [employer] for disruptive behavior. Client reported, "I was laying in the bed at my daughters house and the police came in a said 'We're here to help you.' They handcuffed me and took me to the Hospital." "I want to get out of here!" Client stated, "I don't remember anything else." According the medical record client has had multiple ED visits and several Inpatient Psych admits. Hx of wandering into traffic, trespassing, and disorderly conduct. Client reported she was living with her daughter in [place]. She is currently homeless. Assessment What has happened this shift: Received pt. sleeping in bed at the beginning of the shift, she slept through breakfast and ate later in her room upon being awoken to take her AM medications. Pt. received her medications in applesauce r/t precautions for hx of spitting meds out. She tolerates this well. Pt. continues to deny any MH s/s, however perseverates on her desire to discharge and see her cat, and some fixed paranoid and grandiose delusions expressed. She had an agitated episode in the morning and was yelling loudly and tearful, but did not leave her room or exhibit any self-harm behaviors. Pt. yelled in a paranoid delusional way, "I know people don't like me here! (Referring to the other patients pacing in the hallway at that time). They are all talking bad about me!" This sba underwriter attempted to orient pt. to reality, however she remained fixed in this delusion. However, after some time of providing active listening and positive encouragement, she was able to be redirected. Pt. continues to claim in a grandiose way that she has a lot of money and she wants to get her own trailer and file lawsuits. However, she does report understanding that she will placed in a facility for a year where she will be able to smoke and spend some of her money. Per social director, pt's public housing interviewer will call and update pt. regarding the plan for her care and LPS conservatorship this shift. This sba underwriter endorsed telephone call to pt. and she reports understanding. Pt. napped intermittently during the shift, and had a couple of agitated outburst but was able to be verbally redirected. Will continue to monitor. S/I, H/I: Denies A/VH: Denies, does not appear internally preoccupied Sleep: Pt. reports restless sleep, sleep hours are 5 and she naps intermittently during the shift ADL's: Requires some direction Group attendance: No Were meds taken: Yes Any med S/E: None Mental Status Exam Appearance: Pt. continues to be thin and frail, however is neat and appropriately dressed Eye contact: Good Behavior: Cooperative, anxious, agitated, and impulsive Speech: Becomes very loud/yelling when agitated, child-like Mood: Restless Affect: Labile Thought process: Linear, becomes tangental with ongoing conversation Thought Content: Ongoing grandiose and paranoid delusions which appear to be fixed Cognition: A&O X3 (not to reason here) Insight: Fair Judgment: Fair Interventions PRN's used: None Therapeutic interventions: Maintained a safe and supportive environment, ensured contract for safety, provided clear and simple instructions, attempted to orient to reality, provided active listening and positive encouragement, maintained clear boundaries r/t behaviors, provided ongoing education regarding handwashing r/t positive MRSA, and maintained Q 15min safety checks. Restraints/seclusion/emergency medication: N/A Justification of Continued Inpatient Treatment: Per Dr. Maria, pt. is stable at baseline and mood lability is behavioral r/t poor coping skills. She continues to require a safe and supportive environment. Discharge will be per public guardian.
[2021-05-11 19:22] VITALS: BP 106/89
[2021-05-11] MEDS: traZODone 50mg tablet PO SCH (20:09)
--- NOTE | 2021-05-12 01:05 | NUR ---
Nursing Progress Note: Legal hold: LPS Client on involuntary status for GD Report received from nurse with use of SBAR: MARJAN Webster Why are they here: Client was transported to [facility] by [employer] for disruptive behavior. Client reported, "I was laying in the bed at my daughters house and the police came in a said 'We're here to help you.' They handcuffed me and took me to the Hospital." "I want to get out of here!" Client stated, "I don't remember anything else." According the medical record client has had multiple ED visits and several Inpatient Psych admits. Hx of wandering into traffic, trespassing, and disorderly conduct. Client reported she was living with her daughter in [place]. She is currently homeless. Assessment What has happened this shift: Received patient sleeping in bed at the beginning of the shift. Patient then got up and started socializing with other patients. Patient appeared in a happy mood joking and laughing with staff. Patient participated in snack time and returned back to bed. Patient took all scheduled medications and went back to sleep. Patient slept without difficulty. S/I, H/I: Denies A/VH: Denies, Sleep: see sleep assessment ADL's: Requires some direction Group attendance: No Were meds taken: Yes Any med S/E: None Mental Status Exam Appearance: Pt. is neat and appropriately dressed Eye contact: Good Behavior: Cooperative, pleasant Speech: mumbled Mood: positive Affect: Labile Thought process: Linear, becomes tangental with ongoing conversation Thought Content:her clothes Cognition: A&O X3 (not to reason here) Insight: Fair Judgment: Fair Interventions PRN's used: None Therapeutic interventions: Maintained a safe and supportive environment, ensured contract for safety, provided clear and simple instructions, attempted to orient to reality, provided active listening and positive encouragement, maintained clear boundaries r/t behaviors, provided ongoing education regarding handwashing r/t positive MRSA, and maintained Q 15min safety checks. Restraints/seclusion/emergency medication: N/A Justification of Continued Inpatient Treatment: Per Dr. Maria, pt. is stable at baseline and mood lability is behavioral r/t poor coping skills. She continues to require a safe and supportive environment. Discharge will be per public guardian.
[2021-05-12] MEDS: divalproex sod 125mg sprinkle cap PO SCH ×2 (07:56→20:57)
[2021-05-12] MEDS: LORazepam 0.5 MG tablet PO SCH ×3 (07:56→20:58)
[2021-05-12] MEDS: quetiapine 100mg tablet PO SCH ×4 (07:56→20:57)
[2021-05-12 08:00] VITALS: BP 94/67
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
[2021-05-12 19:00] VITALS: BP 96/64
[2021-05-12] MEDS: traZODone 50mg tablet PO SCH (20:57)
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
[2021-05-13 07:41] VITALS: BP 92/47
[2021-05-13] MEDS: divalproex sod 125mg sprinkle cap PO SCH ×2 (07:44→20:29)
[2021-05-13] MEDS: quetiapine 100mg tablet PO SCH ×4 (07:44→20:31)
[2021-05-13] MEDS: LORazepam 0.5 MG tablet PO SCH ×3 (07:44→20:31)
--- NOTE | 2021-05-13 12:34 | NUR ---
Luz Lott pt's wireless technician called:
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
[2021-05-13 19:55] VITALS: BP 121/97
[2021-05-13] MEDS: traZODone 50mg tablet PO SCH (20:32)
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
[2021-05-14] MEDS: quetiapine 100mg tablet PO SCH ×4 (07:40→20:11)
[2021-05-14] MEDS: divalproex sod 125mg sprinkle cap PO SCH ×2 (07:40→20:11)
[2021-05-14] MEDS: LORazepam 0.5 MG tablet PO SCH ×3 (07:41→20:11)
[2021-05-14] MEDS: acetaminophen 325mg tablet PO PRN (07:42)
[2021-05-14 07:50] VITALS: BP 102/60
[2021-05-14] MEDS ORDERED: tuberculin, purif. prot. deriv. 5 units/0.1ml ID ONE (09:15)
--- NOTE | 2021-05-14 17:10 | NUR ---
Nursing Progress Note: Legal hold: TCon Client on involuntary status for GD Report received from nurse with use of SBAR: MARJAN Chavez Why are they here: Client was transported to [facility] by [employer] for disruptive behavior. Client reported, "I was laying in the bed at my daughters house and the police came in a said 'We're here to help you.' They handcuffed me and took me to the Hospital." "I want to get out of here!" Client stated, "I don't remember anything else." According the medical record client has had multiple ED visits and several Inpatient Psych admits. Hx of wandering into traffic, trespassing, and disorderly conduct. Client reported she was living with her daughter in [place]. She is currently homeless. Assessment What has happened this shift: Received pt. up in the hallway interacting appropriately with others at the beginning of the shift, she required direction from staff to attend breakfast in the Group Room. Afterwards, pt. received a telephone call updating her on the plan for placement. Pt. became agitated and was observed to be yelling in a disorganized and manner on the phone. Afterwards, this principal technical writer sat with pt. and provided active listening and positive encouragement. Pt. yelled agitatedly, "I need a private supervisor contact and service clerks! I'm suing fucking all of you!" Pt. continues to present with the paranoid delusion that everyone is against her, and she also reports a belief that staff went to her house and killed her cat, Misfit. Pt. was able to be verbally redirected after some time. She napped intermittently during the day, but continued to have labile and agitated outbursts at intervals. Each time, she was able to be verbally redirected or was able to calm herself down by yelling aloud in her room. Pt. would stated, "There, I've said all I need to say." S/I, H/I: Denies A/VH: Denies, does not appear internally preoccupied Sleep: Sleep hours are 5.25, and pt. naps intermittently during the day ADL's: Requires some direction Group attendance: No Were meds taken: Yes Any med S/E: None Mental Status Exam Appearance: Pt. continues to be thin and frail, however is neat and appropriately dressed Eye contact: Good Behavior: Cooperative, anxious, agitated, and impulsive Speech: Becomes very loud/yelling when agitated, child-like Mood: Restless Affect: Labile Thought process: Linear, becomes tangental with ongoing conversation Thought Content: Ongoing grandiose and paranoid delusions which appear to be fixed Cognition: A&O X3 (not to reason here) Insight: Fair Judgment: Fair Interventions PRN's used: None Therapeutic interventions: Maintained a safe and supportive environment, ensured contract for safety, provided clear and simple instructions, attempted to orient to reality, provided active listening and positive encouragement, maintained clear boundaries r/t behaviors, provided ongoing education regarding handwashing r/t positive MRSA, and maintained Q 15min safety checks. Restraints/seclusion/emergency medication: N/A Justification of Continued Inpatient Treatment: Per Dr. Maria, pt. is stable at baseline and mood lability is behavioral r/t poor coping skills. She continues to require a safe and supportive environment.
[2021-05-14] MEDS: traZODone 50mg tablet PO SCH (20:11)
[2021-05-14 20:18] VITALS: BP 108/72
--- NOTE | 2021-05-15 01:25 | NUR ---
Nursing Progress Note: Legal hold: LPS Client on involuntary status for GD. Report received from MARJAN Webster with use of SBAR. Why they are here: Client was transported to [facility] by [employer] for disruptive behavior. Client reported, "I was laying in the bed at my daughters house and the police came in a said 'We're here to help you.' They handcuffed me and took me to the Hospital." "I want to get out of here!" Client stated, "I don't remember anything else." According the medical record client has had multiple ED visits and several Inpatient Psych admits. Hx of wandering into traffic, trespassing, and disorderly conduct. Client reported she was living with her daughter in [place]. She is currently homeless. Assessment What has happened this shift: The patient apparently had a bad day, so she was screaming and yelling in her room. "I hate you, I hate GOD, you killed my cat." She kept it up for a while, then comes out her room all smiles and happiness. She was quiet until the middle of night, but she only briefly yelled about us killing her cat, "Misfit." S/I, H/I: Denies. A/VH: Denies. Sleep: See sleep assessment. ADL's: Independent. Group attendance: Yes Were Meds taken: Yes Any med S/E: None observed or reported. Mental Status Exam Appearance: Older edentulous woman with disheveled hair dressed in personal clothing. Eye contact: Good Behavior: Pleasant, cooperative, animated, labile. Speech: Clear, loud at times. Mood: Friendly Affect: Labile, congruent with mood. Thought process: Disorganized at times. Thought Content: Being conserved. Cognition: A/O X 3. Insight: Poor. Judgment: Poor. Interventions PRN's used: Therapeutic interventions: 1:1 assessment with therapeutic conversation and active listening, provided clear and simple instructions, medication administration/education/monitoring, provided ongoing education regarding handwashing r/t positive MRSA in the nares, behavior monitoring and intervention as needed; coping skills education, distraction, redirection, limit setting, encouragement and positive reinforcement provided, and maintained Q 15 minute safety checks. Restraints/seclusion/emergency medication: Justification of Continued Inpatient Treatment: Pt needs medication management and monitoring in a safe and therapeutic environment until stable. Pt is GD and now LPS conserved and waiting for placement
[2021-05-15] MEDS: LORazepam 0.5 MG tablet PO SCH ×3 (07:38→20:33)
[2021-05-15] MEDS: quetiapine 100mg tablet PO SCH ×4 (07:38→20:33)
[2021-05-15] MEDS: divalproex sod 125mg sprinkle cap PO SCH ×2 (07:39→20:32)
[2021-05-15 08:38] VITALS: BP 94/54
--- NOTE | 2021-05-15 09:09 | NUR ---
Alondra asked to speak with tag writer privately in her room. Finance Vice President would not allow her to close the door. Alondra reported she got her PPD yesterday and her arm is fine so she can leave today. She reported she is supposed to go to [facility] today and wants to get her money from the [employer] today. Explained that the PPD can be read in 48 hours. Also explained any facility has to have a bed available before she can be transported. She stated she wants to leave today. She started yelling at tag writer so tag writer left the room. She was heard yelling, "I hate you all, I hate you bitch!" REJI Rome
--- NOTE | 2021-05-15 14:33 | NUR ---
Reassessment: Pt continues eating well with mostly 100% PO intake on regular diet while receiving double protein TID per diet order exceeding estimated nutrient needs. [place] 05/12. No nutrition intervention at this time. Will continue to monitor. Recommendations: 1. Continue regular diet; double eggs WB double, meat BIDLD per diet order 2. Bowel care per rx 3. Weekly scaled wts Addendum: 05/15/21 at [address] Amended: Links added.
--- NOTE | 2021-05-15 16:46 | NUR ---
Nursing Progress Note: Legal hold: TCon Client on involuntary status for GD Report received from nurse with use of SBAR: MARJAN Benitez Why are they here: Client was transported to [facility] by [employer] for disruptive behavior. Client reported, "I was laying in the bed at my daughters house and the police came in a said 'We're here to help you.' They handcuffed me and took me to the Hospital." "I want to get out of here!" Client stated, "I don't remember anything else." According the medical record client has had multiple ED visits and several Inpatient Psych admits. Hx of wandering into traffic, trespassing, and disorderly conduct. Client reported she was living with her daughter in [place]. She is currently homeless. Assessment What has happened this shift: Received pt. up in the hallway interacting appropriately with others at the beginning of the shift, she required direction from staff to attend breakfast in the Group Room. Shortly afterwards, pt. began yelling loudly in the hallway stating, "Let me out now! I hate you all!" She was able to be redirected to her room by staff, however continued to yell agitatedly regarding her desire to be discharged today and call the license distributor to tell him to let her out. This script writer provided active listening and maintained clear boundaries with pt. She began slapping herself in the face and pounding her head into the wall of her room in frustration, but was able to be redirected. No injuries obtained and these behaviors were endorsed to Dr. Maria. Pt. continued to have a rough day r/t her desire to be discharged, she exhibited frequent loud and agitated outbursts, and required frequent redirection. Pt. also continues to present with the paranoid delusion that staff killed her cat. She expresses desires to smoke a cigarette, spend her money, and go gambling. Pt. napped intermittently, and had a better afternoon. She was able to attend art group and complete the project. Afterwards, she retreated to bed for a nap, will continue to monitor. S/I, H/I: Denies A/VH: Denies, does not appear internally preoccupied Sleep: Sleep hours are 7.5, and pt. naps intermittently during the day ADL's: Requires some direction Group attendance: Went to afternoon group Were meds taken: Yes Any med S/E: None Mental Status Exam Appearance: Pt. continues to be thin and frail, however is neat and appropriately dressed Eye contact: Good Behavior: Cooperative, anxious, agitated, and impulsive Speech: Becomes very loud/yelling when agitated, child-like Mood: Restless Affect: Labile Thought process: Linear, becomes tangental with ongoing conversation Thought Content: Ongoing grandiose and paranoid delusions which appear to be fixed Cognition: A&O X3 (not to reason here) Insight: Fair Judgment: Fair Interventions PRN's used: None Therapeutic interventions: Maintained a safe and supportive environment, ensured contract for safety, provided clear and simple instructions, attempted to orient to reality, provided active listening and positive encouragement, maintained clear boundaries r/t behaviors, provided ongoing education regarding handwashing r/t positive MRSA, and maintained Q 15min safety checks. Restraints/seclusion/emergency medication: N/A Justification of Continued Inpatient Treatment: Per Dr. Maria, pt. is stable at baseline and mood lability is behavioral r/t poor coping skills. She continues to require a safe and supportive environment.
--- NOTE | 2021-05-15 18:08 | NUR ---
Group Art Tx Continued: Patient was able to participate and regulate her emotions during the 1 hour and 15 minute group process. Patient at times would be using a loud voice, yet not yelling, simply talking. She was at times interrupting when another patient was talking, however was easily re-directed. Patient presented as appreciative she was able to stay and participate with her peers this afternoon. *Please refer to the [facility] Case Notes for entire overview. Keysha Rogel MA, FLUORESCENT LAMP REPLACER #[id number] [facility], Art Therapist Addendum: 05/15/21 at 1809 by Keysha BENITES Amended: Links added.
[2021-05-15 19:53] VITALS: BP 113/67
[2021-05-15] MEDS: traZODone 50mg tablet PO SCH (20:35)
--- NOTE | 2021-05-16 00:33 | NUR ---
Nursing Progress Note: Legal hold: TCon Client on involuntary status for GD Report received from nurse with use of SBAR: MARJAN Webster Why are they here: Client was transported to [facility] by [employer] for disruptive behavior. Client reported, "I was laying in the bed at my daughters house and the police came in a said 'We're here to help you.' They handcuffed me and took me to the Hospital." "I want to get out of here!" Client stated, "I don't remember anything else." According the medical record client has had multiple ED visits and several Inpatient Psych admits. Hx of wandering into traffic, trespassing, and disorderly conduct. Client reported she was living with her daughter in [place]. She is currently homeless. Assessment What has happened this shift: pt was having an outburst yelling and upset about her money at change of shift. Pt was redirected and spent time in her room resting. Pt came out during snack and became loud and animated. Laughing w/peers in the group room. Talking about "Him". "He is dancing in front of me! He is so funny!" pt was talking with female peers. Pt was making jokes and took her meds. Pt went to bed shortly after med pass. Pt asked charge nurse "Is Jose De Jesus here?" May have been referring to "Jose De Jesus" when she said "him" S/I, H/I: Denies A/VH: Denies, talking about "Him dancing" Sleep: see sleep hours ADL's: Requires some direction Group attendance: had snacks in group room Were meds taken: Yes Any med S/E: None Mental Status Exam Appearance: pts hair is greasy and disheveled, pt declined taking a shower. Pt is wearing personal clothing Eye contact: Good Behavior: Cooperative, anxious, agitated, and impulsive Speech: Becomes very loud/yelling when agitated, child-like Mood: Restless Affect: Labile Thought process: Linear, becomes tangental with ongoing conversation Thought Content: Ongoing grandiose and paranoid delusions which appear to be fixed Cognition: A&O X3 (not to reason here) Insight: Fair Judgment: Fair Interventions PRN's used: None Therapeutic interventions: Maintained a safe and supportive environment, ensured contract for safety, provided clear and simple instructions, attempted to orient to reality, provided active listening and positive encouragement, maintained clear boundaries r/t behaviors, provided ongoing education regarding handwashing r/t positive MRSA, and maintained Q 15min safety checks. Restraints/seclusion/emergency medication: N/A Justification of Continued Inpatient Treatment: Per Dr. Maria, pt. is stable at baseline and mood lability is behavioral r/t poor coping skills. She continues to require a safe and supportive environment.
[2021-05-16] MEDS: LORazepam 0.5 MG tablet PO SCH ×3 (08:21→20:05)
[2021-05-16] MEDS: divalproex sod 125mg sprinkle cap PO SCH ×2 (08:22→20:06)
[2021-05-16] MEDS: quetiapine 100mg tablet PO SCH ×4 (08:22→20:06)
[2021-05-16 08:59] VITALS: BP 96/56
--- NOTE | 2021-05-16 09:25 | NUR ---
PPD to RFA negative result Addendum: 05/16/21 at 0968 by Vicki Sykes RN Amended: Links added.
--- NOTE | 2021-05-16 12:17 | NUR ---
PLACEMENT UPDATE Send PPD, labs, med list, and last 5 day of notes to [facility] for placement purposes. REJI Rome
--- NOTE | 2021-05-16 16:55 | NUR ---
Nursing Progress Note: Legal hold: LPS Client on involuntary status for GD Report received from nurse with use of SBAR: Eli RN Why are they here: Client was transported to [facility] by [employer] for disruptive behavior. Client reported, "I was laying in the bed at my daughters house and the police came in a said 'We're here to help you.' They handcuffed me and took me to the Hospital." "I want to get out of here!" Client stated, "I don't remember anything else." According the medical record client has had multiple ED visits and several Inpatient Psych admits. Hx of wandering into traffic, trespassing, and disorderly conduct. Client reported she was living with her daughter in [place]. She is currently homeless. Assessment What has happened this shift: Pt. received sleeping in her room. Pt. awoke to receive her medication and proceeded to breakfast, she was observed interacting with cohorts socially and appropriate, and can be heard laughing in the smith. Pt. presents as cooperative and 1:1 assessment completed. Pt. denies S/I, H/I. Pt. is fixated on court procedure and states Im gonna see the horse show judge and tell him about Jose De Jesus because he was here Stock Handler Floorperson provided active listening and encouraged pt. to focus on positive things in her life. Pt. refused to accept her court hearing was last week. Later pt. attended group and was overheard becoming loud and excitable. Pt. was guided out and tech writer provided active listening, pt. became enraged and delusional yelling loudly in the smith those bitches, its gonna be one on one, you tell them at the casino. She was guided to her room to calm down and collect herself. Pt. later seen ambulating in the smith wiping away tears, tech writer approached pt. and she appears depressed stating Im so tired of this, what hes done to me, Im going to lunch. She returned to her room for a nap. Currently sitting in common area waiting for dinner. A/VH: Denies Sleep: Per NOC shift 7.25 hrs, X2 naps this shift ADL's: Prompting at times needed Group attendance: Yes Were meds taken: Yes Any med S/E: None Mental Status Exam Appearance: Older woman wearing personal clothing Eye contact: Good Behavior: Cooperative, anxious, agitated, and impulsive Speech: Normal tones to yelling when agitated Mood: Restless Affect: Labile Thought process: Linear, tangential Thought Content: Paranoid Cognition: A&O X3 Insight: Fair Judgment: Fair Interventions PRN's used: None Therapeutic interventions: Maintained a safe and supportive environment, ensured contract for safety, provided clear and simple instructions, attempted to orient to reality, provided active listening and positive encouragement, maintained clear boundaries r/t behaviors, provided ongoing education regarding handwashing r/t positive MRSA, and maintained Q 15min safety checks. Restraints/seclusion/emergency medication: N/A Justification of Continued Inpatient Treatment: Per Dr. Maria, pt. is stable at baseline and mood lability is behavioral r/t poor coping skills. She continues to require a safe and supportive environment.
[2021-05-16 19:37] VITALS: BP_SYST 107; BP_SYST 97; BP_DIAS 58; BP_DIAS 63
[2021-05-16] MEDS: traZODone 50mg tablet PO SCH (20:05)
--- NOTE | 2021-05-16 23:30 | NUR ---
Nursing Progress Note: Legal hold: LPS Client on involuntary status for GD Report received from nurse with use of SBAR: MARJAN Webster Why are they here: Client was transported to [facility] by [employer] for disruptive behavior. Client reported, "I was laying in the bed at my daughters house and the police came in a said 'We're here to help you.' They handcuffed me and took me to the Hospital." "I want to get out of here!" Client stated, "I don't remember anything else." According the medical record client has had multiple ED visits and several Inpatient Psych admits. Hx of wandering into traffic, trespassing, and disorderly conduct. Client reported she was living with her daughter in [place]. She is currently homeless. Assessment What has happened this shift: pt was in her room napping at change of shift. Her Reji called and they spoke on the phone. Pt states she had a nice talk with him but "we can't talk all night, were old people and we need to get some sleep!" Pt was in a pleasant mood, calm and laughing but still loudly talking. Pt states she needs to get some money to get some new clothes from [employer]. "These don't fit me good and they're getting old." She then pointed out another nurse and said "she's the one that wants the fancy clothes, cute little thing, she probably only likes fancy clothes." pt laughs at her own jokes. Pt is pleasant, talks about how she loves popcorn during snack and took HS meds before bed. A/VH: Denies Sleep: see sleep hours ADL's: needs prompting Group attendance: Yes Were meds taken: Yes Any med S/E: None Mental Status Exam Appearance: Older woman wearing personal clothing Eye contact: Good Behavior: Cooperative, anxious, agitated, and impulsive Speech: loud Mood: labile Affect: congruent with mood Thought process: Linear, tangential Thought Content: delusions, staff killed her cat, reji is here, Cognition: A&O X3 Insight: Fair Judgment: Fair Interventions PRN's used: None Therapeutic interventions: Maintained a safe and supportive environment, ensured contract for safety, provided clear and simple instructions, attempted to orient to reality, provided active listening and positive encouragement, maintained clear boundaries r/t behaviors, provided ongoing education regarding handwashing r/t positive MRSA, and maintained Q 15min safety checks. Restraints/seclusion/emergency medication: N/A Justification of Continued Inpatient Treatment: Per Dr. Maria, pt. is stable at baseline and mood lability is behavioral r/t poor coping skills. She continues to require a safe and supportive environment.
[2021-05-17] MEDS: quetiapine 100mg tablet PO SCH ×4 (07:55→20:08)
[2021-05-17] MEDS: divalproex sod 125mg sprinkle cap PO SCH ×2 (07:55→20:08)
[2021-05-17] MEDS: LORazepam 0.5 MG tablet PO SCH ×3 (07:55→20:07)
[2021-05-17 08:00] VITALS: BP 127/76
--- NOTE | 2021-05-17 16:33 | NUR ---
Nursing Progress Note: Legal hold: LPS Client on involuntary status for GD Report received from nurse with use of SBAR: Eli RN Why are they here: Client was transported to [facility] by [employer] for disruptive behavior. Client reported, "I was laying in the bed at my daughters house and the police came in a said 'We're here to help you.' They handcuffed me and took me to the Hospital." "I want to get out of here!" Client stated, "I don't remember anything else." According the medical record client has had multiple ED visits and several Inpatient Psych admits. Hx of wandering into traffic, trespassing, and disorderly conduct. Client reported she was living with her daughter in [place]. She is currently homeless. Assessment What has happened this shift: Pt. received sleeping in her room. Pt. awoke to receive her medication and proceeded to breakfast. Pt. presents as cooperative during 1:1 assessment. General Foundry Worker provided active listening and positive encouragement. Pt. denies S/I, H/I. She presents with good insight this morning stating I know I have plan Im going to a new facility where hopefully I can smoke, and Im gonna do good things there, because I know the mica sizer is watching my case and I dont want a personal endocrinology teacher. Pt. ate her meals in the dining room and was often observed interacting socially with cohorts. Pt. observed she attended group this shift. Pt. approached insurance underwriter sales stating Im ready to go to my new place and I need two packs of cigarettes redirected pt. to provider and long term care social worker for clarity on placement. S/I, H/I: Denies A/VH: Denies Sleep: Per NOC shift 7.75 hrs, X1 nap this shift ADL's: Independent, prompted at times Group attendance: Yes Were meds taken: Yes Any med S/E: None Mental Status Exam Appearance: Older woman, hair oily but combed, and wearing personal clothing Eye contact: Good Behavior: Cooperative, Impulsive Speech: Normal tones Mood: Restless Affect: Congruent with mood Thought process: Linear Thought Content: Getting to my new facility Cognition: A&O X3 Insight: Fair Judgment: Fair Interventions PRN's used: None Therapeutic interventions: Maintained a safe and supportive environment, ensured contract for safety, provided clear and simple instructions, attempted to orient to reality, provided active listening and positive encouragement, maintained clear boundaries r/t behaviors, provided ongoing education regarding handwashing r/t positive MRSA, and maintained Q 15min safety checks. Restraints/seclusion/emergency medication: N/A Justification of Continued Inpatient Treatment: Per Dr. Maria, pt. is stable at baseline and mood lability is behavioral r/t poor coping skills. She continues to require a safe and supportive environment.
[2021-05-17 19:00] VITALS: BP 136/77
[2021-05-17] MEDS: traZODone 50mg tablet PO SCH (20:08)
--- NOTE | 2021-05-17 23:21 | NUR ---
Nursing Progress Note: Legal hold: LPS Client on involuntary status for GD Report received from nurse with use of SBAR: MARJAN Melgoza Why are they here: Client was transported to [facility] by [employer] for disruptive behavior. Client reported, "I was laying in the bed at my daughters house and the police came in a said 'We're here to help you.' They handcuffed me and took me to the Hospital." "I want to get out of here!" Client stated, "I don't remember anything else." According the medical record client has had multiple ED visits and several Inpatient Psych admits. Hx of wandering into traffic, trespassing, and disorderly conduct. Client reported she was living with her daughter in [place]. She is currently homeless. Assessment What has happened this shift: Pt was active on the unit for the evening shift. Pt began the shift off yelling angrily about random things; her cat, her family. Pt continues to be labile and will have screaming outbursts for no apparent reason. Pt accepted hs meds without issue and went to bed. S/I, H/I: Denies A/VH: Denies Sleep: see sleep assessment ADL's: Independent, prompted at times Group attendance: Yes Were meds taken: Yes Any med S/E: None Mental Status Exam Appearance: Older woman, hair oily but combed, and wearing personal clothing Eye contact: Good Behavior: Cooperative, Impulsive Speech: Normal tones Mood: Restless Affect: Congruent with mood Thought process: Linear Thought Content: Getting to my new facility Cognition: A&O X3 Insight: Fair Judgment: Fair Interventions PRN's used: None Therapeutic interventions: Maintained a safe and supportive environment, ensured contract for safety, provided clear and simple instructions, attempted to orient to reality, provided active listening and positive encouragement, maintained clear boundaries r/t behaviors, provided ongoing education regarding handwashing r/t positive MRSA, and maintained Q 15min safety checks. Restraints/seclusion/emergency medication: N/A Justification of Continued Inpatient Treatment: Per Dr. Maria, pt. is stable at baseline and mood lability is behavioral r/t poor coping skills. She continues to require a safe and supportive environment.
[2021-05-18 07:57] VITALS: BP 127/73
[2021-05-18] MEDS: LORazepam 0.5 MG tablet PO SCH ×3 (08:11→20:27)
[2021-05-18] MEDS: quetiapine 100mg tablet PO SCH ×4 (08:12→20:27)
[2021-05-18] MEDS: divalproex sod 125mg sprinkle cap PO SCH ×2 (08:12→19:50)
--- NOTE | 2021-05-18 17:19 | NUR ---
Nursing Progress Note: Legal hold: LPS Client on involuntary status for GD Report received from nurse with use of SBAR: MARJAN Cisse Why are they here: Client was transported to [facility] by [employer] for disruptive behavior. Client reported, "I was laying in the bed at my daughters house and the police came in a said 'We're here to help you.' They handcuffed me and took me to the Hospital." "I want to get out of here!" Client stated, "I don't remember anything else." According the medical record client has had multiple ED visits and several Inpatient Psych admits. Hx of wandering into traffic, trespassing, and disorderly conduct. Client reported she was living with her daughter in [place]. She is currently homeless. Assessment What has happened this shift: Pt. received sleeping in her room. Pt. awoke to receive her medication and proceeded to breakfast she was friendly and talkative. Broom Machine Operator provided active listening and positive encouragement during 1:1 assessment Pt. presents as cooperative and denies S/I, H/I. She presents as labile and delusional AEB rapid mood changes she began screaming they killed my family policy writer was able to redirect pt and she was able to calm herself down. A short while later pt. was heard screaming while alone in her room stating the firestopper technician told me I was had a place to go Pt. was unable to be calmed and began slapping herself in the face with bilaterally; she required staff to intervene for pts. safety and attempt to de-escalate pt., she again was able to gain control after intervention. Pt. ate breakfast in the dining room was observed as friendly to cohorts. She slept before lunch and proceeded to dining area. Episodes of yelling heard from her room You broke the law and fuck you God. Pt. ate lunch in the dining room and stopped to talk to policy writer presenting as friendly and in positive spirits. She was not interested in attending group this shift. Currently sitting in dining room. S/I, H/I: Denies A/VH: Denies Sleep: 2 hrs Per NOC shift ADL's: Independent Group attendance: No Were meds taken: Yes Any med S/E: None Mental Status Exam Appearance: Older woman wearing personal clothing Eye contact: Good Behavior: Cooperative, Impulsive Speech: Normal tones to screaming and yelling Mood: Restless, Labile Affect: Congruent with mood Thought process: Linear Thought Content: I want to get out of here Cognition: A&O X3 Insight: Fair Judgment: Fair Interventions PRN's used: None Therapeutic interventions: Maintained a safe and supportive environment, ensured contract for safety, provided clear and simple instructions, attempted to orient to reality, provided active listening and positive encouragement, maintained clear boundaries r/t behaviors, provided ongoing education regarding handwashing r/t positive MRSA, and maintained Q 15min safety checks. Restraints/seclusion/emergency medication: N/A Justification of Continued Inpatient Treatment: Per Dr. Maria, pt. is stable at baseline and mood lability is behavioral r/t poor coping skills. She continues to require a safe and supportive environment.
[2021-05-18] MEDS: methylphenidate 5mg tablet PO SCH (17:36)
[2021-05-18 19:28] VITALS: BP 141/91
[2021-05-18] MEDS: oxcarbazepine 150mg tablet PO SCH (19:50)
[2021-05-18] MEDS: traZODone 50mg tablet PO SCH (20:26)
--- NOTE | 2021-05-19 01:56 | NUR ---
Nursing Progress Note: Legal hold: LPS Client on involuntary status for GD Report received from nurse with use of SBAR: Toshia RN Why are they here: Client was transported to [facility] by [employer] for disruptive behavior. Client reported, "I was laying in the bed at my daughters house and the police came in a said 'We're here to help you.' They handcuffed me and took me to the Hospital." "I want to get out of here!" Client stated, "I don't remember anything else." According the medical record client has had multiple ED visits and several Inpatient Psych admits. Hx of wandering into traffic, trespassing, and disorderly conduct. Client reported she was living with her daughter in [place]. She is currently homeless. Assessment What happened this shift: Patient was observed talking loudly to other patient at beginning of shift. Patient displayed manic behavior loudly talking to staff and other patients. Patient had out burst of laughter and yelling as well as screaming and cursing in room. Patient made several delusional statements about family members, staff and other individuals. Patient happily took scheduled medications and said epifanio. Patient got up a handful more throughout night to ask for snacks and then would returned to bed. S/I, H/I: Denies A/VH: Denies Sleep: see sleep assessment ADL's: Independent Group attendance: No Were meds taken: Yes Any med S/E: None Mental Status Exam Appearance: Older woman wearing green unit scrubs Eye contact: Good Behavior: Cooperative, Impulsive Speech: Normal tones to screaming and yelling Mood: Restless, Labile Affect: Congruent with mood Thought process: Linear Thought Content: Wants to stay on unit for 6 months and then leave. Cognition: A&O X3 Insight: Fair Judgment: Fair Interventions PRN's used: None Therapeutic interventions: Maintained a safe and supportive environment, ensured contract for safety, provided clear and simple instructions, attempted to orient to reality, provided active listening and positive encouragement, maintained clear boundaries r/t behaviors, provided ongoing education regarding handwashing r/t positive MRSA, and maintained Q 15min safety checks. Restraints/seclusion/emergency medication: N/A Justification of Continued Inpatient Treatment: Per Dr. Maria, pt. is stable at baseline and mood lability is behavioral r/t poor coping skills. She continues to require a safe and supportive environment.
[2021-05-19 07:30] VITALS: BP 146/76
[2021-05-19] MEDS: LORazepam 0.5 MG tablet PO SCH ×3 (08:21→20:31)
[2021-05-19] MEDS: quetiapine 100mg tablet PO SCH ×4 (08:21→20:29)
[2021-05-19] MEDS: divalproex sod 125mg sprinkle cap PO SCH ×2 (08:22→20:25)
[2021-05-19] MEDS: oxcarbazepine 150mg tablet PO SCH ×2 (08:22→20:30)
[2021-05-19] MEDS: methylphenidate 5mg tablet PO SCH ×2 (08:30→12:30)
[2021-05-19] MEDS: acetaminophen 325mg tablet PO PRN (14:00)
--- NOTE | 2021-05-19 14:00 | NUR ---
Pt. c/o headache rated 9/10 and received Tylenol 650mg po with good effect.
--- NOTE | 2021-05-19 17:19 | NUR ---
Nursing Progress Note Legal hold: TCON Client on involuntary status for GD Report received from MARJAN Webster with use of SBAR Why they are here: Client was transported to [facility] by [employer] for disruptive behavior. Client reported, "I was laying in the bed at my daughters house and the police came in a said 'We're here to help you.' They handcuffed me and took me to the Hospital." "I want to get out of here!" Client stated, "I don't remember anything else." According the medical record client has had multiple ED visits and several Inpatient Psych admits. Hx of wandering into traffic, trespassing, and disorderly conduct. Client reported she was living with her daughter in [place]. She is currently homeless. Assessment What has happened this shift: Essentials: Pt.'s Ezekiel d/c'd. RN received pt. asleep in bed at start of shift. Pt. took all medications and ate breakfast in community room. 1:1 done at bedside, pt. reports feeling tired today, pt. experiencing visual hallucinations, stating she saw a dog in the hallway. Pt. fatigued and found napping throughout the day. Pt. had no outbursts today. S/I, H/I: denies. A/VH: Denies, but pt. c/o of VH. Sleep: Pt. slept 4 hrs on NOC shift and napped intermittently throughout the day. ADL's: Independent. Group attendance: NA Were Meds taken: Yes. Any med S/E: Sedation Mental Status Exam Appearance: Disheveled but clean, wearing casual attire. Eye contact: WNL Behavior: Cooperative but tired. Pt. had no outbursts today. Speech: WNL Mood: Euthymic Affect: Congruent with mood. Thought process: Some visual hallucinations but otherwise linear. Thought Content: Circumstantial. Cognition: A/O X 3 Insight: Poor Judgment: Poor Interventions PRN's used: None Therapeutic interventions: Provided 1:1 assessment with therapeutic communication and active listening, provided clear and simple instructions, medication administration/education/monitoring, provided ongoing education regarding handwashing r/t positive MRSA in the nares, behavior modification with stickers and a goodie bag as reward for good behavior, prompted pt to showere and change her clothes, coping skills education, distraction, and maintained Q 15 minute safety checks. Restraints/seclusion/emergency medication: N/A Justification of Continued Inpatient Treatment: Pt needs medication management and monitoring in a safe and therapeutic environment. Pt is GD awaiting LPS court hearing
[2021-05-19 19:24] VITALS: BP 98/62
[2021-05-19] MEDS: traZODone 50mg tablet PO SCH (20:29)
--- NOTE | 2021-05-19 23:07 | NUR ---
Nursing Progress Note Legal hold: TCON Client on involuntary status for GD Report received from Octavio Montemayor Lee RN with use of SBAR Why they are here: Client was transported to [facility] by [employer] for disruptive behavior. Client reported, "I was laying in the bed at my daughters house and the police came in a said 'We're here to help you.' They handcuffed me and took me to the Hospital." "I want to get out of here!" Client stated, "I don't remember anything else." According the medical record client has had multiple ED visits and several Inpatient Psych admits. Hx of wandering into traffic, trespassing, and disorderly conduct. Client reported she was living with her daughter in [place]. She is currently homeless. Assessment What has happened this shift: Patient was observed asleep at beginning of shift. Patient was awoken by nurse to preform 1:1 assessment and give night medications. Patient complained of feeling very tired and sore. Patient appeared drained and fatigued. Patient stated feeling pain in neck and back but denied PRN pain medications. Patient slept through snack and was given replacement. Patient eventually got up and walked around unit for a short period before returning back to bed. S/I, H/I: denies. A/VH: Denies, . Sleep: See sleep assessment ADL's: Independent. Group attendance: NA Were Meds taken: Yes. Any med S/E: None Mental Status Exam Appearance: Disheveled but clean, wearing Unit scrubs Eye contact: WNL Behavior: Cooperative but tired. Pt. had no outbursts today. Speech: WNL Mood: Euthymic Affect: Congruent with mood. Thought process: Feeling sore and down Thought Content: Circumstantial. Cognition: A/O X 3 Insight: Poor Judgment: Poor Interventions PRN's used: None Therapeutic interventions: Provided 1:1 assessment with therapeutic communication and active listening, provided clear and simple instructions, medication administration/education/monitoring, provided ongoing education regarding handwashing r/t positive MRSA in the nares, behavior modification with stickers and a goodie bag as reward for good behavior, prompted pt to showere and change her clothes, coping skills education, distraction, and maintained Q 15 minute safety checks. Restraints/seclusion/emergency medication: N/A Justification of Continued Inpatient Treatment: Pt needs medication management and monitoring in a safe and therapeutic environment. Pt is GD awaiting LPS court hearing
[2021-05-20] MEDS: divalproex sod 125mg sprinkle cap PO SCH ×2 (07:17→22:33)
[2021-05-20] MEDS: oxcarbazepine 150mg tablet PO SCH ×2 (07:17→22:34)
[2021-05-20] MEDS: LORazepam 0.5 MG tablet PO SCH ×3 (07:18→22:34)
[2021-05-20] MEDS: quetiapine 100mg tablet PO SCH ×4 (07:18→22:34)
[2021-05-20 08:28] VITALS: BP 108/83
--- NOTE | 2021-05-20 17:02 | NUR ---
Nursing Progress Note: Legal hold: LPS Client on involuntary status for GD Report received from MARJAN Webster and use of SBAR Why are they here: Client was transported to [facility] by [employer] for disruptive behavior. Hx of multiple ED visits and several Inpatient Psych admits. Hx of wandering into traffic, trespassing, and disorderly conduct. She is currently homeless. Assessment What has happened this shift: Pt. received sleeping in her room and woke to receive her medications. She is receptive and friendly to inquiries. Sales Professional provided active listening and positive encouragement during 1:1 assessment and she denies all S/I, H/I. She became teary eyed and stated [facility] De Jesus put me here. She was able to be verbally redirected and calmly stated Im gonna go to a new facility. Pt. appears tired this shift but with increased mood stabilization found. She ate her meals in the dining room and participated in snacks. She napped intermittently and is interacting with cohorts appropriately. No outburst this shift. S/I, H/I: Denies A/VH: Denies Sleep: 10 hrs Per NOC shift, napping intermittently ADL's: Independent Group attendance: No Were meds taken: Yes Any med S/E: None Mental Status Exam Appearance: Older woman wearing green scrubs Eye contact: Good Behavior: Cooperative Speech: Normal tones Mood: Calm Affect: Congruent with mood Thought process: Linear Thought Content: Linear Cognition: A&O X3 Insight: Fair Judgment: Fair Interventions PRN's used: None Therapeutic interventions: Maintained a safe and supportive environment, ensured contract for safety, provided clear and simple instructions, attempted to orient to reality, provided active listening and positive encouragement, maintained clear boundaries r/t behaviors, provided ongoing education regarding handwashing r/t positive MRSA, and maintained Q 15min safety checks. Restraints/seclusion/emergency medication: N/A Justification of Continued Inpatient Treatment: Per Dr. Maria, pt. is stable at baseline and mood lability is behavioral r/t poor coping skills. She continues to require a safe and supportive environment.
[2021-05-20 20:14] VITALS: BP 127/62
[2021-05-20] MEDS: traZODone 50mg tablet PO SCH (22:34)
--- NOTE | 2021-05-21 00:47 | NUR ---
Nursing Progress Note: Legal hold: LPS Client on involuntary status for GD. Report received from MARJAN Acuna with use of SBAR. Why they are here: Client was transported to [facility] by [employer] for disruptive behavior. Client reported, "I was laying in the bed at my daughters house and the police came in a said 'We're here to help you.' They handcuffed me and took me to the Hospital." "I want to get out of here!" Client stated, "I don't remember anything else." According the medical record client has had multiple ED visits and several Inpatient Psych admits. Hx of wandering into traffic, trespassing, and disorderly conduct. Client reported she was living with her daughter in [place]. She is currently homeless. Assessment What has happened this shift: The patient was in her bed napping at shift change. She has been in room sleeping on and off all night. The patient comes out for water other requests, but goes back to sleep. She easily wakes for HS meds and 1:1. Patient states that she'll be leaving to a new facility soon. There have been no outbursts made this shift. S/I, H/I: Denies. A/VH: Denies. Sleep: See sleep assessment. ADL's: Independent. Group attendance: Yes Were Meds taken: Yes Any med S/E: None observed or reported. Mental Status Exam Appearance: Older woman with disheveled hair dressed in personal clothing. Eye contact: Good Behavior: Pleasant, cooperative, animated, labile. Speech: Clear, loud at times. Mood: Friendly Affect: Labile, congruent with mood. Thought process: Disorganized at times. Thought Content: Being placed. Cognition: A/O X 3. Insight: Poor. Judgment: Poor. Interventions PRN's used: Therapeutic interventions: 1:1 assessment with therapeutic conversation and active listening, provided clear and simple instructions, medication administration/education/monitoring, provided ongoing education regarding handwashing r/t positive MRSA in the nares, behavior monitoring and intervention as needed; coping skills education, distraction, redirection, limit setting, encouragement and positive reinforcement provided, and maintained Q 15 minute safety checks. Restraints/seclusion/emergency medication: Justification of Continued Inpatient Treatment: Pt needs medication management and monitoring in a safe and therapeutic environment until stable. Pt is GD and now LPS conserved and waiting for placement.
[2021-05-21] MEDS: LORazepam 0.5 MG tablet PO SCH ×3 (07:28→21:44)
[2021-05-21] MEDS: divalproex sod 125mg sprinkle cap PO SCH ×2 (07:28→21:44)
[2021-05-21] MEDS: quetiapine 100mg tablet PO SCH ×4 (07:29→21:45)
[2021-05-21] MEDS: oxcarbazepine 150mg tablet PO SCH ×2 (07:29→21:44)
[2021-05-21 08:10] VITALS: BP 151/81
[2021-05-21 08:26] LABS: BASOPHILS % (AUTO) 0.7 % (0-1); EOSINOPHILS # (AUTO) 0.1 X10'3 (0-0.9); EOSINOPHILS % (AUTO) 2.2 % (0-6); HEMATOCRIT 34.8 % (35.0-45.0); LYMPHOCYTES # (AUTO) 1.3 X10'3 (1.1-4.8); LYMPHOCYTES % (AUTO) 42.9 % (21-51); MEAN CORPUSCULAR HEMOGLOBIN 32.8 PG (27.0-31.0); MEAN CORPUSCULAR HGB CONC 34.5 g/dL (33.0-36.5); MEAN PLATELET VOLUME 9.2 FL (7.4-10.4); MONOCYTES # (AUTO) 0.5 X10'3 (0-0.9); NEUTROPHILS # (AUTO) 1.1 X10'3 (1.8-7.7); NEUTROPHILS % (AUTO) 37.2 % (42-75); PLATELET COUNT 136 X10'3 (140-440); RED BLOOD COUNT 3.66 X10'6 (4.20-5.60); RED CELL DISTRIBUTION WIDTH 15.2 % (11.5-14.5)
[2021-05-21 08:57] LABS: ALANINE AMINOTRANSFERASE 22 U/L (12-78); ALBUMIN 3.2 G/DL (3.4-5.0); ALBUMIN/GLOBULIN RATIO 0.7 (1.1-1.5); ALKALINE PHOSPHATASE 133 IU/L (46-116); ANION GAP 7 (8-16); ASPARTATE AMINO TRANSFERASE 19 U/L (10-37); BILIRUBIN,TOTAL 0.3 MG/DL (0.1-1.0); BLOOD UREA NITROGEN 26 MG/DL (7-18); BUN/CREATININE RATIO 33.3 (6.6-38.0); CALCIUM 8.8 MG/DL (8.5-10.1); CHLORIDE 97 MMOL/L (99-107); CREATININE 0.78 MG/DL (0.40-0.90); GLUCOSE 107 MG/DL (70-104); POTASSIUM 4.5 MMOL/L (3.5-5.1); SODIUM 134 MMOL/L (135-145); TOTAL CARBON DIOXIDE 30.2 MMOL/L (24-32); TOTAL PROTEIN 7.5 G/DL (6.4-8.2); eGFR 75 ML/MIN
[2021-05-21 09:44] LABS: LARGE PLATELETS FEW; PLATELET ESTIMATE DECREASED; TOTAL CELLS COUNTED 100
--- NOTE | 2021-05-21 09:53 | NUR ---
Pt. attended group today. We talked about how we all look at the world differently due to our core beliefs. These core beliefs then inform thoughts and behaviors. Each pt. identified one negative core belief and then wrote out three truths that contradict their negative beliefs to work on thinking differently. Pt. engaged well in the group today. She mostly was quiet but did speak up a few times to encourage others when they shared. She herself did not share her own thoughts. She left half way through the group. She was alert and oriented X 4. Her thought content and thought process was WNL. Her demeanor was calm, compliant and pleasant to work with. Cookie Velez LCSW
--- NOTE | 2021-05-21 11:50 | NUR ---
Nursing Progress Note: Legal hold: LPS Client on involuntary status for GD Report received from MARJAN Chavez and use of SBAR Why are they here: Client was transported to [facility] by [employer] for disruptive behavior. Hx of multiple ED visits and several Inpatient Psych admits. Hx of wandering into traffic, trespassing, and disorderly conduct. She is currently homeless. Assessment What has happened this shift: Pt continues to be in a better mood, no yelling outbursts today. Pt spent time socializing with other pts and staff in the halls and was observed interacting appropriately. Pt showered during the morning and reported feeling better afterwards. Pt was less sedated today. All meds were taken without issue S/I, H/I: Denies A/VH: Denies Sleep: 10 hrs ADL's: Independent Group attendance: No Were meds taken: Yes Any med S/E: None Mental Status Exam Appearance: Older woman wearing green scrubs Eye contact: Good Behavior: Cooperative Speech: Normal tones Mood: Calm Affect: Congruent with mood Thought process: Linear Thought Content: Linear Cognition: A&O X3 Insight: Fair Judgment: Fair Interventions PRN's used: None Therapeutic interventions: Maintained a safe and supportive environment, ensured contract for safety, provided clear and simple instructions, attempted to orient to reality, provided active listening and positive encouragement, maintained clear boundaries r/t behaviors, provided ongoing education regarding handwashing r/t positive MRSA, and maintained Q 15min safety checks. Restraints/seclusion/emergency medication: N/A Justification of Continued Inpatient Treatment: Per Dr. Maria, pt. is stable at baseline and mood lability is behavioral r/t poor coping skills. She continues to require a safe and supportive environment.
[2021-05-21 20:39] VITALS: BP 136/76
[2021-05-21] MEDS: traZODone 50mg tablet PO SCH (21:45)
--- NOTE | 2021-05-22 03:40 | NUR ---
Nursing Progress Note: Legal hold: LPS Client on involuntary status for GD. Report received from MARJAN Acuna with use of SBAR. Why they are here: Client was transported to [facility] by [employer] for disruptive behavior. Client reported, "I was laying in the bed at my daughters house and the police came in a said 'We're here to help you.' They handcuffed me and took me to the Hospital." "I want to get out of here!" Client stated, "I don't remember anything else." According the medical record client has had multiple ED visits and several Inpatient Psych admits. Hx of wandering into traffic, trespassing, and disorderly conduct. Client reported she was living with her daughter in [place]. She is currently homeless. Assessment What has happened this shift: The patient was in her bed napping at shift change. She came out after a while. "I've been good all day. I've had a smile on my face all day and I'll keep it for you too. She did. The patient has been quiet tonight with no outburst. She slept most of it, but was up for snack and HS meds. S/I, H/I: Denies. A/VH: Denies. Sleep: See sleep assessment. ADL's: Independent. Group attendance: Yes Were Meds taken: Yes Any med S/E: None observed or reported. Mental Status Exam Appearance: Older woman with disheveled hair dressed in personal clothing. Eye contact: Good Behavior: Pleasant, cooperative, animated, labile. Speech: Clear, loud at times. Mood: Friendly Affect: Labile, congruent with mood. Thought process: Disorganized at times. Thought Content: Being placed. Cognition: A/O X 3. Insight: Poor. Judgment: Poor. Interventions PRN's used: Therapeutic interventions: 1:1 assessment with therapeutic conversation and active listening, provided clear and simple instructions, medication administration/education/monitoring, provided ongoing education regarding handwashing r/t positive MRSA in the nares, behavior monitoring and intervention as needed; coping skills education, distraction, redirection, limit setting, encouragement and positive reinforcement provided, and maintained Q 15 minute safety checks. Restraints/seclusion/emergency medication: Justification of Continued Inpatient Treatment: Pt needs medication management and monitoring in a safe and therapeutic environment until stable. Pt is GD and now LPS conserved and waiting for placement.
[2021-05-22] MEDS: divalproex sod 125mg sprinkle cap PO SCH ×2 (07:57→20:20)
[2021-05-22] MEDS: oxcarbazepine 150mg tablet PO SCH ×2 (07:57→20:21)
[2021-05-22] MEDS: quetiapine 100mg tablet PO SCH ×4 (07:58→20:21)
[2021-05-22] MEDS: LORazepam 0.5 MG tablet PO SCH ×3 (07:58→20:21)
[2021-05-22] MEDS: acetaminophen 325mg tablet PO PRN ×2 (07:58→20:31)
[2021-05-22 08:00] VITALS: BP 112/53
--- NOTE | 2021-05-22 14:25 | NUR ---
PLACEMENT Sent last 10 days of notes to [facility] for placement purposes. REJI Rome
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
--- NOTE | 2021-05-22 17:22 | NUR ---
Group Art Tx, Continued: Patient was able to focus and remain in the group setting without any disruptions or interruptions. She chose to remain practicing the relaxation and watching the video. She did not draw however did journal from the topic. She wrote: I am standing at the Doorway to [facility], "I think HOME, I feel Good, I wish Happy, I want Love, I need Care, I will pray I believe in Jordi, I am Happy." Patient was able to listen and respond appropriately to her peers, having an increased ability to listen, making supportive comments. *Please refer to the [facility] Case Notes for entire overview. Keysha Rogel MA, [facility] #[id number] Art Therapist Addendum: 05/22/21 at 1724 by Keysha Rogel SS Amended: Links added.
[2021-05-22 20:00] VITALS: BP 132/88
[2021-05-22] MEDS: traZODone 50mg tablet PO SCH (20:21)
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
[2021-05-23 08:00] VITALS: BP 219/78
[2021-05-23] MEDS: divalproex sod 125mg sprinkle cap PO SCH ×2 (08:04→20:00)
[2021-05-23] MEDS: quetiapine 100mg tablet PO SCH ×4 (08:04→20:01)
[2021-05-23] MEDS: oxcarbazepine 150mg tablet PO SCH ×2 (08:04→20:00)
[2021-05-23] MEDS: LORazepam 0.5 MG tablet PO SCH ×3 (08:04→20:01)
[2021-05-23] MEDS: acetaminophen 325mg tablet PO PRN (08:05)
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
[2021-05-23 19:20] VITALS: BP 120/55
[2021-05-23] MEDS: traZODone 50mg tablet PO SCH (20:01)
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
--- NOTE | 2021-05-24 07:34 | NUR ---
Reassessment: Pt continues eating well with mostly 100% PO intake on regular diet while receiving double protein TID per diet order exceeding estimated nutrient needs. [facility] 05/23. No nutrition intervention at this time. Will continue to monitor. Recommendations: 1. Continue regular diet; double eggs WB double, meat BIDLD per diet order 2. Bowel care per rx 3. Weekly scaled wts Addendum: 05/24/21 at [address] Amended: Links added.
[2021-05-24 07:37] VITALS: BP 120/87
[2021-05-24] MEDS: oxcarbazepine 150mg tablet PO SCH ×2 (07:53→20:00)
[2021-05-24] MEDS: quetiapine 100mg tablet PO SCH ×4 (07:53→20:00)
[2021-05-24] MEDS: LORazepam 0.5 MG tablet PO SCH ×3 (07:53→20:00)
[2021-05-24] MEDS: divalproex sod 125mg sprinkle cap PO SCH ×2 (07:53→19:59)
[2021-05-24] MEDS: acetaminophen 325mg tablet PO PRN (12:46)
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
[2021-05-24 20:00] VITALS: BP 98/60
[2021-05-24] MEDS: traZODone 50mg tablet PO SCH (20:21)
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
[2021-05-25] MEDS: quetiapine 100mg tablet PO SCH ×4 (07:12→20:38)
[2021-05-25] MEDS: LORazepam 0.5 MG tablet PO SCH ×3 (07:12→20:38)
[2021-05-25] MEDS: oxcarbazepine 150mg tablet PO SCH ×2 (07:12→20:37)
[2021-05-25] MEDS: divalproex sod 125mg sprinkle cap PO SCH ×2 (07:12→20:35)
[2021-05-25 08:44] VITALS: BP 110/49
[2021-05-25] MEDS: acetaminophen 325mg tablet PO PRN ×2 (09:49→20:44)
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
[2021-05-25 19:30] VITALS: BP 112/65
[2021-05-25] MEDS: traZODone 50mg tablet PO SCH (20:37)
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
[2021-05-26] MEDS: divalproex sod 125mg sprinkle cap PO SCH ×2 (07:53→20:21)
[2021-05-26] MEDS: LORazepam 0.5 MG tablet PO SCH ×3 (07:53→20:24)
[2021-05-26] MEDS: oxcarbazepine 150mg tablet PO SCH ×2 (07:53→20:24)
[2021-05-26] MEDS: quetiapine 100mg tablet PO SCH ×4 (07:53→20:24)
[2021-05-26 08:01] VITALS: BP 132/72
[2021-05-26] MEDS: acetaminophen 325mg tablet PO PRN (08:36)
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
[2021-05-26 19:38] VITALS: BP 133/59
[2021-05-26] MEDS: traZODone 50mg tablet PO SCH (20:23)
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
[2021-05-27] MEDS: divalproex sod 125mg sprinkle cap PO SCH ×2 (07:43→19:53)
[2021-05-27] MEDS: LORazepam 0.5 MG tablet PO SCH ×3 (07:44→19:52)
[2021-05-27] MEDS: oxcarbazepine 150mg tablet PO SCH ×2 (07:44→19:51)
[2021-05-27] MEDS: quetiapine 100mg tablet PO SCH ×4 (07:44→19:52)
[2021-05-27 08:00] VITALS: BP 118/88
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
[2021-05-27 19:19] VITALS: BP 126/80
[2021-05-27] MEDS: traZODone 50mg tablet PO SCH (19:53)
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
[2021-05-28] MEDS: oxcarbazepine 150mg tablet PO SCH ×2 (08:32→20:14)
[2021-05-28] MEDS: divalproex sod 125mg sprinkle cap PO SCH ×2 (08:32→20:15)
[2021-05-28] MEDS: LORazepam 0.5 MG tablet PO SCH ×3 (08:32→20:15)
[2021-05-28] MEDS: quetiapine 100mg tablet PO SCH ×4 (08:32→20:14)
[2021-05-28 08:40] VITALS: BP 103/56
--- NOTE | 2021-05-28 13:06 | NUR ---
PLACEMENT Sent the last week of notes to [facility]. Requested they send updated notes to [facility] to see if they will re-consider as Alondra is doing significantly better. Requested information from Mental Health as to where Alondra's packet has been sent. REJI Rome
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
[2021-05-28] MEDS: traZODone 50mg tablet PO SCH (20:15)
[2021-05-28 20:24] VITALS: BP 103/58
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
[2021-05-29] MEDS: divalproex sod 125mg sprinkle cap PO SCH ×2 (08:29→20:18)
[2021-05-29] MEDS: oxcarbazepine 150mg tablet PO SCH ×2 (08:29→20:17)
[2021-05-29] MEDS: quetiapine 100mg tablet PO SCH ×4 (08:29→20:16)
[2021-05-29] MEDS: LORazepam 0.5 MG tablet PO SCH ×3 (08:29→20:17)
[2021-05-29 09:14] VITALS: BP 110/55
--- NOTE | 2021-05-29 14:47 | NUR ---
Pt. attended group today. Today's group was about the different communications styles i.e passive, aggressive and assertive. We discussed what the characteristics of each style was. We then discussed where they saw themselves at now and where they would like to be with their communication style. Patients were led through an activity where they paired up with a peer to actively listen to the share about themselves to practice the skill of actively listening. Pt. engaged well in the group today, she worked well with her peer listening to them and then was able to share about what he told her about himself easily. She was alert and oriented X 4. Her thought process and thought content were WNL. She shared that she feels she can be both passive at time and aggressive at time (she referred to her shouting spells as when she feels aggressive). She was able to make a great connection today about how when she was a child her father would tell say, "Children are to be seen and not heard". She reported that she did not like it when he said that and wonders if her outburst now are her way of feeling heard by the dad she wanted to hear her when she was a child. This Seed Corn Production Manager affirmed her insight. Her demeanor today was calm, compliant and pleasant to work with. She can at times perseverate on a topic but was amendable to redirection by this Seed Corn Production Manager. She reported that she learned today how important it is to not interrupt someone or talk over someone when they are talking in order to make a connection with someone. Cookie Velez, WASHROOM CLEANER
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
--- NOTE | 2021-05-29 17:19 | NUR ---
Group Art Tx, Continued: Patient entered the group session late,however, was able to catch up and participate appropriately. Patient was demonstrating and increased ability to monitor her communication and tone of voice today. Patient was mindful of "not interrupting when others' are talking". Patient was positive and interactive with her peers. *Please refer to the [facility] Group Notes for entire overview. Keysha Rogel MA, FAMILY DEVELOPMENT EXTENSION SPECIALIST #[id number] [facility] Art Therapist Addendum: 05/29/21 at 1720 by Keysha Rogel SS Amended: Links added.
[2021-05-29] MEDS: traZODone 50mg tablet PO SCH (20:17)
[2021-05-29 20:39] VITALS: BP 119/64
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
[2021-05-30 07:49] VITALS: BP 119/64
[2021-05-30] MEDS: quetiapine 100mg tablet PO SCH ×4 (07:51→20:43)
[2021-05-30] MEDS: oxcarbazepine 150mg tablet PO SCH ×2 (07:52→20:44)
[2021-05-30] MEDS: LORazepam 0.5 MG tablet PO SCH ×3 (07:52→20:42)
[2021-05-30] MEDS: divalproex sod 125mg sprinkle cap PO SCH ×2 (07:52→20:39)
[2021-05-30] MEDS: acetaminophen 325mg tablet PO PRN (09:16)
--- NOTE | 2021-05-30 14:40 | NUR ---
We talked about Boundaries, the different kinds and how to communicate our boundaries to others. Each pt. did a written activity to help them identify a person/situation they struggle to set boundaries in. Pt. engaged in the group discussion. She shared many times to the point where this Freight Receiver would have to redirect to give others the opportunity to talk. She was amenable to redirection. Her thoughts were appropriate and on topic. She was alert and oriented X 4. Her mood was upbeat with a full range of affect. She spoke a lot about how she knows her shouting isn't helpful and that she is working on not doing that anymore. Cookie Chan, [employer] SIDING INSTALLER
--- NOTE | 2021-05-30 17:14 | NUR ---
Group Art Tx, Continued: Patient attending group arriving 15 minutes after the session had started. Patient was able to catch up with the directives, choosing to read her handout, v.s. answering the questions. Patient seemed pleased that she could respond and comprehend to the questions. Patient described feeling "in a really good mood today." Patient was easily re-directed when she needed to stop talking and share the floor with the next patient. Please refer to the [facility] Group Notes for further detail/overview of session. Keysha Rogel MA, [facility] #[id number], Art/Rec Therapist Addendum: 05/30/21 at 1724 by Keysha Rogel SS Amended: Links added.
--- NOTE | 2021-05-30 18:12 | NUR ---
Nursing Progress Note: Legal hold: LPS Client on involuntary status for GD Report received from charge nurse, MARJAN Benitez and use of SBAR Why are they here: Client was transported to [facility] by [employer] for disruptive behavior. Hx of multiple ED visits and several Inpatient Psych admits. Hx of wandering into traffic, trespassing, and disorderly conduct. She is currently homeless. Assessment What has happened this shift: RN received pt. asleep in bed at start of shift. Pt. awoke for breakfast and took all medications. Pt. in a jovial mood throughout the day, laughing and joking with peers and staff. Pt. attempt to be helpful with staff and peers, offering to get peers things as well as asking if she can wipe down tables. Pt. denies all psych symptoms, and states, Im gonna be good, no more yelling, Im taking my medications. Pt. napped intermittently throughout the day. Pt. attended groups and observed playing card games with peers in the day room. S/I, H/I: Denies A/VH: Denies Sleep: Pt. slept 8 hrs on NOC shift and napped intermittently throughout the day. ADL's: Independent Group attendance: Yes Were meds taken: Yes Any med S/E: None observed or reported Mental Status Exam Appearance: Clean and neat, wearing casual attire recently acquired from [employer]. Eye contact: WNL Behavior: Cooperative, social, attending groups, napping frequently. Speech: WNL Mood: Euthymic becoming jovial at times. Affect: Congruent with mood. Thought process: Linear Thought Content: Circumstantial. Cognition: A&O X3 Insight: Fair Judgment: Fair Interventions PRN's used: None Therapeutic interventions: Maintained a safe and supportive environment, ensured contract for safety, provided clear and simple instructions, attempted to orient to reality, provided active listening and positive encouragement, maintained clear boundaries r/t behaviors, provided ongoing education regarding handwashing r/t positive MRSA, and maintained Q 15min safety checks. Restraints/seclusion/emergency medication: N/A Justification of Continued Inpatient Treatment: Per Dr. Maria, pt. is stable at baseline and mood lability is behavioral r/t poor coping skills. She continues to require a safe and supportive environment. She will continue her current medications prescribed. Continue milieu therapy. Social service to continue search for housing, as patienti s conserved with [facility].
[2021-05-30] MEDS: traZODone 50mg tablet PO SCH (20:41)
[2021-05-30 20:52] VITALS: BP 109/66
--- NOTE | 2021-05-31 01:29 | NUR ---
Nursing Progress Note: Legal hold: LPS Client on involuntary status for GD Report received from charge nurse, MARJAN Pope and use of SBAR Why are they here: Client was transported to [facility] by [employer] for disruptive behavior. Hx of multiple ED visits and several Inpatient Psych admits. Hx of wandering into traffic, trespassing, and disorderly conduct. She is currently homeless. Assessment What has happened this shift: Patient was observed sleeping at beginning of shift. Patient later got up and walked around unit socializing with other patients. Patient took all night medications and ate snack. Patient watching tv in the community room for a short time before going to bed. Patient slept without difficulty. S/I, H/I: Denies A/VH: Denies. Sleep: See sleep assessment ADL's: Independent Group attendance: n/a Were meds taken: Yes Any med S/E: None observed or reported Mental Status Exam Appearance: Short Older women wearing personal clothing Eye contact: Good Behavior: Cooperative, polite, social Speech: Clear, WNL, loud at times Mood: Happy, pleasant Affect: Congruent with mood, Full range Thought process: Circumstantial, tangential Thought Content: Meeting needs. Wants to buy a trailer to live in and tell the magisterial district judge that she always tells the truth. Cognition: A&O X3 Insight: Fair Judgment: Fair Interventions PRN's used: None Therapeutic interventions: Maintained a safe and supportive environment, ensured contract for safety, provided clear and simple instructions, attempted to orient to reality, provided active listening and positive encouragement, maintained clear boundaries r/t behaviors, provided ongoing education regarding handwashing r/t positive MRSA, and maintained Q 15min safety checks. Restraints/seclusion/emergency medication: N/A Justification of Continued Inpatient Treatment: Per Dr. Maria, pt. is stable at baseline and mood lability is behavioral r/t poor coping skills. She continues to require a safe and supportive environment. She will continue her current medications prescribed. Continue milieu therapy. Social service to continue search for housing, as patienti s conserved with [facility].
[2021-05-31] MEDS: divalproex sod 125mg sprinkle cap PO SCH ×2 (07:33→20:33)
[2021-05-31] MEDS: LORazepam 0.5 MG tablet PO SCH ×3 (07:33→20:36)
[2021-05-31] MEDS: oxcarbazepine 150mg tablet PO SCH ×2 (07:33→20:35)
[2021-05-31] MEDS: quetiapine 100mg tablet PO SCH ×4 (07:33→20:35)
--- NOTE | 2021-05-31 07:33 | NUR ---
Reassessment: Pt continues eating well with mostly 100% PO intake on regular diet while receiving double protein TID per diet order exceeding estimated nutrient needs. [facility] 05/29. No nutrition intervention at this time. Will continue to monitor. Recommendations: 1. Continue regular diet; double eggs WB double, meat BIDLD per diet order 2. Bowel care per rx 3. Weekly scaled wts Addendum: 05/31/21 at [address] Amended: Links added.
[2021-05-31 07:39] VITALS: BP 104/44
[2021-05-31] MEDS: acetaminophen 325mg tablet PO PRN (13:16)
--- NOTE | 2021-05-31 13:42 | NUR ---
Pt. attended group today. We talked about Communication today focusing on how to utilize I messages. This Die Polisher shared how to create an I message and then we practiced writing them on the board. Pt engaged in the group speaking out a lot. Her thoughts tended to be loose associations to what was actually being discussed. We were talking about creating "I messages" - when the scenario was about a job situation instead of sharing what the I message should be she talked about the job situation and what she would do and what others should do when they are working. She wasn't quite following what the discussion was about. She was amenable to redirection and at the end of the group she apologized to this Die Polisher for interrupting in the group. Her mood was upbeat with a full range of affect. Her demeanor was calm and pleasant. Cookie Velez LCSW
--- NOTE | 2021-05-31 17:42 | NUR ---
Nursing Progress Note: Legal hold: LPS Client on involuntary status for GD Report received from charge nurse, MARJAN Benitez and use of SBAR Why are they here: Client was transported to [facility] by [employer] for disruptive behavior. Hx of multiple ED visits and several Inpatient Psych admits. Hx of wandering into traffic, trespassing, and disorderly conduct. She is currently homeless. Assessment What has happened this shift: RN received pt. asleep in bed at start of shift. Pt. awoke for breakfast and took all medications. Pt. in a good mood throughout the day, laughing, and joking with peers and staff. Pt. attempts to be helpful with staff, requesting to wipe down tables. Pt. denies all psych symptoms, and states, Im good!. Pt. napped x2 during the day. Pt. attended groups and engaged. Pt. observed playing card games with peers in the day room and overheard laughing loudly. Pt. c/o of neck pain rated 10/10 and given Tylenol 650mg po with good effect. S/I, H/I: Denies A/VH: Denies Sleep: Pt. slept 8 hrs on NOC shift and napped intermittently throughout the day. ADL's: Independent Group attendance: Yes Were meds taken: Yes Any med S/E: None observed or reported Mental Status Exam Appearance: Clean and neat, wearing casual attire. Eye contact: WNL Behavior: Cooperative, social, attending groups, napping, playing games and socializing with peers and staff. Speech: WNL Mood: Euthymic, becoming jovial at times. Affect: Congruent with mood. Thought process: Linear. Thought Content: Circumstantial. Cognition: A&O X3 Insight: Fair Judgment: Fair Interventions PRN's used: Tylenol 650mg po x1 Therapeutic interventions: Maintained a safe and supportive environment, ensured contract for safety, provided clear and simple instructions, attempted to orient to reality, provided active listening and positive encouragement, maintained clear boundaries r/t behaviors, provided ongoing education regarding handwashing r/t positive MRSA, and maintained Q 15min safety checks. Restraints/seclusion/emergency medication: N/A Justification of Continued Inpatient Treatment: Per Dr. Maria, pt. is stable at baseline and mood lability is behavioral r/t poor coping skills. She continues to require a safe and supportive environment. She will continue her current medications prescribed. Continue milieu therapy. Social service to continue search for housing, as patient is conserved with [facility].
[2021-05-31 19:25] VITALS: BP 131/72
[2021-05-31] MEDS: traZODone 50mg tablet PO SCH (20:34)
--- NOTE | 2021-06-01 01:49 | NUR ---
Nursing Progress Note: Legal hold: LPS Client on involuntary status for GD Report received from charge nurse, MARJAN Pope and use of SBAR Why are they here: Client was transported to [facility] by [employer] for disruptive behavior. Hx of multiple ED visits and several Inpatient Psych admits. Hx of wandering into traffic, trespassing, and disorderly conduct. She is currently homeless. Assessment What has happened this shift: Patient was observed sleeping at beginning of shift. Patient got up and walked around unit talking to other patients and staff. Patient participated in snack time and watched tv in the community room. Patient was socializing when she suddenly started yelling and hysterically crying. Patient was told she was going to be leaving soon since she had been doing so good. Patient thought she was going home and didn't know she was going to be placed at a facility. Patient became very agitated ,yelling she doesn't want to be held forever!". She just wants to go home to her family and back to her life. Nurse and tech tried to calm the patient down and reorient. Patient calmed down once she realized that she would only be conserved for a year and would get another chance to prove she can take care of herself and possibly go home. Patient then began to excessively apologize to everyone for her outburst and stated it wont happen again i was just really upset but now i understand. Patient was given broth and crackers and went to sleep. S/I, H/I: Denies A/VH: Denies. Sleep: See sleep assessment ADL's: Independent Group attendance: n/a Were meds taken: Yes Any med S/E: None observed or reported Mental Status Exam Appearance: Short Older women wearing personal clothing Eye contact: Good Behavior: Cooperative, polite, social Speech: Clear, WNL, loud at times Mood: Happy, pleasant Affect: Congruent with mood, Full range Thought process: Circumstantial, tangential Thought Content: Meeting needs. Cognition: A&O X3 Insight: Fair Judgment: Fair Interventions PRN's used: None Therapeutic interventions: Maintained a safe and supportive environment, ensured contract for safety, provided clear and simple instructions, attempted to orient to reality, provided active listening and positive encouragement, maintained clear boundaries r/t behaviors, provided ongoing education regarding handwashing r/t positive MRSA, and maintained Q 15min safety checks. Restraints/seclusion/emergency medication: N/A Justification of Continued Inpatient Treatment: Per Dr. Maria, pt. is stable at baseline and mood lability is behavioral r/t poor coping skills. She continues to require a safe and supportive environment. She will continue her current medications prescribed. Continue milieu therapy. Social service to continue search for housing, as patienti s conserved with [facility].
[2021-06-01 08:00] VITALS: BP 114/57
[2021-06-01] MEDS: divalproex sod 125mg sprinkle cap PO SCH ×2 (08:06→20:54)
[2021-06-01] MEDS: LORazepam 0.5 MG tablet PO SCH ×3 (08:07→21:19)
[2021-06-01] MEDS: quetiapine 100mg tablet PO SCH ×4 (08:07→21:19)
[2021-06-01] MEDS: oxcarbazepine 150mg tablet PO SCH ×2 (08:07→20:54)
[2021-06-01] MEDS: acetaminophen 325mg tablet PO PRN (08:40)
--- NOTE | 2021-06-01 11:33 | NUR ---
MARIANA Assisted Alondra with an interview via zoom with [facility] staff, Tiffanie. Alondra did well. Tiffanie reported they will make a decision either today or early next week. REJI Rome
--- NOTE | 2021-06-01 16:33 | NUR ---
Nursing Progress Note: Legal hold: LPS Client on involuntary status for GD Report received from OBED Cisse with use of SBAR Why are they here: Client was transported to [facility] by [employer] for disruptive behavior. Hx of multiple ED visits and several Inpatient Psych admits. Hx of wandering into traffic, trespassing, and disorderly conduct. She is currently homeless. Assessment What has happened this shift: Patient resting quietly in bed at the start of the shift. Eats breakfast in the community room and interacts appropriately with staff and peers. Complains of neck pain relieved by PRN Tylenol. In late morning patient noted crying in bed. States, Its not you guys I just want out of here. I want my freedom back! Staff provides therapeutic listening and positive encouragement which is very effective for patient who is then noted in the hallways socializing with staff and talking about wanting to visit the unit after her discharge. Naps x1 in the afternoon. S/I, H/I: Denies A/VH: Denies Sleep: Sleeps 2 hours in the morning. Naps x1 in the afternoon ADL's: Independent Group attendance: Yes Were meds taken: Yes Any med S/E: None observed or reported Mental Status Exam Appearance: Older edentulous woman with long disheveled hair pulled back wearing casual personal attire appropriate for unit. Eye contact: Good Behavior: Cooperative, social Speech: Clear, normal rate/ volume, occasionally loud Mood: Good. Affect: Full range, Congruent Thought process: Circumstantial Thought Content: Wanting placement. Cognition: A&O X3 not to situation Insight: Poor Judgment: Poor- Fair Interventions PRN's used: Tylenol Therapeutic interventions: Maintained a safe and supportive environment, ensured contract for safety, provided clear and simple instructions, attempted to orient to reality, provided active listening and positive encouragement, maintained clear boundaries r/t behaviors, provided ongoing education regarding handwashing r/t positive MRSA, and maintained Q 15min safety checks. Restraints/seclusion/emergency medication: N/A Justification of Continued Inpatient Treatment: Per Dr. Maria, pt. is stable at baseline and mood lability is behavioral r/t poor coping skills. She continues to require a safe and supportive environment. She will continue her current medications prescribed. Continue milieu therapy. Social service to continue search for housing, as patient is conserved with [facility].
[2021-06-01 19:00] VITALS: BP 106/52
[2021-06-01] MEDS: traZODone 50mg tablet PO SCH (21:19)
--- NOTE | 2021-06-02 05:21 | NUR ---
Nursing Progress Note: Legal hold: LPS Client on involuntary status for GD Report received from charge nurse, MARJAN Perez and use of SBAR Why are they here: Client was transported to [facility] by [employer] for disruptive behavior. Hx of multiple ED visits and several Inpatient Psych admits. Hx of wandering into traffic, trespassing, and disorderly conduct. She is currently homeless. Assessment What has happened this shift: RN received pt. awake and lying in bed at start of shift. 1:1 done at bedside, pt. reports she feels good but is tired. Pt. gives minimal information during 1:1. Pt. woken up for evening medications, pt. took all medications and went back to sleep. PLACEMENT UPDATE: Per social work note, Assisted Alondra with an interview via zoom with [facility] staff, Tiffanie. Alondra did well. Tiffanie reported they will make a decision either today or early next week. S/I, H/I: Denies A/VH: Denies Sleep: See sleep assessment ADL's: Independent Group attendance: NA Were meds taken: Yes Any med S/E: Denies Mental Status Exam Appearance: Clean and neat, wearing casual attire. Eye contact: WNL Behavior: Cooperative, tired, withdrew to room to sleep. Speech: WNL Mood: Euthymic, tired. Affect: Congruent with mood. Thought process: Linear. Thought Content: Circumstantial. Cognition: A&O X3 Insight: Fair Judgment: Fair Interventions PRN's used: None Therapeutic interventions: Maintained a safe and supportive environment, ensured contract for safety, provided clear and simple instructions, attempted to orient to reality, provided active listening and positive encouragement, maintained clear boundaries r/t behaviors, provided ongoing education regarding handwashing r/t positive MRSA, and maintained Q 15min safety checks. Restraints/seclusion/emergency medication: N/A Justification of Continued Inpatient Treatment: Per Dr. Maria, pt. is stable at baseline and mood lability is behavioral r/t poor coping skills. She continues to require a safe and supportive environment. She will continue her current medications prescribed. Continue milieu therapy. Social service to continue search for housing, as patient is conserved with [facility].
[2021-06-02] MEDS: divalproex sod 125mg sprinkle cap PO SCH ×2 (07:24→20:02)
[2021-06-02] MEDS: oxcarbazepine 150mg tablet PO SCH ×2 (07:25→20:03)
[2021-06-02] MEDS: quetiapine 100mg tablet PO SCH ×4 (07:25→20:02)
[2021-06-02] MEDS: LORazepam 0.5 MG tablet PO SCH ×3 (07:25→20:02)
[2021-06-02 08:00] VITALS: BP 110/73
[2021-06-02] MEDS: acetaminophen 325mg tablet PO PRN (12:15)
--- NOTE | 2021-06-02 17:13 | NUR ---
Nursing Progress Note: Legal hold: LPS Client on involuntary status for GD Report received from OBED Cisse with use of SBAR Why they are here: Client was transported to [facility] by [employer] for disruptive behavior. Hx of multiple ED visits and several Inpatient Psych admits. Hx of wandering into traffic, trespassing, and disorderly conduct. She is currently homeless. Assessment What has happened this shift: Patient resting quietly in bed at the start of the shift. Eats breakfast in the community room and interacts appropriately with staff and peers. Agreeable to room change to accommodate admission. Cooperative with medications and 1:1 assessment. Naps off and on throughout the day. Noted socializing on the unit with staff and peers. Continues to talk about wanting placement so she can have her freedom back and smoke. Patient is social and pleasant in the afternoon and watches TV in the Rec room. S/I, H/I: Denies A/VH: Denies Sleep: Naps off and on throughout the day. ADL's: Independent Group attendance: NA Were meds taken: Yes Any med S/E: None observed or reported Mental Status Exam Appearance: Older edentulous woman with long disheveled hair pulled back wearing casual personal attire appropriate for unit. Eye contact: Good Behavior: Cooperative, social Speech: Clear, normal rate/ volume, occasionally loud Mood: Good. Affect: Full range, Congruent Thought process: Circumstantial Thought Content: Wanting placement soon so that she can smoke. Cognition: A&O X3 not to situation Insight: Poor Judgment: Poor- Fair Interventions PRN's used: Tylenol Therapeutic interventions: Maintained a safe and supportive environment, ensured contract for safety, provided clear and simple instructions, attempted to orient to reality, provided active listening and positive encouragement, maintained clear boundaries r/t behaviors, provided ongoing education regarding handwashing r/t positive MRSA, and maintained Q 15min safety checks. Restraints/seclusion/emergency medication: N/A Justification of Continued Inpatient Treatment: Per Dr. Maria, pt. is stable at baseline and mood lability is behavioral r/t poor coping skills. She continues to require a safe and supportive environment. She will continue her current medications prescribed. Continue milieu therapy. Social service to continue search for housing, as patient is conserved with [facility].
[2021-06-02 20:00] VITALS: BP 112/87
[2021-06-02] MEDS: traZODone 50mg tablet PO SCH (20:02)
--- NOTE | 2021-06-03 00:02 | NUR ---
Nursing Progress Note: Legal hold: LPS Client on involuntary status for GD Report received from charge nurse, Armand RN and use of SBAR Why are they here: Client was transported to [facility] by [employer] for disruptive behavior. Hx of multiple ED visits and several Inpatient Psych admits. Hx of wandering into traffic, trespassing, and disorderly conduct. She is currently homeless. Assessment What has happened this shift: Pt continues to improve while she awaits placement. Pt is friendly and cooperative for all assessments and care and is generally well liked but staff and peers. Pt denies having any concerns and expresses gratitude to staff for taking care of me. Pt accepted hs meds without issue. S/I, H/I: Denies A/VH: Denies Sleep: See sleep assessment ADL's: Independent Group attendance: NA Were meds taken: Yes Any med S/E: Denies Mental Status Exam Appearance: Clean and neat, wearing casual attire. Eye contact: WNL Behavior: Cooperative, tired, withdrew to room to sleep. Speech: WNL Mood: Euthymic, tired. Affect: Congruent with mood. Thought process: Linear. Thought Content: Circumstantial. Cognition: A&O X3 Insight: Fair Judgment: Fair Interventions PRN's used: None Therapeutic interventions: Maintained a safe and supportive environment, ensured contract for safety, provided clear and simple instructions, attempted to orient to reality, provided active listening and positive encouragement, maintained clear boundaries r/t behaviors, provided ongoing education regarding handwashing r/t positive MRSA, and maintained Q 15min safety checks. Restraints/seclusion/emergency medication: N/A Justification of Continued Inpatient Treatment: Per Dr. Maria, pt. is stable at baseline and mood lability is behavioral r/t poor coping skills. She continues to require a safe and supportive environment. She will continue her current medications prescribed. Continue milieu therapy. Social service to continue search for housing, as patient is conserved with [facility].
[2021-06-03 08:33] VITALS: BP 99/63
[2021-06-03] MEDS: oxcarbazepine 150mg tablet PO SCH ×2 (08:49→20:56)
[2021-06-03] MEDS: divalproex sod 125mg sprinkle cap PO SCH ×2 (08:49→20:55)
[2021-06-03] MEDS: LORazepam 0.5 MG tablet PO SCH ×3 (08:50→20:55)
[2021-06-03] MEDS: quetiapine 100mg tablet PO SCH ×4 (08:50→20:56)
[2021-06-03] MEDS: acetaminophen 325mg tablet PO PRN (09:15)
[2021-06-03 16:23] LABS: EOSINOPHILS # (AUTO) 0.1 X10'3 (0-0.9); EOSINOPHILS % (AUTO) 1.8 % (0-6); HEMATOCRIT 30.8 % (35.0-45.0); HEMOGLOBIN 10.7 g/dl (12.0-16.0); LYMPHOCYTES # (AUTO) 1.7 X10'3 (1.1-4.8); LYMPHOCYTES % (AUTO) 34.3 % (21-51); MEAN CORPUSCULAR HEMOGLOBIN 33.3 PG (27.0-31.0); MEAN CORPUSCULAR HGB CONC 34.8 g/dL (33.0-36.5); MEAN CORPUSCULAR VOLUME 95.8 FL (78-98); MEAN PLATELET VOLUME 8.2 FL (7.4-10.4); MONOCYTES # (AUTO) 0.7 X10'3 (0-0.9); MONOCYTES % (AUTO) 13.8 % (2-12); NEUTROPHILS # (AUTO) 2.5 X10'3 (1.8-7.7); NEUTROPHILS % (AUTO) 49.1 % (42-75); PLATELET COUNT 233 X10'3 (140-440); RED BLOOD COUNT 3.22 X10'6 (4.20-5.60); RED CELL DISTRIBUTION WIDTH 14.8 % (11.5-14.5); WHITE BLOOD COUNT 5.1 X10'3 (4.5-11.0)
--- NOTE | 2021-06-03 16:37 | NUR ---
Nursing Progress Note: Alondra Tang Legal hold: LPS Client on involuntary status for GD Report received from [facility] with use of SBAR Why they are here: Client was transported to [facility] by [employer] for disruptive behavior. Hx of multiple ED visits and several Inpatient Psych admits. Hx of wandering into traffic, trespassing, and disorderly conduct. She is currently homeless. Assessment What has happened this shift: Patient was observed sleeping in bed at change of shift. She was awoken to join in the community room with peers for breakfast. She continues to present as calm, happy, and cooperative with care. Patient was observed socializing with peers throughout the morning. She retreated back to her room where 1:1 assessment was completed. Lungs CTA with no s/s of distress. Patient endorsed that she is feeling really good today and wants to take a nap. She is compliant with all medications. She endorsed to this freelance writer that she doesnt want to spend the rest of her life in court. Patient endorsing that she wants to live a little bit and go outside and go hiking. Patient given PRN Tylenol and an ice pack for c/o neck pain at 0915 with effectiveness. She denies SI/HI, AH or VH. Does not appear to be responding to internal stimuli. Patient had no outbursts noted on this shift. Will continue to monitor. She was observed napping on and off throughout the day. She continues to socialize with other peers and continues to be active on the unit. Patient was observed walking around the unit later in the day, laughing and socializing appropriately. She participated in the community room for all snack and meal times. S/I, H/I: Denies A/VH: Denies. Does not appear to be responding to IS. Sleep: Naps off and on throughout the day. ADL's: Independent Group attendance: No group provided today Were meds taken: Yes Any med S/E: None observed or reported Mental Status Exam Appearance: Older edentulous woman with long disheveled hair pulled back, wearing casual personal attire appropriate for unit. Eye contact: Good Behavior: Cooperative, social, labile Speech: Clear, normal rate/ volume, occasionally loud Mood: Feeling great today Affect: Full range, Congruent Thought process: Circumstantial Thought Content: Wanting placement, doesnt want to spend the rest of her life in court. Cognition: A&O x3, not to situation Insight: Poor Judgment: Poor - Fair Interventions PRN's used: Tylenol Therapeutic interventions: Maintained a safe and supportive environment, ensured contract for safety, provided clear and simple instructions, attempted to orient to reality, provided active listening and positive encouragement, maintained clear boundaries r/t behaviors, provided ongoing education regarding handwashing r/t positive MRSA, and maintained Q 15min safety checks. Restraints/seclusion/emergency medication: N/A Justification of Continued Inpatient Treatment: Per Dr. Maria, pt. is stable at baseline and mood lability is behavioral r/t poor coping skills. She continues to require a safe and supportive environment. She will continue her current medications prescribed. Continue milieu therapy. Social service to continue search for housing, as patient is conserved with [facility].
[2021-06-03 16:50] LABS: TOTAL CELLS COUNTED 100
[2021-06-03 16:51] LABS: PLATELET ESTIMATE NORMAL
[2021-06-03 19:39] VITALS: BP 105/56
[2021-06-03] MEDS: traZODone 50mg tablet PO SCH (20:56)
--- NOTE | 2021-06-04 01:13 | NUR ---
Nursing Progress Note: Legal hold: LPS Client on involuntary status for GD Report received from [facility] with use of SBAR Why they are here: Client was transported to [facility] by [employer] for disruptive behavior. Hx of multiple ED visits and several Inpatient Psych admits. Hx of wandering into traffic, trespassing, and disorderly conduct. She is currently homeless. Assessment What has happened this shift: Pt up on unit at start of shift. Pt is pleasant and cooperative with care. Interacts pleasantly with staff and other pts. Up to group room for [facility]. S/I, H/I: Denies A/VH: Denies. Does not appear to be responding to IS. Sleep: Naps off and on throughout the day. ADL's: Independent Group attendance: No group provided today Were meds taken: Yes Any med S/E: None observed or reported Mental Status Exam Appearance: Neat and well groomed. Eye contact: Good Behavior: Pleasnt and cooperative Speech: Clear, normal rate/ volume, occasionally loud Mood: Feeling great today Affect: Full range, Congruent Thought process: Circumstantial Thought Content: Placement Cognition: A&O x3, not to situation Insight: Fair Judgment: Fair Interventions PRN's used: none Therapeutic interventions: Maintained a safe and supportive environment, ensured contract for safety, provided clear and simple instructions, attempted to orient to reality, provided active listening and positive encouragement, maintained clear boundaries r/t behaviors, provided ongoing education regarding handwashing r/t positive MRSA, and maintained Q 15min safety checks. Restraints/seclusion/emergency medication: N/A Justification of Continued Inpatient Treatment: Per Dr. Maria, pt. is stable at baseline and mood lability is behavioral r/t poor coping skills. She continues to require a safe and supportive environment. She will continue her current medications prescribed. Continue milieu therapy. Social service to continue search for housing, as patient is conserved with [facility].
[2021-06-04 09:00] VITALS: BP 116/79
[2021-06-04] MEDS: divalproex sod 125mg sprinkle cap PO SCH ×2 (09:05→20:19)
[2021-06-04] MEDS: oxcarbazepine 150mg tablet PO SCH ×2 (09:05→20:22)
[2021-06-04] MEDS: LORazepam 0.5 MG tablet PO SCH ×3 (09:05→20:21)
[2021-06-04] MEDS: quetiapine 100mg tablet PO SCH ×4 (09:06→20:21)
--- NOTE | 2021-06-04 09:44 | NUR ---
Pt. attended group today. We talked about hearing voices and read an article about coping strategies. We discussed what coping strategies they had success with in the past. We talking about developing coping skills. Pt. engaged in the group well. She reported that she is feeling happy but is missing her cat. She was alert and oriented X 4. Her thought content was WNL but her thought process tends get circumstantial. She is usually amenable to redirection. She would start on topic but then go off into what her understanding was of the topic at hand. She was compliant and calm. She was pleasant to work with and to everyone in the group. Cookie Velez LCSW
--- NOTE | 2021-06-04 10:14 | NUR ---
Requested information from [facility], via email on where Alondra's packet is currently. REJI Rome
--- NOTE | 2021-06-04 17:06 | NUR ---
Nursing Progress Note: Alondra Tang Legal hold: LPS Client on involuntary status for GD Report received from [facility] with use of SBAR Why they are here: Client was transported to [facility] by [employer] for disruptive behavior. Hx of multiple ED visits and several Inpatient Psych admits. Hx of wandering into traffic, trespassing, and disorderly conduct. She is currently homeless. Assessment What has happened this shift: Patient was observed sleeping in her room at shift change. She joined in the community room for breakfast, noted socializing appropriately with peers. Patient appears to be in a pleasant mood this morning, and continues to present as calm, cooperative, and composed. 1:1 assessment completed, lungs CTA. She is compliant with all medications. Patient was observed sleeping in her room throughout the morning. Upon awaking, she endorsed to this production underwriter that she has been more tired than usual. She denies SI/HI, AH or VH. Does not appear to be responding to internal stimuli. Patient was observed crying in her room later in the day, when this production underwriter intervened, patient stated that she was crying for her cat. She continues to socialize with other peers and continues to be active on the unit. Patient continues to endorse plans of buying a trailer to live in once she proves her good behavior. She had no outbursts noted on this shift. Will continue to monitor. She was observed napping on and off throughout the day. Patient was noted walking around the unit later in the day, laughing and socializing appropriately. She participated in the community room for all snack and meal times. S/I, H/I: Denies A/VH: Denies. Does not appear to be responding to IS. Sleep: Pt slept 7.25 hours last night per NOC shift. Naps off and on throughout the day. ADL's: Independent Group attendance: No Were meds taken: Yes Any med S/E: None observed or reported Mental Status Exam Appearance: Older edentulous woman with long disheveled hair pulled back, wearing casual personal attire appropriate for unit. Eye contact: Good Behavior: Cooperative, social, labile Speech: Clear, normal rate/ volume, occasionally loud Mood: Pleasant, social Affect: Full range, Congruent Thought process: Circumstantial Thought Content: Perseveration on placement, wanting to buy a trailer to live in. Cognition: A&O x3, not to situation Insight: Poor Judgment: Poor - Fair Interventions PRN's used: None Therapeutic interventions: Maintained a safe and supportive environment, ensured contract for safety, provided clear and simple instructions, attempted to orient to reality, provided active listening and positive encouragement, maintained clear boundaries r/t behaviors, provided ongoing education regarding handwashing r/t positive MRSA, and maintained Q 15min safety checks. Restraints/seclusion/emergency medication: N/A Justification of Continued Inpatient Treatment: Per Dr. Maria, pt. is stable at baseline and mood lability is behavioral r/t poor coping skills. She continues to require a safe and supportive environment. She will continue her current medications prescribed. Continue milieu therapy. Social service to continue search for housing, as patient is conserved with [facility].
[2021-06-04 19:32] VITALS: BP 157/88
[2021-06-04] MEDS: traZODone 50mg tablet PO SCH (20:20)
--- NOTE | 2021-06-05 01:42 | NUR ---
Nursing Progress Note: Legal hold: LPS Client on involuntary status for GD Report received from [facility] with use of SBAR Why they are here: Client was transported to [facility] by [employer] for disruptive behavior. Hx of multiple ED visits and several Inpatient Psych admits. Hx of wandering into traffic, trespassing, and disorderly conduct. She is currently homeless. Assessment What has happened this shift: Patient was found talking on phone to daughter at beginning of shift. Patient suddenly started yelling, screaming and crying. Patient stated shouting that her daughter doesn't care about her and that she is leaving her here. Patient doesn't want to be here forever and feels that we are holding her. Patient just wants to get her trailer and move on with her life. Patient continued to yell and become more agitated. Nurse tried to give patient something to help her calm down but patient has no PRN. Patient eventually stopped shouting but continued to cry on and off throughout night. Patient took all night medications and ate snack before returning to bed. S/I, H/I: Denies A/VH: Denies. Does not appear to be responding to IS. Sleep: See sleep assessment ADL's: Independent Group attendance: No Were meds taken: Yes Any med S/E: None observed or reported Mental Status Exam Appearance: Older edentulous woman with long hair pulled back, wearing casual personal attire appropriate for unit. Eye contact: Good Behavior: Cooperative, social,frustrated Speech: Clear, normal rate/ volume, occasionally loud Mood: Pleasant, social Affect: Full range, Congruent Thought process: Circumstantial Thought Content: Anger at daughter , upset about still being here . Cognition: A&O x3, not to situation Insight: Poor Judgment: Poor - Fair Interventions PRN's used: None Therapeutic interventions: Maintained a safe and supportive environment, ensured contract for safety, provided clear and simple instructions, attempted to orient to reality, provided active listening and positive encouragement, maintained clear boundaries r/t behaviors, provided ongoing education regarding handwashing r/t positive MRSA, and maintained Q 15min safety checks. Restraints/seclusion/emergency medication: N/A Justification of Continued Inpatient Treatment: Per Dr. Maria, pt. is stable at baseline and mood lability is behavioral r/t poor coping skills. She continues to require a safe and supportive environment. She will continue her current medications prescribed. Continue milieu therapy. Social service to continue search for housing, as patient is conserved with [facility].
[2021-06-05 07:00] VITALS: BP 96/60
[2021-06-05] MEDS: quetiapine 100mg tablet PO SCH ×4 (07:48→20:47)
[2021-06-05] MEDS: LORazepam 0.5 MG tablet PO SCH ×3 (07:48→20:49)
[2021-06-05] MEDS: divalproex sod 125mg sprinkle cap PO SCH ×2 (07:48→20:46)
[2021-06-05] MEDS: oxcarbazepine 150mg tablet PO SCH ×2 (07:48→20:48)
--- NOTE | 2021-06-05 17:17 | NUR ---
Nursing Progress Note: Alondra Tang Legal hold: LPS Client on involuntary status for GD Report received from [facility] with use of SBAR Why they are here: Client was transported to [facility] by [employer] for disruptive behavior. Hx of multiple ED visits and several Inpatient Psych admits. Hx of wandering into traffic, trespassing, and disorderly conduct. She is currently homeless. Assessment What has happened this shift: Patient was observed sleeping in her room at change of shift. She joined in the community room for breakfast, noted socializing appropriately with peers. She is compliant with all medications. She [id number] back to her room after breakfast. 1:1 assessment completed, lungs CTA. She denies SI/HI, AH or VH. Does not appear to be responding to internal stimuli. Patient endorsed frustration over a phone call with her daughter last night that upset her. She continues endorsing plans of buying a trailer and living in a nice mobile park that is cleaned up and safe. Patient continues to be social with other peers on the unit and cooperative with care. She was observed napping on and off throughout the day. Patient was noted to be upset later in the day, observed sobbing in her room. She endorsed to this curriculum writer that her rights are being taken away and concern over her cat being left outside in the cold. Patient was redirected and reassured by staff. She participated in the community room for all snack and meal times. S/I, H/I: Denies A/VH: Denies. Does not appear to be responding to IS. Sleep: Pt slept 7.5 hours last night per NOC shift. Naps off and on throughout the day. ADL's: Independent Group attendance: No Were meds taken: Yes Any med S/E: None observed or reported Mental Status Exam Appearance: Older edentulous woman with long disheveled hair pulled back, wearing casual personal attire appropriate for unit. Eye contact: Good Behavior: Cooperative, social, labile Speech: Clear, normal rate/ volume, occasionally loud Mood: Pleasant, social Affect: Full range, Congruent Thought process: Circumstantial Thought Content: Perseveration on placement, wanting to buy a trailer to live in. Cognition: A&O x3, not to situation Insight: Poor Judgment: Poor - Fair Interventions PRN's used: None Therapeutic interventions: Maintained a safe and supportive environment, ensured contract for safety, provided clear and simple instructions, attempted to orient to reality, provided active listening and positive encouragement, maintained clear boundaries r/t behaviors, provided ongoing education regarding handwashing r/t positive MRSA, and maintained Q 15min safety checks. Restraints/seclusion/emergency medication: N/A Justification of Continued Inpatient Treatment: Per Dr. Maria, pt. is stable at baseline and mood lability is behavioral r/t poor coping skills. She continues to require a safe and supportive environment. She will continue her current medications prescribed. Continue milieu therapy. Social service to continue search for housing, as patient is conserved with [facility].
[2021-06-05 20:07] VITALS: BP 101/54
[2021-06-05] MEDS: traZODone 50mg tablet PO SCH (20:48)
--- NOTE | 2021-06-06 02:17 | NUR ---
Nursing Progress Note: Legal hold: LPS Client on involuntary status for GD Report received from [facility] with use of SBAR Why they are here: Client was transported to [facility] by [employer] for disruptive behavior. Hx of multiple ED visits and several Inpatient Psych admits. Hx of wandering into traffic, trespassing, and disorderly conduct. She is currently homeless. Assessment What has happened this shift: Patient was found sleeping at beginning of shift. Patient continued to sleep until nurse came in with night medications. Patient took all medications without issue and went back to sleep. Patient didn't participate in any night activates or leave room except for once in middle of the night for refreshments. S/I, H/I: Denies A/VH: Denies. Does not appear to be responding to IS. Sleep: See sleep assessment ADL's: Independent Group attendance: No Were meds taken: Yes Any med S/E: None observed or reported Mental Status Exam Appearance: Older woman with long disheveled hair pulled back, wearing casual personal attire appropriate for unit. Eye contact: Good Behavior: Cooperative, social, labile Speech: Clear, normal rate/ volume, occasionally loud Mood: Pleasant, social Affect: Full range, Congruent Thought process: Circumstantial Thought Content: Perseveration on placement, wanting to buy a trailer to live in. Cognition: A&O x3, not to situation Insight: Poor Judgment: Poor - Fair Interventions PRN's used: None Therapeutic interventions: Maintained a safe and supportive environment, ensured contract for safety, provided clear and simple instructions, attempted to orient to reality, provided active listening and positive encouragement, maintained clear boundaries r/t behaviors, provided ongoing education regarding handwashing r/t positive MRSA, and maintained Q 15min safety checks. Restraints/seclusion/emergency medication: N/A Justification of Continued Inpatient Treatment: Per Dr. Maria, pt. is stable at baseline and mood lability is behavioral r/t poor coping skills. She continues to require a safe and supportive environment. She will continue her current medications prescribed. Continue milieu therapy. Social service to continue search for housing, as patient is conserved with [facility].
[2021-06-06] MEDS: divalproex sod 125mg sprinkle cap PO SCH ×2 (07:40→20:02)
[2021-06-06] MEDS: oxcarbazepine 150mg tablet PO SCH ×2 (07:40→20:06)
[2021-06-06] MEDS: LORazepam 0.5 MG tablet PO SCH ×3 (07:40→20:05)
[2021-06-06] MEDS: quetiapine 100mg tablet PO SCH ×4 (07:41→20:04)
[2021-06-06 08:00] VITALS: BP 96/52
--- NOTE | 2021-06-06 16:10 | NUR ---
Nursing Progress Note: Legal hold: LPS Client on involuntary status for GD Report received from [facility] with use of SBAR. Why they are here: Client was transported to [facility] by [employer] for disruptive behavior. Hx of multiple ED visits and several Inpatient Psych admits. Hx of wandering into traffic, trespassing, and disorderly conduct. She is currently homeless. Assessment What has happened this shift: Patient resting quietly in bed at the start of the shift. Eats in the community room and interacts appropriately with staff and peers. Pleasant and social on the unit. Cooperative with 1:1 assessment and medications. Patient takes a nap in the early afternoon. Remains calm and cooperative stating, No more of that yelling. The research project manager says it depends on my behavior if I can get a trailer later on. S/I, H/I: Denies A/VH: Denies. Sleep: 2 hours in the morning. Naps x1 in the early afternoon ADL's: Independent Group attendance: Yes Were meds taken: Yes Any med S/E: None observed or reported. Mental Status Exam Appearance: Older edentulous woman with long disheveled hair pulled back, wearing casual personal attire appropriate for unit. Eye contact: Good Behavior: Cooperative, social Speech: Clear, normal rate/ volume, occasionally loud Mood: Very good. Affect: Full range, Congruent Thought process: Circumstantial Thought Content: Perseverates on placement and discharge. Cognition: A&O x3, not to situation Insight: Poor Judgment: Poor - Fair Interventions PRN's used: None Therapeutic interventions: Maintained a safe and supportive environment, ensured contract for safety, provided clear and simple instructions, attempted to orient to reality, provided active listening and positive encouragement, maintained clear boundaries r/t behaviors, provided ongoing education regarding handwashing r/t positive MRSA, and maintained Q 15min safety checks. Restraints/seclusion/emergency medication: N/A Justification of Continued Inpatient Treatment: Per Dr. Maria, pt. is stable at baseline and mood lability is behavioral r/t poor coping skills. She continues to require a safe and supportive environment. She will continue her current medications prescribed. Continue milieu therapy. Social service to continue search for housing, as patient is conserved with [facility].
[2021-06-06 19:51] VITALS: BP 107/51
[2021-06-06] MEDS: traZODone 50mg tablet PO SCH (20:05)
--- NOTE | 2021-06-07 03:45 | NUR ---
Nursing Progress Note: Legal hold: LPS Client on involuntary status for GD Report received from [facility] with use of SBAR. Why they are here: Client was transported to [facility] by [employer] for disruptive behavior. Hx of multiple ED visits and several Inpatient Psych admits. Hx of wandering into traffic, trespassing, and disorderly conduct. She is currently homeless. Assessment What has happened this shift: Patient was found sleeping in bed at beginning of shift. Patient got up when called for snack time and socialized in community room with other patients. Patient was calmer today and in a more positive mood. Patient took all scheduled medications and then walked around talking to other patients before going to bed. S/I, H/I: Denies A/VH: Denies. Sleep: See sleep assessment ADL's: Independent Group attendance: Yes Were meds taken: Yes Any med S/E: None observed or reported. Mental Status Exam Appearance: Older edentulous woman with long disheveled hair pulled back, wearing casual personal attire appropriate for unit. Eye contact: Good Behavior: Cooperative, social Speech: Clear, normal rate/ volume, occasionally loud Mood: Very good. Affect: Full range, Congruent Thought process: Circumstantial Thought Content: Perseverates on placement and discharge. Cognition: A&O x3, not to situation Insight: Poor Judgment: Poor - Fair Interventions PRN's used: None Therapeutic interventions: Maintained a safe and supportive environment, ensured contract for safety, provided clear and simple instructions, attempted to orient to reality, provided active listening and positive encouragement, maintained clear boundaries r/t behaviors, provided ongoing education regarding handwashing r/t positive MRSA, and maintained Q 15min safety checks. Restraints/seclusion/emergency medication: N/A Justification of Continued Inpatient Treatment: Per Dr. Maria, pt. is stable at baseline and mood lability is behavioral r/t poor coping skills. She continues to require a safe and supportive environment. She will continue her current medications prescribed. Continue milieu therapy. Social service to continue search for housing, as patient is conserved with [facility].
--- NOTE | 2021-06-07 07:20 | NUR ---
Reassessment: Pt continues eating well with mostly 100% PO intake on regular diet while receiving double protein TID per diet order exceeding estimated nutrient needs. [facility] 06/05. No nutrition intervention at this time. Will continue to monitor. Recommendations: 1. Continue regular diet; double eggs WB double, meat BIDLD per diet order 2. Bowel care per rx 3. Weekly scaled wts Addendum: 06/07/21 at [address] Amended: Links added.
[2021-06-07] MEDS: divalproex sod 125mg sprinkle cap PO SCH ×2 (07:40→19:15)
[2021-06-07] MEDS: LORazepam 0.5 MG tablet PO SCH ×3 (07:40→20:02)
[2021-06-07] MEDS: quetiapine 100mg tablet PO SCH ×4 (07:40→20:02)
[2021-06-07] MEDS: oxcarbazepine 150mg tablet PO SCH ×2 (07:40→19:16)
[2021-06-07 07:51] VITALS: BP 127/79
--- NOTE | 2021-06-07 17:18 | NUR ---
Nursing Progress Note: Legal hold: LPS Client on involuntary status for GD Report received from Eli CLAY with use of SBAR. Why they are here: Client was transported to [facility] by [employer] for disruptive behavior. Hx of multiple ED visits and several Inpatient Psych admits. Hx of wandering into traffic, trespassing, and disorderly conduct. She is currently homeless. Assessment What has happened this shift: Patient resting quietly in bed at the start of the shift. Eats in the community room and interacts appropriately with staff and peers. Cooperative with medications and 1:1 assessment. Socializes on the unit telling staff and peers, Happy Thanksgiving! , Jose De Jesus here to visit today which patient appears happy about. Naps on and off throughout the day. Between naps patient socializes on the unit and watches TV. S/I, H/I: Denies A/VH: Denies. Sleep: 1 hour in the morning. Naps off and on during the day. ADL's: Independent Group attendance: NA Were meds taken: Yes Any med S/E: None observed or reported. Mental Status Exam Appearance: Older edentulous woman with long disheveled hair pulled back, wearing casual personal attire appropriate for unit. Eye contact: Good Behavior: Cooperative, social Speech: Clear, normal rate/ volume, occasionally loud Mood: Good. Affect: Full range, Congruent Thought process: Circumstantial Thought Content: Meeting needs. Placement and discharge. Cognition: A&O x3, not to situation Insight: Poor Judgment: Poor - Fair Interventions PRN's used: None Therapeutic interventions: Maintained a safe and supportive environment, ensured contract for safety, provided clear and simple instructions, attempted to orient to reality, provided active listening and positive encouragement, maintained clear boundaries r/t behaviors, provided ongoing education regarding handwashing r/t positive MRSA, and maintained Q 15min safety checks. Restraints/seclusion/emergency medication: N/A Justification of Continued Inpatient Treatment: Per Dr. Maria, pt. is stable at baseline and mood lability is behavioral r/t poor coping skills. She continues to require a safe and supportive environment. She will continue her current medications prescribed. Continue milieu therapy. Social service to continue search for housing, as patient is conserved with [facility].
[2021-06-07 19:00] VITALS: BP 124/68
[2021-06-07] MEDS: traZODone 50mg tablet PO SCH (20:02)
--- NOTE | 2021-06-07 23:00 | NUR ---
Nursing Progress Note: Legal hold: LPS Client on involuntary status for GD Report received from Ana CLAY with use of SBAR. Why they are here: Client was transported to [facility] by [employer] for disruptive behavior. Hx of multiple ED visits and several Inpatient Psych admits. Hx of wandering into traffic, trespassing, and disorderly conduct. She is currently homeless. Assessment What has happened this shift: Pt started the evening shift off crying loudly for approx. 15 minutes but pt calmed down and had a better evening. Pt was laughing and joking with staff and peers during dinner and did not have any further behavior issues. Pt denies all mh symptoms, accepts all hs meds without issue. S/I, H/I: Denies A/VH: Denies. Sleep: See sleep assessment ADL's: Independent Group attendance: Yes Were meds taken: Yes Any med S/E: None observed or reported. Mental Status Exam Appearance: Older edentulous woman with long disheveled hair pulled back, wearing casual personal attire appropriate for unit. Eye contact: Good Behavior: Cooperative, social Speech: Clear, normal rate/ volume, occasionally loud Mood: Very good. Affect: Full range, Congruent Thought process: Circumstantial Thought Content: Perseverates on placement and discharge. Cognition: A&O x3, not to situation Insight: Poor Judgment: Poor - Fair Interventions PRN's used: None Therapeutic interventions: Maintained a safe and supportive environment, ensured contract for safety, provided clear and simple instructions, attempted to orient to reality, provided active listening and positive encouragement, maintained clear boundaries r/t behaviors, provided ongoing education regarding handwashing r/t positive MRSA, and maintained Q 15min safety checks. Restraints/seclusion/emergency medication: N/A Justification of Continued Inpatient Treatment: Per Dr. Maria, pt. is stable at baseline and mood lability is behavioral r/t poor coping skills. She continues to require a safe and supportive environment. She will continue her current medications prescribed. Continue milieu therapy. Social service to continue search for housing, as patient is conserved with [facility].
[2021-06-08] MEDS: LORazepam 0.5 MG tablet PO SCH ×3 (07:12→20:01)
[2021-06-08] MEDS: divalproex sod 125mg sprinkle cap PO SCH ×2 (07:12→19:13)
[2021-06-08] MEDS: quetiapine 100mg tablet PO SCH ×4 (07:12→20:01)
[2021-06-08 07:13] VITALS: BP 131/68
[2021-06-08] MEDS: oxcarbazepine 150mg tablet PO SCH ×2 (07:14→19:15)
--- NOTE | 2021-06-08 16:02 | NUR ---
Nursing Progress Note: Legal hold: LPS Client on involuntary status for GD Report received from Tanna CLAY with use of SBAR Why they are here: Client was transported to [facility] by [employer] for disruptive behavior. Hx of multiple ED visits and several Inpatient Psych admits. Hx of wandering into traffic, trespassing, and disorderly conduct. She is currently homeless. Assessment What has happened this shift: Patient resting quietly in bed at the start of the shift. Awake prior to breakfast requesting coffee. Socializes with staff on the unit and interacts appropriately. Eats breakfast in the community room and is calm and pleasant. Cooperative with medications and 1:1 assessment. Naps off and on. After lunch patient becomes upset about wanting to discharge and has a brief episode of yelling and is tearful. Patient later noted crying in her room and yelling, I hate God! S/I, H/I: Denies A/VH: Denies. Sleep: 1 hour in the morning. Naps off and on throughout the day. ADL's: Independent Group attendance: NA Were meds taken: Yes Any med S/E: None observed or reported. Mental Status Exam Appearance: Older edentulous woman with long disheveled hair pulled back, wearing casual personal attire appropriate for unit. Eye contact: Good Behavior: Cooperative, social, Labile Speech: Clear, normal rate/ volume, occasionally loud Mood: Good. Affect: Full range, Congruent Thought process: Circumstantial Thought Content: Meeting needs. Placement and discharge. Cognition: A&O x3, not to situation Insight: Poor Judgment: Poor - Fair Interventions PRN's used: None Therapeutic interventions: Maintained a safe and supportive environment, ensured contract for safety, provided clear and simple instructions, attempted to orient to reality, provided active listening and positive encouragement, maintained clear boundaries r/t behaviors, provided ongoing education regarding handwashing r/t positive MRSA, and maintained Q 15min safety checks. Restraints/seclusion/emergency medication: N/A Justification of Continued Inpatient Treatment: Per Dr. Maria, pt. is stable at baseline and mood lability is behavioral r/t poor coping skills. She continues to require a safe and supportive environment. She will continue her current medications prescribed. Continue milieu therapy. Social service to continue search for housing, as patient is conserved with [facility].
[2021-06-08 19:00] VITALS: BP 104/79
[2021-06-08] MEDS: traZODone 50mg tablet PO SCH (20:01)
--- NOTE | 2021-06-09 00:40 | NUR ---
Nursing Progress Note: Legal hold: LPS Client on involuntary status for GD Report received from Ana CLAY with use of SBAR. Why they are here: Client was transported to [facility] by [employer] for disruptive behavior. Hx of multiple ED visits and several Inpatient Psych admits. Hx of wandering into traffic, trespassing, and disorderly conduct. She is currently homeless. Assessment What has happened this shift: Pt started the evening shift off feeling frustrated after being told that her behavior is why she has not been placed. Pt feels like her behavior has improved and she shouldnt have to stay here longer. Pt was able to calm herself down without yelling and had a good evening. S/I, H/I: Denies A/VH: Denies. Sleep: See sleep assessment ADL's: Independent Group attendance: Yes Were meds taken: Yes Any med S/E: None observed or reported. Mental Status Exam Appearance: Older edentulous woman with long disheveled hair pulled back, wearing casual personal attire appropriate for unit. Eye contact: Good Behavior: Cooperative, social Speech: Clear, normal rate/ volume, occasionally loud Mood: Very good. Affect: Full range, Congruent Thought process: Circumstantial Thought Content: Perseverates on placement and discharge. Cognition: A&O x3, not to situation Insight: Poor Judgment: Poor - Fair Interventions PRN's used: None Therapeutic interventions: Maintained a safe and supportive environment, ensured contract for safety, provided clear and simple instructions, attempted to orient to reality, provided active listening and positive encouragement, maintained clear boundaries r/t behaviors, provided ongoing education regarding handwashing r/t positive MRSA, and maintained Q 15min safety checks. Restraints/seclusion/emergency medication: N/A Justification of Continued Inpatient Treatment: Per Dr. Maria, pt. is stable at baseline and mood lability is behavioral r/t poor coping skills. She continues to require a safe and supportive environment. She will continue her current medications prescribed. Continue milieu therapy. Social service to continue search for housing, as patient is conserved with [facility].
[2021-06-09 07:14] VITALS: BP 113/60
[2021-06-09] MEDS: divalproex sod 125mg sprinkle cap PO SCH ×2 (07:53→20:30)
[2021-06-09] MEDS: quetiapine 100mg tablet PO SCH ×4 (07:53→20:31)
[2021-06-09] MEDS: oxcarbazepine 150mg tablet PO SCH ×2 (07:53→20:31)
[2021-06-09] MEDS: LORazepam 0.5 MG tablet PO SCH ×3 (07:53→20:31)
--- NOTE | 2021-06-09 15:46 | NUR ---
Nursing Progress Note: Legal hold: LPS Client on involuntary status for GD Report received from RN with use of SBAR Why are they here: Client was transported to [facility] by [employer] for disruptive behavior. According the medical record client has had multiple ED visits and several Inpatient Psych admits. Hx of wandering into traffic, trespassing, and disorderly conduct. She is currently homeless. Assessment What has happened this shift: Received Pt in bed sleeping w/o distress at the beginning of the shift. Pt woke for vitals and ate breakfast well. Pt took AM meds and scheduled meds throughout the day w/o issue. Pt tolerated assessments well and was pleasant in conversation. Pt tired and napped good portion of the day, enjoying her meals and snacks. She did not have episodes of screaming and outbursts today. S/I, H/I: Denies A/VH: Denies, does not appear internally preoccupied Sleep: Pt napped ADL's: Requires encouragement Group attendance: No Were meds taken: Yes Any med S/E: None Mental Status Exam Appearance: Casual Eye contact: Good Behavior: Cooperative, pleasant Speech: Coherent, pressured at times Mood: Subdued Affect: Pleasant Thought process: Ruminates at times Thought Content: Snacks, meeting needs Cognition: A&O X3 (not to reason here) Insight: Fair Judgment: Fair Interventions PRN's used: None Therapeutic interventions: Maintained a safe and supportive environment, ensured contract for safety, provided clear and simple instructions, attempted to orient to reality, provided active listening and positive encouragement, maintained clear boundaries r/t behaviors, provided ongoing education regarding handwashing r/t positive MRSA, and maintained Q 15min safety checks. Restraints/seclusion/emergency medication: N/A Justification of Continued Inpatient Treatment: Per Dr. Maria, pt. is stable at baseline and mood lability is behavioral r/t poor coping skills. She continues to require a safe and supportive environment. Discharge will be per public guardian.
[2021-06-09 19:00] VITALS: BP 106/57
[2021-06-09] MEDS: traZODone 50mg tablet PO SCH (20:31)
--- NOTE | 2021-06-10 02:27 | NUR ---
Nursing Progress Note: Legal hold: LPS Client on involuntary status for GD Report received from Ana PHILLIP with use of SBAR Why are they here: Client was transported to [facility] by [employer] for disruptive behavior. According the medical record client has had multiple ED visits and several Inpatient Psych admits. Hx of wandering into traffic, trespassing, and disorderly conduct. She is currently homeless. Assessment What has happened this shift: Received Pt in bed sleeping w/o distress at the beginning of the shift. Pt woke for vitals and and came out to the community room at snack time. Pt took PM meds and allowed for an assessment and was pleasant in conversation. At around 0230, patient in her room laying down with headphones on but crying out. When asked what is wrong, are you in pain?, patient stated "no". When asked if sad, patient stated "I am, when listening to these songs". I asked patient if she could possibly be a little quieter as her neighbor sharing room was sleeping and she replied, "why, did she complain about me?" I explained that her neighbor was not complaining, but we could here her all the way down the hallway to which she got angry and stated, "what kind of place is this where you can't cry, and then before I could apologize, she ordered me to leave her room. I informed charger operator helper of what had just taken place, and not 5 minutes later, pt. was having a very loud conversation with charger operator helper about it. Patient then poked her head into charting room and stated " I am leaving in a week" and proceeded to go back to bed. S/I, H/I: Denies A/VH: Denies, does not appear internally preoccupied Sleep: ADL's: Requires encouragement Group attendance: Yes Were meds taken: Yes Any med S/E: None Mental Status Exam Appearance: Casual Eye contact: Good Behavior: Cooperative, pleasant Speech: Coherent, pressured at times Mood: Subdued Affect: Pleasant Thought process: Ruminates at times Thought Content: Snacks, meeting needs Cognition: A&O X3 (not to reason here) Insight: Fair Judgment: Fair Interventions PRN's used: None Therapeutic interventions: Maintained a safe and supportive environment, ensured contract for safety, provided clear and simple instructions, attempted to orient to reality, provided active listening and positive encouragement, maintained clear boundaries r/t behaviors, provided ongoing education regarding handwashing r/t positive MRSA, and maintained Q 15min safety checks. Restraints/seclusion/emergency medication: N/A Justification of Continued Inpatient Treatment: Per Dr. Maria, pt. is stable at baseline and mood lability is behavioral r/t poor coping skills. She continues to require a safe and supportive environment. Discharge will be per public guardian.
--- NOTE | 2021-06-10 05:56 | NUR ---
See sleep intervention for hours slept last night.
[2021-06-10] MEDS: LORazepam 0.5 MG tablet PO SCH ×3 (07:38→20:47)
[2021-06-10] MEDS: divalproex sod 125mg sprinkle cap PO SCH ×2 (07:38→20:46)
[2021-06-10] MEDS: oxcarbazepine 150mg tablet PO SCH ×2 (07:38→20:47)
[2021-06-10] MEDS: quetiapine 100mg tablet PO SCH ×4 (07:38→20:49)
[2021-06-10 08:53] VITALS: BP 118/71
--- NOTE | 2021-06-10 15:42 | NUR ---
Nursing Progress Note: EILEEN Legal hold: LPS Client on involuntary status for GD Report received from OBED Cisse with use of SBAR Why are they here: Client was transported to [facility] by [employer] for disruptive behavior. According the medical record client has had multiple ED visits and several Inpatient Psych admits. Hx of wandering into traffic, trespassing, and disorderly conduct. She is currently homeless. Assessment What has happened this shift: Received patient sleeping at shift change, no distress noted. Pt was awoken for breakfast where she attended then returned to her room to sleep. Pt was compliant with care and medication. No outbursts our loud conversation as of this writing. Pt made no delusional remarks, was polite with staff and peers. Pt states I enjoy talking to my roommate. Pt does present slightly fatigued, but states I feel really good. Pt was back and forth from her room to community room, social with select peers, but otherwise stayed in bed. S/I, H/I: Pt denies both. A/VH: Pt denies both. Sleep: Intermittent naps ADL's: Requires encouragement Group attendance: No scheduled group today. Were meds taken: Yes, without issue. Any med S/E: None reported or observed. Mental Status Exam Appearance: Disheveled, but clean. Dressed in personal attire. Eye contact: Good Behavior: Cooperative, calm, social with select peers. A little fatigued. Speech: Clear, pressured at times. Mood: Fatigued Affect: Congruent with mood. Thought process: Linear. Thought Content: Snacks, meeting needs Cognition: A&O X3 (not to reason here) Insight: Fair Judgment: Fair Interventions PRN's used: None Therapeutic interventions: Maintained a safe and supportive environment, provided clear and simple instructions, attempted to orient to reality, provided active listening and positive encouragement, maintained clear boundaries r/t behaviors, provided ongoing education regarding handwashing r/t positive MRSA, and maintained Q 15min safety checks. Restraints/seclusion/emergency medication: N/A Justification of Continued Inpatient Treatment: Per Dr. Maria, pt. is stable at baseline and mood lability is behavioral r/t poor coping skills. She continues to require a safe and supportive environment. Discharge will be per Public Guardian.
[2021-06-10 19:13] VITALS: BP 101/62
[2021-06-10] MEDS: traZODone 50mg tablet PO SCH (20:47)
--- NOTE | 2021-06-11 04:32 | NUR ---
Nursing Progress Note: Legal hold: LPS Client on involuntary status for GD Report received from Armand RN with use of SBAR. Why they are here: Client was transported to [facility] by [employer] for disruptive behavior. Hx of multiple ED visits and several Inpatient Psych admits. Hx of wandering into traffic, trespassing, and disorderly conduct. She is currently homeless. Assessment What has happened this shift: The patient was in bed where she stayed all night. She was easily woken, stating, "I'm just laying here sleeping having good dreams." She went back to sleep. At HS med pass, her meds were put in yogurt. She would not fully wake, but said put it in my mouth. She was given the yogurt, "Mmm good." S/I, H/I: Denies A/VH: Denies. Sleep: See sleep assessment ADL's: Independent Group attendance: Yes Were meds taken: Yes Any med S/E: None observed or reported. Mental Status Exam Appearance: Older edentulous woman with long disheveled hair pulled back, wearing casual personal attire appropriate for unit. Eye contact: Good Behavior: Cooperative, social, isolates Speech: Clear, normal rate/ volume, occasionally loud Mood: Very good. Affect: Full range, Congruent Thought process: Circumstantial Thought Content: Perseverates on placement and discharge. Cognition: A&O x3, not to situation Insight: Poor Judgment: Poor - Fair Interventions PRN's used: None Therapeutic interventions: Maintained a safe and supportive environment, ensured contract for safety, provided clear and simple instructions, attempted to orient to reality, provided active listening and positive encouragement, maintained clear boundaries r/t behaviors, provided ongoing education regarding handwashing r/t positive MRSA, and maintained Q 15min safety checks. Restraints/seclusion/emergency medication: N/A Justification of Continued Inpatient Treatment: Per Dr. Maria, pt. is stable at baseline and mood lability is behavioral r/t poor coping skills. She continues to require a safe and supportive environment. She will continue her current medications prescribed. Continue milieu therapy. Social service to continue search for housing, as patient is conserved with [facility].
[2021-06-11 08:00] VITALS: BP 99/41
[2021-06-11] MEDS: quetiapine 100mg tablet PO SCH ×4 (08:02→20:41)
[2021-06-11] MEDS: LORazepam 0.5 MG tablet PO SCH ×3 (08:02→20:41)
[2021-06-11] MEDS: oxcarbazepine 150mg tablet PO SCH ×2 (08:03→20:41)
[2021-06-11] MEDS: divalproex sod 125mg sprinkle cap PO SCH ×2 (08:03→20:41)
--- NOTE | 2021-06-11 15:00 | NUR ---
Nursing Progress Note: Legal hold: LPS Client on involuntary status for GD Report received from RN with use of SBAR Why are they here: Client was transported to [facility] by [employer] for disruptive behavior. According the medical record client has had multiple ED visits and several Inpatient Psych admits. Hx of wandering into traffic, trespassing, and disorderly conduct. She is currently homeless. Assessment What has happened this shift: Received Pt in bed sleeping w/o distress at the beginning of the shift. Pt woke for vitals and ate breakfast and lunch in community room with others. Pt took AM meds and scheduled meds throughout the day w/o issue. Pt tolerated assessments well and was pleasant. In late morning she had episode of screaming and ruminating on getting out. Pt able to respond to verbal intervention and talk with staff. Pt appears tired today and took naps in AM and PM. S/I, H/I: Denies A/VH: Denies, does not appear internally preoccupied Sleep: Pt napped ADL's: Requires encouragement Group attendance: No Were meds taken: Yes Any med S/E: None Mental Status Exam Appearance: Casual Eye contact: Good Behavior: Cooperative with an episode of screaming Speech: Coherent, pressured at times Mood: Subdued Affect: Pleasant Thought process: Ruminates at times Thought Content: Snacks, meeting needs Cognition: A&O X3 (not to reason here) Insight: Fair Judgment: Fair Interventions PRN's used: None Therapeutic interventions: Maintained a safe and supportive environment, ensured contract for safety, provided clear and simple instructions, attempted to orient to reality, provided active listening and positive encouragement, maintained clear boundaries r/t behaviors, provided ongoing education regarding handwashing r/t positive MRSA, and maintained Q 15min safety checks. Restraints/seclusion/emergency medication: N/A Justification of Continued Inpatient Treatment: Per Dr. Maria, pt. is stable at baseline and mood lability is behavioral r/t poor coping skills. She continues to require a safe and supportive environment. Discharge will be per public guardian.
[2021-06-11 19:26] VITALS: BP 96/60
[2021-06-11] MEDS: traZODone 50mg tablet PO SCH (20:41)
[2021-06-12] MEDS: quetiapine 100mg tablet PO SCH ×4 (07:45→20:55)
[2021-06-12] MEDS: oxcarbazepine 150mg tablet PO SCH ×2 (07:46→20:55)
[2021-06-12] MEDS: LORazepam 0.5 MG tablet PO SCH ×3 (07:46→20:55)
[2021-06-12] MEDS: divalproex sod 125mg sprinkle cap PO SCH ×2 (07:46→20:55)
[2021-06-12 08:55] VITALS: BP 120/52
--- NOTE | 2021-06-12 16:58 | NUR ---
Nursing Progress Note: Legal hold: LPS Client on involuntary status for GD Report received from nurse with use of SBAR: MARJAN Benitez Why are they here: Client was transported to [facility] by [employer] for disruptive behavior. Client reported, "I was laying in the bed at my daughters house and the police came in a said 'We're here to help you.' They handcuffed me and took me to the Hospital." "I want to get out of here!" Client stated, "I don't remember anything else." According the medical record client has had multiple ED visits and several Inpatient Psych admits. Hx of wandering into traffic, trespassing, and disorderly conduct. Client reported she was living with her daughter in [place]. She is currently homeless. Assessment What has happened this shift: Received pt. sleeping in bed at the beginning of the shift, she was awoken by staff to attend breakfast in the Group Room. Afterwards, pt. retreated back to bed, and napped intermittently during the shift. 1:1 completed at bedside, pt. presents as cooperative, however somewhat restless. She perseverates on her desire to discharge, and presents with what appear to be fixed delusions. Pt. states, "Someone is holding me here, I don't know who, but I just know it!" Pt. continues on in a circumstantial manner talking about a facility she may go to in [place], her yelling and how this may affect her placement, and then circles back to talking about what staff members she believes may be holding her here. This scientific technical writer attempted to re-orient pt. to reality, however she continues to appear fixed in her delusions. Pt. naps intermittently during the day, no agitated outbursts or yelling exhibited. S/I, H/I: Denies A/VH: Denies, does not appear internally preoccupied Sleep: Sleep hours are 9.5, and pt. naps intermittently during the day ADL's: Requires some direction Group attendance: Went to afternoon group Were meds taken: Yes Any med S/E: None Mental Status Exam Appearance: Neat and appropriately dressed Eye contact: Good Behavior: Cooperative, somewhat restless, and fatigued. Speech: Loud and child-like Mood: Pleasant Affect: Somewhat labile Thought process: Linear, becomes circumstantial with ongoing conversation Thought Content: Ongoing grandiose and paranoid delusions which appear to be fixed Cognition: A&O X3 (not to reason here) Insight: Fair Judgment: Fair Interventions PRN's used: None Therapeutic interventions: Maintained a safe and supportive environment, ensured contract for safety, provided clear and simple instructions, attempted to orient to reality, provided active listening and positive encouragement, maintained clear boundaries r/t behaviors, provided ongoing education regarding handwashing r/t positive MRSA, and maintained Q 15min safety checks. Restraints/seclusion/emergency medication: N/A Justification of Continued Inpatient Treatment: Pt. continues to require a safe and supportive environment while awaiting placement.
--- NOTE | 2021-06-12 17:20 | NUR ---
Group Art Tx, Continued: Patient followed through with her 'promise' to this therapist "I am coming to group this afternoon." She was pleased to be attending expressing a sense of accomplishment she "could keep her promise." Patient was able to maintain appropriate boundaries during group, listening and waiting her turn to talk (rather than interrupting or being oblivious to another person talking). Patient was able to "draw OUT the darkness, (bad and painful stuff), while holding "the light." She followed the journaling script and sentence completion: I am your growth Mindset..."I think light is good. I feel good light. I wish I was good with a star. I want good to stay, I nee all goo all the time. I will shine like a light. I believe in a shining star wish." Patient presented as pleased with herself (AEB by her looking at each therapist in the group several times, nodding and smiling when she was listening to another peer) that she was feeling good and able to maintain some emotional regulation. * Please refer to the group notes in [employer] for an overall report. Keysha Rogel MA, TELEGRAPH EDITOR #[id number] [facility]-Art Therapist Addendum: 06/12/21 at 1723 by Keysha Rogel SS Amended: Links added.
[2021-06-12 19:00] VITALS: BP 128/74
[2021-06-12] MEDS: traZODone 50mg tablet PO SCH (20:55)
--- NOTE | 2021-06-13 03:50 | NUR ---
Nursing Progress Note: Legal hold: LPS Client on involuntary status for GD Report received from nurse with use of SBAR: MARJAN Perez Why are they here: Client was transported to [facility] by [employer] for disruptive behavior. Client reported, "I was laying in the bed at my daughters house and the police came in a said 'We're here to help you.' They handcuffed me and took me to the Hospital." "I want to get out of here!" Client stated, "I don't remember anything else." According the medical record client has had multiple ED visits and several Inpatient Psych admits. Hx of wandering into traffic, trespassing, and disorderly conduct. Client reported she was living with her daughter in [place]. She is currently homeless. Assessment What has happened this shift: Patient talking on the phone at the beginning of shift. Pleasant and cooperative with care; compliant with medication. Denies SI, HI, A/VH; does not appear to be responding to IS and no apparent delusions reported. Patient social with staff and peers and participated in HS snack prior to bed; observed sleeping and does not appear to be having difficulty. S/I, H/I: Denies A/VH: Denies Sleep: Refer to sleep assessment ADL's: Independent Group attendance: NA Were meds taken: Yes Any med S/E: None observed or reported Mental Status Exam Appearance: Neat and appropriately dressed Eye contact: Good Behavior: Pleasant and cooperative, social Speech: Clear, loud Mood: "Good" Affect: Animated Thought process: Circumstantial Thought Content: Meeting needs, discharge plans Cognition: A&O X3 (not to reason here) Insight: Fair Judgment: Fair Interventions PRN's used: None Therapeutic interventions: Maintained a safe and supportive environment, ensured contract for safety, provided clear and simple instructions, attempted to orient to reality, provided active listening and positive encouragement, maintained clear boundaries r/t behaviors, provided ongoing education regarding handwashing r/t positive MRSA, and maintained Q 15min safety checks. Restraints/seclusion/emergency medication: NA Justification of Continued Inpatient Treatment: Pt. continues to require a safe and supportive environment while awaiting placement.
[2021-06-13 07:37] VITALS: BP 107/67
[2021-06-13] MEDS: oxcarbazepine 150mg tablet PO SCH ×2 (07:39→20:02)
[2021-06-13] MEDS: quetiapine 100mg tablet PO SCH ×4 (07:39→20:03)
[2021-06-13] MEDS: divalproex sod 125mg sprinkle cap PO SCH ×2 (07:39→20:04)
[2021-06-13] MEDS: LORazepam 0.5 MG tablet PO SCH ×3 (07:39→20:04)
--- NOTE | 2021-06-13 12:28 | NUR ---
Reassessment: Pt continues eating well with mostly 100% PO intake on regular diet while receiving double protein TID per diet order exceeding estimated nutrient needs. [facility] 06/12. No nutrition intervention warranted at this time. Will continue to monitor. Recommendations: 1. Continue regular diet; double eggs WB double, meat BIDLD per diet order 2. Bowel care PRN 3. Weekly scaled wts Addendum: 06/13/21 at [address] Amended: Links added.
--- NOTE | 2021-06-13 14:10 | NUR ---
Nursing Progress Note: Legal hold: LPS Client on involuntary status for GD Report received from nurse with use of SBAR: MARJAN Benitez Why are they here: Client was transported to [facility] by [employer] for disruptive behavior. Client reported, "I was laying in the bed at my daughters house and the police came in a said 'We're here to help you.' They handcuffed me and took me to the Hospital." "I want to get out of here!" Client stated, "I don't remember anything else." According the medical record client has had multiple ED visits and several Inpatient Psych admits. Hx of wandering into traffic, trespassing, and disorderly conduct. Client reported she was living with her daughter in [place]. She is currently homeless. Assessment What has happened this shift: Received pt. sleeping in bed at the beginning of the shift, she was awoken by staff to attend breakfast in the Group Room. Afterwards, pt. retreated back to bed, and napped intermittently during the morning as is her routine. 1:1 completed at bedside, pt. presents as pleasant, however reports intermittent generalized pain upon awakening in the morning. She states, "Maybe I'm getting arthritis." She denied the need for any pain medication, and did not complain of any further pain during the day. Pt. continues to deny any S/I, H/I, A/V/YODER, and no delusional statements were made. She remains cooperative and pleasant, and no agitated outbursts or yelling exhibited this shift. S/I, H/I: Denies A/VH: Denies, does not appear internally preoccupied Sleep: Sleep hours are 7.5, and pt. naps intermittently during the day ADL's: Requires some direction Group attendance: Went to afternoon group Were meds taken: Yes Any med S/E: None Mental Status Exam Appearance: Neat and appropriately dressed Eye contact: Good Behavior: Cooperative and pleasant Speech: Loud and child-like Mood: Pleasant Affect: Somewhat labile Thought process: Linear, becomes circumstantial with ongoing conversation Thought Content: WNL Cognition: A&O X3 (not to reason here) Insight: Fair Judgment: Fair Interventions PRN's used: None Therapeutic interventions: Maintained a safe and supportive environment, ensured contract for safety, provided clear and simple instructions, provided active listening and positive encouragement, monitored behaviors and need for intervention, provided ongoing education regarding handwashing r/t positive MRSA, and maintained Q 15min safety checks. Restraints/seclusion/emergency medication: N/A Justification of Continued Inpatient Treatment: Per Dr. Maria, pt. continues to require a safe and supportive environment while awaiting placement.
--- NOTE | 2021-06-13 17:27 | NUR ---
Group Tx, Continued: Patient was intent on completing a seasonal coloring for our community room. She was able to work on this additional project, plus was able to follow the "tapping' demonstration and did complete her handout on "My Strengths and Qualities." She completed 5/8 areas. She wrote Things I am good at: " Coloring, Care and [place]. What I like about my appearance:"Caring, happy and helping." I've helped others by " Caring about them". What I value the most: "Love, Happy and Caring" and Compliments I have received: "Smile, laughing, and Caring." She was responsive and able to listen in the group appropriately. She presented as content and pleased with herself and her level of participation in the group. * Please refer to the group notes in [employer] for an overall report. Keysha Rogel MA, DIRECTOR SKILLS #[id number] [facility]-Art Therapist Addendum: 06/13/21 at 1729 by Keysha BENITES Amended: Links added.
[2021-06-13 19:28] VITALS: BP 157/74
[2021-06-13] MEDS: traZODone 50mg tablet PO SCH (20:02)
[2021-06-13] MEDS: acetaminophen 325mg tablet PO PRN (20:03)
--- NOTE | 2021-06-14 00:48 | NUR ---
Nursing Progress Note Legal hold: LPS conserved Report received from Ana PHILLIP Why are they here: Client was transported to [facility] by [employer] for disruptive behavior. Client reported, "I was laying in the bed at my daughters house and the police came in a said 'We're here to help you.' They handcuffed me and took me to the Hospital." "I want to get out of here!" Client stated, "I don't remember anything else." According the medical record client has had multiple ED visits and several Inpatient Psych admits. Hx of wandering into traffic, trespassing, and disorderly conduct. Client reported she was living with her daughter in [place]. She is currently homeless. Assessment What has happened this shift: The patient was up on the unit and social with peers and staff. She was friendly and cooperative with the evening assessment. She reported that she believed that she was going to get her blood drawn because her arms were hurting and she believed that she might have DM or arthritis. She denied hearing voices. She denies thoughts to harm herself or anyone else. She showered and appeared clean and appropriately dressed. Her speech was rapid and the volume was elevated. She stated several times that her ultimate goal was to be able to move into a trailer of her own but added, "The yelling as to stop before I can go back to society" She has not had any behaviors that have required redirection. She is medication compliant. She requested and received Tylenol for arm pain. She denied any kind of medication side effects. Justification of Continued Inpatient Treatment: The patient is LPS conserved and is pending placement.
[2021-06-14] MEDS: quetiapine 100mg tablet PO SCH ×4 (07:24→19:45)
[2021-06-14] MEDS: divalproex sod 125mg sprinkle cap PO SCH ×2 (07:24→19:44)
[2021-06-14] MEDS: LORazepam 0.5 MG tablet PO SCH ×3 (07:25→19:45)
[2021-06-14] MEDS: oxcarbazepine 150mg tablet PO SCH ×2 (07:25→19:44)
[2021-06-14 07:52] VITALS: BP 112/65
--- NOTE | 2021-06-14 17:31 | NUR ---
Nursing Progress Note: Legal hold: LPS Client on involuntary status for GD Report received from nurse with use of SBAR: MARJAN Benitez Why are they here: Client was transported to [facility] by [employer] for disruptive behavior. Client reported, "I was laying in the bed at my daughters house and the police came in a said 'We're here to help you.' They handcuffed me and took me to the Hospital." "I want to get out of here!" Client stated, "I don't remember anything else." According the medical record client has had multiple ED visits and several Inpatient Psych admits. Hx of wandering into traffic, trespassing, and disorderly conduct. Client reported she was living with her daughter in [place]. She is currently homeless. Assessment What has happened this shift: Received pt. sleeping in bed at the beginning of the shift, she was awoken by staff to attend breakfast in the Group Room. Afterwards, pt. retreated back to bed, and napped intermittently during the morning as is her routine. Pt. continues to deny MH s/s, but does admit to feeling some depression r/t having to go to another facility instead of going to her trailer. She again reports generalized body pain, and perseverates on the possibility that she may have arthritis or diabetes, however pt. continues to deny the need for any pain medication. This director underwriter sales encouraged pt. to discuss her concerns with her doctor, and she reported understanding. Pt. remains cooperative and pleasant during the shift, and again no agitated outbursts or yelling exhibited. S/I, H/I: Denies A/VH: Denies, does not appear internally preoccupied Sleep: Sleep hours are 8.75, and pt. naps intermittently during the day ADL's: Requires some direction Group attendance: Went to afternoon group Were meds taken: Yes Any med S/E: None Mental Status Exam Appearance: Neat and appropriately dressed Eye contact: Good Behavior: Cooperative and pleasant Speech: Loud and child-like Mood: Pleasant Affect: Somewhat labile Thought process: Linear, becomes circumstantial with ongoing conversation Thought Content: WNL Cognition: A&O X3 (not to reason here) Insight: Fair Judgment: Fair Interventions PRN's used: None Therapeutic interventions: Maintained a safe and supportive environment, ensured contract for safety, provided clear and simple instructions, provided active listening and positive encouragement, monitored behaviors and need for intervention, provided ongoing education regarding handwashing r/t positive MRSA, and maintained Q 15min safety checks. Restraints/seclusion/emergency medication: N/A Justification of Continued Inpatient Treatment: Per Dr. Maria, pt. continues to require a safe and supportive environment while awaiting placement.
[2021-06-14] MEDS: traZODone 50mg tablet PO SCH (19:45)
[2021-06-14] MEDS: acetaminophen 325mg tablet PO PRN (19:47)
[2021-06-14 20:56] VITALS: BP 123/66
--- NOTE | 2021-06-14 21:19 | NUR ---
Nursing Progress Note Legal hold: LPS conserved Report received from Darin PHILLIP Why are they here: Client was transported to [facility] by [employer] for disruptive behavior. Client reported, "I was laying in the bed at my daughters house and the police came in a said 'We're here to help you.' They handcuffed me and took me to the Hospital." "I want to get out of here!" Client stated, "I don't remember anything else." According the medical record client has had multiple ED visits and several Inpatient Psych admits. Hx of wandering into traffic, trespassing, and disorderly conduct. Client reported she was living with her daughter in [place]. She is currently homeless. Assessment What has happened this shift: The patient was up on the unit and was friendly and social with peers and staff. She also is very friendly with her roommate and was socializing with her in their room. She seemed focused on generalized pain again to night and was stating that she might have diabetes or arthritis. She gave circumstantial replies to assessment questions and her speech was mildly rapid and increased volume. She has had no screaming or inappropriate yelling. She was very talkative about her plans for the holiday. She explained in detail how she was going to buy a triston cake for the unit. She stated that she was really enjoying her time here and that she had really enjoyed working on crafts. She described her mood as "really good" She denies psychotic symptoms. She denies thoughts to harm herself or others. She has not had any behaviors that have required redirection. She is medication compliant and she denies medication side effects. Justification of Continued Inpatient Treatment: The patient is LPS conserved and is pending placement.
[2021-06-15] MEDS: quetiapine 100mg tablet PO SCH ×4 (08:09→19:56)
[2021-06-15] MEDS: divalproex sod 125mg sprinkle cap PO SCH ×2 (08:09→19:55)
[2021-06-15] MEDS: LORazepam 0.5 MG tablet PO SCH ×3 (08:09→19:55)
[2021-06-15] MEDS: oxcarbazepine 150mg tablet PO SCH ×2 (08:09→19:55)
[2021-06-15 08:16] VITALS: BP 116/51
--- NOTE | 2021-06-15 14:03 | NUR ---
Nursing Progress Note: Legal hold: LPS Client on involuntary status for GD Report received from nurse with use of SBAR: Vicky Guidry RN Why are they here: Client was transported to [facility] by [employer] for disruptive behavior. Client reported, "I was laying in the bed at my daughters house and the police came in a said 'We're here to help you.' They handcuffed me and took me to the Hospital." "I want to get out of here!" Client stated, "I don't remember anything else." According the medical record client has had multiple ED visits and several Inpatient Psych admits. Hx of wandering into traffic, trespassing, and disorderly conduct. Client reported she was living with her daughter in [place]. She is currently homeless. Assessment What has happened this shift: Received pt. sleeping in bed at the beginning of the shift, she was awoken by staff to attend breakfast in the Group Room. Afterwards, pt. retreated back to bed, and napped intermittently during the shift. 1:1 completed at bedside, pt. presents as cooperative; however, she is preoccupied with getting her blood drawn. She says its been a while and that it may show why she's experiencing pain. She perseverates on her desire to discharge, and presents with what appear to be fixed delusions. she continues to appear fixed in her delusions. Pt. naps intermittently during the day, no agitated outbursts or yelling exhibited. S/I, H/I: Denies A/VH: Denies, does not appear internally preoccupied Sleep: Sleep hours are 8.5, and pt. naps intermittently during the day ADL's: Requires some direction Group attendance: Went to afternoon group Were meds taken: Yes Any med S/E: None Mental Status Exam Appearance: Neat and appropriately dressed Eye contact: Good Behavior: Cooperative, somewhat restless, and fatigued. Speech: Loud and child-like Mood: Pleasant Affect: Somewhat labile Thought process: Linear, becomes circumstantial with ongoing conversation Thought Content: Ongoing grandiose and paranoid delusions which appear to be fixed Cognition: A&O X3 (not to reason here) Insight: Fair Judgment: Fair Interventions PRN's used: None Therapeutic interventions: Maintained a safe and supportive environment, ensured contract for safety, provided clear and simple instructions, attempted to orient to reality, provided active listening and positive encouragement, maintained clear boundaries r/t behaviors, provided ongoing education regarding handwashing r/t positive MRSA, and maintained Q 15min safety checks. Restraints/seclusion/emergency medication: N/A Justification of Continued Inpatient Treatment: Pt. continues to require a safe and supportive environment while awaiting placement.
[2021-06-15] MEDS: traZODone 50mg tablet PO SCH (19:56)
[2021-06-15 20:42] VITALS: BP 121/80
--- NOTE | 2021-06-15 22:14 | NUR ---
Nursing Progress Note: Legal hold: LPS Client on involuntary status for GD Report received from MARJAN Webster with use of SBAR. Why they are here: Client was transported to [facility] by [employer] for disruptive behavior. Hx of multiple ED visits and several Inpatient Psych admits. Hx of wandering into traffic, trespassing, and disorderly conduct. She is currently homeless. Assessment What has happened this shift: Received pt watching television show in rec room. Pt was laughing hysterically about a show and was in a really good mood. Pt up for snacks, took her hs medications then fell asleep. No outbursts this evening. S/I, H/I: Denies A/VH: Denies. Sleep: See sleep assessment ADL's: Independent Group attendance: Yes Were meds taken: Yes Any med S/E: None observed or reported. Mental Status Exam Appearance: Older edentulous woman with long disheveled hair pulled back, wearing casual personal attire appropriate for unit. Eye contact: Good Behavior: Cooperative, social, isolates Speech: Clear, normal rate/ volume, occasionally loud Mood: Very good. Affect: Full range, Congruent Thought process: Circumstantial Thought Content: Perseverates on placement and discharge. Cognition: A&O x3, not to situation Insight: Poor Judgment: Poor - Fair Interventions PRN's used: None Therapeutic interventions: Maintained a safe and supportive environment, ensured contract for safety, provided clear and simple instructions, attempted to orient to reality, provided active listening and positive encouragement, maintained clear boundaries r/t behaviors, provided ongoing education regarding handwashing r/t positive MRSA, and maintained Q 15min safety checks. Restraints/seclusion/emergency medication: N/A Justification of Continued Inpatient Treatment: Per Dr. Maria, pt. is stable at baseline and mood lability is behavioral r/t poor coping skills. She continues to require a safe and supportive environment. She will continue her current medications prescribed. Continue milieu therapy. Social service to continue search for housing, as patient is conserved with [facility].
[2021-06-16] MEDS: oxcarbazepine 150mg tablet PO SCH ×2 (07:48→19:40)
[2021-06-16] MEDS: divalproex sod 125mg sprinkle cap PO SCH ×2 (07:48→19:40)
[2021-06-16] MEDS: LORazepam 0.5 MG tablet PO SCH ×3 (07:48→20:03)
[2021-06-16] MEDS: quetiapine 100mg tablet PO SCH ×4 (07:48→20:03)
[2021-06-16 08:29] VITALS: BP 122/73
--- NOTE | 2021-06-16 14:29 | NUR ---
Nursing Progress Note: Legal hold: LPS Client on involuntary status for GD Report received from RN with use of SBAR Why are they here: Client was transported to [facility] by [employer] for disruptive behavior. According the medical record client has had multiple ED visits and several Inpatient Psych admits. Hx of wandering into traffic, trespassing, and disorderly conduct. She is currently homeless. Assessment What has happened this shift: Received Pt in bed sleeping w/o distress at the beginning of the shift. Pt woke for vitals and ate breakfast and lunch in community room with others. Pt took AM meds and scheduled meds throughout the day w/o issue. Pt tolerated assessments well and was pleasant. Pt c/o feeling achy and shaky at times. Pt seen by Dr Valentine. Pt used phone and talked to Jose De Jesus during lunch. Pt able to respond to verbal intervention and talk with staff. Pt tired and took multiple naps today. S/I, H/I: Denies A/VH: Denies, does not appear internally preoccupied Sleep: Pt napped ADL's: Independent Group attendance: No Were meds taken: Yes Any med S/E: None Mental Status Exam Appearance: Casual Eye contact: Good Behavior: Cooperative, pleasant Speech: Coherent, pressured at times Mood: Subdued Affect: Pleasant Thought process: Ruminates at times Thought Content: Snacks, meeting needs Cognition: A&O X3 (not to reason here) Insight: Fair Judgment: Fair Interventions PRN's used: None Therapeutic interventions: Maintained a safe and supportive environment, ensured contract for safety, provided clear and simple instructions, attempted to orient to reality, provided active listening and positive encouragement, maintained clear boundaries r/t behaviors, provided ongoing education regarding handwashing r/t positive MRSA, and maintained Q 15min safety checks. Restraints/seclusion/emergency medication: N/A Justification of Continued Inpatient Treatment: Per Dr. Maria, pt. is stable at baseline and mood lability is behavioral r/t poor coping skills. She continues to require a safe and supportive environment. Discharge will be per public guardian.
[2021-06-16 19:00] VITALS: BP 125/71
[2021-06-16] MEDS: traZODone 50mg tablet PO SCH (20:03)
--- NOTE | 2021-06-17 02:23 | NUR ---
Nursing Progress Note: Legal hold: LPS Client on involuntary status for GD Report received from RN, Darin with use of SBAR Why are they here: Client was transported to [facility] by [employer] for disruptive behavior. According the medical record client has had multiple ED visits and several Inpatient Psych admits. Hx of wandering into traffic, trespassing, and disorderly conduct. She is currently homeless. Assessment What has happened this shift: Pt continues to do well, no behavior outbursts this evening. Pt was in a good mood, joking with staff and interacting with other patients in an appropriate manner. Pt denied having any complaints or concerns except wanting clothes out of her locker. Pt accepted hs meds and went to bed early. S/I, H/I: Denies A/VH: Denies, does not appear internally preoccupied Sleep: Pt napped ADL's: Independent Group attendance: No Were meds taken: Yes Any med S/E: None Mental Status Exam Appearance: Casual Eye contact: Good Behavior: Cooperative, pleasant Speech: Coherent, pressured at times Mood: Subdued Affect: Pleasant Thought process: Ruminates at times Thought Content: Snacks, meeting needs Cognition: A&O X3 (not to reason here) Insight: Fair Judgment: Fair Interventions PRN's used: None Therapeutic interventions: Maintained a safe and supportive environment, ensured contract for safety, provided clear and simple instructions, attempted to orient to reality, provided active listening and positive encouragement, maintained clear boundaries r/t behaviors, provided ongoing education regarding handwashing r/t positive MRSA, and maintained Q 15min safety checks. Restraints/seclusion/emergency medication: N/A Justification of Continued Inpatient Treatment: Per Dr. Maria, pt. is stable at baseline and mood lability is behavioral r/t poor coping skills. She continues to require a safe and supportive environment. Discharge will be per public guardian.
[2021-06-17] MEDS: quetiapine 100mg tablet PO SCH ×4 (07:43→20:12)
[2021-06-17] MEDS: oxcarbazepine 150mg tablet PO SCH ×2 (07:43→20:13)
[2021-06-17] MEDS: LORazepam 0.5 MG tablet PO SCH ×3 (07:43→20:13)
[2021-06-17] MEDS: divalproex sod 125mg sprinkle cap PO SCH ×2 (07:44→20:10)
[2021-06-17 14:06] VITALS: BP 118/53
--- NOTE | 2021-06-17 16:37 | NUR ---
Nursing Progress Note: Alondra Legal hold: LPS Client on involuntary status for GD Report received from Vicky Guidry RN with use of SBAR Why are they here: Client was transported to [facility] by [employer] for disruptive behavior. According the medical record client has had multiple ED visits and several Inpatient Psych admits. Hx of wandering into traffic, trespassing, and disorderly conduct. She is currently homeless. Assessment What has happened this shift: Pt. woke to receive her medication and 1:1 assessment completed at the bedside. She denies all SI,HI and is upbeat while discussing her plans for future placement, but reports Im ready. Pt. is observed smiling and is cooperative. Pt. attended all meals in the dining room and interacts with cohorts appropriately and engages most anyone. She can be heard talking and engaging throughout the shift. She participated in snacks and was OOB watching TV most of the shift. S/I, H/I: Denies A/VH: Denies Sleep: 8.75 hrs per NOC, two naps ADL's: Independent Group attendance: NA Were meds taken: Yes Any med S/E: None Mental Status Exam Appearance: Older female with clean street clothes on Eye contact: Good Behavior: Cooperative, pleasant Speech: Pressured Mood: Upbeat Affect: Congruent with mood Thought process: Linear Thought Content: Meeting her needs Cognition: A&O X4 Insight: Fair Judgment: Fair Interventions PRN's used: None Therapeutic interventions: Maintained a safe and supportive environment, ensured contract for safety, provided clear and simple instructions, attempted to orient to reality, provided active listening and positive encouragement, maintained clear boundaries r/t behaviors, provided ongoing education regarding handwashing r/t positive MRSA, and maintained Q 15min safety checks. Restraints/seclusion/emergency medication: N/A Justification of Continued Inpatient Treatment: Per Dr. Maria, pt. is stable at baseline and mood lability is behavioral r/t poor coping skills. She continues to require a safe and supportive environment. Discharge will be per public guardian.
[2021-06-17 19:51] VITALS: BP 115/74
[2021-06-17] MEDS: traZODone 50mg tablet PO SCH (20:12)
--- NOTE | 2021-06-18 03:19 | NUR ---
Nursing Progress Note: Legal hold: LPS Client on involuntary status for GD Report received from MARJAN Webster with use of SBAR Why are they here: Client was transported to [facility] by [employer] for disruptive behavior. According the medical record client has had multiple ED visits and several Inpatient Psych admits. Hx of wandering into traffic, trespassing, and disorderly conduct. She is currently homeless. Assessment What has happened this shift: Pt up in halls at start of shift. Two short episodes of yelling and some tearfulness this shift. Although pt did already have a hearing She feels she should be allowed a court date to fight conservatorship and at times becomes angry about it. Pt able to calm herself and most of the time was pleasant and cooperative. Up to group room for snack. Socialized with other pts and staff. S/I, H/I: Denies A/VH: Denies Sleep: asleep at this time ADL's: Independent Group attendance: NA Were meds taken: Yes Any med S/E: None Mental Status Exam Appearance: Well groomed clean street clothes on Eye contact: Good Behavior: Cooperative, pleasant Speech: Pressured Mood: Labile mostly Upbeat Affect: Congruent with mood Thought process: Linear Thought Content: Meeting her needs Cognition: A&O X4 Insight: Fair Judgment: Fair Interventions PRN's used: None Therapeutic interventions: Maintained a safe and supportive environment, ensured contract for safety, provided clear and simple instructions, attempted to orient to reality, provided active listening and positive encouragement, maintained clear boundaries r/t behaviors, provided ongoing education regarding handwashing r/t positive MRSA, and maintained Q 15min safety checks. Restraints/seclusion/emergency medication: N/A Justification of Continued Inpatient Treatment: Per Dr. Maria, pt. is stable at baseline and mood lability is behavioral r/t poor coping skills. She continues to require a safe and supportive environment. Discharge will be per public guardian.
[2021-06-18] MEDS: LORazepam 0.5 MG tablet PO SCH ×3 (07:24→20:31)
[2021-06-18] MEDS: quetiapine 100mg tablet PO SCH ×4 (07:24→20:31)
[2021-06-18] MEDS: oxcarbazepine 150mg tablet PO SCH ×2 (07:24→20:30)
[2021-06-18] MEDS: divalproex sod 125mg sprinkle cap PO SCH ×2 (07:24→20:30)
[2021-06-18 08:00] VITALS: BP 122/68
--- NOTE | 2021-06-18 12:39 | NUR ---
PLACEMENT UPDATE Emailed [facility] requesting an update on where Alondra's packet is. Inquired if [facility] has female beds and they do. Sent packet to [facility] for review. Sent updated notes to [facility] as well. REJI Rome
--- NOTE | 2021-06-18 17:05 | NUR ---
Nursing Progress Note: Alondra Legal hold: LPS Client on involuntary status for GD Report received from MARJAN Chavez with use of SBAR Why are they here: Client was transported to [facility] by [employer] for disruptive behavior. According the medical record client has had multiple ED visits and several Inpatient Psych admits. Hx of wandering into traffic, trespassing, and disorderly conduct. She is currently homeless. Assessment What has happened this shift: Pt. received sleeping and woke to receive her medication and 1:1 assessment completed at the bedside. She denies SI, HI and reports not A/VH. She reported I accept things are the way they are she plans for future placement. Pt. was upbeat and interacting with her roommate. She ate all her meals in the dining room, she was observed engaging socially with cohorts. She spent most of the day out of her room watching tv or using the phone. She participated in all snack time, but did not attend group today. S/I, H/I: Denies A/VH: Denies Sleep: 8 hrs per NOC, one nap today. ADL's: Independent Group attendance: No Were meds taken: Yes Any med S/E: None Mental Status Exam Appearance: Older female with clean street clothes on Eye contact: Good Behavior: Cooperative, pleasant Speech: Pressured Mood: Upbeat Affect: Congruent with mood Thought process: Linear Thought Content: Meeting her needs Cognition: A&O X4 Insight: Fair Judgment: Fair Interventions PRN's used: None Therapeutic interventions: Maintained a safe and supportive environment, ensured contract for safety, provided clear and simple instructions, attempted to orient to reality, provided active listening and positive encouragement, maintained clear boundaries r/t behaviors, provided ongoing education regarding handwashing r/t positive MRSA, and maintained Q 15min safety checks. Restraints/seclusion/emergency medication: N/A Justification of Continued Inpatient Treatment: Per Dr. Maria, pt. is stable at baseline and mood lability is behavioral r/t poor coping skills. She continues to require a safe and supportive environment. Discharge will be per public guardian.
[2021-06-18 20:00] VITALS: BP 135/91
[2021-06-18] MEDS: traZODone 50mg tablet PO SCH (20:31)
--- NOTE | 2021-06-19 03:42 | NUR ---
Nursing Progress Note: Legal hold: LPS Client on involuntary status for GD Report received from MARJAN Webster with use of SBAR Why are they here: Client was transported to [facility] by [employer] for disruptive behavior. According the medical record client has had multiple ED visits and several Inpatient Psych admits. Hx of wandering into traffic, trespassing, and disorderly conduct. She is currently homeless. Assessment What has happened this shift: Patient seen in her bed. She woke with a smile, and said she's been a good girl lately; no shouting, crying, or yelling. She chose to stay in bed all night. Patient cooperative and appropriate with staff. Received HS meds in her bed. She denies needs or wants. S/I, H/I: Denies A/VH: Denies Sleep: See sleep assessment ADL's: Independent Group attendance: No Were meds taken: Yes Any med S/E: None reported or observed. Mental Status Exam Appearance: Casual clothing, lying in bed Eye contact: Good Behavior: Cooperative, pleasant Speech: Coherent, pressured at times Mood: Upbeat Affect: Pleasant Thought process: Ruminates at times Thought Content: Snacks, meeting needs Cognition: A&O X3 (not to reason here) Insight: Fair Judgment: Fair Interventions PRN's used: None Therapeutic interventions: Maintained a safe and supportive environment, ensured contract for safety, provided clear and simple instructions, attempted to orient to reality, provided active listening and positive encouragement, maintained clear boundaries r/t behaviors, provided ongoing education regarding handwashing r/t positive MRSA, and maintained Q 15min safety checks. Restraints/seclusion/emergency medication: N/A Justification of Continued Inpatient Treatment: Per Dr. Maria, pt. is stable at baseline and mood lability is behavioral r/t poor coping skills. She continues to require a safe and supportive environment. Discharge will be per public guardian.
[2021-06-19] MEDS: quetiapine 100mg tablet PO SCH ×4 (07:57→20:40)
[2021-06-19] MEDS: divalproex sod 125mg sprinkle cap PO SCH ×2 (07:57→20:39)
[2021-06-19] MEDS: oxcarbazepine 150mg tablet PO SCH ×2 (07:57→20:39)
[2021-06-19] MEDS: LORazepam 0.5 MG tablet PO SCH ×3 (07:57→20:40)
[2021-06-19 08:00] VITALS: BP 108/68
--- NOTE | 2021-06-19 16:18 | NUR ---
Nursing Progress Note: Legal hold: LPS conserved Client on involuntary status for GD Report received from MARJAN Benitez with use of SBAR Why are they here: Client was transported to [facility] by [employer] for disruptive behavior. According the medical record client has had multiple ED visits and several Inpatient Psych admits. Hx of wandering into traffic, trespassing, and disorderly conduct. She is currently homeless. Assessment What has happened this shift: Pt was up for breakfast and cooperative with her medications. Pt was in a good mood. Pt participated in unit activities and socialized with staff and peers. No verbal or physical outbursts, no unsafe behaviors noted. S/I, H/I: Pt denies A/VH: Pt denies Sleep: Pt slept 10 hours last night per noc shift report, pt took short naps throughout the day. ADL's: Independent Group attendance: No Were meds taken: Yes Any med S/E: None noted or reported. Mental Status Exam Appearance: Petite overweight woman with missing teeth and shoulder length brown hair pulled back in a ponytail, plaid pajama bottoms and a ibrahim long sleeved shirt. Eye contact: Good Behavior: Pleasant, cooperative, friendly, socializes with staff and peers. Speech: Clear, audible, normal rate & rhythm. Mood: Good Affect: Friendly Thought process: Linear, empathetic Thought Content: Interested in how others are doing, inquires how others are feeling, wants to do nice things for people when she gets out. Cognition: A&O X4 Insight: Fair Judgment: Fair Interventions PRN's used: None Therapeutic interventions: 1:1 assessment, maintained a safe and supportive environment, ensured contract for safety, provided clear and simple instructions, therapeutic conversation, active listening, medication administration/education/monitoring, provided ongoing education regarding handwashing r/t positive MRSA nares, encouraged pt to attend groups, provided distraction, redirection, reality orientation, limit setting, positive reinforcement, and maintained Q 15 minute safety checks. Restraints/seclusion/emergency medication: N/A Justification of Continued Inpatient Treatment: Pt is LPS conserved and gravely disabled, pt is now stable and awaiting placement.
[2021-06-19 20:00] VITALS: BP 119/67
[2021-06-19] MEDS: traZODone 50mg tablet PO SCH (20:40)
--- NOTE | 2021-06-20 03:54 | NUR ---
Nursing Progress Note: Legal hold: LPS Client on involuntary status for GD Report received from MARJAN Webster with use of SBAR Why are they here: Client was transported to [facility] by [employer] for disruptive behavior. According the medical record client has had multiple ED visits and several Inpatient Psych admits. Hx of wandering into traffic, trespassing, and disorderly conduct. She is currently homeless. Assessment What has happened this shift: the patient was seen in her bed at shift change. She woke for a few, but was tired and went back to sleep. she stayed there all night, not even snacks. She was compliant with HS med pass, and went back to sleep. S/I, H/I: Denies A/VH: Denies Sleep: See sleep assessment ADL's: Independent Group attendance: No Were meds taken: Yes Any med S/E: None reported or observed. Mental Status Exam Appearance: Casual clothing, lying in bed Eye contact: Good Behavior: Cooperative, pleasant Speech: Coherent, pressured at times Mood: Upbeat Affect: Pleasant Thought process: Ruminates at times Thought Content: Snacks, meeting needs Cognition: A&O X3 (not to reason here) Insight: Fair Judgment: Fair Interventions PRN's used: None Therapeutic interventions: Maintained a safe and supportive environment, ensured contract for safety, provided clear and simple instructions, attempted to orient to reality, provided active listening and positive encouragement, maintained clear boundaries r/t behaviors, provided ongoing education regarding handwashing r/t positive MRSA, and maintained Q 15min safety checks. Restraints/seclusion/emergency medication: N/A Justification of Continued Inpatient Treatment: Per Dr. Maria, pt. is stable at baseline and mood lability is behavioral r/t poor coping skills. She continues to require a safe and supportive environment. Discharge will be per public guardian.
[2021-06-20] MEDS: LORazepam 0.5 MG tablet PO SCH ×3 (07:55→20:22)
[2021-06-20] MEDS: divalproex sod 125mg sprinkle cap PO SCH ×2 (07:55→20:22)
[2021-06-20] MEDS: oxcarbazepine 150mg tablet PO SCH ×2 (07:55→20:22)
[2021-06-20] MEDS: quetiapine 100mg tablet PO SCH ×4 (07:55→20:23)
[2021-06-20 08:00] VITALS: BP 100/62
--- NOTE | 2021-06-20 16:20 | NUR ---
Nursing Progress Note: Legal hold: LPS conserved Client on involuntary status for GD Report received from MARJAN Benitez with use of SBAR Why are they here: Client was transported to [facility] by [employer] for disruptive behavior. According the medical record client has had multiple ED visits and several Inpatient Psych admits. Hx of wandering into traffic, trespassing, and disorderly conduct. She is currently homeless. Assessment What has happened this shift: Pt was up before breakfast. Pt was a little tearful. Pt was cooperative with medications. Pt is labile. Pt became agitated mid morning during a phone call in her room. Pt was speaking very loudly. Pt was making tearful, lamentable statements liked, "they are going to lock me up for a year!" Pt began sobbing loudly. Pt continued the loud sobbing with intermittent wailing for some time. This RN attempted to consul and speak with patient. Pt was not receptive. Pt became more upset and agitated and yelled at this nurse to get out of her room. Pt did eventually calm herself. Pt has made several phone calls today and becomes upset after the phone calls. S/I, H/I: Pt denies A/VH: Pt denies Sleep: Pt slept 8.75 hours last night per noc shift report. ADL's: Independent Group attendance: No Were meds taken: Yes Any med S/E: None noted or reported. Mental Status Exam Appearance: Petite overweight woman with missing teeth and shoulder length brown hair pulled back in a ponytail dressed in personal clothing. Eye contact: Good Behavior: Makes several phone calls, spent much of her time in her room today. Speech: Clear, loud Mood: Labile Affect: Labile Thought process: Perseverative Thought Content: She does not want to be locked away for a year. Cognition: A&O X 3, some lack of understanding as to her situation. Insight: Poor Judgment: Poor Interventions PRN's used: None Therapeutic interventions: 1:1 assessment, maintained a safe and supportive environment, ensured contract for safety, provided clear and simple instructions, therapeutic conversation, active listening, medication administration/education/monitoring, provided ongoing education regarding handwashing r/t positive MRSA nares, encouraged pt to attend groups, provided distraction, redirection, reality orientation, limit setting, positive reinforcement, and maintained Q 15 minute safety checks. Restraints/seclusion/emergency medication: N/A Justification of Continued Inpatient Treatment: Pt is LPS conserved and gravely disabled, pt is now stable and awaiting placement.
[2021-06-20 20:00] VITALS: BP 131/78
[2021-06-20] MEDS: traZODone 50mg tablet PO SCH (20:22)
--- NOTE | 2021-06-21 03:47 | NUR ---
Nursing Progress Note: Legal hold: LPS Client on involuntary status for GD Report received from MARJAN Webster with use of SBAR Why are they here: Client was transported to [facility] by [employer] for disruptive behavior. According the medical record client has had multiple ED visits and several Inpatient Psych admits. Hx of wandering into traffic, trespassing, and disorderly conduct. She is currently homeless. Assessment What has happened this shift: The patient was seen at bedside for 1:1. She reports that she was upset earlier today, but not anymore, "I'll be good tonight." Patient says that wherever she gets placed, she wants to be able to smoke, as that is the only pleasure she has. Patient has spent the majority of the night in her bed, but she gets up occasionally and asks for water, juice, or coffee. She was cooperative with HS meds, and stayed true to her word that she be good tonight. S/I, H/I: Denies A/VH: Denies Sleep: See sleep assessment ADL's: Independent Group attendance: No Were meds taken: Yes Any med S/E: None reported or observed. Mental Status Exam Appearance: Casual clothing, lying in bed Eye contact: Good Behavior: Cooperative, pleasant Speech: Coherent, pressured at times Mood: Upbeat Affect: Pleasant Thought process: Ruminates at times Thought Content: Snacks, meeting needs Cognition: A&O X3 (not to reason here) Insight: Fair Judgment: Fair Interventions PRN's used: None Therapeutic interventions: Maintained a safe and supportive environment, ensured contract for safety, provided clear and simple instructions, attempted to orient to reality, provided active listening and positive encouragement, maintained clear boundaries r/t behaviors, provided ongoing education regarding handwashing r/t positive MRSA, and maintained Q 15min safety checks. Restraints/seclusion/emergency medication: N/A Justification of Continued Inpatient Treatment: Per Dr. Maria, pt. is stable at baseline and mood lability is behavioral r/t poor coping skills. She continues to require a safe and supportive environment. Discharge will be per public guardian.
[2021-06-21 07:58] VITALS: BP 110/78
[2021-06-21] MEDS: divalproex sod 125mg sprinkle cap PO SCH ×2 (08:00→20:30)
[2021-06-21] MEDS: oxcarbazepine 150mg tablet PO SCH ×2 (08:00→20:30)
[2021-06-21] MEDS: quetiapine 100mg tablet PO SCH ×4 (08:00→20:30)
[2021-06-21] MEDS: LORazepam 0.5 MG tablet PO SCH ×2 (08:00→12:16)
--- NOTE | 2021-06-21 09:37 | NUR ---
Reassessment: Pt continues eating well with mostly 100% PO intake on regular diet. Pt no longer receiving double protein TID as of 06/15 per diet order. Pt participating in snacks per care rep. [facility] 06/20. No nutrition intervention implemented at this time. Will continue to follow. Recommendations: 1. Continue regular diet 2. Bowel care PRN 3. Weekly scaled wts Addendum: 06/21/21 at [address] Amended: Links added.
--- NOTE | 2021-06-21 15:26 | NUR ---
Nursing Progress Note: Legal hold: LPS conserved Client on involuntary status for GD Report received from MARJAN Benitez with use of SBAR Why are they here: Client was transported to [facility] by [employer] for disruptive behavior. According the medical record client has had multiple ED visits and several Inpatient Psych admits. Hx of wandering into traffic, trespassing, and disorderly conduct. She is currently homeless. Assessment What has happened this shift: Pt was up for breakfast and cooperative with medications. Pt was in a better mood today. She socialized with staff and peers. No verbal outbursts or crying episodes today. S/I, H/I: Pt denies A/VH: Pt denies Sleep: Pt slept 6 hours last night per noc shift report. ADL's: Independent Group attendance: Yes Were meds taken: Yes Any med S/E: None noted or reported. Mental Status Exam Appearance: Petite overweight woman with missing teeth and shoulder length brown hair pulled back in a ponytail dressed in personal clothing. Eye contact: Good Behavior: Pleasant, cooperative, quiet Speech: Clear, audible, normal rate & rhythm. Mood: Good Affect: Calm Thought process: Linear Thought Content: She wanted to go to afternoon art group today to make [place] cards for her family. Cognition: A&O X 4 Insight: Poor Judgment: Fair Interventions PRN's used: None Therapeutic interventions: 1:1 assessment, maintained a safe and supportive environment, ensured contract for safety, provided clear and simple instructions, therapeutic conversation, active listening, medication administration/education/monitoring, provided ongoing education regarding handwashing r/t positive MRSA nares, encouraged pt to attend groups, provided distraction, redirection, reality orientation, limit setting, positive reinforcement, and maintained Q 15 minute safety checks. Restraints/seclusion/emergency medication: N/A Justification of Continued Inpatient Treatment: Pt is LPS conserved and gravely disabled, pt is now stable and awaiting placement.
[2021-06-21] MEDS: acetaminophen 325mg tablet PO PRN (18:22)
[2021-06-21 20:00] VITALS: BP 118/59
[2021-06-21] MEDS: traZODone 50mg tablet PO SCH (20:30)
--- NOTE | 2021-06-22 02:42 | NUR ---
Nursing Progress Note: Alondra Legal hold: LPS conserved Client on involuntary status for GD Report received from Ana PHILLIP with use of SBAR Why are they here: Client was transported to [facility] by [employer] for disruptive behavior. According the medical record client has had multiple ED visits and several Inpatient Psych admits. Hx of wandering into traffic, trespassing, and disorderly conduct. She is currently homeless. Assessment What has happened this shift: Pt was asleep in bed most of the NOC shift. Woke pt up for HS med pass and pt was cooperative. She stated she was tired and went back to sleep. No verbal outbursts or crying episodes this shift. S/I, H/I: Pt denies A/VH: Pt denies Sleep: ADL's: Independent Group attendance: Yes Were meds taken: Yes Any med S/E: None noted or reported. Mental Status Exam Appearance: Petite overweight woman with missing teeth and shoulder length brown hair pulled back in a ponytail dressed in personal clothing. Eye contact: Good Behavior: Pleasant, cooperative, quiet Speech: Clear, audible, normal rate & rhythm. Mood: Good Affect: Calm Thought process: Linear Thought Content: Sleeping Cognition: A&O X 4 Insight: Poor Judgment: Fair Interventions PRN's used: None Therapeutic interventions: 1:1 assessment, maintained a safe and supportive environment, ensured contract for safety, provided clear and simple instructions, therapeutic conversation, active listening, medication administration/education/monitoring, provided ongoing education regarding handwashing r/t positive MRSA nares, encouraged pt to attend groups, provided distraction, redirection, reality orientation, limit setting, positive reinforcement, and maintained Q 15 minute safety checks. Restraints/seclusion/emergency medication: N/A Justification of Continued Inpatient Treatment: Pt is LPS conserved and gravely disabled, pt is now stable and awaiting placement.
[2021-06-22] MEDS: oxcarbazepine 150mg tablet PO SCH ×2 (07:30→20:45)
[2021-06-22] MEDS: quetiapine 100mg tablet PO SCH ×4 (07:31→20:45)
[2021-06-22] MEDS: divalproex sod 125mg sprinkle cap PO SCH ×2 (07:31→20:45)
[2021-06-22] MEDS: acetaminophen 325mg tablet PO PRN ×2 (07:40→18:59)
[2021-06-22 08:00] VITALS: BP 100/64
--- NOTE | 2021-06-22 12:04 | NUR ---
PLACEMENT UPDATE Pia Isbell inquired if we are still looking for placement for Alondra. They reported they should be off lockdown next week. [facility] will follow up next week. REJI Rome
--- NOTE | 2021-06-22 12:17 | NUR ---
Nursing Progress Note: Legal hold: LPS Client on involuntary status for GD Report received from nurse with use of SBAR: Vicky Guidry RN Why are they here: Client was transported to [facility] by [employer] for disruptive behavior. Client reported, "I was laying in the bed at my daughters house and the police came in a said 'We're here to help you.' They handcuffed me and took me to the Hospital." "I want to get out of here!" Client stated, "I don't remember anything else." According the medical record client has had multiple ED visits and several Inpatient Psych admits. Hx of wandering into traffic, trespassing, and disorderly conduct. Client reported she was living with her daughter in [place]. She is currently homeless. Assessment What has happened this shift: Received pt. sleeping in bed at the beginning of the shift, she was awoken by staff to attend breakfast in the Group Room. Afterwards, pt. retreated back to bed, and napped intermittently during the morning as is her routine. She again reports generalized body pain, and PRN Tylenol administered with effectiveness. Pt. denies any MH s/s, however exhibits some ongoing perseveration on the wrongs she feels were committed against her by her family and the court. She speaks in a loud and tangental manner about this subject, and then states, "I don't blame you guys." Pt. continues to show improved insight, and no agitated outbursts or yelling exhibited. S/I, H/I: Denies A/VH: Denies, does not appear internally preoccupied Sleep: Sleep hours are 9.75, and pt. naps intermittently during the day ADL's: Requires some direction Group attendance: Went to afternoon group Were meds taken: Yes Any med S/E: None Mental Status Exam Appearance: Neat and appropriately dressed, showered this shift Eye contact: Good Behavior: Cooperative and pleasant Speech: Loud and tangental Mood: Pleasant Affect: Animated Thought process: [place] Thought Content: Some ongoing perseveration on the wrongs she feels were committed against her, however shows improved insight Cognition: A&O X3 (not to reason here) Insight: Fair Judgment: Fair Interventions PRN's used: None Therapeutic interventions: Maintained a safe and supportive environment, ensured contract for safety, provided clear and simple instructions, provided active listening and positive encouragement, monitored behaviors and need for intervention, provided ongoing education regarding handwashing r/t positive MRSA, and maintained Q 15min safety checks. Restraints/seclusion/emergency medication: N/A Justification of Continued Inpatient Treatment: Per , pt. continues to require a safe and supportive environment while awaiting conservatorship.
[2021-06-22 20:00] VITALS: BP 151/73
[2021-06-22] MEDS: traZODone 50mg tablet PO SCH (20:45)
--- NOTE | 2021-06-23 02:31 | NUR ---
Nursing Progress Note:Alondra Legal hold: LPS Client on involuntary status for GD Report received from nurse with use of SBAR: Ana RN Why are they here: Client was transported to [facility] by [employer] for disruptive behavior. Client reported, "I was laying in the bed at my daughters house and the police came in a said 'We're here to help you.' They handcuffed me and took me to the Hospital." "I want to get out of here!" Client stated, "I don't remember anything else." According the medical record client has had multiple ED visits and several Inpatient Psych admits. Hx of wandering into traffic, trespassing, and disorderly conduct. Client reported she was living with her daughter in [place]. She is currently homeless. Assessment Pt sleeping in bed at shift change, Pt was lying in bed with icepack under neck and asked for PRN Tylenol. Pt given Tylenol. 1:1 pt is excited about ordering a sheet cake for micky. Pt talks about gifting her pants with pockets for Jeff with t-shirt. Pt knows it is up to her conservater and is waiting patiently for a positive response. Pt took medications at night time med pass with no complaints. Pt denies A/V H, I/S I/H. Pt did state that she had a couple bumps in the road today when I asked her to elaborate the pt stated, " I'd like to go outside, smoke my cigarettes, and go shopping". Pt was in a generally good mood and came out one time to ask about watching TV, and when she discovered the rec room was locked went promptly to bed. S/I, H/I: Denies A/VH: Denies Sleep: See sleep hours ADL's: Needs additional directions Group attendance: No group in the evenings Were meds taken: Yes Any med S/E: None Mental Status Exam Appearance: Brown hair, short in stature, green scrubs, clean Eye contact: Good Behavior: Cooperative Speech:clear Mood: happy Affect: Animated Thought process: linear Thought Content: Micky presents and giving Cognition: A&O X3 Insight: Fair Judgment: Fair Interventions PRN's used: Tylenol 650mg Therapeutic interventions: Maintained a safe and supportive environment, ensured contract for safety, provided clear and simple instructions, provided active listening and positive encouragement, monitored behaviors and need for intervention, provided ongoing education regarding handwashing r/t positive MRSA, and maintained Q 15min safety checks. Restraints/seclusion/emergency medication: N/A Justification of Continued Inpatient Treatment: Per , pt. continues to require a safe and supportive environment while awaiting conservatorship.
[2021-06-23 08:04] VITALS: BP 121/63
[2021-06-23] MEDS: divalproex sod 125mg sprinkle cap PO SCH ×2 (08:17→20:49)
[2021-06-23] MEDS: oxcarbazepine 150mg tablet PO SCH ×2 (08:19→20:48)
[2021-06-23] MEDS: quetiapine 100mg tablet PO SCH ×4 (08:20→20:50)
--- NOTE | 2021-06-23 17:14 | NUR ---
Nursing Progress Note Legal hold: LPS Client on involuntary status for GD Report received from nurse with use of SBAR: Vicky Guidry RN Why are they here: Client was transported to [facility] by [employer] for disruptive behavior. Client reported, "I was laying in the bed at my daughters house and the police came in a said 'We're here to help you.' They handcuffed me and took me to the Hospital." "I want to get out of here!" Client stated, "I don't remember anything else." According the medical record client has had multiple ED visits and several Inpatient Psych admits. Hx of wandering into traffic, trespassing, and disorderly conduct. Client reported she was living with her daughter in [place]. She is currently homeless. What happened this shift: Pt is pleasant. She went to meals and took her meds without complication. She sat with other residents and did crafts in the dining room. She had one moment of outburst in her room yelling tangential thoughts, lasting less than 10 minutes. She sat in her room and looked out the window. Assessment S/I, H/I: Denies A/VH: Denies Sleep: Small nap during the day ADL's: Needs encouragement Group attendance: Did not attend group Were meds taken: Yes Any med S/E: None noted Mental Status Exam Appearance: Slightly disheveled. Wearing shirt and leggings Eye contact: Good Behavior: Cooperative Speech: WNL Mood: Euthymic Affect: Congruent to mood Thought process: linear Thought Content: Meeting needs Cognition: Alert Insight: Fair Judgment: Fair Interventions PRN's used: None Therapeutic interventions: Maintained a safe and supportive environment, ensured contract for safety, provided clear and simple instructions, provided active listening and positive encouragement, monitored behaviors and need for intervention, provided ongoing education regarding handwashing r/t positive MRSA, and maintained Q 15min safety checks. Restraints/seclusion/emergency medication: N/A Justification of Continued Inpatient Treatment: Per , pt. continues to require a safe and supportive environment while awaiting conservatorship.
[2021-06-23 20:00] VITALS: BP 136/74
[2021-06-23] MEDS: traZODone 50mg tablet PO SCH (20:48)
--- NOTE | 2021-06-24 01:47 | NUR ---
Nursing Progress Note Legal hold: LPS Client on involuntary status for GD Report received from nurse with use of SBAR: Armand RN Why are they here: Client was transported to [facility] by [employer] for disruptive behavior. Client reported, "I was laying in the bed at my daughters house and the police came in a said 'We're here to help you.' They handcuffed me and took me to the Hospital." "I want to get out of here!" Client stated, "I don't remember anything else." According the medical record client has had multiple ED visits and several Inpatient Psych admits. Hx of wandering into traffic, trespassing, and disorderly conduct. Client reported she was living with her daughter in [place]. She is currently homeless. What happened this shift: Pt looking out window at shift change. When this nurse approached patient and asked how her day went pt responded, "I'm alright, I just Like to watch the cars". Pt did not have much conversation to add and isolated mostly to her room watching cars on the freeway drive by. Pt denies any MH s/s. Pt took medications w/o complaint. went to bed shortly after medication administration. Assessment S/I, H/I: Denies A/VH: Denies Sleep: see sleep hours ADL's: Needs encouragement Group attendance: No group in the evenings Were meds taken: Yes Any med S/E: None noted Mental Status Exam Appearance: Slightly disheveled. Wearing shirt and leggings Eye contact: Good Behavior: Cooperative Speech: WNL Mood: depressed Affect: Congruent to mood Thought process: linear Thought Content:thoughtful Cognition: Alert Insight: Fair Judgment: Fair Interventions PRN's used: None Therapeutic interventions: Maintained a safe and supportive environment, ensured contract for safety, provided clear and simple instructions, provided active listening and positive encouragement, monitored behaviors and need for intervention, provided ongoing education regarding handwashing r/t positive MRSA, and maintained Q 15min safety checks. Restraints/seclusion/emergency medication: N/A Justification of Continued Inpatient Treatment: Per , pt. continues to require a safe and supportive environment while awaiting conservatorship.
[2021-06-24 08:00] VITALS: BP 144/69
[2021-06-24] MEDS: divalproex sod 125mg sprinkle cap PO SCH ×2 (08:59→20:26)
[2021-06-24] MEDS: quetiapine 100mg tablet PO SCH ×4 (08:59→20:26)
[2021-06-24] MEDS: oxcarbazepine 150mg tablet PO SCH ×2 (08:59→20:25)
[2021-06-24] MEDS: acetaminophen 325mg tablet PO PRN (09:13)
--- NOTE | 2021-06-24 09:15 | NUR ---
Patient ate breakfast in dining room. She is now in room sitting by the window. She is smiling and very pleasant. She tells me it's going to snow and that it should be really nice just before or after Micky. Patient states she has left "neck pain every once in a while and I take Tylenol for it and I have my ice pack. Tylenol administered as ordered for pain. Patient states she will lie down for a little while.
--- NOTE | 2021-06-24 11:51 | NUR ---
Patient pleasant and in good mood. Patient came up to observation room while RIDDHI Leon was present and asked for a shower "some time today." She requested "not when it's the 2 o' clock" as she would like to attend and asked if there was a "2 o'clock" today. She is aware that it is the weekend and therefore no group sessions during the weekends. Let patient know that a shower will be set up for her whenever she is ready for one. Patient agreeable and stated she is flexible with time of shower. She stated Tylenol was effective as she was able to nap "for about an hour" and she will "go lay down a little bit more."
--- NOTE | 2021-06-24 13:13 | NUR ---
Patient asking for coffee and seen Dr. Way in hallway and speaking to Dr. Way.
--- NOTE | 2021-06-24 16:44 | NUR ---
Nursing Progress Note Legal hold: LPS Client on involuntary status for GD Report received from nurse with use of SBAR: MARJAN Perez Why are they here: Client was transported to [facility] by [employer] for disruptive behavior. Client reported, "I was laying in the bed at my daughters house and the police came in a said 'We're here to help you.' They handcuffed me and took me to the Hospital." "I want to get out of here!" Client stated, "I don't remember anything else." According the medical record client has had multiple ED visits and several Inpatient Psych admits. Hx of wandering into traffic, trespassing, and disorderly conduct. Client reported she was living with her daughter in [place]. She is currently homeless. What happened this shift: Patient eating breakfast in dining room during report. She is now in room sitting by the window. She is smiling and very pleasant. She tells me it's going to snow and that it should be really nice just before or after Micky. Patient states she has left "neck pain every once in a while and I take Tylenol for it and I have my ice pack. Tylenol administered as ordered for pain. Patient states she will lie down for a little while. Patient has been very pleasant and animated when speaking. Patient conversing with her roommate. She had her lunch in dining room. After lunch she had a shower. Patient asking for coffee for herself and her roommate. Patient seen Dr. Way in [place] while awaiting for her coffee and spoke to him. She is lying down appears to be sleeping comfortably with respirations even and unlabored. Assessment S/I, H/I: Denies A/VH: Denies Sleep: napped ADL's: Independent Group attendance: No group on Sundays Were meds taken: Yes Any med S/E: None noted Mental Status Exam Appearance: Clean, neat and appropriately dressed Eye contact: Good Behavior: Cooperative Speech: WNL Mood: Euthymic Affect: Congruent to mood Thought process: linear Thought Content: Thoughtful Cognition: Alert Insight: Fair Judgment: Fair Interventions PRN's used: Tylenol Therapeutic interventions: Maintained a safe and supportive environment, ensured contract for safety, provided clear and simple instructions, provided active listening and positive encouragement, monitored behaviors and need for intervention, provided ongoing education regarding handwashing r/t positive MRSA, and maintained Q 15min safety checks. Restraints/seclusion/emergency medication: N/A Justification of Continued Inpatient Treatment: Per , pt. continues to require a safe and supportive environment while awaiting conservatorship.
[2021-06-24 19:00] VITALS: BP 160/82
[2021-06-24] MEDS: traZODone 50mg tablet PO SCH (20:25)
[2021-06-25] MEDS: acetaminophen 325mg tablet PO PRN ×2 (03:47→16:51)
--- NOTE | 2021-06-25 03:58 | NUR ---
Nursing Progress Note: Legal hold: LPS Client on involuntary status for GD Report received from MARJAN Perez with use of SBAR Why are they here: [facility] [employer] for disruptive behavior. According the medical record client has had multiple ED visits and several Inpatient Psych admits. Hx of wandering into traffic, trespassing, and disorderly conduct. She is currently homeless. Assessment What has happened this shift: The patient was seen at bedside for 1:1. She is happy and pleasant. Patient reports that she likes to sit and watch it rain outside. She is hoping to see snow. She has shown improvement, and rarely yells anymore. Even when she talks it seems to be in a lower voice range, and not so loud. She continues to wait patiently for placement. Patient cooperates with HS meds, then goes to bed. S/I, H/I: Denies A/VH: Denies Sleep: See sleep assessment ADL's: Independent Group attendance: No Were meds taken: Yes Any med S/E: None reported or observed. Mental Status Exam Appearance: Casual clothing, sitting in a chair by her window. Eye contact: Good Behavior: Cooperative, pleasant Speech: Coherent, pressured at times Mood: Upbeat Affect: Pleasant Thought process: Ruminates at times Thought Content: Snacks, meeting needs Cognition: A&O X3 (not to reason here) Insight: Fair Judgment: Fair Interventions PRN's used: Tylenol Therapeutic interventions: Maintained a safe and supportive environment, ensured contract for safety, provided clear and simple instructions, attempted to orient to reality, provided active listening and positive encouragement, maintained clear boundaries r/t behaviors, provided ongoing education regarding handwashing r/t positive MRSA, and maintained Q 15min safety checks. Restraints/seclusion/emergency medication: N/A Justification of Continued Inpatient Treatment: Per Dr. Maria, pt. is stable at baseline and mood lability is behavioral r/t poor coping skills. She continues to require a safe and supportive environment. Discharge will be per public guardian.
[2021-06-25 08:00] VITALS: BP 163/82
[2021-06-25] MEDS: quetiapine 100mg tablet PO SCH ×4 (08:01→20:33)
[2021-06-25] MEDS: divalproex sod 125mg sprinkle cap PO SCH ×2 (08:01→20:32)
[2021-06-25] MEDS: oxcarbazepine 150mg tablet PO SCH ×2 (08:01→20:33)
[2021-06-25 08:19] LABS: HEMATOCRIT 36.6 % (35.0-45.0); HEMOGLOBIN 12.7 g/dl (12.0-16.0); LYMPHOCYTES # (AUTO) 1.1 X10'3 (1.1-4.8); LYMPHOCYTES % (AUTO) 37.5 % (21-51); MEAN CORPUSCULAR HGB CONC 34.7 g/dL (33.0-36.5); MEAN CORPUSCULAR VOLUME 95.2 FL (78-98); MEAN PLATELET VOLUME 8.4 FL (7.4-10.4); MONOCYTES # (AUTO) 0.4 X10'3 (0-0.9); MONOCYTES % (AUTO) 13.9 % (2-12); NEUTROPHILS # (AUTO) 1.4 X10'3 (1.8-7.7); NEUTROPHILS % (AUTO) 46.6 % (42-75); PLATELET COUNT 218 X10'3 (140-440); RED BLOOD COUNT 3.84 X10'6 (4.20-5.60); RED CELL DISTRIBUTION WIDTH 13.9 % (11.5-14.5)
[2021-06-25 09:16] LABS: ANION GAP 11 (8-16); BLOOD UREA NITROGEN 15 MG/DL (7-18); BUN/CREATININE RATIO 21.7 (6.6-38.0); CALCIUM 9.4 MG/DL (8.5-10.1); CHLORIDE 94 MMOL/L (99-107); CREATININE 0.69 MG/DL (0.40-0.90); GLUCOSE 108 MG/DL (70-104); POTASSIUM 4.2 MMOL/L (3.5-5.1); SODIUM 132 MMOL/L (135-145); TOTAL CARBON DIOXIDE 27.4 MMOL/L (24-32); eGFR 86 ML/MIN
[2021-06-25 10:45] LABS: VALPROATE 39 UG/ML (50-100)
--- NOTE | 2021-06-25 16:52 | NUR ---
Nursing Progress Note Legal hold: LPS Client on involuntary status for GD Report received from nurse with use of SBAR: Vicky Guidry RN Why are they here: Client was transported to [facility] by [employer] for disruptive behavior. Client reported, "I was laying in the bed at my daughters house and the police came in a said 'We're here to help you.' They handcuffed me and took me to the Hospital." "I want to get out of here!" Client stated, "I don't remember anything else." According the medical record client has had multiple ED visits and several Inpatient Psych admits. Hx of wandering into traffic, trespassing, and disorderly conduct. Client reported she was living with her daughter in [place]. She is currently homeless. What happened this shift: Pt up and visible throughout the shift. Pt remained pleasant and cooperative without outbursts today. Pt demonstrated compassion for peers if they were having difficulty. Pt denies a/v hallucinations and denies S.I./H.I. Pt up for meals and snacks and seemed to keep herself busy and napped at times. Pt requested tylenol at 1650 for a "small headache" . . . "Its no big deal" Assessment S/I, H/I: Denies A/VH: Denies Sleep: Small nap during the day ADL's: Needs encouragement Group attendance: Did not attend group Were meds taken: Yes Any med S/E: None noted Mental Status Exam Appearance: Slightly disheveled. Wearing shirt and leggings Eye contact: Good Behavior: Cooperative Speech: WNL Mood: Euthymic Affect: Congruent to mood Thought process: linear Thought Content: Meeting needs Cognition: Alert Insight: Fair Judgment: Fair Interventions PRN's used: None Therapeutic interventions: Maintained a safe and supportive environment, ensured contract for safety, provided clear and simple instructions, provided active listening and positive encouragement, monitored behaviors and need for intervention, provided ongoing education regarding handwashing r/t positive MRSA, and maintained Q 15min safety checks. Restraints/seclusion/emergency medication: N/A Justification of Continued Inpatient Treatment: Per , pt. continues to require a safe and supportive environment while awaiting conservatorship.
[2021-06-25 20:00] VITALS: BP 147/76
--- NOTE | 2021-06-25 20:30 | NUR ---
Pt getting settled in new room. Organizing belongings. Asked for coffee, a warm blanket, and an ice pack for her head at night because she "gets small headaches." Pleasant and cooperative. Put self to sleep afterwards.
[2021-06-25] MEDS: traZODone 50mg tablet PO SCH (20:33)
--- NOTE | 2021-06-26 04:09 | NUR ---
Nursing Progress Note: Legal hold: LPS Client on involuntary status for GD Report received from MARJAN Perez with use of SBAR Why are they here: Client was transported to [facility] by [employer] for disruptive behavior. According the medical record client has had multiple ED visits and several Inpatient Psych admits. Hx of wandering into traffic, trespassing, and disorderly conduct. She is currently homeless. Assessment What has happened this shift: The patient was seen getting settled into her new room and organizing her belongings. She asked for coffee, a warm blanket, and an ice pack to sleep with for "small headaches." She was cooperative, happy and pleasant. Patient cooperates with HS meds, then puts herself to bed. S/I, H/I: Denies A/VH: Denies Sleep: See sleep assessment ADL's: Independent Group attendance: NA Were meds taken: Yes Any med S/E: None reported or observed. Mental Status Exam Appearance: Casual clothing, sitting at the edge of her bed. Eye contact: Good Behavior: Cooperative, pleasant Speech: Coherent, clear Mood: Upbeat Affect: Pleasant Thought process: Seems air filler Thought Content: Snacks, meeting immediate needs Cognition: A&O X3 (not to reason here) Insight: Fair Judgment: Fair Interventions PRN's used: NA Therapeutic interventions: Maintained a safe and supportive environment, ensured contract for safety, provided clear and simple instructions, attempted to orient to reality, provided active listening and positive encouragement, maintained clear boundaries r/t behaviors, and maintained Q 15min safety checks. Restraints/seclusion/emergency medication: N/A Justification of Continued Inpatient Treatment: Per Dr. Maria, pt. is stable at baseline and mood lability is behavioral r/t poor coping skills. She continues to require a safe and supportive environment. Discharge will be per public guardian.
[2021-06-26] MEDS: quetiapine 100mg tablet PO SCH ×4 (07:51→20:09)
[2021-06-26] MEDS: oxcarbazepine 150mg tablet PO SCH ×2 (07:51→20:12)
[2021-06-26] MEDS: divalproex sod 125mg sprinkle cap PO SCH ×2 (07:51→20:08)
[2021-06-26 08:00] VITALS: BP 169/76
[2021-06-26] MEDS: acetaminophen 325mg tablet PO PRN ×2 (11:44→18:13)
--- NOTE | 2021-06-26 14:09 | NUR ---
MARIANA Cantu interviewed with two staff from [facility]. The interview seemed to go well. [employer] will follow up with Pia. REJI Rome
--- NOTE | 2021-06-26 15:33 | NUR ---
Nursing Progress Note: Legal hold: LPS conserved Client on involuntary status for GD Report received from MARJAN Benitez with use of SBAR Why are they here: Client was transported to [facility] by [employer] for disruptive behavior. According the medical record client has had multiple ED visits and several Inpatient Psych admits. Hx of wandering into traffic, trespassing, and disorderly conduct. She is currently homeless. Assessment What has happened this shift: Pt was up before breakfast and in a pleasant mood. Pt requested an ice pack for neck. Pt stated, "I'm good, I'm just going to relax today." Pt was cooperative with her medications. Depakote sprinkles were opened and mixed with applesauce and her other pills given whole on top of the applesauce. Pt applied her makeup today and attended afternoon group. Pt requested Tylenol for her neck later in the morning for 5/10 neck/headache pain. Pt reassures this nurse that it only bothers her a little bit and the ice and the Tylenol are helpful. Pt was given PRN Tylenol 650 mg and some more ice at 1144 with good effect. Pt had a surprise interview with Akilah Palacio. Pt was friendly and cooperative during the interview. Pt gets a little loud sometimes though her mood was stable and upbeat. No verbal aggression, no yelling, and no crying noted today. S/I, H/I: Pt denies A/VH: Pt denies Sleep: Pt slept 7.75 hours last night per noc shift report. ADL's: Independent Group attendance: Yes Were meds taken: Yes Any med S/E: Pt's blood pressures have increased since routine Ativan stopped on 06/21/21, will continue to monitor, last WBC on 06/25/21 was 3.0. Mental Status Exam Appearance: Petite overweight woman with missing teeth and shoulder length brown hair pulled back in a ponytail dressed in personal clothing. Eye contact: Good Behavior: Pleasant, cooperative, socializes with staff and peers. Speech: Clear, loud, talkative. Mood: Good Affect: Friendly Thought process: Linear Thought Content: Her focus is much on Micky and holiday plans. Cognition: A&O X 3, some reality distortion as to her situation. Insight: Poor Judgment: Poor Interventions PRN's used: None Therapeutic interventions: 1:1 assessment, maintained a safe and supportive environment, provided clear and simple instructions, therapeutic conversation, active listening, medication administration/education/monitoring, provided ongoing education regarding handwashing r/t positive MRSA nares, encouraged pt to attend groups, provided distraction, redirection, reality orientation, limit setting, positive reinforcement, and maintained Q 15 minute safety checks. Restraints/seclusion/emergency medication: N/A Justification of Continued Inpatient Treatment: Pt is LPS conserved and gravely disabled, pt is now stable and awaiting placement.
--- NOTE | 2021-06-26 17:17 | NUR ---
Group Art Tx, continued: Patient was late for group however did attend and complete two activities. 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 She was in a pleasant mood with smiling affect and interacting appropriately with both her peers and staff Please refer to the [facility] case notes for a complete overview of the session. Keysha Rogel MA Licensed Marriage, Family Therapist #[id number] [facility] [address], Art Therapist Addendum: 06/26/21 at 1718 by Keysha BENITES Amended: Links added.
[2021-06-26] MEDS: traZODone 50mg tablet PO SCH (20:09)
[2021-06-26 20:39] VITALS: BP 147/81
--- NOTE | 2021-06-26 23:38 | NUR ---
Nursing Progress Note: Legal hold: LPS conserved Client on involuntary status for GD Report received from MARJAN Perez with use of SBAR Why are they here: Client was transported to [facility] by [employer] for disruptive behavior. According the medical record client has had multiple ED visits and several Inpatient Psych admits. Hx of wandering into traffic, trespassing, and disorderly conduct. She is currently homeless. Assessment What has happened this shift: Pt was up about the unit being very social with peers and staff. Pt stated that she is very happy that she had an interview with a facility to day and is hopful to go there. Pt ate snack in the group room and was med compliant. Pt hung out in the group room for a while before going to bed. S/I, H/I: Pt denies A/VH: Pt denies Sleep: See sleep assessment. ADL's: Independent Group attendance: Yes Were meds taken: Yes Any med S/E: Pt's blood pressures have increased since routine Ativan stopped on 06/21/21, will continue to monitor, last WBC on 06/25/21 was 3.0. Mental Status Exam Appearance: Petite overweight woman with missing teeth and shoulder length brown hair pulled back in a ponytail dressed in personal clothing. Eye contact: Good Behavior: Pleasant, cooperative, socializes with staff and peers. Speech: Clear, loud, talkative. Mood: Good Affect: Friendly Thought process: Linear Thought Content: Her focus is much on [place] and holiday plans. Cognition: A&O X 3, some reality distortion as to her situation. Insight: Poor Judgment: Poor Interventions PRN's used: None Therapeutic interventions: 1:1 assessment, maintained a safe and supportive environment, provided clear and simple instructions, therapeutic conversation, active listening, medication administration/education/monitoring, provided ongoing education regarding handwashing r/t positive MRSA nares, encouraged pt to attend groups, provided distraction, redirection, reality orientation, limit setting, positive reinforcement, and maintained Q 15 minute safety checks. Restraints/seclusion/emergency medication: N/A Justification of Continued Inpatient Treatment: Pt is LPS conserved and gravely disabled, pt is now stable and awaiting placement.
[2021-06-27 07:15] VITALS: BP 141/75
[2021-06-27] MEDS: divalproex sod 125mg sprinkle cap PO SCH ×2 (07:38→20:29)
[2021-06-27] MEDS: oxcarbazepine 150mg tablet PO SCH ×2 (07:39→20:27)
[2021-06-27] MEDS: acetaminophen 325mg tablet PO PRN (07:39)
[2021-06-27] MEDS: quetiapine 100mg tablet PO SCH ×4 (07:39→20:27)
--- NOTE | 2021-06-27 14:42 | NUR ---
Reassessment: Pt continues eating well with mostly 100% PO intake on regular diet. Pt participating in snacks per clinical documentation developer. [facility] 06/26. No nutrition intervention implemented at this time. Will continue to follow. Recommendations: 1. Continue regular diet 2. Bowel care PRN 3. Weekly scaled wts Addendum: 06/27/21 at [address] Amended: Links added.
--- NOTE | 2021-06-27 14:49 | NUR ---
Nursing Progress Note: Legal hold: LPS conserved Client on involuntary status for GD Report received from MARJAN Benitez with use of SBAR Why are they here: Client was transported to [facility] by [employer] for disruptive behavior. According the medical record client has had multiple ED visits and several Inpatient Psych admits. Hx of wandering into traffic, trespassing, and disorderly conduct. She is currently homeless. Assessment What has happened this shift: Pt was up before breakfast and cooperative with medications. Pt c/o 8/10 neck pain and was given PRN Tylenol 650 mg at 0739 with good effect. Pt watched a comedy on TV in the rec room after breakfast and was heard laughing loudly and frequently. Pt was in a good mood. Pt requested to trim and file her fingernails today when someone had time. Pt's fingernails were very long,thick, and discolored. This RN assisted pt with trimming her nails. Pt filed her own nails then requested to paint them a light pink color. This RN painted her nails. Pt was happy, friendly,sociable, and much appreciative. Pt spoke of the importance of self care. Pt spoke of limiting her cigarettes and sodas. Pt spoke of taking things day by day and focusing on the present. 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 The holidays are much on pt's mind. Pt reminisced about past holiday dinners and Micky trees. Pt states she always put a star or an lakisha on top of the tree and a Bible underneath it. Pt said she had an orange tree and would pick all the oranges and give oranges and chocolates as Micky gifts. No verbal outbursts or mood lability noted this shift. Discussed pt's recent lab findings with Dr Maria. Dr Maria is aware and not concerned with the findings. Also discussed pt's ongoing c/o neck pain/stiffness the concern being that it could be dystonia. Dr Maria reported he would speak with/assess the patient. S/I, H/I: Pt denies A/VH: Pt denies Sleep: Pt slept 6.75 hours last night per noc shift report. ADL's: Independent Group attendance: No Were meds taken: Yes Any med S/E: Pt c/o neck pain stiffness, uncertain if med related. Mental Status Exam Appearance: Petite overweight woman with missing teeth and shoulder length brown hair pulled back in a ponytail dressed in personal clothing. Eye contact: Good Behavior: Pleasant, cooperative, socializes with staff and peers. Speech: Clear, loud, talkative. Mood: Good Affect: Friendly, sociable Thought process: Linear Thought Content: She is focused on self care and on the holidays. Cognition: A&O X 3, some reality distortion as to her situation. Insight: Poor Judgment: Poor Interventions PRN's used: Tylenol Therapeutic interventions: 1:1 assessment, maintained a safe and supportive environment, provided clear and simple instructions, therapeutic conversation, active listening, medication administration/education/monitoring, provided ongoing education regarding handwashing r/t positive MRSA nares, encouraged pt to attend groups, provided distraction, redirection, reality orientation, limit setting, positive reinforcement, and maintained Q 15 minute safety checks. Restraints/seclusion/emergency medication: N/A Justification of Continued Inpatient Treatment: Pt is LPS conserved and gravely disabled, pt is now stable and awaiting placement. Addendum: 06/27/21 at 1609 by Carmen Eldridge RN (Lee) Pt was quite circumstantial today.
--- NOTE | 2021-06-27 17:30 | NUR ---
Group Exercise: Patient was focused and able to do all 12 chair exercises introduced to her. She was eager to try this new group making positive comments throughout the exercise session,about how much she liked doing the exercises,'beyond just walking the hallway." Please refer to the [facility] case notes for a complete overview of the session. Keysha Rogel MA Licensed Marriage, Family Therapist #[id number] [facility], Art/Rec Therapist Addendum: 06/27/21 at 1731 by Keysha Rogel SS Amended: Links added.
[2021-06-27 19:43] VITALS: BP 143/67
[2021-06-27] MEDS: traZODone 50mg tablet PO SCH (20:28)
--- NOTE | 2021-06-28 00:42 | NUR ---
Nursing Progress Note: Legal hold: LPS conserved Client on involuntary status for GD Report received from MARJAN Webster with use of SBAR Why are they here: Client was transported to [facility] by [employer] for disruptive behavior. According the medical record client has had multiple ED visits and several Inpatient Psych admits. Hx of wandering into traffic, trespassing, and disorderly conduct. She is currently homeless. Assessment What has happened this shift: Pt up on unit at start of shift. Interacting pleasantly with other pts and staff. Pt has make-up and has her nails done. She was very pleased and proud. Pt had an episode of agitation. She got into a heated argument with her roommate. She talked loudly but did not yell. After her and roommate Pt was able to calm down and go to sleep. S/I, H/I: Pt denies A/VH: Pt denies Sleep: Asleep at this time ADL's: Independent Group attendance: NA Were meds taken: Yes Any med S/E: Pt c/o neck pain stiffness, uncertain if med related. Mental Status Exam Appearance: Petite overweight woman with missing teeth and shoulder length brown hair pulled back in a ponytail dressed in personal clothing. Eye contact: Good Behavior: Pleasant, cooperative, socializes with staff and peers. Speech: Clear, loud, talkative. Mood: Good Affect: Friendly, sociable Thought process: Linear Thought Content: She is focused on self care and on the holidays. Cognition: A&O X 3, some reality distortion as to her situation. Insight: Poor Judgment: Poor Interventions PRN's used: Tylenol Therapeutic interventions: 1:1 assessment, maintained a safe and supportive environment, provided clear and simple instructions, therapeutic conversation, active listening, medication administration/education/monitoring, provided ongoing education regarding handwashing r/t positive MRSA nares, encouraged pt to attend groups, provided distraction, redirection, reality orientation, limit setting, positive reinforcement, and maintained Q 15 minute safety checks. Restraints/seclusion/emergency medication: N/A Justification of Continued Inpatient Treatment: Pt is LPS conserved and gravely disabled, pt is now stable and awaiting placement.
[2021-06-28] MEDS: divalproex sod 125mg sprinkle cap PO SCH ×2 (07:47→20:16)
[2021-06-28] MEDS: oxcarbazepine 150mg tablet PO SCH ×2 (07:47→20:17)
[2021-06-28] MEDS: quetiapine 100mg tablet PO SCH ×4 (07:47→20:17)
[2021-06-28] MEDS: acetaminophen 325mg tablet PO PRN (08:28)
[2021-06-28 08:41] VITALS: BP 101/62
--- NOTE | 2021-06-28 14:04 | NUR ---
Nursing Progress Note: Legal hold: LPS conserved Client on involuntary status for GD Report received from MARJAN Benitez with use of SBAR Why are they here: Client was transported to [facility] by [employer] for disruptive behavior. According the medical record client has had multiple ED visits and several Inpatient Psych admits. Hx of wandering into traffic, trespassing, and disorderly conduct. She is currently homeless. Assessment What has happened this shift: Pt was up before breakfast. Pt was cooperative with morning meds. Pt is upbeat and sociable with staff. Pt remains focused on self care. Pt has been doing her makeup every morning. Pt states she wants to keep some habits and get rid of others. Pt c/o 5/10 neck pain this morning and was given PRN Tylenol 650 mg at 0828 with good effect. S/I, H/I: Pt denies A/VH: Pt denies Sleep: Pt slept 7 hours last night per noc shift report. ADL's: Independent Group attendance: Yes, afternoon group Were meds taken: Yes Any med S/E: None noted or reported. Mental Status Exam Appearance: Petite overweight woman with missing teeth and shoulder length brown hair pulled back in a ponytail with make up on and her fingernails painted dressed in personal clothing. Eye contact: Good Behavior: Pleasant, cooperative, socializes with staff and peers. Speech: Clear, loud, talkative. Mood: Good Affect: Friendly, sociable Thought process: Circumstantial Thought Content: She is focused on self care, on forming/continuing good habits and breaking bad ones. Cognition: A&O X 4 Insight: Fair Judgment: Fair Interventions PRN's used: Tylenol Therapeutic interventions: 1:1 assessment, maintained a safe and supportive environment, provided clear and simple instructions, therapeutic conversation, active listening, medication administration/education/monitoring, provided ongoing education regarding handwashing r/t positive MRSA nares, encouraged pt to attend groups, provided distraction, redirection, reality orientation, limit setting, positive reinforcement, and maintained Q 15 minute safety checks. Restraints/seclusion/emergency medication: N/A Justification of Continued Inpatient Treatment: Pt is LPS conserved and gravely disabled, pt is now stable and awaiting placement.
[2021-06-28 19:55] VITALS: BP 135/72
[2021-06-28] MEDS: traZODone 50mg tablet PO SCH (20:17)
--- NOTE | 2021-06-29 01:06 | NUR ---
Nursing Progress Note: Legal hold: LPS conserved Client on involuntary status for GD Report received from MARJAN Webster with use of SBAR Why are they here: Client was transported to [facility] by [employer] for disruptive behavior. According the medical record client has had multiple ED visits and several Inpatient Psych admits. Hx of wandering into traffic, trespassing, and disorderly conduct. She is currently homeless. Assessment What has happened this shift: Pt up active on unit. Watched a movie, interacted pleasantly with staff and other pts, ate snack in group room. No outbursts this shift. S/I, H/I: Pt denies A/VH: Pt denies Sleep: Asleep at this time ADL's: Independent Group attendance: NA Were meds taken: Yes Any med S/E: Pt c/o neck pain stiffness, uncertain if med related. Mental Status Exam Appearance: Petite overweight woman with missing teeth and shoulder length brown hair pulled back in a ponytail dressed in personal clothing. Eye contact: Good Behavior: Pleasant, cooperative, socializes with staff and peers. Speech: Clear, loud, talkative. Mood: Good Affect: Friendly, sociable Thought process: Linear Thought Content: She is focused on self care and on the holidays. Cognition: A&O X 3, some reality distortion as to her situation. Insight: Poor Judgment: Poor Interventions PRN's used: Tylenol Therapeutic interventions: 1:1 assessment, maintained a safe and supportive environment, provided clear and simple instructions, therapeutic conversation, active listening, medication administration/education/monitoring, provided ongoing education regarding handwashing r/t positive MRSA nares, encouraged pt to attend groups, provided distraction, redirection, reality orientation, limit setting, positive reinforcement, and maintained Q 15 minute safety checks. Restraints/seclusion/emergency medication: N/A Justification of Continued Inpatient Treatment: Pt is LPS conserved and gravely disabled, pt is now stable and awaiting placement.
[2021-06-29] MEDS: acetaminophen 325mg tablet PO PRN (03:51)
[2021-06-29 07:17] VITALS: BP 108/64
[2021-06-29] MEDS: oxcarbazepine 150mg tablet PO SCH ×2 (07:44→20:20)
[2021-06-29] MEDS: divalproex sod 125mg sprinkle cap PO SCH ×2 (07:44→20:19)
[2021-06-29] MEDS: quetiapine 100mg tablet PO SCH ×4 (07:44→20:19)
--- NOTE | 2021-06-29 16:21 | NUR ---
Nursing Progress Note: Legal hold: T-Con Client on involuntary status for GD Report received from OBED Chavez with use of SBAR. Why are they here: Pt. placed on 5150 for GD by [facility] and brought to [facility] as direct admit. Pt. is unable to access basic life necessities such as food, longterm, and clothing, and unable to take medications as prescribed. [facility] wants to pursue conservatorship. Assessment What has happened this shift:Received pt sitting up in the chair in her room waiting for breakfast. Pt cooperative with morning assessment. Reports BM yesterday. She is compliant with taking her medications. Pt observed later watching TV and listening to music. Pt thoughts are centered around her discharge and she is very happy and animated. S/I, H/I: Denies A/VH: Denies Sleep: Napped in the afternoon ADL's: Independent Group attendance: Yes Were meds taken: Yes Any med S/E: None observed or reported. Mental Status Exam Appearance: Clean but disheveled, unshaven, wearing personal clothing Eye contact: Fair Behavior: Spends most of the day with headphones on sitting in the chair alone in his room Speech: Clear, audible Mood: Euthymic Affect: Congruent with mood. Thought process: Linear. Thought Content: Circumstantial. Cognition: A&O X4 Insight: Fair Judgment: Fair Interventions PRN's used: None Therapeutic interventions: Provided 1:1 assessment with therapeutic communication with active listening, medication administration/education/monitoring, encouraged to come to meals and attend group, and maintained Q 15 minute safety checks. Restraints/seclusion/emergency medication: N/A Justification of Continued Inpatient Treatment: Patient is unable to formulate a discharge plan other than the situation that has landed him in acute care. Patient cannot make a safe reliable or reasonable discharge plan without third green party assistance.
[2021-06-29 19:00] VITALS: BP 150/85
[2021-06-29] MEDS: traZODone 50mg tablet PO SCH (20:20)
--- NOTE | 2021-06-30 03:15 | NUR ---
Nursing Progress Note: Legal hold: T-Con Client on involuntary status for GD Report received from OBED Webster with use of SBAR. Why are they here: Pt. placed on 5150 for GD by [facility] and brought to [facility] as direct admit. Pt. is unable to access basic life necessities such as food, longterm, and clothing, and unable to take medications as prescribed. [facility] wants to pursue conservatorship. Assessment What has happened this shift: Patient was found standing in doorway talking to other patients at beginning of shift. Patient is very excited about leaving and walked around saying goodbye to everyone. Patient participated in snack and took night medications. Patient took a shower and went to bed. S/I, H/I: Denies A/VH: Denies Sleep:See sleep assessment ADL's: Independent Group attendance: Yes Were meds taken: Yes Any med S/E: None observed or reported. Mental Status Exam Appearance: Clean but disheveled, unshaven, wearing personal clothing Eye contact: Fair Behavior: Spends most of the day with headphones on sitting in the chair alone in his room Speech: Clear, audible Mood: Euthymic Affect: Congruent with mood. Thought process: Linear. Thought Content: Circumstantial. Cognition: A&O X4 Insight: Fair Judgment: Fair Interventions PRN's used: None Therapeutic interventions: Provided 1:1 assessment with therapeutic communication with active listening, medication administration/education/monitoring, encouraged to come to meals and attend group, and maintained Q 15 minute safety checks. Restraints/seclusion/emergency medication: N/A Justification of Continued Inpatient Treatment: Patient is unable to formulate a discharge plan other than the situation that has landed him in acute care. Patient cannot make a safe reliable or reasonable discharge plan without third alliance party assistance.
[2021-06-30 08:00] VITALS: BP 116/76
[2021-06-30] MEDS: divalproex sod 125mg sprinkle cap PO SCH ×2 (08:35→20:06)
[2021-06-30] MEDS: quetiapine 100mg tablet PO SCH ×4 (08:35→20:06)
[2021-06-30] MEDS: oxcarbazepine 150mg tablet PO SCH ×2 (08:35→20:06)
--- NOTE | 2021-06-30 15:51 | NUR ---
Nursing Progress Note: Legal hold: T-Con Client on involuntary status for GD Report received from OBED Chavez with use of SBAR. Why are they here: Pt. placed on 5150 for GD by [facility] and brought to [facility] as direct admit.Pt. is unable to access basic life necessities such as food, fci, and clothing, and unable to take medications as prescribed. [facility] wants to pursue conservatorship. Assessment What has happened this shift: Received pt walking around in the halls, asking for coffee. She was cooperative with morning assessment. Reports regular BMs. She is compliant with taking medications. Pt observed sitting in the community room talking with another pt. Pt shared her thoughts of being discharged soon. She states, I dont know the day or date but I know it will happen soon. S/I, H/I: Denies A/VH: Denies Sleep: Napped in the afternoon ADL's: Independent Group attendance: Yes Were meds taken: Yes Any med S/E: None observed or reported. Mental Status Exam Appearance: Clean, wearing personal clothing, hair pulled back in a ponytail. Eye contact: Fair Behavior: Did her laundry, showered applied make-up, calm, visiting with peers Speech: Clear, audible Mood: Euthymic Affect: Congruent with mood. Thought process: Linear. Thought Content: Circumstantial. Cognition: A&O X3 Insight: Fair Judgment: Fair Interventions PRN's used: None Therapeutic interventions: Provided 1:1 assessment with therapeutic communication and active listening, medication administration/education/monitoring, encouraged to attend group, and maintained Q 15 minute safety checks. Restraints/seclusion/emergency medication: N/A Justification of Continued Inpatient Treatment: Patient is unable to formulate a discharge plan other than the situation that has landed him in acute care. Patient cannot make a safe reliable or reasonable discharge plan without third libertarian assistance.
[2021-06-30 19:00] VITALS: BP 115/86
[2021-06-30] MEDS: traZODone 50mg tablet PO SCH (20:06)
--- NOTE | 2021-07-01 01:10 | NUR ---
Nursing Progress Note: Alondra Legal hold: T-Con Client on involuntary status for GD Report received from Armand CLAY with use of SBAR. Why are they here: Pt. placed on 5150 for GD by [facility] and brought to [facility] as direct admit.Pt. is unable to access basic life necessities such as food, senior living, and clothing, and unable to take medications as prescribed. [facility] wants to pursue conservatorship. Assessment What has happened this shift: Received patient walking the hallways, smiling and greeting everyone that walked by. She is compliant with taking medications. Pt up for snacks. She stated she was tired and went to sleep. S/I, H/I: Denies A/VH: Denies Sleep: ADL's: Independent Group attendance: Yes Were meds taken: Yes Any med S/E: None observed or reported. Mental Status Exam Appearance: Clean, wearing personal clothing, hair pulled back in a ponytail. Eye contact: Fair Behavior: calm, cooperative, sleepy Speech: Clear, audible Mood: Euthymic Affect: Congruent with mood. Thought process: Linear. Thought Content: Circumstantial. Cognition: A&O X3 Insight: Fair Judgment: Fair Interventions PRN's used: None Therapeutic interventions: Provided 1:1 assessment with therapeutic communication and active listening, medication administration/education/monitoring, encouraged to attend group, and maintained Q 15 minute safety checks. Restraints/seclusion/emergency medication: N/A Justification of Continued Inpatient Treatment: Patient is unable to formulate a discharge plan other than the situation that has landed him in acute care. Patient cannot make a safe reliable or reasonable discharge plan without third libertarian assistance.
[2021-07-01 08:00] VITALS: BP 134/89
[2021-07-01] MEDS: oxcarbazepine 150mg tablet PO SCH ×2 (08:56→20:24)
[2021-07-01] MEDS: quetiapine 100mg tablet PO SCH ×4 (08:56→20:24)
[2021-07-01] MEDS: divalproex sod 125mg sprinkle cap PO SCH ×2 (08:57→20:24)
[2021-07-01] MEDS: acetaminophen 325mg tablet PO PRN (10:05)
--- NOTE | 2021-07-01 15:44 | NUR ---
Nursing Progress Note: Legal hold: T-Con Client on involuntary status for GD Report received from OBED Garcia with use of SBAR. Why are they here: Pt. placed on 5150 for GD by [facility] and brought to [facility] as direct admit.Pt. is unable to access basic life necessities such as food, intermediate, and clothing, and unable to take medications as prescribed. [facility] wants to pursue conservatorship. Assessment What has happened this shift: Received pt walking around in the halls, greeting staff and smiling. Pt observed standing in the doorway of another pt room, conversing and laughing. Pt shared thoughts and excitemt over leaving, "soon." S/I, H/I: Denies A/VH: Denies Sleep: Napped in the afternoon ADL's: Independent Group attendance: Yes Were Meds taken: Yes Any med S/E: None observed or reported. Mental Status Exam Appearance: She is wearing the same clothes as yesterday. Eye contact: Fair Behavior: Pt has a sore neck today so has spent some time in bed with ice on it. Speech: Clear, audible Mood: Euthymic Affect: Congruent with mood. Thought process: Linear. Thought Content: Circumstantial. Cognition: A&O X3 Insight: Fair Judgment: Fair Interventions PRN's used: Tylenol Therapeutic interventions: Provided 1:1 assessment with therapeutic communication and active listening, provided ice for her neck, medication administration/education/monitoring, encouraged to attend group, and maintained Q 15 minute safety checks. Restraints/seclusion/emergency medication: N/A Justification of Continued Inpatient Treatment: Patient is unable to formulate a discharge plan other than the situation that has landed him in acute care. Patient cannot make a safe reliable or reasonable discharge plan without third constitution party assistance.
[2021-07-01 19:32] VITALS: BP 176/90
[2021-07-01] MEDS: traZODone 50mg tablet PO SCH (20:24)
--- NOTE | 2021-07-02 04:00 | NUR ---
Nursing Progress Note: Legal hold: Conserved Client on involuntary status for GD Report received from MARJAN Acuna with use of SBAR. Why are they here: Pt. placed on 5150 for GD by [place] [facility] and brought to [facility] as direct admit. Pt. is unable to access basic life necessities such as food, correction, and clothing, and unable to take medications as prescribed. [facility] wants to pursue conservatorship. Assessment What has happened this shift: The patient was in the hallway at shift change. She has been in good mood lately. The patient has learned a lot while here, and she seems to now have a pretty good grasp on her emotions, and how she needs to act going forward. She speaks positively now versus negativity. She should do well moving forward. Patient participated in snack time, and takes HS meds without a problem. S/I, H/I: Denies A/VH: Denies Sleep:See sleep assessment ADL's: Independent Group attendance: No Were meds taken: Yes Any med S/E: None observed or reported. Mental Status Exam Appearance: Clean but disheveled, unshaven, wearing personal clothing Eye contact: Fair Behavior: Talkative, happy Speech: Clear, audible Mood: Euthymic Affect: Congruent with mood. Thought process: Linear. Thought Content: Circumstantial. Cognition: A&O X4 Insight: Fair Judgment: Fair Interventions PRN's used: None Therapeutic interventions: Provided 1:1 assessment with therapeutic communication with active listening, medication administration/education/monitoring, encouraged to come to meals and attend group, and maintained Q 15 minute safety checks. Restraints/seclusion/emergency medication: N/A Justification of Continued Inpatient Treatment: Patient is unable to formulate a discharge plan other than the situation that has landed him in acute care. Patient cannot make a safe reliable or reasonable discharge plan without third constitution party assistance.
[2021-07-02] MEDS: divalproex sod 125mg sprinkle cap PO SCH ×2 (07:59→20:39)
[2021-07-02] MEDS: oxcarbazepine 150mg tablet PO SCH ×2 (07:59→20:39)
[2021-07-02] MEDS: quetiapine 100mg tablet PO SCH ×4 (07:59→20:39)
[2021-07-02 08:00] VITALS: BP 132/64
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
[2021-07-02 20:00] VITALS: BP 132/81
[2021-07-02] MEDS: traZODone 50mg tablet PO SCH (20:39)
[2021-07-02] MEDS: acetaminophen 325mg tablet PO PRN (21:28)
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
[2021-07-03 07:17] VITALS: BP 131/77
[2021-07-03] MEDS: divalproex sod 125mg sprinkle cap PO SCH (07:33)
[2021-07-03] MEDS: oxcarbazepine 150mg tablet PO SCH (07:34)
[2021-07-03] MEDS: quetiapine 100mg tablet PO SCH ×2 (07:34→13:42)
--- NOTE | 2021-07-03 09:09 | NUR ---
DISCHARGE 1:30 PM TODAY Alondra has been accepted at [facility]. She will get picked up by [facility] at 1:30 PM to transport her. All necessary documents for admission have been sent to [place]. REJI Rome
[2021-07-03] MEDS ORDERED: TRAZ-251 PO (13:39)
[2021-07-03] MEDS ORDERED: QUET100T34 PO ×2 (13:39)
[2021-07-03] MEDS ORDERED: DIVA-81 PO (13:39)
[2021-07-03] MEDS ORDERED: OXCA150T14 PO (13:39)
--- NOTE | 2021-07-03 13:49 | NUR ---
Discharge Note: Pt. discharged to [facility] with transport provided @5071, she left [facility] with all her belongings and MRSA swab was completed.
== END 2021-07-03 13:45 | disposition home or self-care (01) | DRG 885 ==
LOC: ADULT MH 17:40
PROVIDERS: ADMIT Psychiatry & Neurology Psychiatry; ATTEND Psychiatry & Neurology Psychiatry
DX: F25.9 Schizoaffective disorder, unspecified (principal); E87.1 Hypo-osmolality and hyponatremia; F12.90 Cannabis use, unspecified, uncomplicated; F17.210 Nicotine dependence, cigarettes, uncomplicated; Z20.822 Contact with and (suspected) exposure to COVID-19; D64.9 Anemia, unspecified; M54.2 Cervicalgia; M54.9 Dorsalgia, unspecified; F41.9 Anxiety disorder, unspecified; F31.9 Bipolar disorder, unspecified; Z83.3 Family history of diabetes mellitus; Z59.00 Homelessness unspecified; Z88.8 Allergy status to other drugs, medicaments and biological substances; Z79.899 Other long term (current) drug therapy; Z56.0 Unemployment, unspecified; Z71.6 Tobacco abuse counseling; G25.0 Essential tremor; Z78.1 Physical restraint status
CPT/HCPCS: 36415; 71045; 80048; 80053; 80061; 80164; 80183; 81001; 82140; 82272; 83036; 83605; 84439; 84443; 84480; 85007; 85025; 87040; 87077; 87081; 87088; 87186; 87635; 91300; J1200; J1630; J2060; J3486; J3490; Q0163

== ENCOUNTER 2023-04-01 14:22 | Emergency (ER) | payer MEDICARE, MEDICAID ==
[~2023-04-01] VITALS: Ht 149.9 cm; Wt 85.3 kg
[~2023-04-01 14:22] MED LIST: ATOR10TA70 PO; BUSP5TAB3 PO; CLON-527 PO; DEXT15DR7 EACHEYE; DIVA250T4 PO; MULT-1085 PO; QUET50TA24 PO; TRAZ150T78 PO
[2023-04-01 14:52] LABS: BASOPHILS % (AUTO) 0.8 % (0-1); EOSINOPHILS # (AUTO) 0.4 X10'3 (0-0.9); EOSINOPHILS % (AUTO) 8.2 % (0-6); LYMPHOCYTES # (AUTO) 1.4 X10'3 (1.1-4.8); LYMPHOCYTES % (AUTO) 28.2 % (21-51); MEAN CORPUSCULAR HEMOGLOBIN 31.4 PG (27.0-31.0); MEAN CORPUSCULAR HGB CONC 33.5 g/dL (33.0-36.5); MEAN CORPUSCULAR VOLUME 93.7 FL (78-98); MEAN PLATELET VOLUME 7.5 FL (7.4-10.4); MONOCYTES # (AUTO) 0.6 X10'3 (0-0.9); MONOCYTES % (AUTO) 12.4 % (2-12); NEUTROPHILS # (AUTO) 2.4 X10'3 (1.8-7.7); NEUTROPHILS % (AUTO) 50.4 % (42-75); PLATELET COUNT 260 X10'3 (140-440); RED BLOOD COUNT 3.84 X10'6 (4.20-5.60); RED CELL DISTRIBUTION WIDTH 13.7 % (11.5-14.5); WHITE BLOOD COUNT 4.8 X10'3 (4.5-11.0)
[2023-04-01 15:07] LABS: ALANINE AMINOTRANSFERASE 19 U/L (12-78); ALBUMIN 3.3 G/DL (3.4-5.0); ALBUMIN/GLOBULIN RATIO 0.9 (1.1-1.5); ALKALINE PHOSPHATASE 111 IU/L (46-116); ANION GAP 3 (8-16); ASPARTATE AMINO TRANSFERASE 13 U/L (10-37); BILIRUBIN,TOTAL 0.2 MG/DL (0.1-1.0); BLOOD UREA NITROGEN 8 MG/DL (7-18); BUN/CREATININE RATIO 13.6 (10.0-20.0); CHLORIDE 86 MMOL/L (99-107); CREATININE 0.59 MG/DL (0.40-0.90); GLUCOSE 96 MG/DL (70-104); LIPASE < 50 U/L (73-393); POTASSIUM 4.5 MMOL/L (3.5-5.1); SODIUM 123 MMOL/L (135-145); TOTAL CARBON DIOXIDE 33.6 MMOL/L (24-32); TOTAL PROTEIN 7.1 G/DL (6.4-8.2); eGFR > 90 ML/MIN
[2023-04-01 15:13] VITALS: TEMP 97.9
[2023-04-01 16:04] LABS: URINE HCG NEGATIVE (NEG)
[2023-04-01] MEDS ORDERED: normal saline 1000ML IV soln IVB ONE (16:05)
[2023-04-01 16:11] LABS: BILIRUBIN,URINE NEGATIVE (Neg); CLARITY,URINE CLOUDY (Clear); COLOR,URINE YELLOW (Yellow); GLUCOSE, URINE NEGATIVE (Neg); KETONES,URINE NEGATIVE (Neg); LEUKOCYTE ESTERASE ,URINE SMALL (Neg); NITRITES, URINE POSITIVE (Neg); OCCULT BLOOD,URINE NEGATIVE (Neg); PH,URINE 7.5 (4.8-8.0); PROTEIN,URINE NEGATIVE (Neg)
[2023-04-01 16:12] LABS: UA COLLECTION TYPE VOIDED
[2023-04-01 16:32] LABS: SQUAMOUS EPITHELIAL CELL,UR FEW /LPF (FEW)
[2023-04-01 16:33] LABS: BACTERIA,URINE 4+ /HPF (Neg); RBC,URINE 0-2 /HPF (0-2); WBC,URINE 0-4 /HPF (0-4)
--- NOTE | 2023-04-01 16:33 | NUR ---
Conservator for patient [facility] after hours phone is [phone] for updates and if patient gets discharge.
[2023-04-01 16:34] LABS: AMORPHOUS PHOSPHATES 1+
[2023-04-01] MEDS ORDERED: iohexol 300mg/ml 100ml inj. ONE (16:34)
--- NOTE | 2023-04-01 17:09 | NUR ---
patient to CT
[2023-04-01] MEDS ORDERED: lactulose 20gm/30ml cup PO ONE (18:10)
[2023-04-01 20:30] VITALS: BP 180/82; PULSE 74; RESP 18; O2SAT 91
== END 2023-04-01 20:32 | disposition home or self-care (01) ==
LOC: ER 14:23
DX: K59.00 Constipation, unspecified (principal); E78.00 Pure hypercholesterolemia, unspecified; I10 Essential (primary) hypertension; F31.9 Bipolar disorder, unspecified; F20.9 Schizophrenia, unspecified; Z59.00 Homelessness unspecified; Z88.8 Allergy status to other drugs, medicaments and biological substances; Z79.899 Other long term (current) drug therapy
CPT/HCPCS: 36415; 74177; 80053; 81001; 81025; 83690; 84145; 85025; 87088; 87186; 99285; J3490; J7030; Q9967; 87077

== ENCOUNTER 2023-12-08 10:30 | Inpatient (IN) | payer MEDICARE, MEDICAID ==
[~2023-12-08] VITALS: Ht 152.4 cm; Wt 90.0 kg
[2023-12-08 10:58] LABS: ABG BASE EXCESS 2.2 mmol/L (-2.0-2.0); ABG HCO3 26.7 mmol/L (22.0-26.0); ABG PCO2 (T) 45.8 mmHg (32.0-45.0); ABG PH (T) 7.394 (7.350-7.450); ABG PO2 (T) 90.9 mmHg (75.0-100.0); ALLEN'S TEST POSITIVE; FCOHb 0.6 % (0.0-3.9); FLOW 7 L/min; FMetHb 0.3 % (0.0-1.5); FO2Hb 94.1 % (94-97); MODE NASAL CANNULA; PATIENT TEMPERATURE 39.7; TOTAL HEMOGLOBIN 12.8 G/dl (12.0-16.0)
[2023-12-08] MEDS: normal saline 1000ML IV soln IV ONE (11:06)
[2023-12-08 11:09] LABS: BASOPHILS # (AUTO) 0.2 X10'3 (0-0.2); EOSINOPHILS % (AUTO) 0 % (0-6); HEMATOCRIT 35.1 % (35.0-45.0); HEMOGLOBIN 11.9 g/dl (12.0-16.0); LYMPHOCYTES # (AUTO) 0.8 X10'3 (1.1-4.8); LYMPHOCYTES % (AUTO) 4.5 % (21-51); MEAN CORPUSCULAR HEMOGLOBIN 31.8 PG (27.0-31.0); MEAN CORPUSCULAR VOLUME 93.5 FL (78-98); MEAN PLATELET VOLUME 7.8 FL (7.4-10.4); MONOCYTES # (AUTO) 2.1 X10'3 (0-0.9); MONOCYTES % (AUTO) 12.4 % (2-12); NEUTROPHILS # (AUTO) 13.9 X10'3 (1.8-7.7); NEUTROPHILS % (AUTO) 82.1 % (42-75); PLATELET COUNT 218 X10'3 (140-440); RED BLOOD COUNT 3.75 X10'6 (4.20-5.60); RED CELL DISTRIBUTION WIDTH 14.1 % (11.5-14.5); WHITE BLOOD COUNT 16.9 X10'3 (4.5-11.0)
[2023-12-08 11:22] LABS: ALANINE AMINOTRANSFERASE 19 U/L (12-78); ALBUMIN 3.2 G/DL (3.4-5.0); ALBUMIN/GLOBULIN RATIO 0.8 (1.1-1.5); ALKALINE PHOSPHATASE 86 IU/L (46-116); ANION GAP 10 (8-16); ASPARTATE AMINO TRANSFERASE 11 U/L (10-37); BILIRUBIN,TOTAL 0.3 MG/DL (0.1-1.0); BLOOD UREA NITROGEN 10 MG/DL (7-18); CALCIUM 8.9 MG/DL (8.5-10.1); CHLORIDE 88 MMOL/L (99-107); CREATININE 0.91 MG/DL (0.40-0.90); GLUCOSE 158 MG/DL (70-104); POTASSIUM 4.5 MMOL/L (3.5-5.1); SODIUM 126 MMOL/L (135-145); TOTAL CARBON DIOXIDE 28.2 MMOL/L (24-32); TOTAL PROTEIN 7.4 G/DL (6.4-8.2); eCRCL 45 ML/MIN; eGFR 62 ML/MIN
[2023-12-08] MEDS: methylPREDNISolone sod succ 125mg/2ml vial IV ONE (11:26)
[2023-12-08 11:31] LABS: BILIRUBIN,DIRECT 0.1 MG/DL (0-0.3); C-REACTIVE PROTEIN 14.81 MG/DL (0.0-0.5); PRO BRAIN NATRIURETIC PEPTIDE 398 PG/ML (0-125); VALPROATE 80 UG/ML (50-100)
[2023-12-08 11:34] LABS: ETHANOL < 10 MG/DL (<10)
[2023-12-08] MEDS ORDERED: iohexol 350MG/ML 100ml bottle IV ONE (11:35)
[2023-12-08] MEDS: albuterol 2.5 MG/3 ML nebule NEB ONE (11:54)
[2023-12-08 11:55] VITALS: PULSE 101; RESP 18; O2SAT 96
[2023-12-08 12:05] VITALS: PULSE 100; RESP 18; O2SAT 94
[2023-12-08] MEDS: CefTRIAXone 2gm/D5W 50ml BAG 50 ML IV ONE (12:16)
[2023-12-08] MEDS: MESSAGE TO PHARMACY PO SCH (12:25)
[2023-12-08 12:36] LABS: TOTAL CELLS COUNTED 100
[2023-12-08 12:37] LABS: PLATELET ESTIMATE NORMAL
[2023-12-08 12:38] LABS: LARGE PLATELETS FEW
[2023-12-08 12:38] LABS: URINE AMPHETAMINE SCREEN NEGATIVE (Neg); URINE BARBITUATE SCREEN NEGATIVE (Neg); URINE BENZODIAZEPINES SCREEN NEGATIVE (Neg); URINE CANNABINOID SCREEN NEGATIVE (Neg); URINE COCAINE SCREEN NEGATIVE (Neg); URINE METHADONE SCREEN NEGATIVE (Neg); URINE PHENCYCLIDINE SCREEN NEGATIVE (Neg)
[2023-12-08 12:39] LABS: ANISOCYTOSIS 1+; STOMATOCYTES 1+
[2023-12-08 12:45] LABS: BILIRUBIN,URINE NEGATIVE (Neg); CLARITY,URINE CLOUDY (Clear); COLOR,URINE YELLOW (Yellow); GLUCOSE, URINE NEGATIVE (Neg); KETONES,URINE TRACE mg/dl (Neg); LEUKOCYTE ESTERASE ,URINE NEGATIVE (Neg); NITRITES, URINE NEGATIVE (Neg); OCCULT BLOOD,URINE SMALL (Neg); PROTEIN,URINE TRACE mg/dl (Neg); UROBILINOGEN,URINE 0.2 E.U/dL (0.2-1.0)
[2023-12-08] MEDS: azithromycin/NS 500mg/250ml 250 ML IV ONE (13:01)
[2023-12-08 13:04] LABS: UA COLLECTION TYPE STRAIGHT CATH
[2023-12-08 13:07] LABS: BACTERIA,URINE 4+ /HPF (Neg); MUCUS STRANDS NONE SEEN /LPF (Neg); SQUAMOUS EPITHELIAL CELL,UR NONE SEEN /LPF (FEW); WBC,URINE 20-30 /HPF (0-4)
[2023-12-08] MEDS ORDERED: magnesium 2GM in 50ml NS 50 ML IV PRN (13:20)
[2023-12-08] MEDS ORDERED: ondansetron/PF 4mg/2ml inj IV PRN (13:20)
[2023-12-08] MEDS ORDERED: potassium Cl 20 mEq SR tablet PO PRN ×2 (13:20)
[2023-12-08] MEDS ORDERED: magnesium 4gm in 100ml NS 100 ML IV PRN (13:20)
[2023-12-08] MEDS ORDERED: magnesium Cl slow-release 64mg tablet PO PRN (13:20)
[2023-12-08] MEDS ORDERED: potassium Cl 40MEQ/1/2NS 520ml 520 ML IV PRN (13:20)
[2023-12-08] MEDS ORDERED: albuterol 2.5 MG/3 ML nebule NEB PRN (13:25)
[2023-12-08] MEDS ORDERED: acetaminophen 325mg tablet PO SCH (16:00)
[2023-12-08] MEDS ORDERED: FURO20TA4 PO (16:41)
[2023-12-08] MEDS ORDERED: METF-438 PO (16:41)
[2023-12-08] MEDS ORDERED: OLAN20TA34 PO (16:41)
[2023-12-08] MEDS ORDERED: OXCA300T16 PO (16:41)
[2023-12-08] MEDS ORDERED: dextrose 50%-water 50ml dispensing syringe IV PRN ×2 (18:15)
[2023-12-08] MEDS ORDERED: glucagon, human recombinant 1mg kit SUBCUT PRN (18:15)
[2023-12-08] MEDS ORDERED: DEXTROSE 15 GM of carb/4 tabs (each vial/BOTTLE has 4 tablets) PO PRN ×2 (18:15)
[2023-12-08] MEDS ORDERED: ACET325C6 PO (19:02)
[2023-12-08] MEDS ORDERED: ICOS1CAP2 PO (19:02)
[2023-12-08] MEDS ORDERED: BENZ0.5T3 PO (19:02)
[2023-12-08] MEDS ORDERED: SODI1TAB2 PO (19:02)
[2023-12-08] MEDS ORDERED: BISA-155 PO (19:02)
[2023-12-08] MEDS: normal saline 1000ml 1,000 ML IV SCH (19:36)
[2023-12-08] MEDS: methylPREDNISolone sod succ 125mg/2ml vial IV SCH (19:38)
[2023-12-08] MEDS: heparin, porcine 5000 units/ml vial SQ SCH (19:40)
[2023-12-08] MEDS: INSULIN LISPRO 100 UNIT/ML INSULN.PEN MULTI-DOSE SQ SCH (21:00)
[2023-12-08 21:02] VITALS: PULSE 87; RESP 18; O2SAT 94
[2023-12-08 23:00] VITALS: BP 85/51; PULSE 82; RESP 18; TEMP 97.8; O2SAT 93
[2023-12-09] VITALS (8 sets, daily range): BP systolic 103–140; BP diastolic 59–70; PULSE 64–84; RESP 12–22; TEMP 96.9–98.5; O2SAT 94–98
[2023-12-09 07:08] LABS: BASOPHILS % (AUTO) 0 % (0-1); EOSINOPHILS % (AUTO) 0 % (0-6); HEMATOCRIT 32.7 % (35.0-45.0); HEMOGLOBIN 10.9 g/dl (12.0-16.0); LYMPHOCYTES # (AUTO) 0.5 X10'3 (1.1-4.8); LYMPHOCYTES % (AUTO) 2.8 % (21-51); MEAN CORPUSCULAR HEMOGLOBIN 31.5 PG (27.0-31.0); MEAN CORPUSCULAR HGB CONC 33.2 g/dL (33.0-36.5); MEAN CORPUSCULAR VOLUME 94.7 FL (78-98); MEAN PLATELET VOLUME 8.2 FL (7.4-10.4); MONOCYTES # (AUTO) 1.1 X10'3 (0-0.9); MONOCYTES % (AUTO) 5.6 % (2-12); NEUTROPHILS # (AUTO) 18.1 X10'3 (1.8-7.7); NEUTROPHILS % (AUTO) 91.6 % (42-75); PLATELET COUNT 217 X10'3 (140-440); RED BLOOD COUNT 3.45 X10'6 (4.20-5.60); RED CELL DISTRIBUTION WIDTH 14.2 % (11.5-14.5); WHITE BLOOD COUNT 19.8 X10'3 (4.5-11.0)
[2023-12-09 07:14] LABS: ALANINE AMINOTRANSFERASE 17 U/L (12-78); ALBUMIN 2.5 G/DL (3.4-5.0); ALBUMIN/GLOBULIN RATIO 0.6 (1.1-1.5); ALKALINE PHOSPHATASE 73 IU/L (46-116); ANION GAP 2 (8-16); ASPARTATE AMINO TRANSFERASE 13 U/L (10-37); BILIRUBIN,TOTAL 0.2 MG/DL (0.1-1.0); BLOOD UREA NITROGEN 14 MG/DL (7-18); CALCIUM 8.4 MG/DL (8.5-10.1); CHLORIDE 98 MMOL/L (99-107); GLUCOSE 159 MG/DL (70-104); POTASSIUM 4.2 MMOL/L (3.5-5.1); SODIUM 132 MMOL/L (135-145); TOTAL CARBON DIOXIDE 31.7 MMOL/L (24-32); TOTAL PROTEIN 6.8 G/DL (6.4-8.2); eCRCL 83 ML/MIN; eGFR > 90 ML/MIN
[2023-12-09] MEDS: INSULIN LISPRO 100 UNIT/ML INSULN.PEN MULTI-DOSE SQ SCH ×3 (07:30→12:30)
[2023-12-09] MEDS: CefTRIAXone 2gm/D5W 50ml BAG 50 ML IV SCH (08:12)
[2023-12-09] MEDS: azithromycin/NS 500mg/250ml 250 ML IV SCH (10:38)
[2023-12-09] MEDS ORDERED: albuterol 2.5 MG/3 ML nebule NEB PRN (12:05)
[2023-12-09 13:11] LABS: HEMOGLOBIN A1C 6.1 % (4.5-6.2)
[2023-12-09] MEDS: acetaminophen 325mg tablet PO PRN (21:55)
[2023-12-10] VITALS (13 sets, daily range): BP systolic 155–164; BP diastolic 69–85; PULSE 60–89; RESP 14–22; TEMP 97.1–98.2; O2SAT 95–98
[2023-12-10 07:10] LABS: BASOPHILS % (AUTO) 0.1 % (0-1); EOSINOPHILS % (AUTO) 0 % (0-6); HEMOGLOBIN 10.8 g/dl (12.0-16.0); LYMPHOCYTES # (AUTO) 0.8 X10'3 (1.1-4.8); LYMPHOCYTES % (AUTO) 6.7 % (21-51); MEAN CORPUSCULAR HGB CONC 33.7 g/dL (33.0-36.5); MEAN CORPUSCULAR VOLUME 95.1 FL (78-98); MEAN PLATELET VOLUME 8.2 FL (7.4-10.4); MONOCYTES # (AUTO) 0.6 X10'3 (0-0.9); MONOCYTES % (AUTO) 4.5 % (2-12); NEUTROPHILS # (AUTO) 11.3 X10'3 (1.8-7.7); NEUTROPHILS % (AUTO) 88.7 % (42-75); PLATELET COUNT 225 X10'3 (140-440); RED BLOOD COUNT 3.36 X10'6 (4.20-5.60); RED CELL DISTRIBUTION WIDTH 13.7 % (11.5-14.5); WHITE BLOOD COUNT 12.7 X10'3 (4.5-11.0)
[2023-12-10 07:27] LABS: ALANINE AMINOTRANSFERASE 92 U/L (12-78); ALBUMIN 2.8 G/DL (3.4-5.0); ALBUMIN/GLOBULIN RATIO 0.6 (1.1-1.5); ALKALINE PHOSPHATASE 91 IU/L (46-116); ANION GAP 3 (8-16); ASPARTATE AMINO TRANSFERASE 86 U/L (10-37); BILIRUBIN,TOTAL 0.2 MG/DL (0.1-1.0); BLOOD UREA NITROGEN 12 MG/DL (7-18); BUN/CREATININE RATIO 23.5 (10.0-20.0); CALCIUM 8.9 MG/DL (8.5-10.1); CHLORIDE 93 MMOL/L (99-107); CREATININE 0.51 MG/DL (0.40-0.90); GLUCOSE 175 MG/DL (70-104); POTASSIUM 4.8 MMOL/L (3.5-5.1); SODIUM 126 MMOL/L (135-145); TOTAL CARBON DIOXIDE 30.1 MMOL/L (24-32); TOTAL PROTEIN 7.2 G/DL (6.4-8.2); eCRCL 81 ML/MIN; eGFR > 90 ML/MIN
[2023-12-10] MEDS: albuterol 2.5 MG/3 ML nebule NEB SCH (13:57)
[2023-12-10] MEDS: temazepam 15mg capsule PO PRN (23:42)
[2023-12-11] VITALS (10 sets, daily range): BP systolic 155–196; BP diastolic 74–104; PULSE 58–89; RESP 1–20; TEMP 97.6–98.7; O2SAT 90–97
[2023-12-11 06:02] LABS: BASOPHILS % (AUTO) 0.1 % (0-1); EOSINOPHILS % (AUTO) 0 % (0-6); HEMATOCRIT 31.6 % (35.0-45.0); HEMOGLOBIN 10.7 g/dl (12.0-16.0); LYMPHOCYTES # (AUTO) 0.6 X10'3 (1.1-4.8); LYMPHOCYTES % (AUTO) 8.4 % (21-51); MEAN CORPUSCULAR HEMOGLOBIN 32.3 PG (27.0-31.0); MEAN CORPUSCULAR HGB CONC 33.9 g/dL (33.0-36.5); MEAN CORPUSCULAR VOLUME 95.2 FL (78-98); MEAN PLATELET VOLUME 7.8 FL (7.4-10.4); MONOCYTES # (AUTO) 0.5 X10'3 (0-0.9); NEUTROPHILS # (AUTO) 6.6 X10'3 (1.8-7.7); NEUTROPHILS % (AUTO) 85.5 % (42-75); PLATELET COUNT 247 X10'3 (140-440); RED BLOOD COUNT 3.32 X10'6 (4.20-5.60); RED CELL DISTRIBUTION WIDTH 14.2 % (11.5-14.5); WHITE BLOOD COUNT 7.8 X10'3 (4.5-11.0)
[2023-12-11 06:21] LABS: ALANINE AMINOTRANSFERASE 91 U/L (12-78); ALBUMIN 2.8 G/DL (3.4-5.0); ALBUMIN/GLOBULIN RATIO 0.7 (1.1-1.5); ALKALINE PHOSPHATASE 82 IU/L (46-116); ANION GAP 6 (8-16); ASPARTATE AMINO TRANSFERASE 33 U/L (10-37); BILIRUBIN,TOTAL 0.1 MG/DL (0.1-1.0); BLOOD UREA NITROGEN 11 MG/DL (7-18); CALCIUM 8.9 MG/DL (8.5-10.1); CHLORIDE 98 MMOL/L (99-107); CREATININE 0.55 MG/DL (0.40-0.90); GLUCOSE 190 MG/DL (70-104); POTASSIUM 4.4 MMOL/L (3.5-5.1); SODIUM 134 MMOL/L (135-145); TOTAL CARBON DIOXIDE 30.1 MMOL/L (24-32); TOTAL PROTEIN 7.1 G/DL (6.4-8.2); eCRCL 75 ML/MIN; eGFR > 90 ML/MIN
[2023-12-11] MEDS ORDERED: AMOX-580 PO (13:40)
[2023-12-11] MEDS ORDERED: ALBU2.5V7 NEB (13:40)
[2023-12-11] MEDS ORDERED: METF-1203 PO (13:40)
[2023-12-11] MEDS: amLODIPine 5mg tablet PO SCH (23:56)
[2023-12-12 01:48] VITALS: BP 198/72; PULSE 60; RESP 16; TEMP 98.2; O2SAT 97
[2023-12-12] MEDS: hydrALAZINE 20mg/ml inj. IV PRN (02:11)
[2023-12-12 03:19] VITALS: BP 171/82
[2023-12-12 06:56] LABS: BASOPHILS % (AUTO) 0.3 % (0-1); EOSINOPHILS % (AUTO) 0 % (0-6); HEMATOCRIT 37.3 % (35.0-45.0); HEMOGLOBIN 12.3 g/dl (12.0-16.0); LYMPHOCYTES # (AUTO) 0.9 X10'3 (1.1-4.8); LYMPHOCYTES % (AUTO) 10.4 % (21-51); MEAN CORPUSCULAR HEMOGLOBIN 31.3 PG (27.0-31.0); MEAN CORPUSCULAR HGB CONC 33.1 g/dL (33.0-36.5); MEAN CORPUSCULAR VOLUME 94.8 FL (78-98); MONOCYTES # (AUTO) 0.7 X10'3 (0-0.9); MONOCYTES % (AUTO) 7.3 % (2-12); NEUTROPHILS # (AUTO) 7.4 X10'3 (1.8-7.7); PLATELET COUNT 286 X10'3 (140-440); RED BLOOD COUNT 3.93 X10'6 (4.20-5.60); WHITE BLOOD COUNT 9.1 X10'3 (4.5-11.0)
[2023-12-12 07:00] VITALS: BP 180/92; PULSE 67; RESP 19; TEMP 98.2; O2SAT 95
[2023-12-12 07:03] VITALS: PULSE 62; RESP 20; O2SAT 95
[2023-12-12 07:08] LABS: ALANINE AMINOTRANSFERASE 83 U/L (12-78); ALBUMIN 3.1 G/DL (3.4-5.0); ALBUMIN/GLOBULIN RATIO 0.7 (1.1-1.5); ALKALINE PHOSPHATASE 89 IU/L (46-116); ANION GAP 7 (8-16); ASPARTATE AMINO TRANSFERASE 19 U/L (10-37); BILIRUBIN,TOTAL 0.3 MG/DL (0.1-1.0); BLOOD UREA NITROGEN 11 MG/DL (7-18); BUN/CREATININE RATIO 21.2 (10.0-20.0); CALCIUM 9.4 MG/DL (8.5-10.1); CHLORIDE 95 MMOL/L (99-107); CREATININE 0.52 MG/DL (0.40-0.90); GLUCOSE 168 MG/DL (70-104); POTASSIUM 4.1 MMOL/L (3.5-5.1); SODIUM 135 MMOL/L (135-145); TOTAL CARBON DIOXIDE 33.3 MMOL/L (24-32); TOTAL PROTEIN 7.5 G/DL (6.4-8.2); eCRCL 80 ML/MIN; eGFR > 90 ML/MIN
[2023-12-12 09:57] LABS: TOTAL CELLS COUNTED 100
[2023-12-12 09:58] LABS: PLATELET ESTIMATE NORMAL
[2023-12-12 11:59] VITALS: BP 194/81; PULSE 63; RESP 18; TEMP 98.1; O2SAT 93
[2023-12-12 12:53] VITALS: BP 154/87
== END 2023-12-12 13:09 | disposition home or self-care (01) | DRG 871 ==
LOC: ER 10:30 → ED HOLD 13:21 → EDBEDREQ 20:56 → PCU 3S 22:46
PROVIDERS: ADMIT Internal Medicine; ATTEND Internal Medicine
PROC: B32T1ZZ Computerized Tomography (CT Scan) of Left Pulmonary Artery using Low Osmolar Contrast (ICD-10-PCS; principal; 2023-12-08)
PROC: B3201ZZ Computerized Tomography (CT Scan) of Thoracic Aorta using Low Osmolar Contrast (ICD-10-PCS; 2023-12-08)
PROC: B32S1ZZ Computerized Tomography (CT Scan) of Right Pulmonary Artery using Low Osmolar Contrast (ICD-10-PCS; 2023-12-08)
DX: A41.9 Sepsis, unspecified organism (principal); G93.41 Metabolic encephalopathy; J18.9 Pneumonia, unspecified organism; J96.21 Acute and chronic respiratory failure with hypoxia; E87.1 Hypo-osmolality and hyponatremia; M48.54XA Collapsed vertebra, not elsewhere classified, thoracic region, initial encounter for fracture; D64.9 Anemia, unspecified; Z20.822 Contact with and (suspected) exposure to COVID-19; F25.9 Schizoaffective disorder, unspecified; E78.00 Pure hypercholesterolemia, unspecified; I10 Essential (primary) hypertension; F41.9 Anxiety disorder, unspecified; F31.9 Bipolar disorder, unspecified; R65.20 Severe sepsis without septic shock; E11.9 Type 2 diabetes mellitus without complications; Z88.8 Allergy status to other drugs, medicaments and biological substances; Z79.84 Long term (current) use of oral hypoglycemic drugs; Z79.899 Other long term (current) drug therapy
CPT/HCPCS: 36415; 36600; 70450; 71045; 71275; 80048; 80053; 80076; 80164; 80305; 80320; 81001; 82803; 82948; 83036; 83605; 83880; 84145; 84484; 85007; 85018; 85025; 86140; 87040; 87077; 87088; 87186; 87502; 87503; 87811; 93005; 94640; 94760; 97110; 97161; 97530; 99285; A4615; C1758; G0378; J0360; J0456; J0696; J1644; J1815; J2919; J3490; J7030; Q9967